=== PATIENT | male | born 1955 | race Caucasian/White ===

== ENCOUNTER 2021-05-07 10:54 | Day surgery (SDC) | payer BC, SELFPAY ==
[2021-05-07 11:21] VITALS: BP 146/100; PULSE 111; RESP 18; TEMP 36.1; O2SAT 95
--- NOTE | 2021-05-07 11:25 | ED.GENADULT ---
HPI - General Adult General Chief complaint: Unspecified Stated complaint: Swelling in throat Time Seen by Provider: 05/07/21 11:24 Source: patient Mode of arrival: ambulatory Limitations: no limitations History of Present Illness HPI narrative: Patient is a 66-year-old male with a history of hypertension, acid reflux, esophageal stricture, who presents for evaluation of inability to tolerate p.o. intake. Patient states that symptoms began yesterday, states that he did not take his antiacid, ate spicy food and then had an episode of burping/belching. Since that time, patient has tried to drink water and any liquids and has been unable to because he is unable to swallow. States that soon as he swallows any liquids or solids it comes back up. Patient denies any dysphagia. He denies any chest pain. No shortness of breath. No fever or chills. Patient states he has a history of this in the past. Initially states that he believes that he has seen Dr. Garcia, but then is unsure. States he has a history of esophagus dilator procedure many years ago. He denies foreign body sensation in his throat. No current abdominal pain. Related Data Home Medications Medication Instructions Recorded Confirmed naproxen sodium [Aleve] 220 mg PO DAILY 05/07/21 omeprazole 20 mg PO DAILY 05/07/21 Allergies Allergy/AdvReac Type Severity Reaction Status Date / Time No Known Allergies Allergy Mild Verified 05/07/21 11:31 Review of Systems Review of Systems: CONSTITUTIONAL: Denies fever, chills, or sweats. EYES: Denies visual changes, redness, or discharge. ENT: Denies rhinorrhea, congestion, sore throat, or otalgia. CARDIOVASCULAR: Denies chest pain, palpitations, or edema. RESPIRATORY: Denies cough or dyspnea. GASTROINTESTINAL: Denies abdominal pain, nausea, reports he is spitting up his food GENITOURINARY: Denies dysuria or hematuria. SKIN: Denies rash or itching. MUSCULOSKELETAL: Denies back pain, joint pain, or myalgia. NEUROLOGIC: Denies headache, numbness, or weakness. FORMERLY [facility], [facility] Past Medical History Medical History (Updated 05/07/21 @ 12:13 by Juliocesar Hernandez DO) Acid reflux Mitral valve prolapse Seizure Social History Social History (Updated 05/07/21 @ 12:12 by Juliocesar Hernandez DO) Smoking status: Former smoker Alcohol intake: current Alcohol use details: 6 beers/daily Substance use: never Gender identity (if verbalized by the patient): Male Exam Narrative: GENERAL: Awake, alert, conversant HEAD: Normocephalic, atraumatic. EYES: PERRLA and EOMI. ENT: Nares clear, no rhinorrhea or epistaxis. Mucous membranes moist. Uvula is midline. No trismus. NECK: Supple. No lymphadenopathy. No submandibular lymphadenopathy or cervical lymphadenopathy. No thyroid nodules. CHEST: No respiratory distress, breathing even and non labored HEART: Tachycardic rate, sinus rhythm ABDOMEN:Non distended, non tender, no guarding, non rigid EXTREMITIES: Normal range of motion. No edema. SKIN: Warm, dry, no rash. NEURO:No focal deficits. Alert and oriented x3 Course Vital Signs Vital signs: Vital Signs Temperature 36.1 C L 05/07/21 11:21 Pulse Rate 111 H 05/07/21 11:21 Respiratory Rate 18 05/07/21 11:21 Blood Pressure 146/100 H 05/07/21 11:21 Pulse Oximetry 95 05/07/21 11:21 Temperature 36.1 C L 05/07/21 11:21 Pulse Rate 111 H 05/07/21 11:21 Respiratory Rate 18 05/07/21 11:21 Blood Pressure 146/100 H 05/07/21 11:21 Pulse Oximetry 95 05/07/21 11:21 Medical Decision Making MDM Narrative Medical decision making narrative: Differential includes dysphagia, food bolus, esophageal stricture. Patient seems to be tolerating his secretions without difficulty, no acute distress. No airway compromise. No chest pain, abdominal pain. Patient does not have anginal type symptoms. Patient is mildly tachycardic and hypertensive at time of assessment, but was just roomed from triage and I met
--- NOTE | 2021-05-07 11:45 | PC.NURSE ---
ns held after speaking with avelino in gi lab.
--- NOTE | 2021-05-07 12:11 | WPDANESEPPF ---
Anes - Initial Pre Proc Eval Procedure: Operation Date: 05/07/21 12:00 Proposed Procedures p Esophagogastroduodenoscopy - Mark Garcia MD Date/Time: 05/07/21 12:11 Surgeon: Mark Garcia MD Pre Op Diagnosis: Swelling in throat, food impaction Patient Data Age: 66 Gender: M Height: 1.85 m Weight: 127 kg Last Vital Signs Temp 36.1 C L 05/07/21 11:21 Pulse 111 H 05/07/21 11:21 Resp 18 05/07/21 11:21 BP 146/100 H 05/07/21 11:21 Pulse Ox 95 05/07/21 11:21 Allergies Allergy/AdvReac Type Severity Reaction Status Date / Time No Known Allergies Allergy Mild Verified 05/07/21 11:31 Home Medications Medication Instructions Recorded Confirmed Type naproxen sodium [Aleve] 220 mg PO DAILY 05/07/21 History omeprazole 20 mg PO DAILY 05/07/21 History Patient hx anesthesia problems: none Family hx anesthesia problems: none FORMERLY [facility], [facility] Past Medical History Medical History (Updated 05/07/21 @ 12:13 by Juliocesar Hernandez DO) Acid reflux Mitral valve prolapse Seizure Social History Social History (Updated 05/07/21 @ 12:12 by Juliocesar Hernandez DO) Smoking status: Former smoker Alcohol intake: current Alcohol use details: 6 beers/daily Substance use: never Gender identity (if verbalized by the patient): Male Anes - Eval Final PreProcedure Day of Procedure 05/07/21 12:11 Patient weight: obese Heart: regular rate and rhythm Lungs: clear to auscultation and normal air movement Airway: Mallampati scale class II Neurological: alert and oriented Last oral intake: >/= 8 hours ASA classification: III Emergent: yes Anesthetic plan: proceed Anesthesia type and monitoring: general GIVS and standard monitoring Informed Consent: The patient's anesthetic plan and its attendant risks and benefits were discussed with the patient/family/POA. Questions were solicited and answers provided to the satisfaction of the patient/family/POA.
[2021-05-07] MEDS: LACTATED RINGERS 1,000 ML 150 ML IV CONT (12:20)
--- NOTE | 2021-05-07 13:07 | WPDGICN ---
Assessment and Plan Assessment and plan (1) Dysphagia: Code(s): R13.10 - Dysphagia, unspecified Status: Acute (2) Food impaction of esophagus: Code(s): T18.128A - Food in esophagus causing other injury, initial encounter Status: Acute Assessment and Plan: Patient has food impaction distal esophagus clinically. Plan is for urgent EGD today. Further recommendations will be given after endoscopy. GI Consult Note Consult date/time: 05/07/21 13:07 HPI: Andres Paula is a 66 year old male Presents to the ER complaining of difficulty swallowing. Patient reports he is eating solid food on Wednesday night 2 days ago. Subsequently has been unable to eat or swallow. He had significant emesis on Wednesday but has been unable to keep food or water down. It patient presented to the ER today. Was felt to have a food impaction. Patient does have a distant past history of esophageal stricture. He has been on no recent medication for this and. he may have taken omeprazole on occasion. Family history noncontributory patient denies any bleeding or weight loss. Review of Systems Review of Systems: All systems reviewed & are unremarkable except as noted in HPI and below PMFSH Past Medical History Medical History (Updated 05/07/21 @ 13:09 by Mark Garcia MD) Acid reflux Mitral valve prolapse Seizure Social History Social History (Updated 05/07/21 @ 12:12 by Juliocesar Hernandez DO) Smoking status: Former smoker Alcohol intake: current Alcohol use details: 6 beers/daily Substance use: never Gender identity (if verbalized by the patient): Male Meds Home Medications and Allergies Home Medications Medication Instructions Recorded Confirmed Type naproxen sodium [Aleve] 220 mg PO DAILY 05/07/21 History omeprazole 20 mg PO DAILY 05/07/21 History Allergies Allergy/AdvReac Type Severity Reaction Status Date / Time No Known Allergies Allergy Mild Verified 05/07/21 11:31 Vital Signs Vital Signs - 24 hr 05/07/21 11:21 Temperature 97 F L Pulse Rate 111 H Respiratory Rate 18 Blood Pressure 146/100 H Pulse Oximetry 95 Results Labs Labs: Physical exam reveals patient be alert. HEENT exam unremarkable. Lungs are clear. Heart without murmur. Abdomen bowel sounds present soft nontender with no hepatosplenomegaly. Digital rectal exam deferred.
[2021-05-07 13:10] VITALS: BP 109/73; PULSE 86; RESP 22; O2SAT 95
[2021-05-07 13:20] VITALS: BP 132/87; PULSE 86; RESP 20; O2SAT 96
[2021-05-07 13:30] VITALS: BP 121/82; PULSE 72; RESP 20; O2SAT 96
== END 2021-05-07 13:56 | disposition home or self-care (01) ==
LOC: ANHED 11:47 → ANHENDO 11:51
PROVIDERS: Emergency Provider Emergency Medicine; PCP Internal Medicine; Visit Provider Internal Medicine Gastroenterology
PROC: 0DJ08ZZ Inspection of Upper Intestinal Tract, Via Natural or Artificial Opening Endoscopic (ICD-10-PCS; CPT 43235; principal; 2021-05-07 12:00)
DX: R13.10 Dysphagia, unspecified (principal); T18.128A Food in esophagus causing other injury, initial encounter; K22.10 Ulcer of esophagus without bleeding; K22.2 Esophageal obstruction; K21.9 Gastro-esophageal reflux disease without esophagitis; I34.1 Nonrheumatic mitral (valve) prolapse; I10 Essential (primary) hypertension; Z87.891 Personal history of nicotine dependence
CPT/HCPCS: 43247; 99285; J2704; J7120

== ENCOUNTER 2022-08-05 11:50 | Outpatient (CLI) | payer MEDICARE, BC, SELFPAY ==
--- NOTE | 2022-08-05 12:26 | ECG_ITS ---
Measurements Intervals [place] Rate: 82 P: 29 AZ: 151 QRS: 52 QRSD: 90 T: 41 QT: 386 QTc: 453 Interpretive Statements SINUS RHYTHM BASELINE ARTIFACT PRESENT NO PREVIOUS ECG AVAILABLE FOR COMPARISON Electronically Signed On 08-05-2022 15:12:39 RECYCLING MANAGER by Liss Kaba M.D.
[2022-08-05 13:18] LABS: Basophils Absolute Auto 0.1 K/mm3 (0.0-0.1); Basophils Percent Auto 0.7 % (0.2-1.2); Eosinophils Absolute Auto 0.2 K/mm3 (0-0.3); Eosinophils Percent Auto 1.8 % (0-4.4); Hematocrit 42.3 % (42.0-52.0); Immature Granulocyte Absolute 0.03 K/mm3 (0.00-0.031); Immature Granulocyte Percent A 0.4 % (0-0.5); Lymphocytes Absolute Auto 1.65 K/mm3 (0.9-3.2); Lymphocytes Percent Auto 19.3 % (18.3-44.2); Mean Corpuscular HGB Conc 33.1 g/dl (32-36); Mean Corpuscular Hemoglobin 34.7 pg (26-34); Mean Corpuscular Volume 104.7 fl (80-100); Mean Platelet Volume 9.5 fl (7.4-10.4); Monocytes Absolute Auto 0.9 K/mm3 (0.1-0.6); Monocytes Percent Auto 10.2 % (2.6-8.5); Neutrophils Absolute Auto 5.8 K/mm3 (1.3-6.7); Neutrophils Percent Auto 67.6 % (45.5-73.1); Platelet Count Result 157 k/mm3 (150-375); Red Blood Count 4.04 M/mm3 (4.6-6.20); Red Cell Distribution Width 14.5 % (11.5-14.5); White Blood Count 8.6 K/mm3 (4.5-10.0)
[2022-08-05 13:22] LABS: Albumin Level 3.4 g/dL (3.5-5.1); Estimated Glomerular Filt Rate > 60; Glucose 112 mg/dL (65-110)
[2022-08-05 13:23] LABS: Hemoglobin A1C 5.5 % (<5.7); Urine Cotinine NEGATIVE
== END 2022-08-05 11:51 | disposition home or self-care (01) ==
PROVIDERS: PCP Physician Assistant; Visit Provider Orthopaedic Surgery
DX: Z01.818 Encounter for other preprocedural examination (principal); M17.11 Unilateral primary osteoarthritis, right knee
CPT/HCPCS: 80307; 82040; 82565; 82947; 83036; 85025; 87081; 93005

== ENCOUNTER 2022-08-17 07:43 | Outpatient (CLI) | payer MEDICARE, BC, SELFPAY ==
[2022-08-17 08:23] LABS: Albumin Level 3.4 g/dL (3.5-5.1)
== END 2022-08-17 07:44 | disposition home or self-care (01) ==
PROVIDERS: PCP Physician Assistant; Visit Provider Orthopaedic Surgery
DX: R77.0 Abnormality of albumin (principal)
CPT/HCPCS: 36415; 82040

== ENCOUNTER 2022-08-19 00:35 | Day surgery (SDC) | payer MEDICARE, BC, SELFPAY ==
--- NOTE | 2022-08-05 11:04 | PC.NURSE ---
PRE-OP INSTRUCTIONS, PLEASE READ CAREFULLY Report to the Outpatient Waiting Room, entrance under the green pavilion located off [facility], at time _0600_ on date _08/19/22_. Planned Procedure Time: _0730_. PACK A SMALL OVERNIGHT BAG AND LEAVE IN THE CAR ALONG WITH YOUR WALKER Time changes happen often and if your time is changed the preop area will call you the afternoon before. - You and your visitor will be asked to self-screen and do not enter if you have any COVID symptoms. - Only one visitor is requested with a max of two and NO children visitors are allowed at this time. - The patient visitor may be requested to leave or wait in car when not with patient due to distancing restrictions. - A mask is optional within the hospital. -VISITING HOURS 8AM-8PM Patients may have clear liquids (water, carbonated beverages, clear teas, apple juice) until 3 hours prior to surgery (0430 AM) with a maximum of 20 ounces. - No food from midnight until time of surgery Take the following medications with a SIP of water the morning of surgery: _NONE_ Medications to discontinue - _NAPROXEN PER DR. PATEL'S INSTRUCTIONS_ Date to take last dose Please no deodorant, or body powder the day of surgery. No jewelry (including any body piercings) or valuables the day of surgery, leave them at home. Please take a shower or bath the night before, or the morning of, surgery with an antibacterial soap. Wear comfortable, loose fitting clothing. - Jewelry must be removed prior to entering the operating room. Rings and piercings that are not removed may be cut off. - The hospital will not accept responsibility for valuables. - Please leave all valuables, including medications, at home the day of surgery. If you are going home after surgery, a licensed pile driver engineer must drive you home. - NO public transportation without another adult if you receive anesthesia. - We recommend that an adult stay with you for 24 hours following discharge. - We also recommend that you do not drive, make important decision, drink alcoholic beverages, or take any drugs that were not prescribed by your health care provider for at least 24 hours after your discharge time. Follow any additional instructions given to you from your surgeon. If you or anyone in your household have experienced Covid symptoms in the past week, please notify your surgeon or the nurse liaison at the phone number below for possible testing. Instructions given to _PATIENT_and asked if any additional questions and then verbalized understanding. Patient advised to call surgeon office or pre surgery nurse liaison [phone] if any additional questions.
[2022-08-05 12:09] VITALS: BP 154/80; PULSE 86; RESP 20; TEMP 37.1; O2SAT 97; BMI 37.4
--- NOTE | 2022-08-14 14:52 | PM.IMHP ---
H&P: HPI History of Present Illness Date/Time: 08/14/22 14:52 Chief Complaint: the patient is a 67-year-old male who sees Dr. Luna regarding his right knee. The patient has a chronic ongoing history of pain localized to the right knee this is due to primary osteoarthritis. The patient has aching pain worse with activity somewhat relieved by rest. He has startup pain rest pain and night pain cannot stand or walk for long periods. He notes mechanical symptoms grinding crepitation pain occasional swelling in the knee. This is despite a long course of conservative measures including cortisone therapy and anti-inflammatories. X-rays show advanced tricompartmental osteoarthritis. This has been ongoing for many years. At this point the patient has discussed further treatment options in detail with Dr. Luna he has failed conservative measures he would like to proceed with a total knee arthroplasty right knee. 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, CHEWING TOBACCO QUIT 2018 Alcohol intake: current Drinks per week: 42 Alcohol use details: 6PK/DAY Substance use: never Substance use type: does not use Gender identity (if verbalized by the patient): Male Spiritual care concerns: No Meds Home Medications and Allergies Home Medications Medication Instructions Recorded Confirmed Type naproxen sodium 220 mg tablet 220 mg PO DAILY 05/07/21 08/05/22 History (Aleve) omeprazole 40 mg capsule,delayed 40 mg QAM 08/05/22 08/05/22 History release Allergies Allergy/AdvReac Type Severity Reaction Status Date / Time No Known Allergies Allergy Mild Verified 08/05/22 12:07 Exam Narrative: on exam the patient is noted be a well-developed well-nourished male no acute distress alert oriented x3. Normal mood and affect. The patient is 6 ft 1 in tall 285 lb with a BMI 37.6. Hearing and vision are intact. Respiratory is good no distress. Pulse regular rate rhythm. Abdomen benign. Extremities showed the patient's right knee to be painful with manipulation and range of motion. He has tenderness on the joint lines grinding crepitation pain and pain with extremes of motion. Motion is 5-120 degrees. Knee joint is otherwise stable strength is 5 5 he has mild varus deformity x-rays show [id number] changes. Neurovascular is intact skin is intact. Central nervous system within normal limits. Assessment and Plan Assessment and plan (1) Primary osteoarthritis of right knee: Code(s): M17.11 - Unilateral primary osteoarthritis, right knee Status: Acute Plan by x-ray and exam the patient is noted to have advanced tricompartmental osteoarthritis of the right knee. The patient has discussed risks benefits limitations and alternatives to surgery in great detail Dr. Luna he is now ready to proceed with right total knee arthroplasty. The patient is scheduled to undergo surgery 08/19/2022 at [facility] with Dr. Luna. The patient voiced understanding and agrees with the above plan.
[2022-08-19] VITALS (24 sets, daily range): BP systolic 125–157; BP diastolic 67–112; PULSE 86–101; RESP 14–20; TEMP 36.8–37.6; O2SAT 94–100
--- NOTE | ~2022-08-19 | XR_ITS ---
Right Knee Technique: AP and lateral views Clinical History: Status post TKR Findings: Patient is status post total knee replacement. Orthopedic hardware alignment appears anatom ic. No hardware complication is evident. Subcutaneous emphysema and swelling is likely postoperative in nature. No acute osseous fracture is seen. Impression: Status post total knee replacement, without evidence of hardware complication. Reviewed, dictated and finalized at location . [facility] [employer] Impression: Status post total knee replacement, without evidence of hardware complication.
[2022-08-19] MEDS: LACTATED RINGERS 1,000 ML 30 ML IV CONT ×2 (06:45→10:25)
[2022-08-19] MEDS: TRANEXAMIC ACID 1,000MG/ISO100 1,000 MG/100 ML BAG 200 MG IVPB (06:45)
[2022-08-19 06:51] LABS: Albumin Level 3.4 g/dL (3.5-5.1)
--- NOTE | 2022-08-19 06:52 | WPDANESEPPF ---
Anes - Initial Pre Proc Eval Procedure: Operation Date: 08/19/22 07:30 Proposed Procedures p Right Total Knee Arthroplasty - Az Luna MD Date/Time: 08/19/22 06:52 Surgeon: Az Luna MD Pre Op Diagnosis: O A. Right Knee Patient Data Age: 67 Gender: M Height: 1.83 m Weight: 125.1 kg Last Vital Signs Temp 37.1 C 08/05/22 12:09 Pulse 86 08/05/22 12:09 Resp 20 08/05/22 12:09 BP 154/80 H 08/05/22 12:09 Pulse Ox 97 08/05/22 12:09 O2 Del Method Room Air 08/05/22 12:09 Allergies Allergy/AdvReac Type Severity Reaction Status Date / Time No Known Allergies Allergy Mild Verified 08/05/22 12:07 Home Medications Medication Instructions Recorded Confirmed Type naproxen sodium 220 mg tablet 220 mg PO DAILY 05/07/21 08/05/22 History (Aleve) omeprazole 40 mg capsule,delayed 40 mg QAM 08/05/22 08/05/22 History release Laboratory Tests 08/19/22 06:38 Albumin 3.4 g/dL L g/dL (3.5-5.1) Patient hx anesthesia problems: none Family hx anesthesia problems: none Results Review: All pre-operative results and documents have been reviewed as part of the pre-operative evaluation. 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, CHEWING TOBACCO QUIT 2019 Alcohol intake: current Drinks per week: 42 Alcohol use details: 6PK/DAY Substance use: never Substance use type: does not use Living arrangements: alone Gender identity (if verbalized by the patient): Male Spiritual care concerns: No Anes - Eval Final PreProcedure Day of Procedure 08/19/22 06:52 Patient weight: obese Heart: regular rate and rhythm Lungs: clear to auscultation Airway: Mallampati scale class II Neurological: alert and oriented Last oral intake: >/= 8 hours ASA classification: III Emergent: no Anesthetic plan: proceed Anesthesia type and monitoring: general ETT and standard monitoring Results Review: All pre-operative results and documents have been reviewed as part of the pre-operative evaluation. Informed Consent: The patient's anesthetic plan and its attendant risks and benefits were discussed with the patient/family/POA. Questions were solicited and answers provided to the satisfaction of the patient/family/POA.
--- NOTE | 2022-08-19 06:54 | WPDHPUPDATE1 ---
History and Physical Update Update Date/Time: 08/19/22 06:54 History and Physical has been reviewed, including an updated exam of the patient. There are NO changes in the patient's condition. Risks, benefits, and alternatives have been discussed and questions answered. Patient agrees to proceed with procedure.
[2022-08-19] MEDS: ACETAMINOPHEN 500 MG TABLET 1000 MG PO (07:00)
--- NOTE | 2022-08-19 07:09 | WPDANESPNB ---
Anes - Peripheral Nerve Block Date/Time: 08/19/22 07:09 I have discussed with the patient/family/POA the placement of a peripheral nerve block for post-operative pain management, including associated risks, benefits, complications, and side effects. Alternative methods of post-operative analgesia were detailed. Questions were solicited and answers provided to the satisfaction of the patient/family/POA. Time-Out: A pre-procedural Time-Out was completed immediately before starting the procedure and confirmed: Patient Identification, Site, Procedure, Patient Position and the Availability of Requisite Equipment. Clinical Indications: Acute post-operative pain management requested by the operative surgeon. Nerve Block Insertion Note Anes-nerve block: femoral right Patient position: supine Skin prep: chlorhexidine Needle: 22 gauge, stimulating, insulated echogenic needle. Needle length: 80 mm Technique: nerve stimulation lost at (mA) (0.5) Injectate: bupivacaine 0.5% with epi 5 mcg/ml (30 no epi) and dexamethasone (mg) (4) Observations: tolerated well Complications: none Procedure start time:: 709 Procedure end time:: 713
[2022-08-19] MEDS: ceFAZolin 3 GM/D5W 100 ML 100 ML IVPB (07:27)
[2022-08-19] MEDS: GENTAMICIN BONE CEMENT REFOBACIN 1 EACH TOPICAL (08:01)
--- NOTE | 2022-08-19 09:01 | W.PM.PROC2 ---
Procedure Note - Detailed Date of Procedure 08/19/22 Pre-op Diagnosis O A. Right Knee Post-op Diagnosis Same Procedure Performed [Right] total knee arthroplasty Surgeon Az Luna MD Casing Finisher And Stuffer Toni Turner Anesthesia General Description of Procedure The patient was brought to the operating room. General anesthetic was administered. Placed on the operating table and sterilely prepped and draped in usual manner. A longitudinal incision was made. Tourniquet inflated to 300 mmHg for a total of [time] minutes. Dissection carried down to the fascia. Medial parapatellar incision was made and the patella subluxated laterally. Patella cut from [25] to [16] mm and sized for a [37] mm button. The tibia cut perpendicular to the long axis and femur cut in 5 degrees of valgus, a [67.5] femur trialed. [75] tibia was felt to fit the best. The soft tissue balanced, hemostasis obtained. All [address], [75] tibia, [67.5] femur, [37] mm patella, and [] mm poly. Motion was 0-125 degrees with good stablility and flexion and extension. The wound was closed with #2 vicryl, 2-0 Vicryl and zenia. Estimated Blood Loss 200 Drains No Packing No Pathology None sent Complications No immediate complications Condition Stable Disposition PACU
[2022-08-19] MEDS: fentaNYL CITRATE INJ (*CRX) 100 MCG/2 ML VIAL 25 MCG IV PUSH ×8 (09:52→10:38)
[2022-08-19] MEDS: ONDANSETRON INJ 4 MG/2 ML VIAL IV PUSH (10:17)
--- NOTE | 2022-08-19 11:38 | PM.OP ---
Procedure Note - Brief Procedure Note - Brief Date of procedure: 08/19/22 Pre-op diagnosis: O A. Right Knee Preop diagnosis-severe primary osteoarthritis right knee postop diagnosis -same, status post right total knee arthroplasty. Procedure performed: Right total knee arthroplasty Description of procedure: patient was taken to the operating room on August 19, 2022 I entered the room at 7:40 a.m.. I proceeded to assist with positioning the patient on the operating table placement of the tourniquet and a sterile prep and drape. Dr. Luna then entered the room and commenced with the procedure, during and throughout the procedure I assisted with wound retraction hemostasis with cautery and suction positioning of the leg, and placement of the implants followed by excess cement removal. Once Dr. Luna completed his portion of the procedure I then irrigated the wound deep and superficial layers, I then closed the knee joint capsule with 2. Vicryl and 2. Quill type suture. This was immediately after I again checked for loose cement fragments, bleeding and irrigated 1 final time. Also I had placed Surgicel powder throughout the wound to help with hemostasis. Once the capsule was closed I then proceeded to close the superficial skin layer with 2-0 Vicryl 0 type Quill and skin zenia. I placed a sterile dressing and then assisted with transfer of the patient from the operating table to the stretcher to be transported to the recovery room. The patient was in good condition total blood loss was approximately 200 cc. Patient was expected to spend the night we discharged tomorrow if in stable condition. I exited the room at 9:45 a.m. Surgeon: surgeon -Az Luna MD engineer third assistant-Toni Turner PA-C
--- NOTE | 2022-08-19 12:35 | ADMGEN ---
This patient, Andres Paula, was admitted to [facility] Surgery-1. Patient/family oriented to hospital policies and general routines including ID bracelet, bed and alarms, visiting hours, pain management, procedures, bathroom and other care routines, personal items, smoking policy, room service/diet, and visiting hours. Information on how to activate the Rapid Response Team has been discussed. Patient/Family are encouraged to report perceived risks to care and to ask questions if they do not understand what they are told or what they should do. Admission done at bedside in PACU.
[2022-08-19] MEDS: HYDROcodone/acetaminophen (*CRX) 7.5-325 MG TABLET 1 TAB PO ×3 (14:22→20:51)
[2022-08-19] MEDS: ceFAZolin 2 GM/D5W 50 ML 2 GM/50 ML BAG IVPB (17:25)
[2022-08-19] MEDS: CELECOXIB 200 MG CAPSULE PO (17:42)
[2022-08-19] MEDS: RIVAROXABAN 10 MG TABLET PO (17:42)
[2022-08-19] MEDS: SENNA/DOCUSATE SODIUM TABLET 2 TAB PO (17:43)
--- NOTE | 2022-08-19 20:33 | ADMGEN ---
This patient, Andres Paula, was admitted to Virtual Bed Surgery- room 11. Patient/family oriented to hospital policies and general routines including ID bracelet, bed and alarms, visiting hours, pain management, procedures, bathroom and other care routines, personal items, smoking policy, room service/diet, and visiting hours. Information on how to activate the Rapid Response Team has been discussed. Patient/Family are encouraged to report perceived risks to care and to ask questions if they do not understand what they are told or what they should do.
--- NOTE | 2022-08-19 21:23 | PM.IMCN ---
Assessment and Plan Assessment and plan (1) Total knee replacement status: Code(s): Z96.659 - Presence of unspecified artificial knee joint Status: Acute Assessment and Plan: The patient is postop day 1 status post right total knee replacement. The procedure was uneventful. Estimated blood loss was not 200 cc. Continue pain management. Management per Orthopedic surgery. (2) Primary osteoarthritis of right knee: Code(s): M17.11 - Unilateral primary osteoarthritis, right knee Status: Acute Assessment and Plan: As above. (3) Hypertension: Code(s): I10 - Essential (primary) hypertension Status: Acute Assessment and Plan: Continue home medication. (4) Acid reflux: Code(s): K21.9 - Gastro-esophageal reflux disease without esophagitis Status: Acute Assessment and Plan: Currently asymptomatic. (5) Food impaction of esophagus: Code(s): T18.128A - Food in esophagus causing other injury, initial encounter Status: Acute Assessment and Plan: History of is a Patri suture. Currently asymptomatic. Plan GI prophylaxis with omeprazole. DVT prophylaxis with Xarelto. Patient is a full code. HPI Data of Consult Consult date: 08/20/22 Requesting Physician: Az Luna MD Primary Care Provider: Jaylan Gaitan PA-C Consult Narrative Reason for consult: Management of medical conditions. Narrative: Andres Paula is a 67 year old male with a past medical history including but not limited to history of hypertension, acid reflux, esophageal stricture was admitted for elective right total knee replacement. This surgical procedure was uneventful. Estimated blood loss was 200 cc. Hospitalist service is consulted for management of his medical conditions. His vital signs are temperature of 99.2? F, pulse rate 98, respirations 16, blood pressure 127/77, and a saturation of 94% on room air. 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 QUIT 2019 Alcohol intake: current Drinks per week: 42 Alcohol use details: 6PK/DAY Substance use: never Substance use type: does not use Lack of Transportation: No Lack of Food: Never True Current Housing: I Have Housing Concerned About Future Housing: No Difficulty Paying Gas/Electric Bills: No Difficulty Paying for Meds: No Currently Unemployed: No Education: Don't Know Difficulty w/ Childcare or Family Care: No Living arrangements: alone Gender identity (if verbalized by the patient): Male Spiritual care concerns: No Meds Home Medications and Allergies Home Medications Medication Instructions Recorded Confirmed Type naproxen sodium 220 mg tablet 220 mg PO DAILY 05/07/21 08/05/22 History (Aleve) omeprazole 40 mg capsule,delayed 40 mg QAM 08/05/22 08/05/22 History release hydrocodone 7.5 mg-acetaminophen 1 tablet PO Q4H PRN pain #40 tabs 08/19/22 Rx 325 mg tablet rivaroxaban 10 mg tablet (Xarelto) 10 mg PO DAILY #10 tabs 08/19/22 Rx Allergies Allergy/AdvReac Type Severity Reaction Status Date / Time No Known Allergies Allergy Mild Verified 08/19/22 07:12 Vital Signs Vital Signs - 24 hr 08/19/22 07:05 08/19/22 09:36 08/19/22 09:45 Temperature 99.6 F 98.2 F Pulse Rate 99 97 92 Respiratory Rate 16 20 19 Blood Pressure 140/77 157/85 H 129/86 Pulse Oximetry 94 98 98 Oxygen Delivery Room Air Simple Face Mask Simple Face Mask O
[2022-08-20] MEDS: ceFAZolin 2 GM/D5W 50 ML 2 GM/50 ML BAG IVPB ×2 (00:10→07:52)
[2022-08-20] MEDS: HYDROcodone/acetaminophen (*CRX) 7.5-325 MG TABLET 1 TAB PO ×3 (00:11→08:06)
[2022-08-20 06:00] VITALS: BP 124/82; PULSE 90; RESP 16; O2SAT 97
[2022-08-20 06:46] LABS: Basophils Percent Auto 0.1 % (0.2-1.2); Hematocrit 36.8 % (42.0-52.0); Hemoglobin 12.3 g/dL (14.0-18.0); Immature Granulocyte Absolute 0.05 K/mm3 (0.00-0.031); Immature Granulocyte Percent A 0.4 % (0-0.5); Lymphocytes Absolute Auto 0.98 K/mm3 (0.9-3.2); Mean Corpuscular HGB Conc 33.4 g/dl (32-36); Mean Corpuscular Hemoglobin 34.6 pg (26-34); Mean Corpuscular Volume 103.4 fl (80-100); Mean Platelet Volume 9.7 fl (7.4-10.4); Monocytes Absolute Auto 1.6 K/mm3 (0.1-0.6); Monocytes Percent Auto 11.7 % (2.6-8.5); Neutrophils Absolute Auto 11.3 K/mm3 (1.3-6.7); Neutrophils Percent Auto 80.8 % (45.5-73.1); Platelet Count Result 172 k/mm3 (150-375); Red Blood Count 3.56 M/mm3 (4.6-6.20); Red Cell Distribution Width 14.4 % (11.5-14.5)
[2022-08-20 07:02] LABS: Anion Gap 3 mmol/L (8-16); Blood Urea Nitrogen 10 mg/dL (9-20); Calcium 7.3 mg/dL (8.4-10.2); Carbon Dioxide 28 mmol/L (22-30); Chloride 99 mmol/L (98-107); Estimated CRCL calculation 170 ml/min; Estimated Glomerular Filt Rate > 60; Glucose 148 mg/dL (65-110); Potassium 4.2 mmol/L (3.4-5.0); Sodium 130 mmol/L (137-145)
[2022-08-20 07:28] VITALS: BP 140/86; PULSE 83; RESP 18; O2SAT 96
[2022-08-20] MEDS: CELECOXIB 200 MG CAPSULE PO (07:53)
[2022-08-20] MEDS: polyethylene glycoL 3350 17 GM POWD.PACK PO (08:05)
[2022-08-20] MEDS: SENNA/DOCUSATE SODIUM TABLET 2 TAB PO (08:06)
--- NOTE | 2022-08-20 09:56 | P.PNAN_ITS ---
Anes - Prog Note Post-Op Date/Time: 08/20/22 09:56 Vital Signs: Last Vital Signs Temp 37.0 C 08/19/22 22:00 Pulse 83 08/20/22 07:28 Resp 18 08/20/22 07:28 BP 140/86 08/20/22 07:28 Pulse Ox 96 08/20/22 07:28 O2 Del Method Room Air 08/20/22 07:59 O2 Flow Rate 2 08/19/22 11:30 Pain Score (VAS): 0 I/O: Intake & Output 08/19/22 08/20/22 08/20/22 23:59 07:59 15:59 Intake Total 1010 1150 360 Balance 1010 1150 360 Laboratory Tests 08/20/22 06:31 08/20/22 06:31 08/20/22 08/20/22 06:31 06:31 WBC 14.0 H RBC 3.56 L Hgb 12.3 L Hct 36.8 L MCV 103.4 H MCH 34.6 H MCHC 33.4 RDW 14.4 Plt Count 172 MPV 9.7 Immature Gran % (Auto) 0.4 Neut % (Auto) 80.8 H Lymph % (Auto) 7.0 L [place] % (Auto) 11.7 H Eos % (Auto) 0.0 Baso % (Auto) 0.1 L Lymph # (Auto) 0.98 [place] # (Auto) 1.6 H Eos # (Auto) 0.0 Baso # (Auto) 0.0 Abs Immat Gran (auto) 0.05 H Absolute Neuts (auto) 11.3 H Absolute Nucleated RBC 0.0 Nucleated RBC % 0.0 Sodium 130 L Potassium 4.2 Chloride 99 Carbon Dioxide 28 Anion Gap 3 L BUN 10 Creatinine 0.50 L Estim Creat Clear Calc 170 Estimated GFR > 60 Glucose 148 H Calcium 7.3 L Patient Feedback: Patient satisfied with anesthetic care.
--- NOTE | 2022-08-20 10:59 | PM.IMPN ---
Progress Note: A&P Assessment and Plan (1) Total knee replacement status: Code(s): Z96.659 - Presence of unspecified artificial knee joint Status: Acute Assessment and Plan: Underwent right total knee replacement on 08/19/2022. Tolerated procedure well. Manage per Orthopedic surgery. Started on Xarelto for DVT prophylaxis postoperatively. Discussed with the patient anticoagulation precautions. Recommend daily MiraLax postoperatively, especially if taking narcotic pain medication. (2) Primary osteoarthritis of right knee: Code(s): M17.11 - Unilateral primary osteoarthritis, right knee Status: Acute Assessment and Plan: S/p replacement (3) Leukocytosis: Code(s): D72.829 - Elevated white blood cell count, unspecified Status: Acute Assessment and Plan: WBC mildly elevated to 14.0. Suspect reactive secondary to surgery. No signs/symptoms to indicate infectious etiology. (4) Hypertension: Code(s): I10 - Essential (primary) hypertension Status: Acute Assessment and Plan: Blood pressure is well controlled. Patient is not on any oral antihypertensives. (5) Acid reflux: Code(s): K21.9 - Gastro-esophageal reflux disease without esophagitis Status: Acute Assessment and Plan: No acute issues. Continue omeprazole Subjective Date/time seen: 08/20/22 10:59 Interval history: Date of service: 08/20/2022 Andres Paula is a 67-year-old male with history of mitral valve prolapse, hypertension, GERD, esophageal stricture who is s/p right total knee arthroplasty who is being seen in follow up for medical management. He is doing well today. His pain is well controlled. Currently rates it 6/10 after working with physical therapy to practice climbing stairs. He plans to return home and his son will be able to provide assistance to him as needed. He has plans for outpatient physical therapy already scheduled for 08/26/2022. He denies any issues postoperatively. No shortness of breath. No nausea or vomiting. He is tolerating his diet. Reports last bowel movement was 2 days ago. Denies dysuria, hematuria, urgency, hesitancy. Voiding without difficulty postoperatively. Review of Systems Review of Systems: All systems reviewed & are unremarkable except as noted in HPI and below Exam Narrative: General: well-nourished, well-appearing 67-year-old male, sitting up in bed, comfortable, NARD Neuro: awake, alert and oriented x4, speech clear HEENMT: normocephalic, atraumatic, EOMI, sclerae anicteric Respiratory: clear to auscultation bilaterally, nonlabored breathing Cardio: regular rate, regular rhythm with S1-S2 Abdomen: nondistended, normoactive bowel sounds, soft, nontender to palpation Extremities: right knee incision intact with scant bloody drainage, BLE no edema, erythema, or tenderness to palpation, DP pulses 2+ bilaterally, able to wiggle toes bilaterally, sensation intact Skin: no rashes or lesions, warm and dry Psych: appropriate mood and affect, judgment and insight intact Objective Data Vital Signs Vital Signs: Vital Signs - 24 hr 08/19/22 11:00 08/19/22 11:10 08/19/22 11:20 Temperature 98.4 F Pulse Rate 86 89 92 Respiratory Rate 14 16 16 Blood Pressure 130/76 137/79 137/78 Pulse Oximetry 95 94 94 Oxygen Delivery Nasal Cannula Nasal Cannula Nasal Cannula Oxygen Flow Rate 2 2 2 08/19/22 11:30 08/19/22 13:27 08/19/22 11:45 Temperature 99.2 F Pulse Rate 91 95 Respiratory Rate 18 16 Blood Pressure 133/78 132/85 Pulse Oximetry 96 95 Oxygen Delivery Nasal Cannula Room Air Oxygen Flow Rate 2 08/19/22 12:15 08/19/22 13:00 08/19/22 13:00 Temperature Pulse Rate 92 91 93 Respiratory Rate 14 16 16 Blood Pressure 138/87 140/82 138/87 Pulse Oximetry 100 100 Oxygen Delivery Oxygen Flow Rate 08/19/22 12:00 08/19/22 12:30 08/19/22 12:45 Temperature Pulse Rate 9
[2022-08-20] MEDS: HYDROcodone/acetaminophen (*CRX) 5-325 MG TABLET 2 TAB PO (11:18)
--- NOTE | 2022-08-20 11:18 | PM.DS ---
DS: Admitting Diagnosis Discharge Date August 20, 2022 Admitting Diagnosis severe primary osteoarthritis right knee discharge diagnosis severe primary osteoarthritis right knee status post right total knee arthroplasty DS: Summary Hospital Course Hospital Course: patient was admitted overnight for postop pain control and observation status post right total knee arthroplasty. Postop day 1 patient was having some postop bloody drainage otherwise unremarkable knee otherwise looks good. Pain well controlled tolerated therapy well no postop complications or complaints are noted. Vital signs are stable afebrile neurovascular the patient is intact wound otherwise looks good. Calves are benign. Patient is alert oriented x3. Ready for discharge to home. Time Spent with Patient Time attestation: Total time spent providing and/or coordinating discharge services: Exam Narrative: Vital signs stable afebrile. Tolerating therapy well up ambulating independently with a walker. The patient is intact calves are benign alert oriented x3. Wound shows some mild bloody drainage otherwise unremarkable. DS: Data Data Completed and Pending Labs on day of discharge: Labs from last 24 hours 08/20/22 08/20/22 06:31 06:31 WBC 14.0 H RBC 3.56 L Hgb 12.3 L Hct 36.8 L MCV 103.4 H MCH 34.6 H MCHC 33.4 RDW 14.4 Plt Count 172 MPV 9.7 Immature Gran % (Auto) 0.4 Neut % (Auto) 80.8 H Lymph % (Auto) 7.0 L [place] % (Auto) 11.7 H Eos % (Auto) 0.0 Baso % (Auto) 0.1 L Lymph # (Auto) 0.98 [place] # (Auto) 1.6 H Eos # (Auto) 0.0 Baso # (Auto) 0.0 Abs Immat Gran (auto) 0.05 H Absolute Neuts (auto) 11.3 H Absolute Nucleated RBC 0.0 Nucleated RBC % 0.0 Sodium 130 L Potassium 4.2 Chloride 99 Carbon Dioxide 28 Anion Gap 3 L BUN 10 Creatinine 0.50 L Estim Creat Clear Calc 170 Estimated GFR > 60 Glucose 148 H Calcium 7.3 L Procedures/Treatments: Patient is status post right total knee arthroplasty. Discharged with [place] 7.5 mg 1 tablet every 6 hours p.r.n. pain and Xarelto 10 mg daily with this course is complete he will start aspirin 325 mg p.o. b.i.d. x1 month for DVT prophylaxis. Discharge Plan Discharge Patient Disposition: Home, Self-Care Discharge Instructions: BETHEL BARCLAY M.D [facility], [place] [id number] [place] [address] POST-OPERATIVE DISCHARGE INSTRUCTIONS TOTAL KNEE ARTHROPLASTY 1. When resting, lie on back with leg elevated above hear to minimize swelling. Significant swelling could indicate a blood clot and if this occurs call the office (or go to the ER) to have a venous ultrasound. 2. Do exercise 5 times a day. 3. Do not sit with leg down except for meals. 4. Wound Care: Nursing will give additional dressings at discharge. Patient to change dressing at home 1 week from surgery, then maintain until seen in office. 5. May shower with dressing in place. 6. Follow weight bearing status instructions. IMPORTANT: Remember not to sit in the chair for more than 30 minutes at a time. As a rule, during the first 14 days after surgery, only sit in the chair to work on the chair knee bending stretch exercise, for meals or for use of the restroom. Sitting in the chair promotes significant swelling in the knee and leg which will make the knee stiff and more painful and which simulates having a blood clot in the veins of the leg. If this type of significant diffuse swelling occurs, an ultrasound at the hospital will be necessary to rule out a blood clot. Be up walking around with the walker for a few minutes every hour while awake and then rest laying on your back on the couch or in bed with your leg elevated on cushions or pillows. Do not rest in the chair. Stand Alone Forms: General Discharge Instructions, Avoid NSAIDs Follow-up/Referrals: Az Luna MD [Physician] - D
== END 2022-08-20 11:30 | disposition home or self-care (01) ==
LOC: ANHSURGERY 09:18 → ANHSUROVER 11:43
PROVIDERS: PCP Physician Assistant; Visit Provider Orthopaedic Surgery
PROC: (CPT 27447; principal; 2022-08-19 07:30)
DX: M17.11 Unilateral primary osteoarthritis, right knee (principal); D72.829 Elevated white blood cell count, unspecified; G89.18 Other acute postprocedural pain; I10 Essential (primary) hypertension; K21.9 Gastro-esophageal reflux disease without esophagitis; Z87.891 Personal history of nicotine dependence; E66.9 Obesity, unspecified; Z68.38 Body mass index [BMI] 38.0-38.9, adult
CPT/HCPCS: 27447; 64447; 36415; 73560; 80048; 80307; 82040; 82565; 82947; 83036; 85025; 86850; 86900; 86901; 87081; 93005; 97110; 97116; 97161; 97165; 97530; 97535; A9270; C1713; C1776; J0171; J0330; J0690; J1100; J1170; J1885; J2250; J2270; J2405; J2704; J2710; J2795; J3010; J3370; J7120

== ENCOUNTER 2022-08-27 15:20 | Outpatient (CLI) | payer MEDICARE, BC, SELFPAY ==
--- NOTE | ~2022-08-27 | US_ITS ---
EXAMINATION: US knee asp inj w image RT DATE: 08/27/2022 16:57 INDICATION: Mechanical complication of implant with concern for infection. TECHNIQUE: The procedure including the risks and benefits was discussed with the patient. Risks discu ssed included bleeding and infection. The patient understood the risks and agreed to proceed. The sk in overlying the lateral side of the knee was prepped and draped in usual sterile fashion. Anestheti c was administered with 1% lidocaine subcutaneously. A 20-gauge spinal needle was advanced under cont inuous ultrasound observation to the hypoechoic region along side the lateral femoral condyle. The i nner stylette was removed and attempt was made to aspirate fluid. No fluid was able to be aspirated. The needle was removed and the entry site was cleaned and dressed. Post procedure ultrasound demons trated no hemorrhage. FINDINGS: Ultrasound images demonstrate scattered subcutaneous edema about the knee. On real-time wicho ging to the suprapatellar pouch. Mildly distended with thickened hypoechoic synovitis but with no elicia dent drainable fluid. The more hypoechoic region was identified at the lateral gutter along side the lateral femoral condyle. Attempted aspiration yielded no fluid. Some of the central echogenic foci in this region with continuous with the needle tip consistent with tissue most likely additional edemat ous synovitis. IMPRESSION: 1. Hypoechoic region at the suprapatellar pouch and lateral gutter of the right knee which yielded no fluid with attempted aspiration in this likely represents edematous reactive synovitis. No effusion identified. Reviewed, dictated and finalized at location [facility] [employer] IMPRESSION: 1. Hypoechoic region at the suprapatellar pouch and lateral gutter of the right knee which yielded no fluid with attempted aspiration in this likely represent s edematous reactive synovitis. No effusion identified.
== END 2022-08-27 15:21 | disposition home or self-care (01) ==
LOC: ANHIMG 15:30
PROVIDERS: PCP Physician Assistant; Visit Provider Orthopaedic Surgery
DX: T85.698A Other mechanical complication of other specified internal prosthetic devices, implants and grafts, initial encounter (principal); T84.039A Mechanical loosening of unspecified internal prosthetic joint, initial encounter
CPT/HCPCS: 20611; 87205

== ENCOUNTER 2022-08-29 09:54 | Inpatient (IN) | payer MEDICARE, BC, SELFPAY ==
--- NOTE | ~2022-08-29 | US_ITS ---
EXAMINATION: US knee asp inj w image RT DATE: 08/31/2022 09:36 INDICATION: Right knee joint effusion. TECHNIQUE: The procedure including the risks, benefits, and alternatives was discussed with the patie nt. Risks discussed included bleeding and infection. The patient understood the risks and agreed to p roceed. The skin overlying the right knee was prepped and draped in usual sterile fashion. Anestheti c was administered with 1% lidocaine subcutaneously. An 18-gauge spinal needle was inserted into the knee joint using ultrasound guidance. Fluid was aspirated. The entry site was cleaned and dressed. T here were no immediate complications. FINDINGS: Ultrasound images demonstrate edema around the knee and a joint effusion. IMPRESSION: 1. Ultrasound-guided needle aspiration of the right knee joint yielding 7 mL opaque dark red fluid. Reviewed, dictated and finalized at location A. FER IMPRESSION: 1. Ultrasound-guided needle aspiration of the right knee joint yielding 7 mL op aque dark red fluid.
--- NOTE | ~2022-08-29 | US_ITS ---
Duplex Sonography of the right extremity: Indication: Swelling Findings: Sagittal and transverse B-mode images as well as color-flow imaging were performed on the r ight femoral and popliteal veins. B-mode examination was done without and with compression in the tr ansverse plane. There is good visualization of the common femoral, proximal profunda femoral, superf icial femoral, greater saphenous, and popliteal veins. Normal flow was seen on color-flow imaging. N ormal compressibility was demonstrated. Visualized right calf veins are also patent. Impression: No evidence of deep vein thrombosis involving the right femoral, greater saphenous, superficial femor al, or popliteal veins. Reviewed, dictated and finalized at location M. F PHYSICAL THERAPIST Impression: No evidence of deep vein thrombosis involving the right femoral, greater saphen ous, superficial femoral, or popliteal veins.
--- NOTE | ~2022-08-29 | US_ITS ---
EXAMINATION: US abdomen limited DATE: 08/31/2022 09:37 INDICATION: Abnormal liver function tests. TECHNIQUE: Multiple grayscale and Doppler ultrasound images of the abdomen were obtained. COMPARISON: None FINDINGS: The pancreas is obscured by bowel gas. The liver is normal without focal lesion. No liver s urface nodularity. The gallbladder is normal in size. No gallstones. Gallbladder wall thickening is n oted. There was no sonographic Escobar sign. The common duct is normal and measures 5 mm. There is a s mall volume of perihepatic ascites. IMPRESSION: 1. Gallbladder wall thickening, which may be seen with interstitial edema or chronic liver disease. 2. Small volume of perihepatic ascites. Reviewed, dictated and finalized at location A. DING MACHINE OPERATOR IMPRESSION: 1. Gallbladder wall thickening, which may be seen with interstitial edema or ch ronic liver disease. 2. Small volume of perihepatic ascites.
--- NOTE | ~2022-08-29 | XR_ITS ---
EXAMINATION: XR knee RT 2V DATE: 08/29/2022 13:01 INDICATION: Right knee cellulitis. TECHNIQUE: 2 views of right knee were obtained. COMPARISON: Right knee radiographs 08/19/2022 FINDINGS: There is a total right knee arthroplasty with patellar resurfacing in near-anatomic alignme nt. No fracture. No periprosthetic lucency to suggest loosening or infection. There is a moderate-siz ed knee joint effusion. Anterior skin zenia are noted. IMPRESSION: 1. Total right knee arthroplasty in near-anatomic alignment. 2. Moderate-sized right knee joint effusion. Reviewed, dictated and finalized at location A. ER AND STOCK HANDLER HELPER
--- NOTE | ~2022-08-29 | US_ITS ---
EXAMINATION: US venous doppler LE RT DATE: 08/29/2022 11:43 INDICATION: Right lower limb erythema. TECHNIQUE: Grayscale ultrasound images without and with compression and Doppler ultrasound images of the right lower extremity veins were obtained. COMPARISON: None. FINDINGS: The visualized portions of right common femoral vein, profunda (deep) femoral vein, femoral vein, pop liteal vein, peroneal veins, posterior tibial veins, and greater saphenous vein outflow are patent. IMPRESSION: 1. No deep venous thrombosis. Reviewed, dictated and finalized at location A. STUDY STUDENT
--- NOTE | ~2022-08-29 | CT_ITS ---
EXAMINATION: CT LE RT w con DATE: 08/31/2022 13:33 INDICATION: Right lower limb cellulitis. TECHNIQUE: Computed tomography (CT) of the right lower limb was performed with 100 mL Omnipaque 350 i ntravenous contrast. Automated exposure control and iterative reconstruction technique were employed. The dose-length product was 2027.24 mGy-cm. COMPARISON: None FINDINGS: Bone alignment is normal. No fracture. There is mild right hip osteoarthritis. There is a t otal right knee arthroplasty with patellar resurfacing in near-anatomic alignment. There is a small r ight knee joint effusion with synovial thickening. Anterior skin zenia are noted. There is widespre ad subcutaneous fat stranding in the right lower limb. There is no significant arterial occlusive dis ease. No deep vein thrombosis. There is a moderate volume of ascites. IMPRESSION: 1. Widespread subcutaneous fat stranding in right lower limb, likely a combination of cellulitis and edema. No abscess. No soft tissue gas to suggest necrotizing fasciitis. 2. Small right knee joint effusion status post ultrasound-guided aspiration. 3. Moderate volume of ascites. Reviewed, dictated and finalized at location A. ERSHIP PROGRAM INTERNSHIP IMPRESSION: 1. Widespread subcutaneous fat stranding in right lower limb, likely a combinat ion of cellulitis and edema. No abscess. No soft tissue gas to suggest necrotiz ing fasciitis. 2. Small right knee joint effusion status post ultrasound-guided aspiration. 3. Moderate volume of ascites.
[2022-08-29 10:08] VITALS: BP 155/73; PULSE 90; RESP 18; TEMP 36.7; O2SAT 96
--- NOTE | 2022-08-29 12:02 | ED.GENADULT ---
HPI - General Adult General Chief complaint: Extremity Injury, Lower Stated complaint: right knee and leg swelling Time Seen by Provider: 08/29/22 11:23 History of Present Illness HPI narrative: This is a 67-year-old male presenting ED with chief complaint of right lower extremity pain and swelling. Patient had total knee replacement on August 19. He was doing well until August 26 when it became red and inflamed. At that time he was started on antibiotics by his orthopedic surgeon. However his condition has continued to get worse. He was sent to the hospital to be admitted for IV antibiotics. Head Related Data Home Medications Medication Instructions Recorded Confirmed naproxen sodium 220 mg tablet 220 mg PO DAILY 05/07/21 08/05/22 (Aleve) omeprazole 40 mg capsule,delayed 40 mg QAM 08/05/22 08/05/22 release Allergies Allergy/AdvReac Type Severity Reaction Status Date / Time No Known Allergies Allergy Mild Verified 08/29/22 10:11 Review of Systems Review of Systems: CONSTITUTIONAL: Denies night sweats. EYES: No eye pain ENT: Denies rhinorrhea CARDIOVASCULAR: Denies palpitations RESPIRATORY: Denies hemoptysis GASTROINTESTINAL: Denies hematemesis GENITOURINARY: Denies hematuria. SKIN: Denies rash MUSCULOSKELETAL: Denies myalgia. NEUROLOGIC: Denies weakness. 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 Head: atraumatic. EYES: EOMI, NOSE: Atraumatic NECK: Trachea midline RESPIRATORY: No increased rate of breathing CARDIOVASCULAR: RRR, ABDOMINAL: Non-distended MUSCULOSKELETAL: Focal exam of the RLE revealed diffuse Circumferentialerythema and edema of the lower extremity with a surgical scar over the anterior knee. Significant swelling of the foot. Cap refills less than 2 seconds, motor function intact. NEURO: Alert. Moving 4/4 extremities SKIN:: Warm, dry. Normal color PSYCHIATRIC: Normal affect Course Vital Signs Vital signs: Vital Signs Temperature 98.0 F 08/29/22 10:08 Pulse Rate 90 08/29/22 10:08 Respiratory Rate 18 08/29/22 10:08 Blood Pressure 155/73 H 08/29/22 10:08 Pulse Oximetry 96 08/29/22 10:08 Oxygen Delivery Room Air 08/29/22 10:08 Temperature 98.0 F 08/29/22 10:08 Pulse Rate 90 08/29/22 10:08 Respiratory Rate 18 08/29/22 10:08 Blood Pressure 155/73 H 08/29/22 10:08 Pulse Oximetry 96 08/29/22 10:08 Oxygen Delivery Room Air 08/29/22 10:08 Medical Decision Making MDM Narrative Medical decision making narrative: This is a 67-year-old male presenting ED with postop cellulitis. Venous ultrasound is negative. Lab work and cultures will be obtained. I discussed the case with the orthopedic surgeon Dr. Luna. He wants vancomycin and Ancef started. Patient will be admitted to hospitalist with
[2022-08-29 12:22] LABS: Basophils Absolute Auto 0.1 K/mm3 (0.0-0.1); Basophils Percent Auto 0.7 % (0.2-1.2); Eosinophils Absolute Auto 0.3 K/mm3 (0-0.3); Eosinophils Percent Auto 2.4 % (0-4.4); Hematocrit 39.1 % (42.0-52.0); Hemoglobin 12.8 g/dL (14.0-18.0); Immature Granulocyte Absolute 0.03 K/mm3 (0.00-0.031); Immature Granulocyte Percent A 0.3 % (0-0.5); Lymphocytes Absolute Auto 1.35 K/mm3 (0.9-3.2); Lymphocytes Percent Auto 12.5 % (18.3-44.2); Mean Corpuscular HGB Conc 32.7 g/dl (32-36); Mean Corpuscular Hemoglobin 34.3 pg (26-34); Mean Corpuscular Volume 104.8 fl (80-100); Mean Platelet Volume 9.1 fl (7.4-10.4); Monocytes Absolute Auto 0.8 K/mm3 (0.1-0.6); Monocytes Percent Auto 7.1 % (2.6-8.5); Neutrophils Absolute Auto 8.3 K/mm3 (1.3-6.7); Platelet Count Result 275 k/mm3 (150-375); Red Blood Count 3.73 M/mm3 (4.6-6.20); Red Cell Distribution Width 14.2 % (11.5-14.5); White Blood Count 10.8 K/mm3 (4.5-10.0)
--- NOTE | 2022-08-29 12:38 | PM.IMHP ---
H&P: HPI History of Present Illness Date/Time: 08/29/22 12:38 Chief Complaint: Lower extremity infection Narrative: This is a 67-year-old male patient who has a history severe primary osteoarthritis his right knee. The patient underwent a total right knee arthroplasty per Dr. Luna on 08/19/2022. Please see operative note. The patient stated that he noticed his right leg had been swollen postoperatively. The patient stated that his right knee began to get more red and continue to spread daily. The patient stated that he went to the orthopedic physician office and was prescribed medications. He stated he was taking doxycycline and some other type of antibiotics. Hit the redness continue to grow and has reached his right flank area a goes all the way down to the ankle area. The patient is complaining of right ankle pain he does have hydrocodone at home which is not taking way all the pain. The patient failed outpatient treatment. Orthopedic surgeon has been notified and recommended that the patient be admitted to the hospitalist group. His white count is 10.8 H&H is 12.8 and 39.1. Sodium was 129. He was negative for influenza A/B and COVID. The patient was given IV fluids, Ancef, vancomycin and Vicodin. The patient is being admitted to observation status. Review of Systems Review of Systems: See HPI All systems reviewed & are unremarkable except as noted in HPI and below Constitutional: Constitutional: Reports as per HPI and Reports no additional constitutional complaints Eyes: Eyes: Reports as per HPI and Reports no additional eye complaints ENT: Reports system reviewed and no additional complaints, except as documented and Reports Normal hearing present Cardiovascular: Cardiovascular: Reports no additional cardiovascular complaints Respiratory: Respiratory: Reports no additional respiratory complaints and Reports no additional respiratory complaints Gastrointestinal: Gastrointestinal: Reports as per HPI and Reports no additional gastrointestinal complaints Musculoskeletal: Musculoskeletal: Reports no additional musculoskeletal complaints Integumentary/Breasts: Skin/Breast: Reports system reviewed and no additional complaints, except as docu and Reports as per HPI Neurologic: Reports system reviewed and no additional complaints, except as documented, Reports as per HPI and Reports Normal hearing present Psychiatric: Psychiatric: Reports no additional psychiatric complaints and Reports as per HPI Endocrine: Endocrine: Reports no additional endocrine complaints Hematologic/Lymphatic: Hematologic/Lymphatic: Reports no additional hematologic/lymphatic complaints Allergic/Immunologic: Allergic/Immunologic: Reports no additional allergic/immunologic complaints [facility] Past Medical History Medical History (Updated 08/29/22 @ 15:28 by Lorin Kebede NP) Acid reflux Mitral valve prolapse Seizure He outgrew his seizures Surgical History Surgical History (Updated 08/29/22 @ 15:39 by Lorin Kebede NP) H/O esophagogastroduodenoscopy H/O total knee replacement H/O wisdom tooth extraction History of tonsillectomy Hx of colonoscopy Total knee replacement status Family History Family History Mother Diabetes mellitus Social History Social History (Updated 08/29/22 @ 15:29 by Lorin Kebede NP) Social History: The patient is x2. The patient is currently laid off. 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 He has 2 children. He occasionally drinks alcohol. He denies any marijuana or illicit drugs. 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
[2022-08-29 12:40] LABS: Anion Gap 4 mmol/L (8-16); Blood Urea Nitrogen 7 mg/dL (9-20); Carbon Dioxide 29 mmol/L (22-30); Chloride 96 mmol/L (98-107); Estimated CRCL calculation 145 ml/min; Estimated Glomerular Filt Rate > 60; Glucose 118 mg/dL (65-110); Potassium 3.6 mmol/L (3.4-5.0); Sodium 129 mmol/L (137-145)
[2022-08-29 12:41] LABS: Lactic Acid Reflex 1.7 mmol/L (0.7-2.0)
[2022-08-29] MEDS: ceFAZolin 2 GM/D5W 50 ML 2 GM/50 ML BAG IVPB (12:54)
[2022-08-29] MEDS: SODIUM CHLORIDE 0.9% IV 1,000 ML 999 ML IV CONT ×2 (12:54→17:02)
[2022-08-29] MEDS: HYDROcodone/acetaminophen (*CRX) 7.5-325 MG TABLET 1 TAB PO (12:57)
[2022-08-29 14:13] LABS: Influenza A QL RT-PCR Negative (Negative); Influenza B QL RT-PCR Negative (Negative); SARS-CoV-2 RNA PCR Negative
[2022-08-29 16:01] VITALS: BMI 37.5
--- NOTE | 2022-08-29 16:04 | ADMGEN ---
This patient, Andres Paula, was admitted to [facility] Room [facility]01. Patient/family oriented to hospital policies and general routines including ID bracelet, bed and alarms, visiting hours, pain management, procedures, bathroom and other care routines, personal items, smoking policy, room service/diet, and visiting hours. Information on how to activate the Rapid Response Team has been discussed. Patient/Family are encouraged to report perceived risks to care and to ask questions if they do not understand what they are told or what they should do.
[2022-08-29 16:10] VITALS: BP 124/65; PULSE 88; RESP 16; TEMP 36.4; O2SAT 97
[2022-08-29 16:15] VITALS: BP 142/86; PULSE 84; RESP 16; O2SAT 99
[2022-08-29 16:19] LABS: Glucose Point of Care 120 mg/dl (65-105)
[2022-08-29] MEDS: fentaNYL CITRATE INJ (*CRX) 100 MCG/2 ML VIAL 25 MCG IV PUSH (17:50)
[2022-08-29] MEDS: diphenhydrAMINE HCl CAP 25 MG CAPSULE PO (17:50)
[2022-08-29 19:09] VITALS: BP 134/76
[2022-08-29] MEDS: PANTOPRAZOLE SODIUM IV 40 MG VIAL IV PUSH (21:03)
[2022-08-29] MEDS: fentaNYL CITRATE INJ (*CRX) 100 MCG/2 ML VIAL 50 MCG IV PUSH (21:04)
[2022-08-29 22:00] VITALS: BP 135/72; PULSE 95; RESP 18; TEMP 36.3; O2SAT 96
[2022-08-30] MEDS: fentaNYL CITRATE INJ (*CRX) 100 MCG/2 ML VIAL 50 MCG IV PUSH ×5 (01:14→22:57)
[2022-08-30 06:00] VITALS: BP 131/68; PULSE 93; RESP 18; TEMP 36.6; O2SAT 96
[2022-08-30 06:46] LABS: Basophils Absolute Auto 0.1 K/mm3 (0.0-0.1); Basophils Percent Auto 0.7 % (0.2-1.2); Eosinophils Absolute Auto 0.5 K/mm3 (0-0.3); Eosinophils Percent Auto 4.8 % (0-4.4); Hematocrit 35.1 % (42.0-52.0); Hemoglobin 11.4 g/dL (14.0-18.0); Immature Granulocyte Absolute 0.05 K/mm3 (0.00-0.031); Immature Granulocyte Percent A 0.5 % (0-0.5); Lymphocytes Absolute Auto 1.41 K/mm3 (0.9-3.2); Lymphocytes Percent Auto 12.8 % (18.3-44.2); Mean Corpuscular HGB Conc 32.5 g/dl (32-36); Mean Corpuscular Volume 104.8 fl (80-100); Mean Platelet Volume 9.4 fl (7.4-10.4); Monocytes Absolute Auto 0.8 K/mm3 (0.1-0.6); Monocytes Percent Auto 7.2 % (2.6-8.5); Neutrophils Absolute Auto 8.2 K/mm3 (1.3-6.7); Platelet Count Result 265 k/mm3 (150-375); Red Blood Count 3.35 M/mm3 (4.6-6.20); Red Cell Distribution Width 14.3 % (11.5-14.5); White Blood Count 11.1 K/mm3 (4.5-10.0)
[2022-08-30 06:57] LABS: Lactic Acid Reflex 1.6 mmol/L (0.7-2.0)
[2022-08-30 07:25] LABS: Alanine Aminotransferase 45 U/L (6-50); Albumin Level 2.9 g/dL (3.5-5.1); Alkaline Phosphatase 152 U/L (38-126); Anion Gap 5 mmol/L (8-16); Aspartate Amino Transferase 109 U/L (17-59); Blood Urea Nitrogen 6 mg/dL (9-20); Calcium 7.5 mg/dL (8.4-10.2); Carbon Dioxide 24 mmol/L (22-30); Chloride 99 mmol/L (98-107); Estimated CRCL calculation 173 ml/min; Estimated Glomerular Filt Rate > 60; Glucose 133 mg/dL (65-110); Magnesium 1.9 mg/dL (1.6-2.3); Potassium 3.4 mmol/L (3.4-5.0); Sodium 128 mmol/L (137-145)
--- NOTE | 2022-08-30 07:47 | PM.IMPN ---
Progress Note: A&P Assessment and Plan (1) Cellulitis and abscess of right leg: Code(s): L03.115 - Cellulitis of right lower limb; L02.415 - Cutaneous abscess of right lower limb Status: Acute Assessment and Plan: Patient presented to the ED for evaluation of right knee and leg pain/swelling starting 08/26 and he was treated outpatient with oral doxycycline. He is s/o right TKA on 08/19/202208/29 x-ray of the right knee shows moderate pleural effusion. IR aspiration of fluid from the right knee pending. Patient appears to have had prior aspiration of right knee 08/27 by IR and in the Ortho office that did not yield any fluid and showed hypoechoic region at the suprapatellar pouch and lateral gutter attributed to edematous reactive synovitis. Orthopedic surgery Dr. Luna consulted and appreciate assistance with management. 08/29 started on Cefazolin 1 gram IV Q 8 hours and IV Vancomycin pharmacy to dose. 08/30/22 Discuss case with Infectious disease pharmacist. Will change antibiotics to Cefepime 2 grams IV Q8 for pseudomonas coverage and continue Vancomycin IV. De-escalate antibiotics per cultures. Venous doppler negative for DVT Blood cultures pending Continue with IV/PO analgesics Patient afebrile, vitals stable, WBC 11 - does not meet sepsis protocol. Trial hydrocortisone 1% cream to proximal thigh lesion (2) Transaminitis: Code(s): R74.01 - Elevation of levels of liver transaminase levels Status: Acute Assessment and Plan: Tbili 2.0, AST 109, ALT 45, Alk phos 152. Patient drinks a 6 pack of beer nightly and this may be related to underlying liver disease. No prior LFTs to compare. Check Liver US (3) Hyponatremia: Code(s): E87.1 - Hypo-osmolality and hyponatremia Status: Acute Assessment and Plan: Sodium 129 on admission. It was 130 on 08/20/22 without prior labs available. Likely secondary to heavy alcohol use. Check urine osmo and urine sodium Trend sodium. Monitor neuro status (4) Heavy alcohol use: Code(s): F10.90 - Alcohol use, unspecified, uncomplicated Status: Acute Assessment and Plan: As above. Monitor for withdrawal symptoms. He reports not drinking in the past month due to surgery. He typically drinks a 6 pack/night most nights of the week. consult neurocritical care physician for alcohol abstinence resources. (5) Mitral valve prolapse: Code(s): I34.1 - Nonrheumatic mitral (valve) prolapse Status: Chronic Assessment and Plan: Patient with h/o MVP. He denies known valve disease. +murmur at apex noted on physical exam. Echocardiogram ordered and pending. Monitor (6) Acid reflux: Qualifiers: Esophagitis presence: without esophagitis Qualified Code(s): K21.9 - Gastro-esophageal reflux disease without esophagitis Code(s): K21.9 - Gastro-esophageal reflux disease without esophagitis Status: Chronic Assessment and Plan: Chronic, continue PO protonix 40 mg daily formulary substitute for omeprazole. Plan CODE STATUS: FULL CODE Disposition: Observation Discharge destination: home when medically stable. Time Spent With Patient Time with patient: 25 - 35 minutes Subjective Date/time seen: 08/30/22 07:47 He reports his right leg is unchanged. It is throbbing and edema is unchanged. No fevers, chills, diaphoresis or paresthesia. He has some pruritus to his right leg. Review of Systems Review of Systems: All systems reviewed & are unremarkable except as noted in HPI and below Exam Narrative: General: No acute distress.? Well-developed adult male. Mental Status/Psych: Awake, alert and oriented x3 with clear and appropriate speech. Neutral mood and affect. Pleasant and cooperative. Skin: warm and dry. RLE with raised, erythematous, confluent patch upper, medial thigh without discharge; blanches. Proximal patella region to proximal lateral and medial malleolus region with
--- NOTE | 2022-08-30 07:52 | PM.CNOR ---
Assessment and Plan Assessment and plan (1) Cellulitis and abscess of right leg: Code(s): L03.115 - Cellulitis of right lower limb; L02.415 - Cutaneous abscess of right lower limb Status: Acute (2) Total knee replacement status: Code(s): Z96.659 - Presence of unspecified artificial knee joint Status: Acute Plan Cellulitis vs dermatologic reaction to prep/drape. 2 negative aspirations (NO FLUID) On IV antibiotics Resting leg ID consult 1) Infectious or dermatologic 2) Antibiotic therapy History of Present Illness HPI Consult date: 08/30/22 Chief complaint: Cellulitis Narrative: Patient underwent TKA 11 days ago. Has developed redness/cellulitis in his leg. Has 2 negative aspirations. One by me and one by radiology. NO fever, chills or night sweats. Review of Systems Musculoskeletal: Comments: NVI Moderate swelling Redness in the area that was prepped Incision not greatly red PMFSH Past Medical History Medical History (Updated 08/30/22 @ 07:57 by Maggie Sargent APRN) Acid reflux Mitral valve prolapse Seizure He outgrew his seizures Surgical History Surgical History (Updated 08/29/22 @ 15:39 by Lorin Kebede NP) H/O esophagogastroduodenoscopy H/O total knee replacement H/O wisdom tooth extraction History of tonsillectomy Hx of colonoscopy Total knee replacement status Family History Family History Mother Diabetes mellitus Social History Social History (Updated 08/29/22 @ 15:29 by Lorin Kebede NP) Social History: The patient is x2. The patient is currently laid off. 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 He has 2 children. He occasionally drinks alcohol. He denies any marijuana or illicit drugs. 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, CHEWING TOBACCO QUIT 2019 Alcohol intake: current Drinks per week: 42 Alcohol use details: 6PK/DAY Substance use: never Substance use type: does not use Lack of Transportation: No Lack of Food: Never True Current Housing: I Have Housing Concerned About Future Housing: No Difficulty Paying Gas/Electric Bills: No Difficulty Paying for Meds: No Currently Unemployed: No Education: Don't Know Difficulty w/ Childcare or Family Care: No Gender identity (if verbalized by the patient): Male Spiritual care concerns: No Meds Home Medications and Allergies Home Medications Medication Instructions Recorded Confirmed Type omeprazole 40 mg capsule,delayed 40 mg QAM 08/05/22 08/29/22 History release doxycycline hyclate 100 mg capsule 100 mg PO BID 08/29/22 08/29/22 History hydrocodone 5 mg-acetaminophen 325 1 tablet PO Q12H PRN Pain, Moderate 08/29/22 08/29/22 History mg tablet Allergies Allergy/AdvReac Type Severity Reaction Status Date / Time No Known Allergies Allergy Mild Verified 08/29/22 10:11 Vital Signs Vital Signs - 24 hr 08/29/22 10:08 08/29/22 16:10 08/29/22 16:15 Temperature 36.7 C 36.4 C Pulse Rate 90 88 84 Respiratory Rate 18 16 16 Blood Pressure 155/73 H 124/65 142/86 H Pulse Oximetry 96 97 99 Oxygen Delivery Room Air 08/29/22 19:09 08/29/22 20:00 08/29/22 22:00 Temperature 36.3 C L Pulse Rate 95 Respiratory Rate 18 Blood Pressure 134/76 135/72 Pulse Oximetry 96 Oxygen Delivery Room Air 08/30/22 06:00 Temperature 36.6 C Pulse Rate 93 Respiratory Rate 18 Blood Pressure 131/68 Pulse Oximetry 96 Oxygen Delivery Results Labs 08/30/22 05:58 08/30/22 05:58 Labs: Abnormal lab results 08/29/22 08/29/22 08/29/22 Range/Units 12:13 12:13 16:13 WBC 10.8 H (4.5-10.0) K/mm3 RBC 3.73 L (4.6
[2022-08-30] MEDS: ENOXAPARIN 40 MG/0.4 ML SYRINGE SUB-Q (08:22)
[2022-08-30] MEDS: PANTOPRAZOLE 40 MG TABLET PO (08:22)
[2022-08-30] MEDS: HYDROcodone/acetaminophen (*CRX) 7.5-325 MG TABLET 1 TAB PO (10:28)
[2022-08-30 10:32] LABS: Sodium Urine Random 8 meq/L
[2022-08-30 14:00] VITALS: BP 137/80; PULSE 90; RESP 18; TEMP 36.6; O2SAT 95
[2022-08-30 20:00] VITALS: PULSE 91; RESP 17; O2SAT 95
[2022-08-30] MEDS: SENNA/DOCUSATE SODIUM TABLET 1 TAB PO (20:51)
[2022-08-30] MEDS: HYDROCORTISONE 1% 30 GM OINTMENT 1 APPLIC TOPICAL (20:51)
[2022-08-30 22:00] VITALS: BP 125/65; PULSE 91; RESP 17; TEMP 36.8; O2SAT 95
--- NOTE | 2022-08-31 | ECHO_ITS ---
Patient Info Name: Andres Paula Age: 67 years : 1955 Gender: Male Ht: 73 in Wt: 276 lbs BSA: 2.58 m2 HR: 86 bpm BP: 125 / 65 mmHg Technical Quality: Fair Exam Date: 08/31/2022 9:43 AM Exam Location: [facility] Patient Status: Inpatient Admit Date: 08/29/2022 Staff Ordering Physician: Lorin Kebede NP Chain Testing Machine Operator: Lo Macedo RDCS Attending Provider: Klever Combs MD Referring Physician: Yandy MARR; Exam Type: CA echo dop color flow w con Study Info Indications I34.1 - Nonrheumatic mitral (valve) prolapse Complete two-dimensional, color flow and Doppler transthoracic echocardiogram is performed with contrast to opacify the left ventricle and to improve the deliniation of the left ventricle endocardial borders. Contrast/Agitated Saline Contrast/Ag. Saline: Definity Amount: 3.00 ml Administered By: Lo Macedo RDCS Existing IV Access: Yes IV Access Condition: patent with no signs of infiltration Summary 1. Left ventricular chamber dimension is normal. 2. Definity contrast administered improved wall motion interpretation. 3. Left ventricular systolic function is normal, estimated at 65-70%. 4. The left ventricular diastolic function is normal. 5. E/e' 8 is minimally elevated. 6. There is mild aortic valve sclerosis. 7. No pulmonary hypertension, estimated pulmonary arterial systolic pressure is 18 mmHg. Left Ventricle E/e' 8 is minimally elevated. Definity contrast administered improved wall motion interpretation. Left ventricular chamber dimension is normal. Left ventricular systolic function is normal, estimated at 65-70%. The left ventricular diastolic function is normal. Right Ventricle Right ventricular chamber dimension is normal. Right ventricular systolic function is normal. Left Atria Left atrial chamber dimension is normal. Right Atria Right atrial chamber dimension is normal. Aortic Valve The aortic valve is trileaflet. There is mild aortic valve sclerosis. There is no aortic valve stenosis. There is no aortic valve regurgitation. Pulmonic Valve There is no pulmonic regurgitation. Mitral Valve No evidence of mitral valve prolapse. There is no mitral valve stenosis. There is no mitral valve regurgitation. Tricuspid Valve There is no tricuspid valve regurgitation. No pulmonary hypertension, estimated pulmonary arterial systolic pressure is 18 mmHg. Pericardium/Pleural There is no pericardial effusion. Inferior Vena Cava Inferior vena cava is not well visualized. Aorta The aortic root size at the sinus of Valsalva is normal. Left Ventricular Outflow Tract Name Value Normal LVOT 2D LVOT Diameter 2.13 cm LVOT Doppler LVOT Peak Gradient 9 mmHg LVOT Mean Gradient 5 mmHg LVOT VTI 28.37 cm LVOT VTI/AV VTI Ratio 0.97 LVOT Stroke Volume 100.60 ml LVOT CO 9.48 l/min LVOT CI
[2022-08-31 01:37] LABS: Vancomycin Trough 9.9 ug/mL (10.0-20.0)
[2022-08-31] MEDS: fentaNYL CITRATE INJ (*CRX) 100 MCG/2 ML VIAL 50 MCG IV PUSH ×3 (02:57→21:18)
[2022-08-31 06:00] VITALS: BP 126/63; PULSE 90; RESP 18; TEMP 36.9; O2SAT 96
[2022-08-31 06:51] LABS: Basophils Absolute Auto 0.1 K/mm3 (0.0-0.1); Basophils Percent Auto 0.6 % (0.2-1.2); Eosinophils Absolute Auto 0.7 K/mm3 (0-0.3); Eosinophils Percent Auto 5.8 % (0-4.4); Hematocrit 34.5 % (42.0-52.0); Hemoglobin 11.4 g/dL (14.0-18.0); Immature Granulocyte Absolute 0.05 K/mm3 (0.00-0.031); Immature Granulocyte Percent A 0.4 % (0-0.5); Lymphocytes Absolute Auto 1.63 K/mm3 (0.9-3.2); Lymphocytes Percent Auto 13.8 % (18.3-44.2); Mean Platelet Volume 9.9 fl (7.4-10.4); Monocytes Absolute Auto 0.9 K/mm3 (0.1-0.6); Monocytes Percent Auto 7.2 % (2.6-8.5); Neutrophils Absolute Auto 8.5 K/mm3 (1.3-6.7); Neutrophils Percent Auto 72.2 % (45.5-73.1); Platelet Count Result 288 k/mm3 (150-375); Red Blood Count 3.35 M/mm3 (4.6-6.20); Red Cell Distribution Width 14.1 % (11.5-14.5); White Blood Count 11.8 K/mm3 (4.5-10.0)
[2022-08-31 07:07] LABS: INR 1.5; Prothrombin Time 17.2 Seconds (11.1-14.7)
[2022-08-31 07:08] LABS: Partial Thromboplastin Time 36.8 SECONDS (22.3-36.8)
[2022-08-31 07:16] LABS: Alanine Aminotransferase 46 U/L (6-50); Albumin Level 2.8 g/dL (3.5-5.1); Alkaline Phosphatase 144 U/L (38-126); Anion Gap 4 mmol/L (8-16); Aspartate Amino Transferase 108 U/L (17-59); Bilirubin,Total 2.2 mg/dL (0.2-1.3); Blood Urea Nitrogen 6 mg/dL (9-20); Calcium 7.6 mg/dL (8.4-10.2); Carbon Dioxide 27 mmol/L (22-30); Chloride 102 mmol/L (98-107); Estimated CRCL calculation 173 ml/min; Estimated Glomerular Filt Rate > 60; Glucose 104 mg/dL (65-110); Potassium 3.5 mmol/L (3.4-5.0); Sodium 133 mmol/L (137-145)
[2022-08-31] MEDS: HYDROcodone/acetaminophen (*CRX) 7.5-325 MG TABLET 1 TAB PO ×2 (07:40→11:47)
--- NOTE | 2022-08-31 08:54 | PC.NURSE ---
to ultrasound per stretcher
[2022-08-31] MEDS: HYDROCORTISONE 1% 30 GM OINTMENT 1 APPLIC TOPICAL ×2 (09:44→21:17)
[2022-08-31] MEDS: ENOXAPARIN 40 MG/0.4 ML SYRINGE SUB-Q (09:47)
[2022-08-31] MEDS: PERFLUTREN LIPID MICROSPHERES 1.5 ML VIAL DILUTED TO 10 ML TOTAL VOLUME IV PUSH (10:10)
--- NOTE | 2022-08-31 11:05 | PM.PNORT ---
Progress Note: A&P Assessment and Plan (1) Swelling of lower limb: Code(s): M79.89 - Other specified soft tissue disorders Status: Acute Assessment and Plan: patient is hospital day 2. After being admitted for severe swelling right lower extremity. He underwent right total knee replacement 08/19/2022 and starting 5 days ago he started noting prominent swelling the 1st started in the lower calf and has gradually worked up in associated with this swelling which has become pronounced, he has had diffuse dark red erythema. He is comfortable. he states the pain that he had when he came and 94 last is definitely much less now. His chief complaint is tightness Feeling in his thigh and calf.He has rather marked swelling from the level of the groin down to the foot including moderate pedal edema. There is diffuse dark erythema basically from the groin to the ankle with patch is of paler skin scattered. He has prominent soft pedal edema as well. He has 2+ dorsalis pedis pulse palpable. He has mild tenderness in the calf diffusely and in the thigh diffusely and the swelling in the thigh and calf is pronounced. He is able do straight leg raise he states he could do that 2 days ago and he does is easily now. He wiggles his toes and ankle up and down. His wound is completely dry. There is no drainage or dried blood on the Mepilex whatsoever. [place] are in place. Skin edges looked viable.. He had a venous duplex ultrasound done on 08/29/2022 and was negative for DVT. His hemoglobin this morning is 11.4. The morning after surgery was 12.3. White count minimally elevated at 11.8. I will order sed rate and CRP for the morning for baseline. A C-reactive protein of less than 10 times the normal limit argues against infection in the 1st 30 days after knee replacement. He had aspiration of 7 cc of dark blood by Radiology earlier this morning and cultures have been set up. His blood cultures that he had previously are no growth to date. His INR is 1.5 this morning. His last Xarelto According to the patient, was 5 days ago so he has had none in the last 4 days and therefore his increased INR suggests a liver problem. He had an abdominal ultrasound today which showed no surface nodularity of the liver but did show some perihepatic ascites. His bilirubin is elevated at 2.2 which is a little nonspecific if he is absorbing a large amount of hematoma which could cause some elevation. His AST is elevated at 108 alk-phos elevated at 144. ALT was normal at 46. Impression: I suspect this gentleman had a delayed hemorrhage inside the leg and that the severe swelling is a reaction to the blood that has permeated into the thigh and calf musculature. This is caused and inflammation and the observe skin changes due to the swelling that is diffuse. I do not see evidence clinically of a focal hematoma. He states most the pain is at the medial aspect of his knee and there is no focal swelling specifically at that location. Infection needs to be ruled out and the cultures are pending. The fluid from the knee joint was dark blood consistent hematoma fluid. His bleeding may be pathologic and he may have a bleeding diathesis, perhaps due to hepatic insufficiency, that predisposed him to have increased bleeding while on Xarelto which seems to have developed 7 days after his surgery and I would recommend obtaining another INR and APTT tomorrow and will consult GI for their recommendations on whether further evaluation of his hepatic function is indicated at this time. He is on low-dose Lovenox for DVT prophylaxis currently. He is at elevated risk for DVT still and I would recommend that until this risk is lower periodic venous duplex ultrasounds be checked and I will order 1 for tomorrow Subjective Subjective Date/Time Seen: 08/31/22 11:05 Objective Data Vital Signs Vital Signs: Vital Signs - 24 hr 08/30/22 14:00 08/30/22 20:00 08/30
--- NOTE | 2022-08-31 11:31 | PM.IMPN ---
Progress Note: A&P Assessment and Plan (1) Cellulitis and abscess of right leg: Code(s): L03.115 - Cellulitis of right lower limb; L02.415 - Cutaneous abscess of right lower limb Status: Acute Assessment and Plan: Patient presented to the ED for evaluation of right knee and leg pain/swelling starting 08/26 and he was treated outpatient with oral doxycycline. He is s/o right TKA on 08/19/202208/29 x-ray of the right knee shows moderate pleural effusion. IR aspiration of fluid from the right knee pending. Patient appears to have had prior aspiration of right knee 08/27 by IR and in the Ortho office that did not yield any fluid and showed hypoechoic region at the suprapatellar pouch and lateral gutter attributed to edematous reactive synovitis. Orthopedic surgery Dr. Luna consulted and appreciate assistance with management. 08/29 started on Cefazolin 1 gram IV Q 8 hours and IV Vancomycin pharmacy to dose. 08/30/22 Discuss case with Infectious disease pharmacist. changed antibiotics to Cefepime 2 grams IV Q8 for pseudomonas coverage and continue Vancomycin IV. De-escalate antibiotics per cultures if available. Venous doppler negative for DVT Blood cultures pending Continue with IV/PO analgesics Patient afebrile, vitals stable, WBC 11 - does not meet sepsis protocol. 08/31/22 CT LE negative for soft tissue gas. subcutaneous fat stranding suggestive of cellulitis and edema. (2) Transaminitis: Code(s): R74.01 - Elevation of levels of liver transaminase levels Status: Acute Assessment and Plan: Tbili 2.0, AST 109, ALT 45, Alk phos 152. Patient drinks a 6 pack of beer nightly and this may be related to underlying liver disease. No prior LFTs to compare. Liver US - Gallbladder wall thickening, which may be seen with interstitial edema or chronic liver disease and small volume of perihepatic ascites. Check hepatitis panel Consult GI (3) Hyponatremia: Code(s): E87.1 - Hypo-osmolality and hyponatremia Status: Acute Assessment and Plan: Sodium 129 on admission. It was 130 on 08/20/22 without prior labs available. Likely secondary to heavy alcohol use. urine osmo pending and urine sodium 8 Trend sodium improved. Monitor neuro status - stable (4) Heavy alcohol use: Code(s): F10.90 - Alcohol use, unspecified, uncomplicated Status: Chronic Assessment and Plan: As above. Monitor for withdrawal symptoms. He reports not drinking in the past month due to surgery. He typically drinks a 6 pack/night most nights of the week. consult child care for alcohol abstinence resources. (5) Mitral valve prolapse: Code(s): I34.1 - Nonrheumatic mitral (valve) prolapse Status: Chronic Assessment and Plan: Patient with h/o MVP. He denies known valve disease. +murmur at apex noted on physical exam. Echocardiogram pending. Monitor (6) Acid reflux: Qualifiers: Esophagitis presence: without esophagitis Qualified Code(s): K21.9 - Gastro-esophageal reflux disease without esophagitis Code(s): K21.9 - Gastro-esophageal reflux disease without esophagitis Status: Chronic Assessment and Plan: Chronic, continue PO protonix 40 mg daily formulary substitute for omeprazole. (7) Acute urticaria: Code(s): L50.8 - Other urticaria Status: Acute Assessment and Plan: Pruritic patchy, raised lesions distal right leg and right thigh radiating to right groin and right flank. Benadryl 50 mg IV x1 and solu-medrol 125 mg IV x1 (8) Ascites: Code(s): R18.8 - Other ascites Status: Acute Assessment and Plan: Small perihepatic ascites noted on abd US. GI consulted and appreciate recommendations. Counseled on alcohol use. Consider starting spironolactone if BP tolerates. Plan I discussed the patient's case and dermatologic findings with my collaborating physician, who is in agreement wit
[2022-08-31 12:34] LABS: Hepatitis B Surface Antigen Negative (Negative)
[2022-08-31 12:39] LABS: HAV RESULT Negative (Negative); Hepatitis B Core IgM Result Negative (Negative)
[2022-08-31 12:51] LABS: Hepatitis C Virus Antibody Negative (Negative)
--- NOTE | 2022-08-31 12:58 | PM.PNORT ---
Subjective Subjective Date/Time Seen: 08/31/22 12:58 Interval history: Discussed with Dr. Delgado and Hospitalist. Minimal pain, but rash and swelling not improved. Despite lack of other symptoms will check CT to R/O necrotizing fasciitis. Also consider transfer to tertiary facility with ID doctor to evaluate. Objective Data Vital Signs Vital Signs: Vital Signs - 24 hr 08/30/22 14:00 08/30/22 20:00 08/30/22 22:00 Temperature 36.6 C 36.8 C Pulse Rate 90 91 91 Respiratory Rate 18 17 17 Blood Pressure 137/80 125/65 Pulse Oximetry 95 95 95 Oxygen Delivery Room Air 08/31/22 06:00 Temperature 36.9 C Pulse Rate 90 Respiratory Rate 18 Blood Pressure 126/63 Pulse Oximetry 96 Oxygen Delivery Intake/Output Intake/Output: Intake & Output 08/28/22 08/29/22 08/30/22 08/31/22 23:59 23:59 23:59 23:59 Intake Total 1100 3330 550 Output Total 600 Balance 1100 2730 550 Meds/Results Medications: Active Medications Generic Name Dose Route Start Last Admin Trade Name Freq PRN Reason Stop Dose Admin Hydrocodone Bitart/Acetaminophen 1 tab 08/29/22 15:37 08/31/22 11:47 Hydrocodone/Acetaminophen (*Crx) 7.5-325 Mg Tablet PO 1 tab Q4H PRN Administration Pain Rated 4-6 Bisacodyl 10 mg 08/30/22 11:21 Bisacodyl 10 Mg Suppository RECTAL QAM PRN Constipation Diphenhydramine HCl 25 mg 08/29/22 17:21 08/29/22 17:50 Diphenhydramine Hcl Cap 25 Mg Capsule PO 25 mg Q6H PRN Administration Itching Enoxaparin Sodium 40 mg 08/30/22 09:00 08/31/22 09:47 Enoxaparin 40 Mg/0.4 Ml Syringe SUB-Q 40 mg DAILY QUE Administration Fentanyl Citrate 50 mcg 08/29/22 19:06 08/31/22 02:57 Fentanyl Citrate Inj (*Crx) 100 Mcg/2 Ml Vial IV PUSH 50 mcg Q4H PRN Administration Pain Rated 7-10 Hydrocortisone 1 applic 08/30/22 21:00 08/31/22 09:44 Hydrocortisone 1% 30 Gm Ointment TOPICAL 1 applic Q12HR QUE Administration Cefepime HCl 2 gm in 50 mls @ 100 mls/hr 08/30/22 14:00 08/31/22 06:25 Maxipime 2 Gm/D5w 50 Ml IVPB Infused Q8HR QUE Infusion Vancomycin HCl 1,500 mg in 500 mls @ 333.333 mls/hr 08/31/22 02:00 08/31/22 09:45 Vancomycin 1,500 Mg/D5w 500 Ml IVPB 333.33 mls/hr Q8H QUE Administration Pantoprazole Sodium 40 mg 08/30/22 09:00 08/31/22 07:54 Pantoprazole 40 Mg Tablet PO Not Given QAM QUE Polyethylene Glycol 17 gm 08/30/22 11:21 Polyethylene Glycol 3350 17 Gm Powd.Pack PO QAM PRN Constipation Senna/Docusate Sodium 1 tab 08/30/22 21:00 08/30/22 20:51 Senna/Docusate Sodium Tablet PO 1 tab HS QUE Administration Radiology Results: ITS Impressions Venous Doppler Study 08/29/22 11:47 IMPRESSION: 1. No deep venous thrombosis. Knee X-Ray 08/29/22 13:07 IMPRESSION: 1. Total right knee arthroplasty in near-anatomic alignment. 2. Moderate-sized right knee joint effusion. Joint Aspiration/Injection 08/31/22 09:44 IMPRESSION: 1. Ultrasound-guided needle aspiration of the right knee joint yielding 7 mL opaque dark red fluid. Abdomen Ultrasound 08/31/22 09:46 IMPRESSION: 1. Gallbladder wall thickening, which may be seen with interstitial edema or chronic liver disease. 2. Small volume of perihepatic ascites. Labs Labs: Laboratory Results - last 24 hr 08/31/22 08/31/22 08/31/22 00:47 00:47 06:04 WBC 11.8 H RBC 3.35 L Hgb 11.4 L Hct 34.5 L MCV 103.0 H MCH 34.0 MCHC 33.0 RDW 14.1 Plt Count 288 MPV 9.9 Immature Gran % (Auto) 0.4 Neut % (Auto) 72.2 Lymph % (Auto) 13.8 L [place] % (Auto) 7.2 Eos % (Auto) 5.8 H Baso % (Auto) 0.6 Lymph # (Auto) 1.63 [place] # (Auto) 0.9 H Eos # (Auto) 0.7 H Baso # (Auto) 0.1 Abs Immat Gran (auto) 0.05 H Absolute Neuts (auto) 8.5 H Absolute Nucleated RBC 0.0 Nucleated RBC % 0.0 PT INR APTT Sodium Potassium Chloride C
[2022-08-31 13:14] LABS: CRP 4.6 mg/dL (<1.0)
[2022-08-31 13:16] LABS: Erythrocyte Sedimentation Rate 59 mm/hr (0-20)
[2022-08-31 14:00] VITALS: BP 106/55; PULSE 92; RESP 20; TEMP 36.3; O2SAT 96
[2022-08-31] MEDS: methylPREDNISolone SOD SUCC 125 MG VIAL IV PUSH (14:34)
[2022-08-31] MEDS: diphenhydrAMINE HCl INJ 50 MG/ML VIAL IV PUSH (15:08)
--- NOTE | 2022-08-31 15:56 | WPDGICN ---
Assessment and Plan Assessment and plan (1) Transaminitis: Code(s): R74.01 - Elevation of levels of liver transaminase levels Status: Acute Assessment and Plan: We do not know if this is new. Some transaminitis could be due to bacteremia or infection. The fact that his albumin is low however suggest that he has some chronic liver disease. (2) Cellulitis and abscess of right leg: Code(s): L03.115 - Cellulitis of right lower limb; L02.415 - Cutaneous abscess of right lower limb Status: Acute Assessment and Plan: He has been started on antibiotics-- cefepime and vancomycin (3) Dysphagia: Code(s): R13.10 - Dysphagia, unspecified Status: Acute Assessment and Plan: he had this investigated in the past. He is not having a significant problem with that at the present time. I told that if he has issues with that he should contact us and we would perform a outpatient endoscopy or an esophageal dilatation (4) Heavy alcohol use: Code(s): F10.90 - Alcohol use, unspecified, uncomplicated Status: Acute Assessment and Plan: he states that he has already been told that he needs to stop his alcohol use. I told that alcohol may not be the sole cause for his abnormal liver function and we will investigate that. Hepatitis serology is already pending. (5) Ascites: Code(s): R18.8 - Other ascites Status: Acute Assessment and Plan: There is ascites near the liver but not a sufficient amount to warrant paracentesis. GI Consult Note Consult date/time: 08/31/22 15:56 HPI: Andres Paula is a 67 year old male who was admitted because of complications of recent right knee replacement. He had surgery, a right TKA on August 19. A few days later when his dressing was removed he noticed significant swelling. He had already begun physical therapy. An x-ray was done August 29 shows a moderate effusion. Attempted removal of fluid by IR and in the office was not successful. He has noticed significant swelling of his entire lower extremity with redness and discomfort as well. He has been started on antibiotics. I am asked to see him because of abnormal liver functions. He has been found to have a bilirubin of 2.2, albumin is 2.8. AST is 108 and alkaline phosphatase 144. We have no recent levels to compare these 2. He admitted that he has not seen his primary care provider in about 10 years. He has appointment to see a new primary care provider but had not yet been able to get in to see him. He denies any prior history of liver disease, or jaundice, or hepatitis. He is not aware of any family history of liver disease. He does drink a 6 pack of beer per day and has done this for long time. He has never had any hospitalizations related to alcohol. He denies other gastrointestinal complaints. He denies heartburn or dysphagia. He denies nausea vomiting or weight loss or change in appetite. He has had no recent change in bowel habits and does not see blood in his stools. His last colonoscopy was in 2006 reveal only internal hemorrhoids. I performed an EGD that revealed severe esophagitis and concentric rings. That was 13 years ago. Review of Systems Review of Systems: All systems reviewed & are unremarkable except as noted in HPI and below PMFSH Past Medical History Medical History Acid reflux Mitral valve prolapse Seizure He outgrew his seizures Surgical History Surgical History H/O esophagogastroduodenoscopy H/O total knee replacement H/O wisdom tooth extraction History of tonsillectomy Hx of colonoscopy Total knee replacement status Family History Family History Mother Diabetes mellitus Social History Social History (Reviewed 08/31/22 @ 16:02 by Mik Diane
[2022-08-31] MEDS: SENNA/DOCUSATE SODIUM TABLET 1 TAB PO (21:17)
[2022-08-31 21:51] VITALS: BP 124/71; PULSE 90; RESP 20; TEMP 36; O2SAT 94
[2022-09-01] MEDS: fentaNYL CITRATE INJ (*CRX) 100 MCG/2 ML VIAL 50 MCG IV PUSH ×3 (02:42→18:40)
[2022-09-01 06:00] VITALS: BP 116/61; PULSE 89; RESP 18; TEMP 36.5; O2SAT 94
[2022-09-01 06:45] LABS: Basophils Percent Auto 0.1 % (0.2-1.2); Hematocrit 34.3 % (42.0-52.0); Hemoglobin 11.3 g/dL (14.0-18.0); Immature Granulocyte Absolute 0.06 K/mm3 (0.00-0.031); Immature Granulocyte Percent A 0.5 % (0-0.5); Lymphocytes Absolute Auto 0.87 K/mm3 (0.9-3.2); Mean Corpuscular HGB Conc 32.9 g/dl (32-36); Mean Corpuscular Hemoglobin 33.8 pg (26-34); Mean Corpuscular Volume 102.7 fl (80-100); Mean Platelet Volume 9.4 fl (7.4-10.4); Monocytes Absolute Auto 0.4 K/mm3 (0.1-0.6); Monocytes Percent Auto 3.7 % (2.6-8.5); Neutrophils Absolute Auto 9.6 K/mm3 (1.3-6.7); Neutrophils Percent Auto 87.7 % (45.5-73.1); Platelet Count Result 278 k/mm3 (150-375); Red Blood Count 3.34 M/mm3 (4.6-6.20); Red Cell Distribution Width 13.6 % (11.5-14.5); White Blood Count 10.9 K/mm3 (4.5-10.0)
[2022-09-01 06:50] LABS: INR 1.6
[2022-09-01 06:52] LABS: Alanine Aminotransferase 44 U/L (6-50); Albumin Level 2.9 g/dL (3.5-5.1); Alkaline Phosphatase 135 U/L (38-126); Anion Gap 4 mmol/L (8-16); Aspartate Amino Transferase 84 U/L (17-59); Bilirubin,Total 1.6 mg/dL (0.2-1.3); Blood Urea Nitrogen 7 mg/dL (9-20); CRP 4.1 mg/dL (<1.0); Calcium 7.7 mg/dL (8.4-10.2); Carbon Dioxide 23 mmol/L (22-30); Chloride 101 mmol/L (98-107); Estimated CRCL calculation 210 ml/min; Estimated Glomerular Filt Rate > 60; Glucose 180 mg/dL (65-110); Partial Thromboplastin Time 39.5 SECONDS (22.3-36.8); Potassium 3.4 mmol/L (3.4-5.0); Sodium 128 mmol/L (137-145)
[2022-09-01 07:30] LABS: Erythrocyte Sedimentation Rate 57 mm/hr (0-20)
--- NOTE | 2022-09-01 08:59 | PM.IMPN ---
Progress Note: A&P Assessment and Plan (1) Cellulitis and abscess of right leg: Code(s): L03.115 - Cellulitis of right lower limb; L02.415 - Cutaneous abscess of right lower limb Status: Acute Assessment and Plan: Patient presented to the ED for evaluation of right knee and leg pain/swelling starting 08/26 and he was treated outpatient with oral doxycycline. He is s/o right TKA on 08/19/202208/29 x-ray of the right knee shows moderate pleural effusion. IR aspiration of fluid from the right knee pending. Patient appears to have had prior aspiration of right knee 08/27 by IR and in the Ortho office that did not yield any fluid and showed hypoechoic region at the suprapatellar pouch and lateral gutter attributed to edematous reactive synovitis. Orthopedic surgery Dr. Luna consulted and appreciate assistance with management. 08/29 started on Cefazolin 1 gram IV Q 8 hours and IV Vancomycin pharmacy to dose. 08/30/22 Discuss case with Infectious disease pharmacist. changed antibiotics to Cefepime 2 grams IV Q8 for pseudomonas coverage and continue Vancomycin IV. De-escalate antibiotics per cultures if available. Venous doppler negative for DVT Blood cultures negative to date. Continue with IV/PO analgesics Patient afebrile, vitals stable, WBC 11 - does not meet sepsis protocol. 08/31/22 CT LE negative for soft tissue gas. subcutaneous fat stranding suggestive of cellulitis and edema. 09/01/22 continue antibiotics unchanged. Vancomycin pharmacy to dose started 08/29/22 and Cefepime 2 grams started 08/30/22. (2) Transaminitis: Code(s): R74.01 - Elevation of levels of liver transaminase levels Status: Acute Assessment and Plan: Tbili 2.0, AST 109, ALT 45, Alk phos 152. Patient drinks a 6 pack of beer nightly and this may be related to underlying liver disease. No prior LFTs to compare. Liver US - Gallbladder wall thickening, which may be seen with interstitial edema or chronic liver disease and small volume of perihepatic ascites. hepatitis panel negative Liver fibrosis panel pending. Consult GI (3) Hyponatremia: Code(s): E87.1 - Hypo-osmolality and hyponatremia Status: Acute Assessment and Plan: Sodium 129 on admission. It was 130 on 08/20/22 without prior labs available. Likely secondary to heavy alcohol use. urine osmo pending and urine sodium 8 Trend sodium Monitor neuro status - stable (4) Heavy alcohol use: Code(s): F10.90 - Alcohol use, unspecified, uncomplicated Status: Chronic Assessment and Plan: As above. Monitor for withdrawal symptoms. He reports not drinking in the past month due to surgery. He typically drinks a 6 pack/night most nights of the week. consult overnight caregiver for alcohol abstinence resources. (5) Mitral valve prolapse: Code(s): I34.1 - Nonrheumatic mitral (valve) prolapse Status: Chronic Assessment and Plan: Patient with h/o MVP. He denies known valve disease. +murmur at apex noted on physical exam. Echocardiogram pending. Monitor (6) Acid reflux: Qualifiers: Esophagitis presence: without esophagitis Qualified Code(s): K21.9 - Gastro-esophageal reflux disease without esophagitis Code(s): K21.9 - Gastro-esophageal reflux disease without esophagitis Status: Chronic Assessment and Plan: Chronic, continue PO protonix 40 mg daily formulary substitute for omeprazole. (7) Acute urticaria: Code(s): L50.8 - Other urticaria Status: Acute Assessment and Plan: Pruritic patchy, raised lesions distal right leg and right thigh radiating to right groin and right flank. Benadryl 50 mg IV x1 and solu-medrol 125 mg IV x1 Pruritic patches to thigh, trunk and dorsal foot improving- continue IV solu-medrol 60 mg Q8 hours and benadryl 50 mg PO daily. (8) Ascites: Code(s): R18.8 - Other ascites Status: Acute Assessment and Plan: Small
[2022-09-01] MEDS: HYDROCORTISONE 1% 30 GM OINTMENT 1 APPLIC TOPICAL ×2 (09:08→21:35)
[2022-09-01] MEDS: PANTOPRAZOLE 40 MG TABLET PO (09:08)
[2022-09-01] MEDS: ENOXAPARIN 40 MG/0.4 ML SYRINGE SUB-Q (09:08)
[2022-09-01] MEDS: diphenhydrAMINE HCl CAP 25 MG CAPSULE PO (09:10)
--- NOTE | 2022-09-01 11:19 | PM.PNORT ---
Progress Note: A&P Assessment and Plan (1) Cellulitis and abscess of right leg: Code(s): L03.115 - Cellulitis of right lower limb; L02.415 - Cutaneous abscess of right lower limb Status: Acute (2) Total knee replacement status: Code(s): Z96.659 - Presence of unspecified artificial knee joint Status: Acute Plan Patient appears to have cellulitis right lower extremity per previous radiographic and lab studies. Right knee aspiration culture is pending, continue IV antibiotics and current care, patient is stable improving somewhat orthopedics will follow. Dr. Luna aware and will discuss the above with him. Subjective Subjective Date/Time Seen: 09/01/22 11:19 Patient admitted for cellulitis right lower extremity states this discomfort has subsided some feels better still tight and swollen with erythema but is afebrile able to get up and ambulate no drainage from wound is noted Review of Systems Review of Systems: negative Exam Narrative: Vital signs stable, afebrile, neurovascular is intact, calves are benign. Moderate swelling throughout the entire right lower extremity noted with erythema no significant heat. Wound is clean and dry status post right total knee arthroplasty Objective Data Vital Signs Vital Signs: Vital Signs - 24 hr 08/31/22 14:00 08/31/22 21:51 08/31/22 20:00 Temperature 36.3 C L 36.0 C L Pulse Rate 92 90 Respiratory Rate 20 20 Blood Pressure 106/55 L 124/71 Pulse Oximetry 96 94 Oxygen Delivery Room Air 09/01/22 06:00 Temperature 36.5 C Pulse Rate 89 Respiratory Rate 18 Blood Pressure 116/61 Pulse Oximetry 94 Oxygen Delivery Intake/Output Intake/Output: Intake & Output 08/29/22 08/30/22 08/31/22 09/01/22 23:59 23:59 23:59 23:59 Intake Total 1100 3330 2130 1030 Output Total 600 Balance 1100 2730 2130 1030 Meds/Results Medications: Active Medications Generic Name Dose Route Start Last Admin Trade Name Freq PRN Reason Stop Dose Admin Hydrocodone Bitart/Acetaminophen 1 tab 08/29/22 15:37 08/31/22 11:47 Hydrocodone/Acetaminophen (*Crx) 7.5-325 Mg Tablet PO 1 tab Q4H PRN Administration Pain Rated 4-6 Bisacodyl 10 mg 08/30/22 11:21 Bisacodyl 10 Mg Suppository RECTAL QAM PRN Constipation Diphenhydramine HCl 25 mg 08/29/22 17:21 09/01/22 09:10 Diphenhydramine Hcl Cap 25 Mg Capsule PO 25 mg Q6H PRN Administration Itching Enoxaparin Sodium 40 mg 08/30/22 09:00 09/01/22 09:08 Enoxaparin 40 Mg/0.4 Ml Syringe SUB-Q 40 mg DAILY QUE Administration Fentanyl Citrate 50 mcg 08/29/22 19:06 09/01/22 10:54 Fentanyl Citrate Inj (*Crx) 100 Mcg/2 Ml Vial IV PUSH 50 mcg Q4H PRN Administration Pain Rated 7-10 Hydrocortisone 1 applic 08/30/22 21:00 09/01/22 09:08 Hydrocortisone 1% 30 Gm Ointment TOPICAL 1 applic Q12HR QUE Administration Cefepime HCl 2 gm in 50 mls @ 100 mls/hr 08/30/22 14:00 09/01/22 06:00 Maxipime 2 Gm/D5w 50 Ml IVPB 100 mls/hr Q8HR QUE Administration Vancomycin HCl 1,500 mg in 500 mls @ 333.333 mls/hr 08/31/22 02:00 09/01/22 03:12 Vancomycin 1,500 Mg/D5w 500 Ml IVPB 333 mls/hr Q8H QUE Administration Methylprednisolone Sodium Succinate 60 mg 09/01/22 14:00 Methylprednisolone Sod Succ 125 Mg Vial IV PUSH Q8HR QUE Pantoprazole Sodium 40 mg 08/30/22 09:00 09/01/22 09:08 Pantoprazole 40 Mg Tablet PO 40 mg QAM QUE Administration Polyethylene Glycol 17 gm 08/30/22 11:21 Polyethylene Glycol 3350 17 Gm Powd.Pack PO QAM PRN Constipation Senna/Docusate Sodium 1 tab 08/30/22 21:00 08/31/22 21:17 Senna/Docusate Sodium Tablet PO 1 tab HS QUE Administration Radiology Results: ITS Impressions Venous Doppler Study 08/29/22 11:47 IMPRESSION: 1. No deep venous thrombosis. Knee X-Ray 08/29/22 13:07 IMPRESSION: 1. Total right knee arthroplasty in near-anatomic alignment.
[2022-09-01] MEDS: diphenhydrAMINE HCl CAP 25 MG CAPSULE 50 MG PO (13:38)
[2022-09-01] MEDS: HYDROcodone/acetaminophen (*CRX) 7.5-325 MG TABLET 1 TAB PO ×2 (13:38→21:38)
[2022-09-01 14:10] VITALS: BP 120/62; PULSE 94; RESP 16; TEMP 36.4; O2SAT 95
[2022-09-01] MEDS: FUROSEMIDE INJ 40 MG/4 ML VIAL IV PUSH (14:36)
[2022-09-01] MEDS: methylPREDNISolone SOD SUCC 125 MG VIAL 60 MG IV PUSH ×2 (14:36→21:38)
[2022-09-01] MEDS: SENNA/DOCUSATE SODIUM TABLET 1 TAB PO (21:37)
[2022-09-01 23:14] VITALS: O2SAT 94
[2022-09-02] MEDS: HYDROcodone/acetaminophen (*CRX) 7.5-325 MG TABLET 1 TAB PO ×4 (01:23→20:32)
[2022-09-02] MEDS: methylPREDNISolone SOD SUCC 125 MG VIAL 60 MG IV PUSH ×3 (05:11→20:31)
[2022-09-02 05:31] VITALS: BP 106/61; PULSE 73; RESP 16; TEMP 36.1; O2SAT 96
[2022-09-02 06:34] LABS: Basophils Percent Auto 0.2 % (0.2-1.2); Hematocrit 33.5 % (42.0-52.0); Hemoglobin 11.1 g/dL (14.0-18.0); Immature Granulocyte Absolute 0.08 K/mm3 (0.00-0.031); Immature Granulocyte Percent A 0.6 % (0-0.5); Lymphocytes Absolute Auto 0.93 K/mm3 (0.9-3.2); Mean Corpuscular HGB Conc 33.1 g/dl (32-36); Mean Corpuscular Hemoglobin 33.9 pg (26-34); Mean Corpuscular Volume 102.4 fl (80-100); Mean Platelet Volume 9.4 fl (7.4-10.4); Monocytes Absolute Auto 0.4 K/mm3 (0.1-0.6); Monocytes Percent Auto 3.3 % (2.6-8.5); Neutrophils Absolute Auto 11.8 K/mm3 (1.3-6.7); Neutrophils Percent Auto 88.9 % (45.5-73.1); Platelet Count Result 290 k/mm3 (150-375); Red Blood Count 3.27 M/mm3 (4.6-6.20); Red Cell Distribution Width 13.8 % (11.5-14.5); White Blood Count 13.2 K/mm3 (4.5-10.0)
[2022-09-02 06:53] LABS: Alanine Aminotransferase 53 U/L (6-50); Albumin Level 3.1 g/dL (3.5-5.1); Alkaline Phosphatase 130 U/L (38-126); Anion Gap 6 mmol/L (8-16); Aspartate Amino Transferase 96 U/L (17-59); Bilirubin,Total 1.5 mg/dL (0.2-1.3); Blood Urea Nitrogen 11 mg/dL (9-20); Calcium 7.9 mg/dL (8.4-10.2); Carbon Dioxide 25 mmol/L (22-30); Chloride 103 mmol/L (98-107); Estimated CRCL calculation 210 ml/min; Estimated Glomerular Filt Rate > 60; Glucose 164 mg/dL (65-110); Potassium 3.8 mmol/L (3.4-5.0); Sodium 134 mmol/L (137-145)
--- NOTE | 2022-09-02 07:15 | WPDGIPROGNO ---
Progress Note: A&P Assessment and Plan (1) Transaminitis: Code(s): R74.01 - Elevation of levels of liver transaminase levels Status: Acute Assessment and Plan: We do not know if this is new. Some transaminitis could be due to bacteremia or infection. The fact that his albumin is low however suggest that he has some chronic liver disease. 09/02/2022 transaminases remain in his same range , suggesting that this is a chronic elevation. (2) Cellulitis and abscess of right leg: Code(s): L03.115 - Cellulitis of right lower limb; L02.415 - Cutaneous abscess of right lower limb Status: Acute Assessment and Plan: He has been started on antibiotics-- cefepime and vancomycin 09/02/2022. He states that his leg is getting better and is not as tender or tight. (3) Dysphagia: Code(s): R13.10 - Dysphagia, unspecified Status: Resolved Assessment and Plan: he had this investigated in the past. He is not having a significant problem with that at the present time. I told that if he has issues with that he should contact us and we would perform a outpatient endoscopy or an esophageal dilatation (4) Heavy alcohol use: Code(s): F10.90 - Alcohol use, unspecified, uncomplicated Status: Chronic Assessment and Plan: he states that he has already been told that he needs to stop his alcohol use. I told that alcohol may not be the sole cause for his abnormal liver function and we will investigate that. Hepatitis serology is already pending. 09/02/2022 hepatitis serologies negative. Fibrosis panel pending (5) Ascites: Code(s): R18.8 - Other ascites Status: Acute Assessment and Plan: There is ascites near the liver but not a sufficient amount to warrant paracentesis. Subjective Date/time seen: 09/02/22 07:15 he has no complaints today. He feels that his leg is improving. We can discuss his liver issue. Today's labs are pending as are the fibrotic panel results. He knows that alcohol is probably a big part of the problem. 08/31/22 Andres Paula is a 67 year old male? who was admitted because of complications of recent right knee replacement.? He had surgery, a right TKA on August 19.? A few days later when his dressing was removed he noticed significant swelling.? He had already begun physical therapy.? An x-ray was done August 29 shows a moderate effusion.? Attempted removal of fluid by IR and in the office was not successful.? He has noticed significant swelling of his entire lower extremity with redness and discomfort as well.? He has been started on antibiotics. ? I am asked to see him because of abnormal liver functions.? He has been found to have a bilirubin of 2.2, albumin is 2.8.? AST is 108 and alkaline phosphatase 144.? We have no recent levels to compare these 2.? He admitted that he has not seen his primary care provider in about 10 years.? He has appointment to see a new primary care provider but had not yet been able to get in to see him. ? He denies any prior history of liver disease, or jaundice, or hepatitis.? He is not aware of any family history of liver disease.? He does drink a 6 pack of beer per day and has done this for long time.? He has never had any hospitalizations related to alcohol. Exam Const: General: alert Orientation/consciousness: patient oriented x3 Resp: Auscultation: clear to auscultation bilaterally Cardio: Rhythm: regular rhythm GI: Inspection: other ( protuberant) GI Palp: Yes Soft to palpation, No Tenderness to palpation present (GI), Yes Hepatomegaly present ( liver edge just below right costal margin) and Yes Ascites present Auscultation: normal bowel sounds Neuro: General: patient oriented x3 Extrem: Right lower extremity: edema ( significant edema compared to the left) Other: cellulitis of the right lower extremity from just above the knee to the ankle, moderately tender on palpation. Object
--- NOTE | 2022-09-02 07:35 | PM.IMPN ---
Progress Note: A&P Assessment and Plan (1) Cellulitis and abscess of right leg: Code(s): L03.115 - Cellulitis of right lower limb; L02.415 - Cutaneous abscess of right lower limb Status: Acute Assessment and Plan: Patient presented to the ED for evaluation of right knee and leg pain/swelling starting 08/26 and he was treated outpatient with oral doxycycline. He is s/o right TKA on 08/19/202208/29 x-ray of the right knee shows moderate pleural effusion. IR aspiration of fluid from the right knee pending. Patient appears to have had prior aspiration of right knee 08/27 by IR and in the Ortho office that did not yield any fluid and showed hypoechoic region at the suprapatellar pouch and lateral gutter attributed to edematous reactive synovitis. Orthopedic surgery Dr. Luna consulted and appreciate assistance with management. 08/29 started on Cefazolin 1 gram IV Q 8 hours and IV Vancomycin pharmacy to dose. 08/30/22 Discuss case with Infectious disease pharmacist. changed antibiotics to Cefepime 2 grams IV Q8 for pseudomonas coverage and continue Vancomycin IV. De-escalate antibiotics per cultures if available. Venous doppler negative for DVT Blood cultures negative to date. Continue with IV/PO analgesics Patient afebrile, vitals stable, WBC 11 - does not meet sepsis protocol. 08/31/22 CT LE negative for soft tissue gas. subcutaneous fat stranding suggestive of cellulitis and edema. 09/01/22 continue antibiotics unchanged. Vancomycin pharmacy to dose started 08/29/22 and Cefepime 2 grams started 08/30/22. 09/02/22 Continue current antibiotic regimen. Per patient there is slight improvement. I have seen pictures off of his phone and there does seem to be improvement from admission in both the color and swelling. Will reevaluate tomorrow. Discussed case with Marichuy today and if patient does not continue to improve he may need transfer to higher facility. (2) Transaminitis: Code(s): R74.01 - Elevation of levels of liver transaminase levels Status: Acute Assessment and Plan: Tbili 2.0, AST 109, ALT 45, Alk phos 152. Patient drinks a 6 pack of beer nightly and this may be related to underlying liver disease. No prior LFTs to compare. Liver US - Gallbladder wall thickening, which may be seen with interstitial edema or chronic liver disease and small volume of perihepatic ascites. hepatitis panel negative Liver fibrosis panel pending. Consult GI (3) Hyponatremia: Code(s): E87.1 - Hypo-osmolality and hyponatremia Status: Acute Assessment and Plan: Sodium 129 on admission. It was 130 on 08/20/22 without prior labs available. Likely secondary to heavy alcohol use. urine osmo pending and urine sodium 8 Trend sodium Sodium on 09/02/2022 stable Monitor neuro status - stable (4) Heavy alcohol use: Code(s): F10.90 - Alcohol use, unspecified, uncomplicated Status: Chronic Assessment and Plan: As above. Monitor for withdrawal symptoms. He reports not drinking in the past month due to surgery. He typically drinks a 6 pack/night most nights of the week. consult resident care aide for alcohol abstinence resources. (5) Mitral valve prolapse: Code(s): I34.1 - Nonrheumatic mitral (valve) prolapse Status: Chronic Assessment and Plan: Patient with h/o MVP. He denies known valve disease. Echocardiogram pending. Monitor (6) Acid reflux: Qualifiers: Esophagitis presence: without esophagitis Qualified Code(s): K21.9 - Gastro-esophageal reflux disease without esophagitis Code(s): K21.9 - Gastro-esophageal reflux disease without esophagitis Status: Chronic Assessment and Plan: Chronic, continue PO protonix 40 mg daily formulary substitute for omeprazole. (7) Acute urticaria: Code(s): L50.8 - Other urticaria Status: Acute Assessment and Plan: Pruritic patchy, raised lesions distal righ
[2022-09-02] MEDS: PANTOPRAZOLE 40 MG TABLET PO (09:14)
[2022-09-02] MEDS: HYDROCORTISONE 1% 30 GM OINTMENT 1 APPLIC TOPICAL ×2 (09:15→20:31)
[2022-09-02] MEDS: ENOXAPARIN 40 MG/0.4 ML SYRINGE SUB-Q (09:15)
[2022-09-02 14:00] VITALS: BP 126/65; PULSE 91; RESP 18; TEMP 36.2; O2SAT 92
[2022-09-02 15:03] LABS: Osmolality, Urine 196 mOsm/kg (50-1200)
--- NOTE | 2022-09-02 16:08 | PM.PNORT ---
Progress Note: A&P Assessment and Plan (1) Swelling of lower limb: Code(s): M79.89 - Other specified soft tissue disorders Status: Acute (2) Cellulitis and abscess of right leg: Code(s): L03.115 - Cellulitis of right lower limb; L02.415 - Cutaneous abscess of right lower limb Status: Acute (3) Total knee replacement status: Code(s): Z96.659 - Presence of unspecified artificial knee joint Status: Acute Plan We will start doing some formal physical therapy with the patient status post right total knee arthroplasty. I have advised patient not to sit with his knee flexed in bed with a pillow behind his knee all day he is going to get stiff if he does this. Talked about proper positioning of the lower extremity with the patient and with his nurse today. He will try to elevate his leg as much as possible continue with swelling control, IV antibiotics and physical therapy. Orthopedics will monitor. He voiced understanding and agrees with above plan. So far culture results from the aspiration look negative. Subjective Subjective Date/Time Seen: 09/02/22 16:08 Patient with less pain today swelling mildly decreased he was able to get up and ambulate to the bathroom independently. He has been sitting in bed with his knee flexed with a pillow behind his knee have advised that we need to get this straight we will work on some range of motion exercises and therapy total knee protocol. Overall feeling better continue with IV antibiotics. Denies any other constitutional symptoms otherwise feels well. Today preliminary culture results negative gram stain negative, No organisms seen. Exam Narrative: vital signs stable afebrile neurovascular the patient has intact wound dressing is clean and dry no drainage. Extensive erythema noted right lower extremity swelling is mildly decreased compared to yesterday. Much less pain. Range of motion today is 5 to about 80? right knee. No heat or tenderness is noted throughout the knee or right lower extremity except postop type pain. Status post right total knee arthroplasty. Objective Data Vital Signs Vital Signs: Vital Signs - 24 hr 09/01/22 20:00 09/01/22 23:14 09/02/22 05:31 Temperature 36.1 C L Pulse Rate 73 Respiratory Rate 16 Blood Pressure 106/61 Pulse Oximetry 94 96 Oxygen Delivery Room Air Room Air 09/02/22 14:00 Temperature 36.2 C L Pulse Rate 91 Respiratory Rate 18 Blood Pressure 126/65 Pulse Oximetry 92 Oxygen Delivery Intake/Output Intake/Output: Intake & Output 08/30/22 08/31/22 09/01/22 09/02/22 23:59 23:59 23:59 23:59 Intake Total 3330 2130 4270 2850 Output Total 600 Balance 2730 2130 4270 2850 Meds/Results Medications: Active Medications Generic Name Dose Route Start Last Admin Trade Name Freq PRN Reason Stop Dose Admin Hydrocodone Bitart/Acetaminophen 1 tab 08/29/22 15:37 09/02/22 14:20 Hydrocodone/Acetaminophen (*Crx) 7.5-325 Mg Tablet PO 1 tab Q4H PRN Administration Pain Rated 4-6 Bisacodyl 10 mg 08/30/22 11:21 Bisacodyl 10 Mg Suppository RECTAL QAM PRN Constipation Diphenhydramine HCl 25 mg 08/29/22 17:21 09/01/22 09:10 Diphenhydramine Hcl Cap 25 Mg Capsule PO 25 mg Q6H PRN Administration Itching Enoxaparin Sodium 40 mg 08/30/22 09:00 09/02/22 09:15 Enoxaparin 40 Mg/0.4 Ml Syringe SUB-Q 40 mg DAILY QUE Administration Fentanyl Citrate 50 mcg 08/29/22 19:06 09/01/22 18:40 Fentanyl Citrate Inj (*Crx) 100 Mcg/2 Ml Vial IV PUSH 50 mcg Q4H PRN Administration Pain Rated 7-10 Hydrocortisone 1 applic 08/30/22 21:00 09/02/22 09:15 Hydrocortisone 1% 30 Gm Ointment TOPICAL 1 applic Q12HR QUE Administration Cefepime HCl 2 gm in 50 mls @ 100 mls/hr 08/30/22 14:00 09/02/22 15:30 Maxipime 2 Gm/D5w 50 Ml IVPB Infused Q8HR QUE Infusion Vancomycin HCl 1,500 mg in 500 mls @ 333.333 mls/hr 08/31/22 02:00
[2022-09-02] MEDS: SENNA/DOCUSATE SODIUM TABLET 1 TAB PO (20:31)
[2022-09-02 22:30] VITALS: BP 137/72; PULSE 58; RESP 16; TEMP 36.2; O2SAT 97
[2022-09-03] MEDS: HYDROcodone/acetaminophen (*CRX) 7.5-325 MG TABLET 1 TAB PO ×4 (02:30→22:09)
[2022-09-03] MEDS: methylPREDNISolone SOD SUCC 125 MG VIAL 60 MG IV PUSH ×2 (06:04→15:35)
[2022-09-03 06:40] VITALS: BP 117/57; PULSE 88; RESP 16; TEMP 36.2; O2SAT 95
[2022-09-03 07:41] LABS: Basophils Percent Auto 0.1 % (0.2-1.2); Hematocrit 34.2 % (42.0-52.0); Hemoglobin 11.3 g/dL (14.0-18.0); Immature Granulocyte Absolute 0.13 K/mm3 (0.00-0.031); Lymphocytes Absolute Auto 0.79 K/mm3 (0.9-3.2); Mean Corpuscular Hemoglobin 33.8 pg (26-34); Mean Corpuscular Volume 102.4 fl (80-100); Mean Platelet Volume 9.2 fl (7.4-10.4); Monocytes Absolute Auto 0.9 K/mm3 (0.1-0.6); Monocytes Percent Auto 6.6 % (2.6-8.5); Neutrophils Absolute Auto 11.3 K/mm3 (1.3-6.7); Neutrophils Percent Auto 86.3 % (45.5-73.1); Platelet Count Result 289 k/mm3 (150-375); Red Blood Count 3.34 M/mm3 (4.6-6.20); White Blood Count 13.1 K/mm3 (4.5-10.0)
[2022-09-03 07:51] LABS: Alanine Aminotransferase 66 U/L (6-50); Albumin Level 3.1 g/dL (3.5-5.1); Alkaline Phosphatase 131 U/L (38-126); Anion Gap 4 mmol/L (8-16); Aspartate Amino Transferase 89 U/L (17-59); Bilirubin,Total 1.2 mg/dL (0.2-1.3); Blood Urea Nitrogen 12 mg/dL (9-20); Carbon Dioxide 26 mmol/L (22-30); Chloride 101 mmol/L (98-107); Estimated CRCL calculation 210 ml/min; Estimated Glomerular Filt Rate > 60; Glucose 181 mg/dL (65-110); Potassium 3.7 mmol/L (3.4-5.0); Sodium 131 mmol/L (137-145)
[2022-09-03] MEDS: PANTOPRAZOLE 40 MG TABLET PO (09:31)
[2022-09-03] MEDS: HYDROCORTISONE 1% 30 GM OINTMENT 1 APPLIC TOPICAL ×2 (09:31→20:15)
[2022-09-03] MEDS: ENOXAPARIN 40 MG/0.4 ML SYRINGE SUB-Q (09:31)
[2022-09-03 14:00] VITALS: BP 134/63; PULSE 92; RESP 22; TEMP 36.4; O2SAT 95
--- NOTE | 2022-09-03 14:52 | PM.PNORT ---
Progress Note: A&P Assessment and Plan (1) Cellulitis and abscess of right leg: Code(s): L03.115 - Cellulitis of right lower limb; L02.415 - Cutaneous abscess of right lower limb Status: Acute (2) Total knee replacement status: Code(s): Z96.659 - Presence of unspecified artificial knee joint Status: Acute (3) Swelling of lower limb: Code(s): M79.89 - Other specified soft tissue disorders Status: Acute Plan continued cellulitis, stable, right lower extremity. Continue IV antibiotics. Further treatment plan and discharge for medical service. The patient should continue antibiotics as an outpatient, per Dr. Luna. I spoke with the patient today he agrees with above plan continue physical therapy as tolerated for range of motion, elevation for swelling control. Orthopedics will monitor. Subjective Subjective Date/Time Seen: 09/03/22 14:52 Patient moving around a little better was up in therapy today ambulating and working on range of motion right knee. Swelling unchanged and stable compared to yesterday. Pain has been improving with antibiotics. Cellulitis right lower extremity continues. Review of Systems Review of Systems: Ten point review of systems otherwise negative Exam Narrative: patient is in no acute distress alert oriented x3. Normal mood and affect. Right lower extremity shows continued moderate swelling extensive erythema wound otherwise clean and dry motion is 5-7 degrees short of full extension flexing to about 85?. Neurovascular otherwise intact. Was able to ambulate in therapy today and work on range of motion and PT. Objective Data Vital Signs Vital Signs: Vital Signs - 24 hr 09/02/22 22:30 09/02/22 20:00 09/03/22 06:40 Temperature 36.2 C L 36.2 C L Pulse Rate 58 L 88 Respiratory Rate 16 16 Blood Pressure 137/72 117/57 L Pulse Oximetry 97 95 Oxygen Delivery Room Air Intake/Output Intake/Output: Intake & Output 08/31/22 09/01/22 09/02/22 09/03/22 23:59 23:59 23:59 23:59 Intake Total 2130 4270 4140 1530 Balance 2130 4270 4140 1530 Meds/Results Medications: Active Medications Generic Name Dose Route Start Last Admin Trade Name Freq PRN Reason Stop Dose Admin Hydrocodone Bitart/Acetaminophen 1 tab 08/29/22 15:37 09/03/22 09:37 Hydrocodone/Acetaminophen (*Crx) 7.5-325 Mg Tablet PO 1 tab Q4H PRN Administration Pain Rated 4-6 Bisacodyl 10 mg 08/30/22 11:21 Bisacodyl 10 Mg Suppository RECTAL QAM PRN Constipation Diphenhydramine HCl 25 mg 08/29/22 17:21 09/01/22 09:10 Diphenhydramine Hcl Cap 25 Mg Capsule PO 25 mg Q6H PRN Administration Itching Enoxaparin Sodium 40 mg 08/30/22 09:00 09/03/22 09:31 Enoxaparin 40 Mg/0.4 Ml Syringe SUB-Q 40 mg DAILY QUE Administration Fentanyl Citrate 50 mcg 08/29/22 19:06 09/01/22 18:40 Fentanyl Citrate Inj (*Crx) 100 Mcg/2 Ml Vial IV PUSH 50 mcg Q4H PRN Administration Pain Rated 7-10 Hydrocortisone 1 applic 08/30/22 21:00 09/03/22 09:31 Hydrocortisone 1% 30 Gm Ointment TOPICAL 1 applic Q12HR QUE Administration Cefepime HCl 2 gm in 50 mls @ 100 mls/hr 08/30/22 14:00 09/03/22 06:04 Maxipime 2 Gm/D5w 50 Ml IVPB 100 mls/hr Q8HR QUE Administration Vancomycin HCl 1,500 mg in 500 mls @ 333.333 mls/hr 08/31/22 02:00 09/03/22 09:31 Vancomycin 1,500 Mg/D5w 500 Ml IVPB 250 mls/hr Q8H QUE Administration Methylprednisolone Sodium Succinate 60 mg 09/01/22 14:00 09/03/22 06:04 Methylprednisolone Sod Succ 125 Mg Vial IV PUSH 60 mg Q8HR QUE Administration Pantoprazole Sodium 40 mg 08/30/22 09:00 09/03/22 09:31 Pantoprazole 40 Mg Tablet PO 40 mg QAM QUE Administration Polyethylene Glycol 17 gm 08/30/22 11:21 Polyethylene Glycol 3350 17 Gm Powd.Pack PO QAM PRN Constipation Senna/Docusate Sodium 1 tab 08/30/22 21:00 09/02/22 20:31 Senna/Docusate Sodium Tabl
--- NOTE | 2022-09-03 15:45 | PM.IMPN ---
Progress Note: A&P Assessment and Plan (1) Cellulitis and abscess of right leg: Code(s): L03.115 - Cellulitis of right lower limb; L02.415 - Cutaneous abscess of right lower limb Status: Acute Assessment and Plan: Patient presented to the ED for evaluation of right knee and leg pain/swelling starting 08/26 and he was treated outpatient with oral doxycycline. He is s/o right TKA on 08/19/202208/29 x-ray of the right knee shows moderate pleural effusion. IR aspiration of fluid from the right knee pending. Patient appears to have had prior aspiration of right knee 08/27 by IR and in the Ortho office that did not yield any fluid and showed hypoechoic region at the suprapatellar pouch and lateral gutter attributed to edematous reactive synovitis. Orthopedic surgery Dr. Luna consulted and appreciate assistance with management. 08/29 started on Cefazolin 1 gram IV Q 8 hours and IV Vancomycin pharmacy to dose. 08/30/22 Discuss case with Infectious disease pharmacist. changed antibiotics to Cefepime 2 grams IV Q8 for pseudomonas coverage and continue Vancomycin IV. De-escalate antibiotics per cultures if available. Venous doppler negative for DVT Blood cultures negative to date. Continue with IV/PO analgesics Patient afebrile, vitals stable, WBC 11 - does not meet sepsis protocol. 08/31/22 CT LE negative for soft tissue gas. subcutaneous fat stranding suggestive of cellulitis and edema. 09/01/22 continue antibiotics unchanged. Vancomycin pharmacy to dose started 08/29/22 and Cefepime 2 grams started 08/30/22. 09/02/22 Continue current antibiotic regimen. Per patient there is slight improvement. I have seen pictures off of his phone and there does seem to be improvement from admission in both the color and swelling. Will reevaluate tomorrow. Discussed case with Mar[facility] today and if patient does not continue to improve he may need transfer to higher facility. 09/03/2022 continue current antibiotic regimen. Patient is on day 6 of antibiotic treatment. Patient has had slight improvement during his course of antibiotics although there is still some improvement. No growth to date on blood cultures and right knee wound specimen. Attempt diuresis to help with right leg edema. Will order Lasix 40 mg b.i.d. (2) Transaminitis: Code(s): R74.01 - Elevation of levels of liver transaminase levels Status: Acute Assessment and Plan: Tbili 2.0, AST 109, ALT 45, Alk phos 152. Patient drinks a 6 pack of beer nightly and this may be related to underlying liver disease. No prior LFTs to compare. Liver US - Gallbladder wall thickening, which may be seen with interstitial edema or chronic liver disease and small volume of perihepatic ascites. hepatitis panel negative Liver fibrosis panel pending. Consult GI GI following (3) Hyponatremia: Code(s): E87.1 - Hypo-osmolality and hyponatremia Status: Acute Assessment and Plan: Sodium 129 on admission. It was 130 on 08/20/22 without prior labs available. Likely secondary to heavy alcohol use. urine osmo pending and urine sodium 8 Trend sodium Sodium on 09/02/2022 stable Monitor neuro status - stable (4) Heavy alcohol use: Code(s): F10.90 - Alcohol use, unspecified, uncomplicated Status: Chronic Assessment and Plan: As above. Monitor for withdrawal symptoms. He reports not drinking in the past month due to surgery. He typically drinks a 6 pack/night most nights of the week. consult college and career counselor for alcohol abstinence resources. (5) Mitral valve prolapse: Code(s): I34.1 - Nonrheumatic mitral (valve) prolapse Status: Chronic Assessment and Plan: Patient with h/o MVP. He denies known valve disease. Echocardiogram pending. Monitor (6) Acid reflux: Qualifiers: Esophagitis presence: without esophagitis Qualified Code(s): K21.9 - Gastro-esophageal reflux disease without esophagitis
[2022-09-03] MEDS: FUROSEMIDE INJ 40 MG/4 ML VIAL IV PUSH (18:00)
[2022-09-03] MEDS: SENNA/DOCUSATE SODIUM TABLET 1 TAB PO (20:15)
[2022-09-03 21:39] VITALS: BP 136/70; PULSE 80; RESP 14; TEMP 36.6; O2SAT 95
[2022-09-04] MEDS: HYDROcodone/acetaminophen (*CRX) 7.5-325 MG TABLET 1 TAB PO ×4 (02:22→20:27)
[2022-09-04 03:21] VITALS: BP 146/69; PULSE 85; RESP 20; TEMP 36.2; O2SAT 96
--- NOTE | 2022-09-04 08:42 | PM.IMPN ---
Progress Note: A&P Assessment and Plan (1) Cellulitis and abscess of right leg: Code(s): L03.115 - Cellulitis of right lower limb; L02.415 - Cutaneous abscess of right lower limb Status: Acute Assessment and Plan: Patient presented to the ED for evaluation of right knee and leg pain/swelling starting 08/26 and he was treated outpatient with oral doxycycline. He is s/o right TKA on 08/19/202208/29 x-ray of the right knee shows moderate pleural effusion. IR aspiration of fluid from the right knee pending. Patient appears to have had prior aspiration of right knee 08/27 by IR and in the Ortho office that did not yield any fluid and showed hypoechoic region at the suprapatellar pouch and lateral gutter attributed to edematous reactive synovitis. Orthopedic surgery Dr. Luna consulted and appreciate assistance with management. 08/29 started on Cefazolin 1 gram IV Q 8 hours and IV Vancomycin pharmacy to dose. 08/30/22 Discuss case with Infectious disease pharmacist. changed antibiotics to Cefepime 2 grams IV Q8 for pseudomonas coverage and continue Vancomycin IV. De-escalate antibiotics per cultures if available. Venous doppler negative for DVT Blood cultures negative to date. Continue with IV/PO analgesics Patient afebrile, vitals stable, WBC 11 - does not meet sepsis protocol. 08/31/22 CT LE negative for soft tissue gas. subcutaneous fat stranding suggestive of cellulitis and edema. 09/01/22 continue antibiotics unchanged. Vancomycin pharmacy to dose started 08/29/22 and Cefepime 2 grams started 08/30/22. 09/02/22 Continue current antibiotic regimen. Per patient there is slight improvement. I have seen pictures off of his phone and there does seem to be improvement from admission in both the color and swelling. Will reevaluate tomorrow. Discussed case with Mar[facility] today and if patient does not continue to improve he may need transfer to higher facility. 09/03/2022 continue current antibiotic regimen. Patient is on day 6 of antibiotic treatment. Patient has had slight improvement during his course of antibiotics although there is still some improvement. No growth to date on blood cultures and right knee wound specimen. Attempt diuresis to help with right leg edema. Will order Lasix 40 mg b.i.d. 09/04/22 day 7 of antibiotic treatment. Discussed with ortho today and they were wanting to see patient as an outpatient for staple removal in the right knee. Patient improving slowly. Plan on 1 more day of Lasix therapy to see if this helps patient's edema decreased. Possible discharge tomorrow. Plan on discussing patient's treatment with both Ortho and [facility]. (2) Transaminitis: Code(s): R74.01 - Elevation of levels of liver transaminase levels Status: Acute Assessment and Plan: Tbili 2.0, AST 109, ALT 45, Alk phos 152. Patient drinks a 6 pack of beer nightly and this may be related to underlying liver disease. No prior LFTs to compare. Liver US - Gallbladder wall thickening, which may be seen with interstitial edema or chronic liver disease and small volume of perihepatic ascites. hepatitis panel negative Liver fibrosis panel pending. Consult GI GI following (3) Hyponatremia: Code(s): E87.1 - Hypo-osmolality and hyponatremia Status: Acute Assessment and Plan: Sodium 129 on admission. It was 130 on 08/20/22 without prior labs available. Likely secondary to heavy alcohol use. urine osmo pending and urine sodium 8 Trend sodium Sodium on 09/02/2022 stable Monitor neuro status - stable (4) Heavy alcohol use: Code(s): F10.90 - Alcohol use, unspecified, uncomplicated Status: Chronic Assessment and Plan: As above. Monitor for withdrawal symptoms. He reports not drinking in the past month due to surgery. He typically drinks a 6 pack/night most nights of the week. consult child care coordinator for alcohol abstinence resources. (5) Mitral valve prolapse:
[2022-09-04] MEDS: FUROSEMIDE INJ 40 MG/4 ML VIAL IV PUSH ×2 (09:29→16:40)
[2022-09-04] MEDS: ENOXAPARIN 40 MG/0.4 ML SYRINGE SUB-Q (09:29)
[2022-09-04] MEDS: PANTOPRAZOLE 40 MG TABLET PO (09:29)
[2022-09-04] MEDS: HYDROCORTISONE 1% 30 GM OINTMENT 1 APPLIC TOPICAL ×2 (09:30→19:55)
[2022-09-04 09:33] LABS: Basophils Percent Auto 0.1 % (0.2-1.2); Eosinophils Percent Auto 0.1 % (0-4.4); Hematocrit 36.1 % (42.0-52.0); Hemoglobin 11.8 g/dL (14.0-18.0); Immature Granulocyte Absolute 0.05 K/mm3 (0.00-0.031); Immature Granulocyte Percent A 0.4 % (0-0.5); Lymphocytes Absolute Auto 1.07 K/mm3 (0.9-3.2); Lymphocytes Percent Auto 8.5 % (18.3-44.2); Mean Corpuscular HGB Conc 32.7 g/dl (32-36); Mean Corpuscular Hemoglobin 33.4 pg (26-34); Mean Corpuscular Volume 102.3 fl (80-100); Mean Platelet Volume 9.1 fl (7.4-10.4); Monocytes Absolute Auto 1.1 K/mm3 (0.1-0.6); Monocytes Percent Auto 8.9 % (2.6-8.5); Neutrophils Absolute Auto 10.3 K/mm3 (1.3-6.7); Platelet Count Result 298 k/mm3 (150-375); Red Blood Count 3.53 M/mm3 (4.6-6.20); Red Cell Distribution Width 13.9 % (11.5-14.5); White Blood Count 12.5 K/mm3 (4.5-10.0)
[2022-09-04 09:53] LABS: Alanine Aminotransferase 90 U/L (6-50); Albumin Level 3.1 g/dL (3.5-5.1); Alkaline Phosphatase 151 U/L (38-126); Anion Gap 5 mmol/L (8-16); Aspartate Amino Transferase 113 U/L (17-59); Bilirubin,Total 1.3 mg/dL (0.2-1.3); Blood Urea Nitrogen 12 mg/dL (9-20); CRP 0.8 mg/dL (<1.0); Calcium 7.8 mg/dL (8.4-10.2); Carbon Dioxide 26 mmol/L (22-30); Chloride 104 mmol/L (98-107); Estimated CRCL calculation 173 ml/min; Estimated Glomerular Filt Rate > 60; Glucose 195 mg/dL (65-110); Potassium 3.5 mmol/L (3.4-5.0); Sodium 135 mmol/L (137-145)
--- NOTE | 2022-09-04 12:41 | PM.PNORT ---
Progress Note: A&P Assessment and Plan (1) Cellulitis and abscess of right leg: Code(s): L03.115 - Cellulitis of right lower limb; L02.415 - Cutaneous abscess of right lower limb Status: Acute (2) Total knee replacement status: Code(s): Z96.659 - Presence of unspecified artificial knee joint Status: Acute (3) Swelling of lower limb: Code(s): M79.89 - Other specified soft tissue disorders Status: Acute Plan Patient is slowly improving with IV antibiotics therapy and elevation of the lower extremity. Continue treatment for now patient may be discharged home at any time from an orthopedic standpoint. The patient will continue oral antibiotics at home we will see him back next week early for recheck at Dr. Luna's office. I discussed this today with the patient he voiced understanding and agrees with the above plan. He will call our office immediately for any problems difficulties or questions after discharge to home. Subjective Subjective Date/Time Seen: 09/04/22 12:41 Patient up in the chair today states he is feeling quite a bit better the swelling has decreased significantly erythema is resolving as well. He is having less pain was able to tolerate therapy well today. No other complaints awaiting discharge to home. Medical service tentative plan is for discharge to home tomorrow with oral antibiotics. This is per the patient's report. Exam Narrative: On exam the patient's right lower extremity is noted to have [id number] swelling down from much more advanced. Erythema is resolving patient's motion today is 5 to about 85?. He is working on this in therapy. Much more comfortable through the arc of motion than previously. No he does noted throughout the lower extremity. Neurovascular is intact. No drainage is noted from the right knee wound zenia are intact healing well. Objective Data Vital Signs Vital Signs: Vital Signs - 24 hr 09/03/22 14:00 09/03/22 21:39 09/03/22 20:00 Temperature 36.4 C L 36.6 C Pulse Rate 92 80 Respiratory Rate 22 H 14 Blood Pressure 134/63 136/70 Pulse Oximetry 95 95 Oxygen Delivery Room Air 09/04/22 03:21 09/04/22 08:00 Temperature 36.2 C L Pulse Rate 85 Respiratory Rate 20 Blood Pressure 146/69 H Pulse Oximetry 96 Oxygen Delivery Room Air Intake/Output Intake/Output: Intake & Output 09/01/22 09/02/22 09/03/22 09/04/22 23:59 23:59 23:59 23:59 Intake Total 4270 4140 4660 1330 Balance 4270 4140 4660 1330 Meds/Results Medications: Active Medications Generic Name Dose Route Start Last Admin Trade Name Freq PRN Reason Stop Dose Admin Hydrocodone Bitart/Acetaminophen 1 tab 08/29/22 15:37 09/04/22 11:32 Hydrocodone/Acetaminophen (*Crx) 7.5-325 Mg Tablet PO 1 tab Q4H PRN Administration Pain Rated 4-6 Bisacodyl 10 mg 08/30/22 11:21 Bisacodyl 10 Mg Suppository RECTAL QAM PRN Constipation Diphenhydramine HCl 25 mg 08/29/22 17:21 09/01/22 09:10 Diphenhydramine Hcl Cap 25 Mg Capsule PO 25 mg Q6H PRN Administration Itching Enoxaparin Sodium 40 mg 08/30/22 09:00 09/04/22 09:29 Enoxaparin 40 Mg/0.4 Ml Syringe SUB-Q 40 mg DAILY QUE Administration Fentanyl Citrate 50 mcg 08/29/22 19:06 09/01/22 18:40 Fentanyl Citrate Inj (*Crx) 100 Mcg/2 Ml Vial IV PUSH 50 mcg Q4H PRN Administration Pain Rated 7-10 Furosemide 40 mg 09/03/22 17:00 09/04/22 09:29 Furosemide Inj 40 Mg/4 Ml Vial IV PUSH 40 mg BID QUE Administration Hydrocortisone 1 applic 08/30/22 21:00 09/04/22 09:30 Hydrocortisone 1% 30 Gm Ointment TOPICAL 1 applic Q12HR QUE Administration Cefepime HCl 2 gm in 50 mls @ 100 mls/hr 08/30/22 14:00 09/04/22 12:23 Maxipime 2 Gm/D5w 50 Ml IVPB Infused Q8HR QUE Infusion Vancomycin HCl 1,500 mg in 500 mls @ 333.333 mls/hr 08/31/22 02:00 09/04/22 11:29 Vancomycin 1,500 Mg/D5w 500 Ml IVPB 333 mls/hr Q8
[2022-09-04 14:00] VITALS: BP 120/67; PULSE 90; RESP 18; TEMP 36.9; O2SAT 96
[2022-09-04 20:00] VITALS: O2SAT 98
[2022-09-04 21:28] VITALS: BP 129/65; PULSE 88; RESP 20; TEMP 36.2; O2SAT 98
[2022-09-05 05:16] VITALS: BP 111/56; PULSE 84; RESP 20; TEMP 36.3; O2SAT 95
[2022-09-05] MEDS: HYDROcodone/acetaminophen (*CRX) 7.5-325 MG TABLET 1 TAB PO (06:14)
[2022-09-05 07:30] LABS: Basophils Percent Auto 0.2 % (0.2-1.2); Eosinophils Absolute Auto 0.3 K/mm3 (0-0.3); Eosinophils Percent Auto 3.1 % (0-4.4); Hematocrit 37.8 % (42.0-52.0); Immature Granulocyte Absolute 0.07 K/mm3 (0.00-0.031); Immature Granulocyte Percent A 0.7 % (0-0.5); Lymphocytes Absolute Auto 1.99 K/mm3 (0.9-3.2); Mean Corpuscular HGB Conc 31.7 g/dl (32-36); Mean Corpuscular Hemoglobin 33.4 pg (26-34); Mean Corpuscular Volume 105.3 fl (80-100); Mean Platelet Volume 9.3 fl (7.4-10.4); Monocytes Absolute Auto 1.1 K/mm3 (0.1-0.6); Monocytes Percent Auto 10.2 % (2.6-8.5); Neutrophils Percent Auto 66.8 % (45.5-73.1); Platelet Count Result 284 k/mm3 (150-375); Red Blood Count 3.59 M/mm3 (4.6-6.20); Red Cell Distribution Width 13.7 % (11.5-14.5); White Blood Count 10.5 K/mm3 (4.5-10.0)
[2022-09-05 07:48] LABS: Alanine Aminotransferase 122 U/L (6-50); Albumin Level 2.9 g/dL (3.5-5.1); Alkaline Phosphatase 120 U/L (38-126); Anion Gap 5 mmol/L (8-16); Aspartate Amino Transferase 152 U/L (17-59); Bilirubin,Total 1.8 mg/dL (0.2-1.3); Blood Urea Nitrogen 12 mg/dL (9-20); Calcium 7.5 mg/dL (8.4-10.2); Carbon Dioxide 30 mmol/L (22-30); Chloride 99 mmol/L (98-107); Estimated CRCL calculation 173 ml/min; Estimated Glomerular Filt Rate > 60; Glucose 159 mg/dL (65-110); Potassium 3.1 mmol/L (3.4-5.0); Sodium 134 mmol/L (137-145)
[2022-09-05] MEDS: PANTOPRAZOLE 40 MG TABLET PO (08:00)
[2022-09-05] MEDS: ENOXAPARIN 40 MG/0.4 ML SYRINGE SUB-Q (08:00)
[2022-09-05] MEDS: HYDROCORTISONE 1% 30 GM OINTMENT 1 APPLIC TOPICAL (08:01)
[2022-09-05] MEDS: FUROSEMIDE INJ 40 MG/4 ML VIAL IV PUSH (08:01)
[2022-09-05] MEDS: POTASSIUM CHLORIDE 20 MEQ PACKET (FOR LIQUID) 40 MEQ PO (09:17)
--- NOTE | 2022-09-05 12:15 | PM.DS ---
DS: Admitting Diagnosis Discharge Date 09/05/22 Admitting Diagnosis Right leg cellulitis DS: Discharge Diagnosis Discharge Diagnosis (1) Cellulitis and abscess of right leg: Code(s): L03.115 - Cellulitis of right lower limb; L02.415 - Cutaneous abscess of right lower limb Status: Acute Assessment and Plan: Patient presented to the ED for evaluation of right knee and leg pain/swelling starting 08/26 and he was treated outpatient with oral doxycycline. He is s/o right TKA on 08/19/202208/29 x-ray of the right knee shows moderate pleural effusion. IR aspiration of fluid from the right knee pending. Patient appears to have had prior aspiration of right knee 08/27 by IR and in the Ortho office that did not yield any fluid and showed hypoechoic region at the suprapatellar pouch and lateral gutter attributed to edematous reactive synovitis. Orthopedic surgery Dr. Luna consulted and appreciate assistance with management. 08/29 started on Cefazolin 1 gram IV Q 8 hours and IV Vancomycin pharmacy to dose. 08/30/22 Discuss case with Infectious disease pharmacist. changed antibiotics to Cefepime 2 grams IV Q8 for pseudomonas coverage and continue Vancomycin IV. De-escalate antibiotics per cultures if available. Venous doppler negative for DVT Blood cultures negative to date. Continue with IV/PO analgesics Patient afebrile, vitals stable, WBC 11 - does not meet sepsis protocol. 08/31/22 CT LE negative for soft tissue gas. subcutaneous fat stranding suggestive of cellulitis and edema. 09/01/22 continue antibiotics unchanged. Vancomycin pharmacy to dose started 08/29/22 and Cefepime 2 grams started 08/30/22. 09/02/22 Continue current antibiotic regimen. Per patient there is slight improvement. I have seen pictures off of his phone and there does seem to be improvement from admission in both the color and swelling. Will reevaluate tomorrow. Discussed case with Marichuy today and if patient does not continue to improve he may need transfer to higher facility. 09/03/2022 continue current antibiotic regimen. Patient is on day 6 of antibiotic treatment. Patient has had slight improvement during his course of antibiotics although there is still some improvement. No growth to date on blood cultures and right knee wound specimen. Attempt diuresis to help with right leg edema. Will order Lasix 40 mg b.i.d. 09/04/22 day 7 of antibiotic treatment. Discussed with ortho today and they were wanting to see patient as an outpatient for staple removal in the right knee. Patient improving slowly. Plan on 1 more day of Lasix therapy to see if this helps patient's edema decreased. Possible discharge tomorrow. Plan on discussing patient's treatment with both Ortho and [facility]. 09/05/2022 day 8 of antibiotic treatment. Patient feeling much better today and eager to go home. Per Ortho patient is being discharged from their services. Patient is stable ready for discharge. (2) Transaminitis: Code(s): R74.01 - Elevation of levels of liver transaminase levels Status: Acute Assessment and Plan: Tbili 2.0, AST 109, ALT 45, Alk phos 152. Patient drinks a 6 pack of beer nightly and this may be related to underlying liver disease. No prior LFTs to compare. Liver US - Gallbladder wall thickening, which may be seen with interstitial edema or chronic liver disease and small volume of perihepatic ascites. hepatitis panel negative Liver fibrosis panel pending. Consult GI GI following (3) Hyponatremia: Code(s): E87.1 - Hypo-osmolality and hyponatremia Status: Acute Assessment and Plan: Sodium 129 on admission. It was 130 on 08/20/22 without prior labs available. Likely secondary to heavy alcohol use. urine osmo pending and urine sodium 8 Trend sodium Sodium on 09/02/2022 stable Monitor neuro status - stable (4) Heavy alcohol use: Code(s): F10.90 - Alcohol use, unspecified, uncomplicated Status
[2022-09-10 18:11] LABS: ALT 74 U/L (9-46); Alpha-2-Macroglobulin 249 mg/dL (106-279); Apolipoprotein A1 79 mg/dL (94-176); Fibrosis Score 0.88; Fibrosis Stage F4; GGT 258 U/L (3-70); Haptoglobin 110 mg/dL (43-212); Necroinflammat Act Grade A3
== END 2022-09-05 13:47 | disposition home or self-care (01) | DRG 920 ==
LOC: ANHED 12:29 → ANH3MEDSUR 15:06
PROVIDERS: Internal Medicine Gastroenterology; Nurse Practitioner; Nurse Practitioner Family; Orthopaedic Surgery; Admitting Provider Internal Medicine; Emergency Provider Emergency Medicine; PCP Physician Assistant; Visit Provider Internal Medicine Critical Care Medicine
DX: L76.82 Other postprocedural complications of skin and subcutaneous tissue (principal); E87.1 Hypo-osmolality and hyponatremia; L03.115 Cellulitis of right lower limb; R18.8 Other ascites; M25.461 Effusion, right knee; F10.90 Alcohol use, unspecified, uncomplicated; I34.1 Nonrheumatic mitral (valve) prolapse; K21.9 Gastro-esophageal reflux disease without esophagitis; L50.8 Other urticaria; R13.10 Dysphagia, unspecified; K76.9 Liver disease, unspecified; Z96.651 Presence of right artificial knee joint; Z20.822 Contact with and (suspected) exposure to COVID-19; Z87.891 Personal history of nicotine dependence
CPT/HCPCS: 20611; 36415; 73560; 73701; 76705; 80048; 80053; 80074; 80202; 81596; 82728; 82948; 83605; 83735; 83935; 84300; 85025; 85610; 85652; 85730; 86140; 87040; 87070; 87075; 87205; 87636; 93971; 96365; 96366; 96367; 96372; 96375; 96376; 97110; 97116; 97161; 99285; A9270; C8929; C9113; G0378; J0690; J0692; J1200; J1650; J1940; J2930; J3010; J3370; J7030; Q9957; Q9967

== ENCOUNTER 2022-09-22 09:11 | Outpatient (CLI) | payer MEDICARE, BC, SELFPAY ==
[2022-09-22 10:49] LABS: Hematocrit 38.9 % (42.0-52.0); Hemoglobin 12.5 g/dL (14.0-18.0); Mean Corpuscular HGB Conc 32.1 g/dl (32-36); Mean Corpuscular Volume 102.6 fl (80-100); Mean Platelet Volume 9.2 fl (7.4-10.4); Platelet Count Result 175 k/mm3 (150-375); Red Blood Count 3.79 M/mm3 (4.6-6.20); Red Cell Distribution Width 13.3 % (11.5-14.5); White Blood Count 6.5 K/mm3 (4.5-10.0)
[2022-09-22 10:57] LABS: Anion Gap 5 mmol/L (8-16); Blood Urea Nitrogen 7 mg/dL (9-20); Calcium 8.2 mg/dL (8.4-10.2); Carbon Dioxide 27 mmol/L (22-30); Chloride 104 mmol/L (98-107); Estimated Glomerular Filt Rate > 60; Glucose 188 mg/dL (65-110); Sodium 136 mmol/L (137-145)
== END 2022-09-22 09:12 | disposition home or self-care (01) ==
PROVIDERS: PCP Physician Assistant; Visit Provider Internal Medicine Critical Care Medicine
DX: E87.1 Hypo-osmolality and hyponatremia (principal); L03.115 Cellulitis of right lower limb; L02.415 Cutaneous abscess of right lower limb
CPT/HCPCS: 36415; 80048; 85027

== ENCOUNTER 2022-11-12 13:24 | Outpatient (CLI) | payer MEDICARE, BC, SELFPAY ==
--- NOTE | ~2022-11-12 | US_ITS ---
EXAMINATION: US venous doppler [facility] DATE: 11/12/2022 13:48 INDICATION: Localized swelling of the left lower limb TECHNIQUE: Grayscale ultrasound images without and with compression and Doppler ultrasound images of the left lower extremity veins were obtained. COMPARISON: None. FINDINGS: The visualized portions of left common femoral vein, profunda (deep) femoral vein, femoral vein, popl iteal vein, peroneal veins, posterior tibial veins, gastrocnemius vein and greater saphenous vein out flow are patent. 4.1 x 1.1 x 1.9 cm anechoic Garcia's cyst at the left popliteal fossa. IMPRESSION: 1. No deep venous thrombosis in the left lower limb. 2. Moderate-sized left Garcia's cyst. Reviewed, dictated and finalized at location L.
== END 2022-11-12 13:25 ==
LOC: GOSHIMG 13:25
PROVIDERS: PCP Physician Assistant; Visit Provider Orthopaedic Surgery
DX: R22.42 Localized swelling, mass and lump, left lower limb (principal); M71.22 Synovial cyst of popliteal space [Baker], left knee
CPT/HCPCS: 93971

== ENCOUNTER 2022-12-04 08:28 | Outpatient (RCR) | payer MEDICARE, BC, SELFPAY ==
[2022-12-04 09:48] VITALS: BMI 36.0
== END 2023-02-22 14:03 | disposition home or self-care (01) ==
LOC: ANHWOC 08:28
PROVIDERS: PCP Physician Assistant; Visit Provider Orthopaedic Surgery
DX: R22.43 Localized swelling, mass and lump, lower limb, bilateral (principal)
CPT/HCPCS: 99212; G0463

== ENCOUNTER 2023-03-30 09:25 | Outpatient (CLI) | payer BC, MEDICARE, SELFPAY ==
[2023-03-30 10:06] LABS: Ammonia 26 umol/L (9-30)
[2023-03-30 10:07] LABS: Alanine Aminotransferase 27 U/L (6-50); Alkaline Phosphatase 143 U/L (38-126); Anion Gap 2 mmol/L (8-16); Aspartate Amino Transferase 54 U/L (17-59); Blood Urea Nitrogen 14 mg/dL (9-20); Calcium 8.2 mg/dL (8.4-10.2); Carbon Dioxide 28 mmol/L (22-30); Chloride 105 mmol/L (98-107); Estimated Glomerular Filt Rate > 60; Glucose 152 mg/dL (65-110); Potassium 3.4 mmol/L (3.4-5.0); Sodium 135 mmol/L (137-145)
== END 2023-03-30 09:26 | disposition home or self-care (01) ==
PROVIDERS: PCP Physician Assistant; Visit Provider Physician Assistant
DX: K72.90 Hepatic failure, unspecified without coma (principal); I10 Essential (primary) hypertension
CPT/HCPCS: 36415; 80048; 80076; 82140

== ENCOUNTER 2023-08-10 10:15 | Outpatient (CLI) | payer MEDICARE, SELFPAY ==
[2023-08-10 10:44] LABS: Basophils Absolute Auto 0.1 K/mm3 (0.0-0.1); Basophils Percent Auto 0.7 % (0.2-1.2); Eosinophils Absolute Auto 0.1 K/mm3 (0-0.3); Eosinophils Percent Auto 0.7 % (0-4.4); Hematocrit 27.4 % (42.0-52.0); Hemoglobin 8.2 g/dL (14.0-18.0); Immature Granulocyte Absolute 0.04 K/mm3 (0.00-0.031); Immature Granulocyte Percent A 0.4 % (0-0.5); Lymphocytes Absolute Auto 1.38 K/mm3 (0.9-3.2); Lymphocytes Percent Auto 15.4 % (18.3-44.2); Mean Corpuscular HGB Conc 29.9 g/dl (32-36); Mean Corpuscular Hemoglobin 24.8 pg (26-34); Mean Platelet Volume 9.5 fl (7.4-10.4); Monocytes Absolute Auto 0.6 K/mm3 (0.1-0.6); Monocytes Percent Auto 6.9 % (2.6-8.5); Neutrophils Absolute Auto 6.8 K/mm3 (1.3-6.7); Neutrophils Percent Auto 75.9 % (45.5-73.1); Platelet Count Result 173 k/mm3 (150-375); Red Cell Distribution Width 16.1 % (11.5-14.5)
[2023-08-10 10:59] LABS: Alanine Aminotransferase 33 U/L (6-50); Albumin Level 3.2 g/dL (3.5-5.1); Alkaline Phosphatase 138 U/L (38-126); Anion Gap 6 mmol/L (8-16); Aspartate Amino Transferase 28 U/L (17-59); Bilirubin,Total 1.4 mg/dL (0.2-1.3); Blood Urea Nitrogen 13 mg/dL (9-20); Calcium 8.8 mg/dL (8.4-10.2); Carbon Dioxide 25 mmol/L (22-30); Chloride 101 mmol/L (98-107); Cholesterol 145 mg/dL (0-200); Estimated Glomerular Filt Rate > 60; Glucose 526 mg/dL (65-110); HDL Direct 65 mg/dL; Potassium 4.3 mmol/L (3.4-5.0); Sodium 132 mmol/L (137-145); Triglycerides 83 mg/dL (<150)
[2023-08-10 11:00] LABS: Iron 26 ug/dL (49-181)
[2023-08-10 11:06] LABS: LDL Cholesterol Direct 55 mg/dL
[2023-08-10 11:09] LABS: Percent Iron Saturation 7 % (20-50)
[2023-08-10 11:26] LABS: Prostate Specific Antigen 0.2 ng/mL (< OR = 4.0); Thyroid Stimulating Hormone 0.552 uIU/mL (0.465-4.680)
[2023-08-10 11:52] LABS: Hemoglobin A1C 10.2 % (<5.7)
[2023-08-10 12:09] LABS: Folic Acid 19.5 ng/mL (2.76->20); Vitamin B12 > 1000.0 pg/mL (239-931)
== END 2023-08-10 10:16 | disposition home or self-care (01) ==
PROVIDERS: PCP Physician Assistant; Visit Provider Physician Assistant
DX: D64.9 Anemia, unspecified (principal); R73.9 Hyperglycemia, unspecified; D53.1 Other megaloblastic anemias, not elsewhere classified; R53.83 Other fatigue; E66.9 Obesity, unspecified; Z12.5 Encounter for screening for malignant neoplasm of prostate
CPT/HCPCS: 36415; 80053; 80061; 82607; 82728; 82746; 83036; 83540; 83550; 84153; 84443; 85025; G0103

== ENCOUNTER 2023-10-14 00:14 | Day surgery (SDC) | payer MEDICARE, SELFPAY ==
[2023-09-22 08:50] VITALS: BMI 34.3
--- NOTE | 2023-10-13 16:39 | PM.HPGS ---
History of Present Illness History of Present Illness Consent: Risks, benefits, and alternatives have been discussed and questions answered. Patient agrees to proceed with procedure. Chief complaint: Acute post Hemorrhagic anemia Narrative: Andres Paula is a 68 year old male Referred for investigation of a sudden drop in his hemoglobin from 12-8. He is known to have cirrhosis which was diagnosed just over a year ago. He has been found to have esophageal varices. About 3 years ago he had presented with a foreign body obstruction of the esophagus due to food impaction. he did subsequently have a dilatation. He had been seen at [facility] in the liver clinic. He recalls having had an attempted paracentesis. He thinks they got a little fluid out. He had been on Aldactone which was just recently discontinued when he was hospitalized at [facility]. He went in there with hepatic encephalopathy. He now takes lactulose for that. He has stopped drinking alcohol altogether. Review of Systems Review of Systems: All systems reviewed & are unremarkable except as noted in HPI and below PMFSH Past Medical History Medical History Acid reflux Cirrhosis Food impaction of esophagus Heavy alcohol use Hypertension Mitral valve prolapse Primary osteoarthritis of right knee Seizure He outgrew his seizures Surgical History Surgical History H/O esophagogastroduodenoscopy H/O total knee replacement H/O wisdom tooth extraction History of right knee joint replacement 08/19/22- Dr Luna History of tonsillectomy Hx of colonoscopy Total knee replacement status Family History Family History Mother Diabetes mellitus Social History Social History Social History: The patient is x2. The patient is currently laid off. 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 He has 2 children. He occasionally drinks alcohol. He denies any marijuana or illicit drugs. 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, CHEWING TOBACCO QUIT 2018 Alcohol intake: former Alcohol use details: 6PK/DAY Substance use: current Substance use type: marijuana Last use: daily @ [facility] Do You Feel Safe in your Home?: Yes Lack of Transportation: No Lack of Food: Never True Current Housing: Decline to Answer Concerned About Future Housing: No Difficulty Paying Gas/Electric Bills: Decline to Answer Difficulty Paying for Meds: No Currently Unemployed: Decline to Answer Education: High School Diploma/GED Difficulty w/ Childcare or Family Care: Decline to Answer Living arrangements: alone Occupation/Education: retired Gender identity (if verbalized by the patient): Male Spiritual care concerns: No Meds Home Medications and Allergies Home Medications Medication Instructions Recorded Confirmed Type folic acid 1 mg tablet 1 mg PO DAILY 01/04/23 10/14/23 History gabapentin 300 mg capsule 300 mg PO TID #90 caps 06/09/23 10/14/23 Rx blood-glucose meter (OneTouch #1 ea 08/11/23 08/12/23 Rx Verio Reflect Meter) lancets 30 gauge (OneTouch #100 ea 08/11/23 08/12/23 Rx UltraSoft 2 Lancet) glipizide 5 mg tablet, extended 5 mg PO BID #180 tabs 08/12/23 10/14/23 Rx release 24 hr lisinopril 5 mg tablet 5 mg PO DAILY #90 tabs 08/12/23 10/14/23 Rx furosemide 40 mg tablet 40 mg PO QAM 08/16/23 10/14/23 History prednisone 10 mg tablet 10 mg PO DAILY 08/16/23 10/14/23 History cyclobenzaprine 10 mg tablet 10 mg PO QHS PRN muscle spasm #90 08/24/23 10/14/23 Rx tabs omeprazole 40 mg capsule,delayed 40 mg PO DAILY 08/31
[2023-10-14 08:22] VITALS: BP 125/56; PULSE 92; RESP 20; TEMP 36.4; O2SAT 98
[2023-10-14] MEDS: LACTATED RINGERS 1,000 ML 150 ML IV CONT (08:26)
[2023-10-14] MEDS: DEXTROSE 50% 25 GM/50 ML SYRINGE IV PUSH ×2 (08:29→10:10)
[2023-10-14 08:46] LABS: Glucose Point of Care 47 mg/dl (65-105)
[2023-10-14 08:46] LABS: Glucose Point of Care 93 mg/dl (65-105)
--- NOTE | 2023-10-14 09:28 | WPDANESEPPF ---
Anes - Initial Pre Proc Eval Procedure: Operation Date: 10/14/23 09:30 Proposed Procedures p Esophagogastroduodenoscopy & Colonoscopy - Mik Diane MD Date/Time: 10/14/23 09:28 Surgeon: Mik Diane MD Pre Op Diagnosis: Acute post Hemorrhagic anemia Patient Data Age: 68 Gender: M Height: 1.85 m Weight: 120 kg Last Vital Signs Temp 97.6 F 10/14/23 08:22 Pulse 92 10/14/23 08:22 Resp 20 10/14/23 08:22 BP 125/56 L 10/14/23 08:22 Pulse Ox 98 10/14/23 08:22 Allergies Allergy/AdvReac Type Severity Reaction Status Date / Time No Known Allergies Allergy Mild Verified 10/14/23 08:21 Home Medications Medication Instructions Recorded Confirmed Type folic acid 1 mg tablet 1 mg PO DAILY 01/04/23 10/14/23 History gabapentin 300 mg capsule 300 mg PO TID #90 caps 06/09/23 10/14/23 Rx blood-glucose meter (OneTouch #1 ea 08/11/23 08/12/23 Rx Verio Reflect Meter) lancets 30 gauge (OneTouch #100 ea 08/11/23 08/12/23 Rx UltraSoft 2 Lancet) glipizide 5 mg tablet, extended 5 mg PO BID #180 tabs 08/12/23 10/14/23 Rx release 24 hr lisinopril 5 mg tablet 5 mg PO DAILY #90 tabs 08/12/23 10/14/23 Rx furosemide 40 mg tablet 40 mg PO QAM 08/16/23 10/14/23 History prednisone 10 mg tablet 10 mg PO DAILY 08/16/23 10/14/23 History cyclobenzaprine 10 mg tablet 10 mg PO QHS PRN muscle spasm #90 08/24/23 10/14/23 Rx tabs omeprazole 40 mg capsule,delayed 40 mg PO DAILY 09/22/23 10/14/23 History release blood sugar diagnostic (OneTouch #100 ea 09/27/23 Rx Verio test strips) ondansetron 4 mg disintegrating 4 mg PO BID PRN nausea and 09/27/23 10/14/23 Rx tablet vomiting #30 tabs Laboratory Tests 10/14/23 10/14/23 08:19 08:43 POC Capillary Glucose 47 L* mg/dl 93 mg/dl (65-105) (65-105) Patient hx anesthesia problems: none Family hx anesthesia problems: none Results Review: All pre-operative results and documents have been reviewed as part of the pre-operative evaluation. [facility] Past Medical History Medical History Acid reflux Cirrhosis Food impaction of esophagus Heavy alcohol use Hypertension Mitral valve prolapse Primary osteoarthritis of right knee Seizure He outgrew his seizures Surgical History Surgical History H/O esophagogastroduodenoscopy H/O total knee replacement H/O wisdom tooth extraction History of right knee joint replacement 08/19/22- Dr Luna History of tonsillectomy Hx of colonoscopy Total knee replacement status Family History Family History Mother Diabetes mellitus Social History Social History Social History: The patient is x2. The patient is currently laid off. 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 He has 2 children. He occasionally drinks alcohol. He denies any marijuana or illicit drugs. 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, CHEWING TOBACCO QUIT 2018 Alcohol intake: former Alcohol use details: 6PK/DAY Substance use: current Substance use type: marijuana Last use: daily @ Do You Feel Safe in your Home?: Yes Lack of Transportation: No Lack of Food: Never True Current Housing: Decline to Answer Concerned About Future Housing: No Difficulty Paying Gas/Electric Bills: Decline to Answer Difficulty Paying for Meds: No Currently Unemployed: Decline to Answer Education: High School Diploma/GED Difficulty w/ Childcare or Family Care: Decline to Answer Living arrangements: alone Occupation/Education: retired Gender identity (if verbalized by the patient): Male Chas[place]
--- NOTE | 2023-10-14 09:43 | SUR.OPER ---
EGD ended at 933, colon began at 941
[2023-10-14 09:55] VITALS: BP 107/67; PULSE 87; RESP 20; O2SAT 99
[2023-10-14 10:05] VITALS: BP 117/69; PULSE 85; RESP 22; O2SAT 100
--- NOTE | 2023-10-14 10:11 | SUR.PHASEII ---
pt medicated per MAR for low glucose. pt given crackers and juice upon awakening.
[2023-10-14 10:15] VITALS: BP 117/69; PULSE 81; RESP 19; O2SAT 100
[2023-10-14 10:34] LABS: Glucose Point of Care 58 mg/dl (65-105)
[2023-10-14 10:34] LABS: Glucose Point of Care 79 mg/dl (65-105)
== END 2023-10-14 10:36 | disposition home or self-care (01) ==
PROVIDERS: PCP Physician Assistant; Visit Provider Internal Medicine Gastroenterology
PROC: 0DJ08ZZ Inspection of Upper Intestinal Tract, Via Natural or Artificial Opening Endoscopic (ICD-10-PCS; CPT 43235; principal; 2023-10-14 09:30)
DX: D64.9 Anemia, unspecified (principal); K21.9 Gastro-esophageal reflux disease without esophagitis; I10 Essential (primary) hypertension; K74.60 Unspecified cirrhosis of liver; F12.90 Cannabis use, unspecified, uncomplicated; E66.9 Obesity, unspecified; Z68.34 Body mass index [BMI] 34.0-34.9, adult; Z79.84 Long term (current) use of oral hypoglycemic drugs; Z79.52 Long term (current) use of systemic steroids; Z98.890 Other specified postprocedural states; Z87.891 Personal history of nicotine dependence; Z86.79 Personal history of other diseases of the circulatory system
CPT/HCPCS: 43239; 45378; 82948; 87081; 88305; J2704; J7120

== ENCOUNTER 2024-04-13 11:50 | Outpatient (CLI) | payer MEDICARE, SELFPAY ==
[2024-04-13 12:26] LABS: Basophils Absolute Auto 0.1 K/mm3 (0.0-0.1); Basophils Percent Auto 0.8 % (0.2-1.2); Eosinophils Absolute Auto 0.3 K/mm3 (0-0.3); Eosinophils Percent Auto 4.3 % (0-4.4); Hematocrit 33.7 % (42.0-52.0); Hemoglobin 11.1 g/dL (14.0-18.0); Immature Granulocyte Absolute 0.01 K/mm3 (0.00-0.031); Immature Granulocyte Percent A 0.1 % (0-0.5); Lymphocytes Absolute Auto 2.35 K/mm3 (0.9-3.2); Lymphocytes Percent Auto 31.9 % (18.3-44.2); Mean Corpuscular HGB Conc 32.9 g/dl (32-36); Mean Corpuscular Hemoglobin 31.3 pg (26-34); Mean Corpuscular Volume 94.9 fl (80-100); Monocytes Absolute Auto 0.8 K/mm3 (0.1-0.6); Monocytes Percent Auto 11.4 % (2.6-8.5); Neutrophils Absolute Auto 3.8 K/mm3 (1.3-6.7); Neutrophils Percent Auto 51.5 % (45.5-73.1); Platelet Count Result 154 k/mm3 (150-375); Red Blood Count 3.55 M/mm3 (4.6-6.20); Red Cell Distribution Width 14.6 % (11.5-14.5); White Blood Count 7.4 K/mm3 (4.5-10.0)
[2024-04-13 12:36] LABS: Ammonia 30 umol/L (9-30)
[2024-04-13 12:38] LABS: Alanine Aminotransferase 25 U/L (6-50); Alkaline Phosphatase 124 U/L (38-126); Anion Gap 7 mmol/L (4-12); Aspartate Amino Transferase 49 U/L (17-59); Bilirubin,Total 1.7 mg/dL (0.2-1.3); Blood Urea Nitrogen 8 mg/dL (9-20); Calcium 8.6 mg/dL (8.4-10.2); Carbon Dioxide 25 mmol/L (22-30); Chloride 105 mmol/L (98-107); Estimated Glomerular Filt Rate > 60; Glucose 84 mg/dL (65-110); Potassium 3.8 mmol/L (3.4-5.0); Sodium 137 mmol/L (137-145)
[2024-04-13 12:46] LABS: Creatinine Urine 74.5 mg/dL
[2024-04-13 12:51] LABS: MALB Creatinine Ratio < 8.1 mg/g (0-30); Microalbumin Urine Random < 6.0 mg/L (0-16.7)
== END 2024-04-13 11:51 | disposition home or self-care (01) ==
LOC: ANHLAB 11:56
PROVIDERS: PCP Physician Assistant; Visit Provider Internal Medicine
DX: K76.82 Hepatic encephalopathy (principal); E87.6 Hypokalemia; D53.1 Other megaloblastic anemias, not elsewhere classified; R53.83 Other fatigue; E11.9 Type 2 diabetes mellitus without complications
CPT/HCPCS: 36415; 80053; 82043; 82140; 84443; 85025

== ENCOUNTER 2024-06-07 08:30 | Day surgery (SDC) | payer MEDICARE, SELFPAY ==
[2024-06-07 08:34] VITALS: BP 141/73; PULSE 93; RESP 16; TEMP 36.7; O2SAT 100
--- NOTE | 2024-06-07 09:03 | ED.SKABFB ---
HPI - Skin/Abscess/Foreign Bdy General Chief complaint: Skin/Abscess/Foreign Body Stated complaint: FBGI Time Seen by Provider: 06/07/24 08:40 History of Present Illness HPI narrative: Patient is a 69-year-old male who presents ER with concern for esophageal food impaction. He was eating ribs last night when he felt some meat get stuck. Since then he has not been able to eat or drink without it coming back up immediately. No fevers or chills. Has had similar issues in the past. Has had an EGD by Dr. Gann. He is not taking acid reflux medicine. Related Data Home Medications Medication Instructions Recorded Confirmed folic acid 1 mg tablet 1 mg PO DAILY 01/04/23 04/25/24 mecobalamin (vitamin B12) 1,000 1,000 mcg PO DAILY 10/18/23 04/25/24 mcg chewable tablet naproxen sodium 220 mg tablet 220 mg PO Q8H 10/18/23 04/25/24 (Aleve) potassium chloride 20 mEq 20 meq PO DAILY 10/18/23 04/25/24 tablet,extended release thiamine HCl (vitamin B1) 100 mg 100 mg PO DAILY 10/18/23 04/25/24 tablet Allergies Allergy/AdvReac Type Severity Reaction Status Date / Time No Known Allergies Allergy Mild Verified 06/07/24 08:30 Review of Systems Review of Systems: All systems reviewed & are unremarkable except as noted in HPI and below Constitutional: Constitutional: Reports no additional constitutional complaints Cardiovascular: Cardiovascular: Reports no additional cardiovascular complaints Respiratory: Respiratory: Reports no additional respiratory complaints Gastrointestinal: Gastrointestinal: Denies abdominal pain, Denies nausea and Reports vomiting [facility] Past Medical History Medical History Acid reflux Cirrhosis Food impaction of esophagus Heavy alcohol use Hypertension Mitral valve prolapse Primary osteoarthritis of right knee Seizure He outgrew his seizures Surgical History Surgical History H/O esophagogastroduodenoscopy H/O total knee replacement H/O wisdom tooth extraction History of right knee joint replacement 08/19/22- Dr Luna History of tonsillectomy Hx of colonoscopy Total knee replacement status Family History Family History Mother Diabetes mellitus Social History Social History (Updated 04/25/24 @ 11:23 by MARLEY Bishop) Social History: The patient is x2. The patient is currently laid off. 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 He has 2 children. He occasionally drinks alcohol. He denies any marijuana or illicit drugs. 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, CHEWING TOBACCO QUIT 2018 Alcohol intake: former Alcohol use details: 6PK/DAY Substance use: current Substance use type: marijuana Last use: daily @ [facility] Do You Feel Safe in your Home?: Yes Lack of Transportation: No Lack of Food: Never True Current Housing: I Have Housing Concerned About Future Housing: No Difficulty Paying Gas/Electric Bills: No Difficulty Paying for Meds: No Education: High School Diploma/GED Difficulty w/ Childcare or Family Care: No Living arrangements: alone Occupation/Education: retired Additional occupation/education comments: [employer] Gender identity (if verbalized by the patient): Male Spiritual care concerns: No Exam Narrative: GENERAL: Well-appearing, well-nourished, and in no acute distress. HEAD: Normocephalic, atraumatic. ENT: Mucous membranes moist. CHEST: Clear to auscultation. No respiratory distress. HEART: Regular rate and rhythm. Normal peripheral pulses. ABDOMEN: Soft, nontender, nondistended. EXTREMITIES: Normal range of motion. No edema. SKIN: Warm, dry, no r
[2024-06-07 09:29] VITALS: BP 132/76; PULSE 76; RESP 18; TEMP 36.6; O2SAT 98
[2024-06-07 10:07] LABS: Glucose Point of Care 87 mg/dl (65-105)
[2024-06-07 10:16] VITALS: BP 128/65; PULSE 83; RESP 18; TEMP 36.6; O2SAT 100
[2024-06-07] MEDS: LACTATED RINGERS 1,000 ML 150 ML IV CONT ×2 (10:19→11:32)
[2024-06-07 10:28] VITALS: BMI 32.9
--- NOTE | 2024-06-07 10:55 | WPDANESEPPF ---
Anes - Initial Pre Proc Eval Procedure: Operation Date: 06/07/24 11:00 Proposed Procedures p Esophagogastroduodenoscopy - Ori Castle MD Date/Time: 06/07/24 10:55 Surgeon: Ori Castle MD Pre Op Diagnosis: FBGI Patient Data Age: 69 Gender: M Height: 1.85 m Weight: 113.3 kg Last Vital Signs Temp 97.8 F 06/07/24 10:16 Pulse 83 06/07/24 10:16 Resp 18 06/07/24 10:16 BP 128/65 06/07/24 10:16 Pulse Ox 100 06/07/24 10:16 O2 Del Method Room Air 06/07/24 10:16 Allergies Allergy/AdvReac Type Severity Reaction Status Date / Time No Known Allergies Allergy Mild Verified 06/07/24 10:11 Home Medications Medication Instructions Recorded Confirmed Type folic acid 1 mg tablet 1 mg PO DAILY 01/04/23 06/07/24 History blood-glucose meter (OneTouch #1 ea 08/11/23 04/25/24 Rx Verio Reflect Meter) lancets 30 gauge (OneTouch #100 ea 08/11/23 04/25/24 Rx UltraSoft 2 Lancet) mecobalamin (vitamin B12) 1,000 1,000 mcg PO DAILY 10/18/23 06/07/24 History mcg chewable tablet naproxen sodium 220 mg tablet 220 mg PO Q8H 10/18/23 06/07/24 History (Aleve) potassium chloride 20 mEq 20 meq PO DAILY 10/18/23 06/07/24 History tablet,extended release blood sugar diagnostic (OneTouch #100 ea 01/04/24 04/25/24 Rx Verio test strips) ferrous sulfate 325 mg (65 mg 325 mg PO DAILY #90 tabs 02/08/24 06/07/24 Rx iron) tablet cyclobenzaprine 10 mg tablet 10 mg PO QHS PRN muscle spasm #90 03/15/24 06/07/24 Rx tabs lactulose 10 gram/15 mL oral 30 g (45 mL) PO BID #3,785 mL 04/07/24 06/07/24 Rx solution glipizide 5 mg tablet, extended 5 mg PO BID #180 tabs 04/28/24 06/07/24 Rx release 24 hr lisinopril 5 mg tablet 5 mg PO DAILY #90 tabs 04/28/24 06/07/24 Rx cholestyramine (with sugar) 4 gram 4 g PO BID #1,134 grams 05/29/24 06/07/24 Rx oral powder diclofenac sodium 75 mg 75 mg PO DAILY 06/07/24 06/07/24 History tablet,delayed release furosemide 40 mg tablet 40 mg PO DAILY 06/07/24 06/07/24 History omeprazole 40 mg capsule,delayed 40 mg PO DAILY 06/07/24 06/07/24 History release prednisone 10 mg tablet 10 mg PO DAILY 06/07/24 06/07/24 History Laboratory Tests 06/07/24 10:03 POC Capillary Glucose 87 mg/dl (65-105) Patient hx anesthesia problems: none Family hx anesthesia problems: none Results Review: All pre-operative results and documents have been reviewed as part of the pre-operative evaluation. [facility] Past Medical History Medical History Acid reflux Cirrhosis Food impaction of esophagus Heavy alcohol use Hypertension Mitral valve prolapse Primary osteoarthritis of right knee Seizure He outgrew his seizures Surgical History Surgical History H/O esophagogastroduodenoscopy H/O total knee replacement H/O wisdom tooth extraction History of right knee joint replacement 08/19/22- Dr Luna History of tonsillectomy Hx of colonoscopy Total knee replacement status Family History Family History Mother Diabetes mellitus Social History Social History (Updated 04/25/24 @ 11:23 by MARLEY Bishop) Social History: The patient is x2. The patient is currently laid off. 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 He has 2 children. He occasionally drinks alcohol. He denies any marijuana or illicit drugs. 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, CHEWING TOBACCO QUIT 2019 Alcohol intake: former Alcohol use details: 6PK/DAY Substance use: current Substance use type: marijuana Last use: daily @ [facility] Do You Feel Safe in your Home?: Yes Lack of Transportation
--- NOTE | 2024-06-07 11:02 | PM.IMHP ---
H&P: [facility] History of Present Illness Date/Time: 06/07/24 11:02 Chief Complaint: food stuck in the esophagus Narrative: this patient has been experiencing frequent dysphagia to solid food, and had food impaction requiring EGD 3 years ago. Last night, after eating meat, he felt he could not swallow normally, even saliva or liquids. He is here for EGD and attempted food disimpaction. Review of Systems Review of Systems: All systems reviewed & are unremarkable except as noted in HPI and below PMFSH Past Medical History Medical History Acid reflux Cirrhosis Food impaction of esophagus Heavy alcohol use Hypertension Mitral valve prolapse Primary osteoarthritis of right knee Seizure He outgrew his seizures Surgical History Surgical History H/O esophagogastroduodenoscopy H/O total knee replacement H/O wisdom tooth extraction History of right knee joint replacement 08/19/22- Dr Luna History of tonsillectomy Hx of colonoscopy Total knee replacement status Family History Family History Mother Diabetes mellitus Social History Social History (Updated 04/25/24 @ 11:23 by MARLEY Bishop) Social History: The patient is x2. The patient is currently laid off. 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 He has 2 children. He occasionally drinks alcohol. He denies any marijuana or illicit drugs. 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, CHEWING TOBACCO QUIT 2019 Alcohol intake: former Alcohol use details: 6PK/DAY Substance use: current Substance use type: marijuana Last use: daily @ [facility] Do You Feel Safe in your Home?: Yes Lack of Transportation: No Lack of Food: Never True Current Housing: I Have Housing Concerned About Future Housing: No Difficulty Paying Gas/Electric Bills: No Difficulty Paying for Meds: No Education: High School Diploma/GED Difficulty w/ Childcare or Family Care: No Living arrangements: alone Occupation/Education: retired 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 Gender identity (if verbalized by the patient): Male Spiritual care concerns: No Meds Home Medications and Allergies Home Medications Medication Instructions Recorded Confirmed Type folic acid 1 mg tablet 1 mg PO DAILY 01/04/23 06/07/24 History blood-glucose meter (OneTouch #1 ea 08/11/23 04/25/24 Rx Verio Reflect Meter) lancets 30 gauge (OneTouch #100 ea 08/11/23 04/25/24 Rx UltraSoft 2 Lancet) mecobalamin (vitamin B12) 1,000 1,000 mcg PO DAILY 10/18/23 06/07/24 History mcg chewable tablet naproxen sodium 220 mg tablet 220 mg PO Q8H 10/18/23 06/07/24 History (Aleve) potassium chloride 20 mEq 20 meq PO DAILY 10/18/23 06/07/24 History tablet,extended release blood sugar diagnostic (OneTouch #100 ea 01/04/24 04/25/24 Rx Verio test strips) ferrous sulfate 325 mg (65 mg 325 mg PO DAILY #90 tabs 02/08/24 06/07/24 Rx iron) tablet cyclobenzaprine 10 mg tablet 10 mg PO QHS PRN muscle spasm #90 03/15/24 06/07/24 Rx tabs lactulose 10 gram/15 mL oral 30 g (45 mL) PO BID #3,785 mL 04/07/24 06/07/24 Rx solution glipizide 5 mg tablet, extended 5 mg PO BID #180 tabs 04/28/24 06/07/24 Rx release 24 hr lisinopril 5 mg tablet 5 mg PO DAILY #90 tabs 04/28/24 06/07/24 Rx cholestyramine (with sugar) 4 gram 4 g PO BID #1,134 grams 05/29/24 06/07/24 Rx oral powder diclofenac sodium 75 mg 75 mg PO DAILY 06/07/24 06/07/24 History tablet,delayed release furosemide 40 mg tablet 40 mg PO DAILY 06/07/24 06/07/24 History omeprazole 40 mg capsule,delayed 40 mg PO DAILY 06/07/24 06/07/24 History rele
[2024-06-07 12:12] VITALS: BP 117/74; PULSE 79; RESP 20; O2SAT 100
[2024-06-07 12:22] VITALS: BP 118/63; PULSE 70; RESP 18; O2SAT 95
[2024-06-07 12:32] VITALS: BP 122/68; PULSE 78; O2SAT 97
== END 2024-06-07 13:05 | disposition home or self-care (01) ==
LOC: ANHED 09:05 → ANHSURGERY 09:11
PROVIDERS: Internal Medicine Gastroenterology; Emergency Provider Emergency Medicine; PCP Internal Medicine; Visit Provider Internal Medicine Gastroenterology
PROC: 0DJ08ZZ Inspection of Upper Intestinal Tract, Via Natural or Artificial Opening Endoscopic (ICD-10-PCS; CPT 43235; principal; 2024-06-07 11:00)
DX: T18.128A Food in esophagus causing other injury, initial encounter (principal); W44.F3XA Food entering into or through a natural orifice, initial encounter; K21.00 Gastro-esophageal reflux disease with esophagitis, without bleeding; K74.60 Unspecified cirrhosis of liver; I10 Essential (primary) hypertension; M17.11 Unilateral primary osteoarthritis, right knee; F12.90 Cannabis use, unspecified, uncomplicated; Z79.1 Long term (current) use of non-steroidal anti-inflammatories (NSAID); Z79.84 Long term (current) use of oral hypoglycemic drugs; Z79.52 Long term (current) use of systemic steroids; Z98.890 Other specified postprocedural states; Z87.891 Personal history of nicotine dependence; Z86.79 Personal history of other diseases of the circulatory system
CPT/HCPCS: 43247; 43239; 82948; 88305; 99285; J2003; J2704; J7120

== ENCOUNTER 2024-06-28 09:11 | Outpatient (CLI) | payer MEDICARE, SELFPAY ==
[2024-06-28 09:39] LABS: Basophils Absolute Auto 0.1 K/mm3 (0.0-0.1); Basophils Percent Auto 0.9 % (0.2-1.2); Eosinophils Absolute Auto 0.4 K/mm3 (0-0.3); Eosinophils Percent Auto 5.8 % (0-4.4); Hematocrit 32.6 % (42.0-52.0); Hemoglobin 10.7 g/dL (14.0-18.0); Immature Granulocyte Absolute 0.02 K/mm3 (0.00-0.031); Immature Granulocyte Percent A 0.3 % (0-0.5); Lymphocytes Absolute Auto 1.88 K/mm3 (0.9-3.2); Lymphocytes Percent Auto 29.5 % (18.3-44.2); Mean Corpuscular HGB Conc 32.8 g/dl (32-36); Mean Corpuscular Hemoglobin 32.2 pg (26-34); Mean Corpuscular Volume 98.2 fl (80-100); Monocytes Absolute Auto 0.6 K/mm3 (0.1-0.6); Monocytes Percent Auto 9.4 % (2.6-8.5); Neutrophils Absolute Auto 3.4 K/mm3 (1.3-6.7); Neutrophils Percent Auto 54.1 % (45.5-73.1); Platelet Count Result 164 k/mm3 (150-375); Red Blood Count 3.32 M/mm3 (4.6-6.20); Red Cell Distribution Width 15.1 % (11.5-14.5); White Blood Count 6.4 K/mm3 (4.5-10.0)
[2024-06-28 09:52] LABS: Alanine Aminotransferase 28 U/L (6-50); Albumin Level 3.1 g/dL (3.5-5.1); Alkaline Phosphatase 135 U/L (38-126); Anion Gap 5 mmol/L (4-12); Aspartate Amino Transferase 47 U/L (17-59); Blood Urea Nitrogen 9 mg/dL (9-20); Calcium 8.4 mg/dL (8.4-10.2); Carbon Dioxide 26 mmol/L (22-30); Chloride 110 mmol/L (98-107); Estimated Glomerular Filt Rate > 60; Glucose 75 mg/dL (65-110); Potassium 3.9 mmol/L (3.4-5.0); Sodium 141 mmol/L (137-145)
== END 2024-06-28 09:12 | disposition home or self-care (01) ==
LOC: ANHLAB 09:13
PROVIDERS: PCP Internal Medicine; Visit Provider Internal Medicine Gastroenterology
DX: D72.829 Elevated white blood cell count, unspecified (principal); T18.128A Food in esophagus causing other injury, initial encounter; W44.F3XA Food entering into or through a natural orifice, initial encounter
CPT/HCPCS: 36415; 80053; 85025

== ENCOUNTER 2024-06-29 12:36 | Day surgery (SDC) | payer MEDICARE, SELFPAY ==
--- NOTE | ~2024-06-29 | XR_ITS ---
XR chest 2V Ordering provider: Hattie Alexander PA-C History: 69 years Male with . esophgeal FB . Comparison: None. FINDINGS: MEDIASTINUM: The cardiac silhouette is not enlarged. LUNGS: No infiltrates, effusions or pneumothorax. OTHER: No definite radiopaque foreign bodies seen. No free air under the diaphragm. Degenerative kahn ges of the spine. IMPRESSION: No acute cardiopulmonary pathology. No No radiopaque foreign bodies seen. Reviewed, dictated and finalized at location A.
[2024-06-29 12:57] VITALS: BP 130/77; PULSE 85; RESP 16; TEMP 36.6; O2SAT 100
--- NOTE | 2024-06-29 14:51 | ED.SKABFB ---
HPI - Skin/Abscess/Foreign Bdy General Chief complaint: Skin/Abscess/Foreign Body <Marine Cuevas PA-C - Last Filed: 06/30/24 11:46> Stated complaint: hot dog stuck in throat <Marine Cuevas PA-C - Last Filed: 06/30/24 11:46> Time Seen by Provider: 06/29/24 14:51 <Marine Cuevas PA-C - Last Filed: 06/30/24 11:46> Focused HPI: This is a 69 year old male that presents to the ER for dysphagia. Reports he has not been able to keep anything down since Wednesday. Reports he ate a hot dog that day and has felt like it is stuck since. Reports anytime he eats or drinks he vomits. Reports similar occurrence recently which required endoscopy. GENERAL: Well-appearing, well-nourished, and in no acute distress. HEAD: Normocephalic, atraumatic. CHEST: Clear to auscultation. ?No respiratory distress. HEART: Regular rate and rhythm.? NEURO: ?Alert and oriented x3. Patient screened in triage and initial orders placed.? ?Additional care and disposition to be based upon?diagnostic testing and treatment. <Marine Cuevas PA-C - Last Filed: 06/30/24 11:46> Focused HPI: This is a 69 year old male that presents to the ER for dysphagia. Reports he has not been able to keep anything down since Wednesday. Reports he ate a hot dog that day and has felt like it is stuck since. Reports anytime he eats or drinks he vomits. Reports similar occurrence recently which required endoscopy. GENERAL: Well-appearing, well-nourished, and in no acute distress. HEAD: Normocephalic, atraumatic. CHEST: Clear to auscultation. ?No respiratory distress. HEART: Regular rate and rhythm.? NEURO: ?Alert and oriented x3. Patient screened in triage and initial orders placed.? ?Additional care and disposition to be based upon?diagnostic testing and treatment. <Hattie Alexander PA-C - Last Filed: 06/29/24 21:34> Source: patient <GIOVANI Amezquita Last Filed: 06/29/24 21:34> Mode of arrival: ambulatory <Hattie Alexander PA-C - Last Filed: 06/29/24 21:34> Limitations: no limitations <GIOVANI Amezquita Last Filed: 06/29/24 21:34> History of Present Illness HPI narrative: Agree with above HPI. Had EGD performed by Dr. Castle 06/07. Does also report history of esophageal dilation in the past. Denies shortness of breath. <Hattie Alexander PA-C - Last Filed: 06/29/24 21:34> Related Data Home medications: Home Medications Medication Instructions Recorded Confirmed folic acid 1 mg tablet 1 mg PO DAILY 01/04/23 06/07/24 mecobalamin (vitamin B12) 1,000 1,000 mcg PO DAILY 10/18/23 06/07/24 mcg chewable tablet naproxen sodium 220 mg tablet 220 mg PO Q8H 10/18/23 06/07/24 (Aleve) potassium chloride 20 mEq 20 meq PO DAILY 10/18/23 06/07/24 tablet,extended release diclofenac sodium 75 mg 75 mg PO DAILY 06/07/24 06/07/24 tablet,delayed release furosemide 40 mg tablet 40 mg PO DAILY 06/07/24 06/07/24 omeprazole 40 mg capsule,delayed 40 mg PO DAILY 06/07/24 06/07/24 release prednisone 10 mg tablet 10 mg PO DAILY 06/07/24 06/07/24 <Marine Cuevas PA-C - Last Filed: 06/30/24 11:46> Allergies/Adverse reactions: Allergies Allergy/AdvReac Type Severity Reaction Status Date / Time No Known Allergies Allergy Mild Verified 06/29/24 18:49 <GIOVANI aClvert Last Filed: 06/30/24 11:46> Review of Systems Review of Systems: All systems reviewed & are unremarkable except as noted in HPI. <GIOVANI Amezquita Last Filed: 06/29/24 21:34> All systems reviewed & are unremarkable except as noted in HPI and below <GIOVANI Amezquita Last Filed: 06/29/24 21:34> PMFSH Past Medical History Medical History: Medical History Acid reflux Cirrhosis Food impaction of esophagus Heavy alcohol use Hypertension Mitral valve prolapse Primary osteoarthritis of right knee Seizure He outgrew his seizures <Marine Cuevas PA-C - Last Filed: 06/30/24 11:46> Surgical History Surgical History: Surgical History H/O esophagogastroduodenoscopy H/O total knee replacement H/O wisdom tooth extraction History of right knee joint replacement 08/19/22- Dr Luna History of tonsillectomy Hx of colonoscopy Total knee replacement status <Marine Cuevas PA-C - Last Filed: 06/30/24 11:46> Family History Family History: Family History Mother Diabetes mellitus <Marine Cuevas PA-C - Last Filed: 06/30/24 11:46> Social History Social History: Social History Social History: The patient is x2. The patient is currently laid off. 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 He has 2 children. He occasionally drinks alcohol. He denies any marijuana or illicit drugs. 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, CHEWING TOBACCO QUIT 2019 Alcohol intake: former Alcohol use details: 6PK/DAY Substance use: current Substance use type: marijuana Last use: daily @ [facility] Do You Feel Safe in your Home?: Yes Lack of Transportation: No Lack of Food: Never True Current Housing: I Have Housing Concerned About Future Housing: No Difficulty Paying Gas/Electric Bills: No Difficulty Paying for Meds: No Education: High School Diploma/GED Difficulty w/ Childcare or Family Care: No Living arrangements: alone Occupation/Education: retired 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 HEAD: Normocephalic, atraumatic. RESPIRATORY: Airway patent, respirations nonlabored. Clear to auscultation bilaterally, no rales, rhonchi, wheezing. CARDIOVASCULAR: Regular rate and rhythm MUSCULOSKELETAL: Moves all extremities. No gross deformities. SKIN: Warm, dry, normal color. NEURO: A&O X3. Speech clear. PSYCHIATRIC: Appropriate mood and affect. Normal interaction. <Hattie Alexander PA-C - Last Filed: 06/29/24 21:34> Course WINDER TENDER/PA Physician Supervision I agree with midlevel documentation; I performed the medical decision making component of this evaluation. <Gaby Ruiz MD - Last Filed: 06/30/24 00:06> Vital Signs Vital signs: Vital Signs Temperature 97.8 F 06/29/24 12:57 Pulse Rate 85 06/29/24 12:57 Respiratory Rate 16 06/29/24 12:57 Blood Pressure 130/77 06/29/24 12:57 Pulse Oximetry 100 06/29/24 12:57 Temperature 96.9 F L 06/29/24 22:03 Pulse Rate 71 06/29/24 22:23 Respiratory Rate 18 06/29/24 22:23 Blood Pressure 114/59 L 06/29/24 22:23 Pulse Oximetry 96 06/29/24 22:23 Oxygen Delivery Room Air 06/29/24 22:23 Oxygen Flow Rate 8 06/29/24 22:03 <Marine Cuevas PA-C - Last Filed: 06/30/24 11:46> Vital Signs Temperature 97.8 F 06/29/24 12:57 Pulse Rate 85 06/29/24 12:57 Respiratory Rate 16 06/29/24 12:57 Blood Pressure 130/77 06/29/24 12:57 Pulse Oximetry 100 06/29/24 12:57 Temperature 96.9 F L 06/29/24 22:03 Pulse Rate 71 06/29/24 22:23 Respiratory Rate 18 06/29/24 22:23 Blood Pressure 114/59 L 06/29/24 22:23 Pulse Oximetry 96 06/29/24 22:23 Oxygen Delivery Room Air 06/29/24 22:23 Oxygen Flow Rate 8 06/29/24 22:03 <Hattie Alexander PA-C - Last Filed: 06/29/24 21:34> Vital Signs Temperature 97.8 F 06/29/24 12:57 Pulse Rate 85 06/29/24 12:57 Respiratory Rate 16 06/29/24 12:57 Blood Pressure 130/77 06/29/24 12:57 Pulse Oximetry 100 06/29/24 12:57 Temperature 96.9 F L 06/29/24 22:03 Pulse Rate 71 06/29/24 22:23 Respiratory Rate 18 06/29/24 22:23 Blood Pressure 114/59 L 06/29/24 22:23 Pulse Oximetry 96 06/29/24 22:23 Oxygen Delivery Room Air 06/29/24 22:23 Oxygen Flow Rate 8 06/29/24 22:03 <Gaby Ruiz MD - Last Filed: 06/30/24 00:06> MDM - Skin/Abscess/Foreign Bdy MDM Narrative Medical decision making narrative: Patient presented to ED with dysphasia, unable to keep down food or drink since Wednesday after eating a hot dog. Recent EGD for similar food impaction. History of stricture with dilation in the past. Attempted to watch patient swallow orange juice in the ER, however he immediately began vomiting this back up within the next 1 minute. Unable to keep down any liquids. Attempted glucagon with no change. CXR is clear. Labs are unremarkable aside from hypoglycemia which was addressed. Will discuss with GI. Discussed case with Dr. Castle, GI, will take patient to the ED for endoscopy. Patient is in agreement this plan. From ED to OR. <Hattie Alexander PA-C - Last Filed: 06/29/24 21:34> Medical Records Attestation: I reviewed the patient's medical records. <Hattie Alexander PA-C - Last Filed: 06/29/24 21:34> Lab Data Attestation: I reviewed the patient's lab results. <GIOVANI Amezquita Last Filed: 06/29/24 21:34> Result diagrams: 06/29/24 17:47 06/29/24 17:47 <Marine Cuevas PA-C - Last Filed: 06/30/24 11:46> Labs: Lab Results 06/29/24 06/29/24 06/29/24 Range/Units 17:47 19:39 21:03 WBC 7.5 (4.5-10.0) K/mm3 RBC 3.49 L (4.6-6.20) M/mm3 Hgb 11.2 L (14.0-18.0) g/dL Hct 33.7 L (42.0-52.0) % MCV 96.6 (80-100) fl MCH 32.1 (26-34) pg MCHC 33.2 (32-36) g/dl RDW 15.0 H (11.5-14.5) % Plt Count 176 (150-375) k/mm3 MPV 8.8 (7.4-10.4) fl Immature Gran % (Auto) 0.1 (0-0.5) % Neut % (Auto) 53.2 (45.5-73.1) % Lymph % (Auto) 29.9 (18.3-44.2) % [place] % (Auto) 10.1 H (2.6-8.5) % Eos % (Auto) 5.9 H (0-4.4) % Baso % (Auto) 0.8 (0.2-1.2) % Lymph # (Auto) 2.24 (0.9-3.2) K/mm3 [place] # (Auto) 0.8 H (0.1-0.6) K/mm3 Eos # (Auto) 0.4 H (0-0.3) K/mm3 Baso # (Auto) 0.1 (0.0-0.1) K/mm3 Abs Immat Gran (auto) 0.01 (0.00-0.031) K/mm3 Absolute Neuts (auto) 4.0 (1.3-6.7) K/mm3 Absolute Nucleated RBC 0.000 (0.0-0.012) K/mm3 Nucleated RBC % 0.0 (0.0-0.2) % Sodium 141 (137-145) mmol/L Potassium 3.5 (3.4-5.0) mmol/L Chloride 107 (98-107) mmol/L Carbon Dioxide 26 (22-30) mmol/L Anion Gap 8 (4-12) mmol/L BUN 11 (9-20) mg/dL Creatinine 0.70 (0.7-1.3) mg/dL Estim Creat Clear Calc Not Reportable Estimated GFR > 60 (59 - ) Glucose 53 L* (65-110) mg/dL POC Capillary Glucose 89 94 (65-105) mg/dl Calcium 8.5 (8.4-10.2) mg/dL Total Bilirubin 1.6 H (0.2-1.3) mg/dL AST 52 (17-59) U/L ALT 28 (6-50) U/L Alkaline Phosphatase 134 H (38-126) U/L Total Protein 7.0 (6.3-8.2) g/dL Albumin 3.4 L (3.5-5.1) g/dL <Marine Cuevas PA-C - Last Filed: 06/30/24 11:46> Lab Results 06/29/24 06/29/24 06/29/24 Range/Units 17:47 19:39 21:03 WBC 7.5 (4.5-10.0) K/mm3 RBC 3.49 L (4.6-6.20) M/mm3 Hgb 11.2 L (14.0-18.0) g/dL Hct 33.7 L (42.0-52.0) % MCV 96.6 (80-100) fl MCH 32.1 (26-34) pg MCHC 33.2 (32-36) g/dl RDW 15.0 H (11.5-14.5) % Plt Count 176 (150-375) k/mm3 MPV 8.8 (7.4-10.4) fl Immature Gran % (Auto) 0.1 (0-0.5) % Neut % (Auto) 53.2 (45.5-73.1) % Lymph % (Auto) 29.9 (18.3-44.2) % [place] % (Auto) 10.1 H (2.6-8.5) % Eos % (Auto) 5.9 H (0-4.4) % Baso % (Auto) 0.8 (0.2-1.2) % Lymph # (Auto) 2.24 (0.9-3.2) K/mm3 [place] # (Auto) 0.8 H (0.1-0.6) K/mm3 Eos # (Auto) 0.4 H (0-0.3) K/mm3 Baso # (Auto) 0.1 (0.0-0.1) K/mm3 Abs Immat Gran (auto) 0.01 (0.00-0.031) K/mm3 Absolute Neuts (auto) 4.0 (1.3-6.7) K/mm3 Absolute Nucleated RBC 0.000 (0.0-0.012) K/mm3 Nucleated RBC % 0.0 (0.0-0.2) % Sodium 141 (137-145) mmol/L Potassium 3.5 (3.4-5.0) mmol/L Chloride 107 (98-107) mmol/L Carbon Dioxide 26 (22-30) mmol/L Anion Gap 8 (4-12) mmol/L BUN 11 (9-20) mg/dL Creatinine 0.70 (0.7-1.3) mg/dL Estim Creat Clear Calc Not Reportable Estimated GFR > 60 (59 - ) Glucose 53 L* (65-110) mg/dL POC Capillary Glucose 89 94 (65-105) mg/dl Calcium 8.5 (8.4-10.2) mg/dL Total Bilirubin 1.6 H (0.2-1.3) mg/dL AST 52 (17-59) U/L ALT 28 (6-50) U/L Alkaline Phosphatase 134 H (38-126) U/L Total Protein 7.0 (6.3-8.2) g/dL Albumin 3.4 L (3.5-5.1) g/dL <Hattie Alexander PA-C - Last Filed: 06/29/24 21:34> Lab Results 06/29/24 06/29/24 06/29/24 Range/Units 17:47 19:39 21:03 WBC 7.5 (4.5-10.0) K/mm3 RBC 3.49 L (4.6-6.20) M/mm3 Hgb 11.2 L (14.0-18.0) g/dL Hct 33.7 L (42.0-52.0) % MCV 96.6 (80-100) fl MCH 32.1 (26-34) pg MCHC 33.2 (32-36) g/dl RDW 15.0 H (11.5-14.5) % Plt Count 176 (150-375) k/mm3 MPV 8.8 (7.4-10.4) fl Immature Gran % (Auto) 0.1 (0-0.5) % Neut % (Auto) 53.2 (45.5-73.1) % Lymph % (Auto) 29.9 (18.3-44.2) % [place] % (Auto) 10.1 H (2.6-8.5) % Eos % (Auto) 5.9 H (0-4.4) % Baso % (Auto) 0.8 (0.2-1.2) % Lymph # (Auto) 2.24 (0.9-3.2) K/mm3 [place] # (Auto) 0.8 H (0.1-0.6) K/mm3 Eos # (Auto) 0.4 H (0-0.3) K/mm3 Baso # (Auto) 0.1 (0.0-0.1) K/mm3 Abs Immat Gran (auto) 0.01 (0.00-0.031) K/mm3 Absolute Neuts (auto) 4.0 (1.3-6.7) K/mm3 Absolute Nucleated RBC 0.000 (0.0-0.012) K/mm3 Nucleated RBC % 0.0 (0.0-0.2) % Sodium 141 (137-145) mmol/L Potassium 3.5 (3.4-5.0) mmol/L Chloride 107 (98-107) mmol/L Carbon Dioxide 26 (22-30) mmol/L Anion Gap 8 (4-12) mmol/L BUN 11 (9-20) mg/dL Creatinine 0.70 (0.7-1.3) mg/dL Estim Creat Clear Calc Not Reportable Estimated GFR > 60 (59 - ) Glucose 53 L* (65-110) mg/dL POC Capillary Glucose 89 94 (65-105) mg/dl Calcium 8.5 (8.4-10.2) mg/dL Total Bilirubin 1.6 H (0.2-1.3) mg/dL AST 52 (17-59) U/L ALT 28 (6-50) U/L Alkaline Phosphatase 134 H (38-126) U/L Total Protein 7.0 (6.3-8.2) g/dL Albumin 3.4 L (3.5-5.1) g/dL <Gaby Ruiz MD - Last Filed: 06/30/24 00:06> Imaging Data Attestation: I personally reviewed and interpreted this imaging study as follows: <Hattie Alexander PA-C - Last Filed: 06/29/24 21:34> Radiologist's impression: ITS Impressions Chest X-Ray 06/29/24 19:21 IMPRESSION: No acute cardiopulmonary pathology. No No radiopaque foreign bodies seen. <Hattie Alexander PA-C - Last Filed: 06/29/24 21:34> Critical Care Time Critical Care Time Critical Care Time: No <Marine Cuevas PA-C - Last Filed: 06/30/24 11:46> Discharge Plan Discharge Clinical Impression: Food impaction of esophagus Qualifiers: Encounter type: initial encounter Qualified Code(s): T18.128A - Food in esophagus causing other injury, initial encounter <Marine Cuevas PA-C - Last Filed: 06/30/24 11:46> Patient Disposition: Other <Marine Cuevas PA-C - Last Filed: 06/30/24 11:46> Condition: Stable <GIOVANI Calvert Last Filed: 06/30/24 11:46>
[2024-06-29 17:57] LABS: Basophils Absolute Auto 0.1 K/mm3 (0.0-0.1); Basophils Percent Auto 0.8 % (0.2-1.2); Eosinophils Absolute Auto 0.4 K/mm3 (0-0.3); Eosinophils Percent Auto 5.9 % (0-4.4); Hematocrit 33.7 % (42.0-52.0); Hemoglobin 11.2 g/dL (14.0-18.0); Immature Granulocyte Absolute 0.01 K/mm3 (0.00-0.031); Immature Granulocyte Percent A 0.1 % (0-0.5); Lymphocytes Absolute Auto 2.24 K/mm3 (0.9-3.2); Lymphocytes Percent Auto 29.9 % (18.3-44.2); Mean Corpuscular HGB Conc 33.2 g/dl (32-36); Mean Corpuscular Hemoglobin 32.1 pg (26-34); Mean Corpuscular Volume 96.6 fl (80-100); Mean Platelet Volume 8.8 fl (7.4-10.4); Monocytes Absolute Auto 0.8 K/mm3 (0.1-0.6); Monocytes Percent Auto 10.1 % (2.6-8.5); Neutrophils Percent Auto 53.2 % (45.5-73.1); Platelet Count Result 176 k/mm3 (150-375); Red Blood Count 3.49 M/mm3 (4.6-6.20); White Blood Count 7.5 K/mm3 (4.5-10.0)
[2024-06-29 18:12] LABS: Alanine Aminotransferase 28 U/L (6-50); Albumin Level 3.4 g/dL (3.5-5.1); Alkaline Phosphatase 134 U/L (38-126); Anion Gap 8 mmol/L (4-12); Aspartate Amino Transferase 52 U/L (17-59); Bilirubin,Total 1.6 mg/dL (0.2-1.3); Blood Urea Nitrogen 11 mg/dL (9-20); Calcium 8.5 mg/dL (8.4-10.2); Carbon Dioxide 26 mmol/L (22-30); Chloride 107 mmol/L (98-107); Estimated Glomerular Filt Rate > 60; Glucose 53 mg/dL (65-110); Potassium 3.5 mmol/L (3.4-5.0); Sodium 141 mmol/L (137-145)
[2024-06-29] MEDS: GLUCAGON FOR INJ 1 MG VIAL IM (18:51)
--- NOTE | 2024-06-29 19:22 | PC.NURSE ---
pt was given a soda to try and the food bolus. pt said he took a few sips and then threw the soda back up
--- NOTE | 2024-06-29 19:40 | PC.NURSE ---
blood sugar is 89 at this time
[2024-06-29 19:42] LABS: Glucose Point of Care 89 mg/dl (65-105)
[2024-06-29] MEDS: DEXTROSE 50% 25 GM/50 ML SYRINGE IV PUSH (20:34)
--- NOTE | 2024-06-29 21:04 | PC.NURSE ---
pt blood sugar is 94 at this time
[2024-06-29 21:05] LABS: Glucose Point of Care 94 mg/dl (65-105)
[2024-06-29 21:13] VITALS: BP 150/65; PULSE 74; RESP 18; TEMP 36.6; O2SAT 100
[2024-06-29] MEDS: LACTATED RINGERS 1,000 ML 150 ML IV CONT (21:15)
--- NOTE | 2024-06-29 21:21 | SUR.OPER ---
Patient pre oped and will be recovered in procedure room 3.
--- NOTE | 2024-06-29 21:28 | P.PNAN_ITS ---
Anes - Initial Pre Proc Eval Procedure: Operation Date: 06/29/24 21:00 Proposed Procedures p Esophagogastroduodenoscopy - Ori Castle MD Date/Time: 06/29/24 21:28 Surgeon: Ori Castle MD Pre Op Diagnosis: hot dog stuck in throat Patient Data Age: 69 Gender: M Height: Weight: Last Vital Signs Temp 97.8 F 06/29/24 21:13 Pulse 74 06/29/24 21:13 Resp 18 06/29/24 21:13 BP 150/65 H 06/29/24 21:13 Pulse Ox 100 06/29/24 21:13 O2 Del Method Room Air 06/29/24 21:13 Allergies Allergy/AdvReac Type Severity Reaction Status Date / Time No Known Allergies Allergy Mild Verified 06/29/24 18:49 Home Medications Medication Instructions Recorded Confirmed Type folic acid 1 mg tablet 1 mg PO DAILY 01/04/23 06/07/24 History blood-glucose meter (OneTouch #1 ea 08/11/23 04/25/24 Rx Verio Reflect Meter) lancets 30 gauge (OneTouch #100 ea 08/11/23 04/25/24 Rx UltraSoft 2 Lancet) mecobalamin (vitamin B12) 1,000 1,000 mcg PO DAILY 10/18/23 06/07/24 History mcg chewable tablet naproxen sodium 220 mg tablet 220 mg PO Q8H 10/18/23 06/07/24 History (Aleve) potassium chloride 20 mEq 20 meq PO DAILY 10/18/23 06/07/24 History tablet,extended release blood sugar diagnostic (OneTouch #100 ea 01/04/24 04/25/24 Rx Verio test strips) ferrous sulfate 325 mg (65 mg 325 mg PO DAILY #90 tabs 02/08/24 06/07/24 Rx iron) tablet lactulose 10 gram/15 mL oral 30 g (45 mL) PO BID #3,785 mL 04/07/24 06/07/24 Rx solution glipizide 5 mg tablet, extended 5 mg PO BID #180 tabs 04/28/24 06/07/24 Rx release 24 hr lisinopril 5 mg tablet 5 mg PO DAILY #90 tabs 04/28/24 06/07/24 Rx cholestyramine (with sugar) 4 gram 4 g PO BID #1,134 grams 05/29/24 06/07/24 Rx oral powder diclofenac sodium 75 mg 75 mg PO DAILY 06/07/24 06/07/24 History tablet,delayed release furosemide 40 mg tablet 40 mg PO DAILY 06/07/24 06/07/24 History omeprazole 40 mg capsule,delayed 40 mg PO DAILY 06/07/24 06/07/24 History release prednisone 10 mg tablet 10 mg PO DAILY 06/07/24 06/07/24 History cyclobenzaprine 10 mg tablet 10 mg PO QHS PRN muscle spasm #90 06/22/24 Rx tabs gabapentin 300 mg capsule 300 mg PO TID #270 caps 06/27/24 Rx Laboratory Tests 06/29/24 06/29/24 06/29/24 17:47 19:39 21:03 WBC 7.5 K/mm3 (4.5-10.0) RBC 3.49 L M/mm3 (4.6-6.20) Hgb 11.2 L g/dL (14.0-18.0) Hct 33.7 L % (42.0-52.0) MCV 96.6 fl (80-100) MCH 32.1 pg (26-34) MCHC 33.2 g/dl (32-36) RDW 15.0 H % (11.5-14.5) Plt Count 176 k/mm3 (150-375) MPV 8.8 fl (7.4-10.4) Immature Gran % (Auto) 0.1 % (0-0.5) Neut % (Auto) 53.2 % (45.5-73.1) Lymph % (Auto) 29.9 % (18.3-44.2) [place] % (Auto) 10.1 H % (2.6-8.5) Eos % (Auto) 5.9 H % (0-4.4) Baso % (Auto) 0.8 % (0.2-1.2) Lymph # (Auto) 2.24 K/mm3 (0.9-3.2) [place] # (Auto) 0.8 H K/mm3 (0.1-0.6) Eos # (Auto) 0.4 H K/mm3 (0-0.3) Baso # (Auto) 0.1 K/mm3 (0.0-0.1) Abs Immat Gran (auto) 0.01 K/mm3 (0.00-0.031) Absolute Neuts (auto) 4.0 K/mm3 (1.3-6.7) Absolute Nucleated RBC 0.000 K/mm3 (0.0-0.012) Nucleated RBC % 0.0 % (0.0-0.2) Sodium 141 mmol/L (137-145) Potassium 3.5 mmol/L (3.4-5.0) Chloride 107 mmol/L (98-107) Carbon Dioxide 26 mmol/L (22-30) Anion Gap 8 mmol/L (4-12) BUN 11 mg/dL (9-20) Creatinine 0.70 mg/dL (0.7-1.3) Estim Creat Clear Calc Not Reportable Estimated GFR > 60 (59 - ) Glucose 53 L* mg/dL (65-110) POC Capillary Glucose 89 mg/dl 94 mg/dl (65-105) (65-105) Calcium 8.5 mg/dL (8.4-10.2) Total Bilirubin 1.6 H mg/dL (0.2-1.3) AST 52 U/L (17-59) ALT 28 U/L (6-50) Alkaline Phosphatase 134 H U/L (38-126) Total Protein 7.0 g/dL (6.3-8.2) Albumin 3.4 L g/dL (3.5-5.1) Patient hx anesthesia problems: none Family hx anesthesia problems: none Results Review: All pre-operative results and documents have been reviewed as part of the pre- operative evaluation. [facility] Past Medical History Medical History Acid reflux Cirrhosis Food impaction of esophagus Heavy alcohol use Hypertension Mitral valve prolapse Primary osteoarthritis of right knee Seizure He outgrew his seizures Surgical History Surgical History H/O esophagogastroduodenoscopy H/O total knee replacement H/O wisdom tooth extraction History of right knee joint replacement 08/19/22- Dr Luna History of tonsillectomy Hx of colonoscopy Total knee replacement status Family History Family History Mother Diabetes mellitus Social History Social History Social History: The patient is x2. The patient is currently laid off. 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 He has 2 children. He occasionally drinks alcohol. He denies any marijuana or illicit drugs. 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 [employer], CHEWING TOBACCO QUIT 2018 Alcohol intake: former Alcohol use details: 6PK/DAY Substance use: current Substance use type: marijuana Last use: daily @ [facility] Do You Feel Safe in your Home?: Yes Lack of Transportation: No Lack of Food: Never True Current Housing: I Have Housing Concerned About Future Housing: No Difficulty Paying Gas/Electric Bills: No Difficulty Paying for Meds: No Education: High School Diploma/GED Difficulty w/ Childcare or Family Care: No Living arrangements: alone Occupation/Education: retired 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 None loose. ) Neurological: alert and oriented Last oral intake: >/= 8 hours ASA classification: III Emergent: yes Anesthetic plan: delay Anesthesia type and monitoring: general ETT and standard monitoring Results Review: All pre-operative results and documents have been reviewed as part of the pre- operative evaluation. DM, HTN, hx of excessive ETOH use, pt states none in 8 months. Informed Consent: The patient's anesthetic plan and its attendant risks and benefits were discussed with the patient/family/POA. Questions were solicited and answers provided to the satisfaction of the patient/family/POA.
[2024-06-29 22:03] VITALS: BP 99/52; PULSE 85; RESP 20; TEMP 36.1; O2SAT 99
--- NOTE | 2024-06-29 22:03 | PM.IMHP ---
H&P: HPI History of Present Illness Date/Time: 06/29/24 22:03 Chief Complaint: Food bolus impaction Narrative: the patient had an episode of food bolus impaction on 06/07/24. It was resolved endoscopically. I saw him for follow-up 48 hours ago and he was still having difficulty swallowing. During endoscopy, biopsies were taken and ruled out eosinophilic esophagitis. He states that after eating hot 2 d ago, he felt a sensation of obstruction in the esophagus which persisted, motivating him to come to the ER. [facility] Past Medical History Medical History Acid reflux Cirrhosis Food impaction of esophagus Heavy alcohol use Hypertension Mitral valve prolapse Primary osteoarthritis of right knee Seizure He outgrew his seizures Surgical History Surgical History H/O esophagogastroduodenoscopy H/O total knee replacement H/O wisdom tooth extraction History of right knee joint replacement 08/19/22- Dr Luna History of tonsillectomy Hx of colonoscopy Total knee replacement status Family History Family History Mother Diabetes mellitus Social History Social History Social History: The patient is x2. The patient is currently laid off. 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 He has 2 children. He occasionally drinks alcohol. He denies any marijuana or illicit drugs. 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, CHEWING TOBACCO QUIT 2019 Alcohol intake: former Alcohol use details: 6PK/DAY Substance use: current Substance use type: marijuana Last use: daily @ [facility] Do You Feel Safe in your Home?: Yes Lack of Transportation: No Lack of Food: Never True Current Housing: I Have Housing Concerned About Future Housing: No Difficulty Paying Gas/Electric Bills: No Difficulty Paying for Meds: No Education: High School Diploma/GED Difficulty w/ Childcare or Family Care: No Living arrangements: alone Occupation/Education: retired Additional occupation/education comments: [employer] Gender identity (if verbalized by the patient): Male Spiritual care concerns: No Meds Home Medications and Allergies Home Medications Medication Instructions Recorded Confirmed Type folic acid 1 mg tablet 1 mg PO DAILY 01/04/23 06/07/24 History blood-glucose meter (OneTouch #1 ea 08/11/23 04/25/24 Rx Verio Reflect Meter) lancets 30 gauge (OneTouch #100 ea 08/11/23 04/25/24 Rx UltraSoft 2 Lancet) mecobalamin (vitamin B12) 1,000 1,000 mcg PO DAILY 10/18/23 06/07/24 History mcg chewable tablet naproxen sodium 220 mg tablet 220 mg PO Q8H 10/18/23 06/07/24 History (Aleve) potassium chloride 20 mEq 20 meq PO DAILY 10/18/23 06/07/24 History tablet,extended release blood sugar diagnostic (OneTouch #100 ea 01/04/24 04/25/24 Rx Verio test strips) ferrous sulfate 325 mg (65 mg 325 mg PO DAILY #90 tabs 02/08/24 06/07/24 Rx iron) tablet lactulose 10 gram/15 mL oral 30 g (45 mL) PO BID #3,785 mL 04/07/24 06/07/24 Rx solution glipizide 5 mg tablet, extended 5 mg PO BID #180 tabs 04/28/24 06/07/24 Rx release 24 hr lisinopril 5 mg tablet 5 mg PO DAILY #90 tabs 04/28/24 06/07/24 Rx cholestyramine (with sugar) 4 gram 4 g PO BID #1,134 grams 05/29/24 06/07/24 Rx oral powder diclofenac sodium 75 mg 75 mg PO DAILY 06/07/24 06/07/24 History tablet,delayed release furosemide 40 mg tablet 40 mg PO DAILY 06/07/24 06/07/24 History omeprazole 40 mg capsule,delayed 40 mg PO DAILY 06/07/24 06/07/24 History release prednisone 10 mg tablet 10 mg PO DAILY 06/07/24 06/07/24 History cyclobenzaprine 10 mg tablet 10 mg PO QHS PRN muscle spasm #90 06/22/24 Rx tabs gabapentin 300 mg capsule 300 mg PO TID #270 caps 06/27/24 Rx Allergies Allergy/AdvReac Type Severity Reaction Status Date / Time No Known Allergies Allergy Mild Verified 06/29/24 18:49 Vital Signs Vital Signs - 24 hr 06/29/24 12:57 06/29/24 21:13 Temperature 97.8 F 97.8 F Pulse Rate 85 74 Respiratory Rate 16 18 Blood Pressure 130/77 150/65 H Pulse Oximetry 100 100 Oxygen Delivery Room Air H&P: Results Labs Labs: Short CBC 06/29/24 Range/Units 17:47 WBC 7.5 (4.5-10.0) K/mm3 Hgb 11.2 L (14.0-18.0) g/dL Hct 33.7 L (42.0-52.0) % Plt Count 176 (150-375) k/mm3 BMP 06/29/24 17:47 Sodium 141 Potassium 3.5 Chloride 107 Carbon Dioxide 26 BUN 11 Creatinine 0.70 Glucose 53 L* Calcium 8.5 Liver Function 06/29/24 Range/Units 17:47 Total Bilirubin 1.6 H (0.2-1.3) mg/dL AST 52 (17-59) U/L ALT 28 (6-50) U/L Alkaline Phosphatase 134 H (38-126) U/L Albumin 3.4 L (3.5-5.1) g/dL Assessment and Plan Assessment and plan (1) Food impaction of esophagus: Qualifiers: Encounter type: initial encounter Qualified Code(s): T18.128A - Food in esophagus causing other injury, initial encounter; W44.F3XA - Food entering into or through a natural orifice, initial encounter Code(s): T18.128A - Food in esophagus causing other injury, initial encounter; W44.F3XA - Food entering into or through a natural orifice, initial encounter Status: Acute Assessment and Plan: Will perform EGD and food bolus extraction. Anesthesia will intubate the patient prior to the procedure.
--- NOTE | 2024-06-29 22:07 | WPDHPUPDATE1 ---
History and Physical Update Update Date/Time: 06/29/24 22:07 See endoscopy report. The patient has severe esophagitis which could be secondary to food retention for several days, however there are no mechanical explanations for this phenomenon, and eosinophilic esophagitis has been ruled out. I will prescribe pantoprazole 40 mg q.d., and will arrange for esophageal manometry to rule out Esophagealdysmotility disorders, namely achalasia.
[2024-06-29 22:13] VITALS: BP 116/56; PULSE 71; RESP 18; O2SAT 96
[2024-06-29 22:23] VITALS: BP 114/59; PULSE 71; RESP 18; O2SAT 96
== END 2024-06-29 22:46 | disposition home or self-care (01) ==
LOC: ANHED 21:06 → ANHENDO 21:08
PROVIDERS: Physician Assistant; Emergency Provider Physician Assistant; PCP Internal Medicine; Visit Provider Internal Medicine Gastroenterology
PROC: 0DJ08ZZ Inspection of Upper Intestinal Tract, Via Natural or Artificial Opening Endoscopic (ICD-10-PCS; CPT 43235; principal; 2024-06-29 21:00)
DX: T18.128A Food in esophagus causing other injury, initial encounter (principal); W44.F3XA Food entering into or through a natural orifice, initial encounter; K25.7 Chronic gastric ulcer without hemorrhage or perforation; K20.90 Esophagitis, unspecified without bleeding; K21.9 Gastro-esophageal reflux disease without esophagitis; K74.60 Unspecified cirrhosis of liver; I10 Essential (primary) hypertension; M17.11 Unilateral primary osteoarthritis, right knee; F12.90 Cannabis use, unspecified, uncomplicated; Z79.1 Long term (current) use of non-steroidal anti-inflammatories (NSAID); Z79.84 Long term (current) use of oral hypoglycemic drugs; Z79.52 Long term (current) use of systemic steroids; Z98.890 Other specified postprocedural states; Z87.891 Personal history of nicotine dependence; Z86.79 Personal history of other diseases of the circulatory system
CPT/HCPCS: 43247; 36415; 71046; 80053; 82948; 85025; 96372; 96374; 99285; J1610; J2003; J2704; J7120

== ENCOUNTER 2024-07-22 09:13 | Outpatient (CLI) | payer MEDICARE, SELFPAY ==
--- NOTE | ~2024-07-22 | US_ITS ---
US retroperitoneal duplex ltd DATE: 07/22/2024 10:02 INDICATION: Rule out portal hypertension TECHNIQUE: Real-time imaging, color flow imaging, Doppler analysis COMPARISON: None FINDINGS: There is surface nodularity of the liver suggesting cirrhosis. There is hepatopedal portal venous flow. There is hyperechoic coarsened echotexture of the liver. There are multiple stones in the gallbladder. The gallbladder wall is thickened, measuring up to 4.7 mm which may be due to acute or chronic cholecystitis. Negative sonographic Escobar sign. IMPRESSION: Hepatic surface nodularity and coarsened hepatic echotexture, consistent with cirrhosis. Cholelithiasis, thickened gallbladder wall; gallbladder wall thickening may be due to acute or chroni c cholecystitis Reviewed, dictated and finalized at Location [facility]. Reviewed, dictated and finalized at location A. ITECTURAL SALES CONSULTANT IMPRESSION: Hepatic surface nodularity and coarsened hepatic echotexture, consi stent with cirrhosis. Cholelithiasis, thickened gallbladder wall; gallbladder wall thickening may be due to acute or chronic cholecystitis
== END 2024-07-22 09:14 | disposition home or self-care (01) ==
PROVIDERS: PCP Internal Medicine; Visit Provider Internal Medicine Gastroenterology
DX: K76.89 Other specified diseases of liver (principal); K80.20 Calculus of gallbladder without cholecystitis without obstruction; K82.8 Other specified diseases of gallbladder; I10 Essential (primary) hypertension
CPT/HCPCS: 93976

== ENCOUNTER 2024-08-02 08:46 | Outpatient (CLI) | payer MEDICARE, SELFPAY ==
[2024-08-02 10:04] LABS: INR 1.4; Prothrombin Time 17.3 Seconds (11.1-14.7)
[2024-08-02 10:05] LABS: Partial Thromboplastin Time 40.7 Seconds (22.3-36.8)
== END 2024-08-02 08:47 | disposition home or self-care (01) ==
PROVIDERS: PCP Internal Medicine; Visit Provider Internal Medicine Gastroenterology
DX: R18.8 Other ascites (principal)
CPT/HCPCS: 36415; 85610; 85730

== ENCOUNTER 2024-09-24 04:00 | Emergency (ER) | payer MEDICARE, SELFPAY ==
--- OUTSIDE RECORDS SUMMARY | 2024-09-24 04:02 | XMS_ITS | Patient Health Summary ---
Author Organization [facility] Address [address] [place] [address] Care Team Providers Care Coal Mine Inspector Name Role Phone Julio C Rider MD Primary Care Provider [phone] Note from [facility],non-owned Affiliates and Associated Physician Practices is amultiple site organization consisting of ambulatory clinics and hospital sitesin [place], [place], [place] and [place]. This disclosure is being madepursuant to the Care Everywhere program and may not contain all information available regarding this patient. Last updated 18.[facility] Active Problems Problem Noted Date Diagnosed Date Hepatic encephalopathy 08/31/2024 Alcohol use, unspecified, uncomplicated 08/31/19 25 Social History Tobacco Use Types Packs/Day Years Used Date Smoking Tobacco: Never Assessed Sex and Gender Information Value Date Recorded Sex Assigned at Not on file Gender Identity Not on file Sexual Orientation Not on file Procedures * CA LIVER ELASTOGRAPHY(Performed 08/31/2024) Performed for Hepatic encephalopathy (HCC), Alcohol use, unspecified, uncomplicated Results * CA LIVER ELASTOGRAPHY (08/31/2024 11:21 AM NUISANCE ANIMAL DAMAGE CONTROL AGENT) Narrative Silvestre Cunha MD - 08/31/2024 11:21 AM NUISANCE ANIMAL DAMAGE CONTROL AGENT Silvestre Cunha MD ? 08/31/2024 ??4:19 PM Diagnosis: Hepatic Encephalopathy, Alcohol Use RN verified patient is NPO for prior 3 hours. Procedure explained. Date of Exam: 08/31/2024 Liver Stiffness: (LSM, kPa) median: ??26.8 IQR/Median% (ideally < 30%): ??14% CAP (controlled attenuation parameter): ??285 Technical Difficulty: None Ordering Provider: Arthur Doran MD Phone ?[phone] Fax ? [phone] Fibroscan interpretation: I have personally reviewed the Fibroscan report and associated tracings. The calculated Liver Stiffness Measurement (LSM, kPa) indicates that: The probability of advanced liver fibrosis is: very high and the probability of complications of portal hypertension is also high (especially if the platelet count is below 150k per Baveno criteria). The loss of ultrasound signal, (controlled attenuation parameter, CAP [dB/m]), indicates that the probability of hepatic steatosis is: high. Silvestre Meza MD The following criteria are used to indicate the probability of advanced (stage 3-4) fibrosis: < 7.0 kPa: low 7.0-8.9 kPa: low to moderate 9.0-14.9 kPa: moderate 15-20 kPa: high > 20 kPa: very high Liver stiffness > 20 kPa is also associated with a high probability of complications of portal hypertension including varices and ascites. Liver stiffness > 50 kPa is associated with a high risk of variceal bleeding. These interpretations are based on the following published data: Deb HARPER, Subha M, Aretha M, et al. Accuracy of FibroScan controlled attenuation parameter and liver stiffness measurement in assessing steatosis and fibrosis in patients with nonalcoholic fatty liver disease. Gastroenterology 2019;156:5962-4965. Ernestina LEWIS, Vanessa R, Alvin LAIRD, et al. Vibration-controlled transient elastography to assess fibrosis and steatosis in patients with nonalcoholic fatty liver disease. Clin Gastroenterol Hepatol 2019;17:156-163. Note that scores have been developed that incorporate the Fibroscan liver stiffness measurement from large cohorts of patients with liver biopsies to further refine the ability of Fibroscan to identify patients ??with MASH and advanced fibrosis. These include the FAST (Fibroscan-AST) score (Cristian, 2022) and the Agile3+ and Agile4 scores (Jaciel, 202). Cristian GARLAND, Alvin LAIRD, Kalyn Cisneros, Phi Mccarty, et al. Validation of the accuracy of the FAST score for detecting patients with at-risk nonalcoholic steatohepatitis (ARAIZA) in a [place] cohort and comparison to other non-invasive algorithms. PLoS ONE (2022) 17: [id number]. Jaciel AJ, Damian J, Celeste ZM, et al. Enhanced diagnosis of advanced fibrosis and cirrhosis in individuals with NAFLD using FibroScan-based Agile scores. J Hepatol (2022) 78: 247-259. Fibroscan LSM can also be used with laboratory parameters without formulas to assess prognosis. According to the Baveno-VII criteria (Rojas, 2021), Fibroscan LSM <=15 kPa plus a platelet count of >=[id number]/L rules out clinically significant portal hypertension (sensitivity and negative predictive value >90%) in patients with compensated advanced chronic liver disease. Rojas R, Janki J, Akira-Owen G, Tata T, Ne C on behalf of the Baveno VII Faculty. Baveno VII--Renewing consensus in portal hypertension. J Hepatol (2021) 76: 959-974 Assessing the likelihood of advanced fibrosis in patients with intermediate liver stiffness measurement (LSM) by Fibroscan (e.g., 8-15 kPa) can be improved by also calculating the FIB-4 score (Amose et al. Hepatology Communications 2019;3:0234-5446) or NAFLD Fibrosis score (Arnett et al. Clinical Gastroenterology and Hepatology 2019;17:1208-1891 using ??routine clinical data. Note: 1. Fibroscan cannot reliably identify earlier stages of fibrosis (ie distinguish F0 from F1 and F2) and thus a histologic stage cannot be predicted from the Fibroscan reading. 2. Liver stiffness can be increased by factors other than fibrosis including passive congestion, infiltrative processes, active alcoholism, recent moderate alcohol consumption in the 2 weeks before the exam, ??biliary obstruction and marked inflammation. The interpretation of the Fibroscan result provided above may not have taken such clinical factors into account. Disease etiology also influences Fibroscan cutoff values for fibrosis stages and the following cutoffs have been proposed (Gregorio et al, Clin Gastro Hepatol 2015; 13:27-36): Cutoffs for Stage 3 and Stage 4 fibrosis respectively: Hepatitis B: >9 and >11.7 kPa Hepatitis C: >9.5 and >12.5 kPa HCV-HIV: >11 and >14 kPa Cholestatic liver diseases: >10 and >17.9 kPa MASLD/MASH: >10 and >14 kPa CAP estimates of steatosis: normal <200 dB/m mild 200 to 250 dB/m moderate 250-290 dB/m substantial > 290 dB/m (Note that Fibroscan is not a quantitative measure of liver fat.) These criteria are estimates and may change as additional supporting data becomes available. (This additional interpretive data was last updated 01/02/23.) [email or web address] Silvestre Cunha MD PROCEDURE/ MINOR SURGICAL ORDERABLES Care Teams Coal Mine Inspector Relationship Specialty Start Date End Date Julio C Rider MD [address] [facility] [address] [place] [id number] PCP - General Internal Medicine 01/25/14
--- OUTSIDE RECORDS SUMMARY | 2024-09-24 04:02 | XMS_ITS | Clinical Summary ---
Author Organization [facility] Address [address] [place] [address]. [place] [address] [place] [address] Care Team Providers Care Field Representatives Director Name Role Phone Jaylan Gaitan PA-C Primary Care Provider [phone] Allergies No known active allergies Medications omeprazole (PRILOSEC) 40 MG capsule Take 1 capsule (40 mg total) by mouth daily. Active folic acid (FOLVITE) 1 MG tablet Take 1 tablet (1 mg total) by mouth daily. Active polyethylene glycol (GLYCOLAX) packet Take 240 mLs (17 g total) by mouth as needed. Dissolve powder in 240 mL water Active thiamine 100 MG Tab Take 1 tablet (100 mg total) by mouth daily. Active furosemide (LASIX) 40 MG tablet Take 2 tablets (80 mg total) by mouth 2 (two) times daily. 60 tablet 3 Active Blood Glucose Monitoring Suppl (D-CARE GLUCOMETER) w/Device KitIndications:Hype rglycemia,Type 2 diabetes mellitus with other specified complication, without long-term current use of insulin ([facility]) Use this to check your blood sugar daily. 1 kit 3 Active ondansetron (ZOFRAN-ODT) 4 MG disintegrating tablet Take 1 tablet (4 mg total) by mouth 2 (two) times daily as needed for Nausea or Vomiting. 4 Active cholestyramine (QUESTRAN) 4 GM/DOSE powder Take 1 packet (4 g total) by mouth 2 (two) times a day. 4 Active lisinopril (PRINIVIL) 5 MG tablet Take 1 tablet (5 mg total) by mouth daily. 3 Active glipiZIDE XL (GLUCOTROL XL) 5 MG 24 hr tablet Take 1 tablet (5 mg total) by mouth 2 (two) times daily. 3 Active ferrous sulfate, 65 mg elemental, 325 (65 FE) MG tablet Take 1 tablet (325 mg total) by mouth daily. 3 Active cyclobenzaprine (FLEXERIL) 10 MG tablet Take 1 tablet (10 mg total) by mouth nightly as needed for Muscle Spasms. 4 Active Active Problems Problem Noted Date Diagnosed Date Encephalopathy 10/04/2023 Decompensated hepatic cirrhosis (CMS/HCC HHS/HCC ) 01/28/2023 Leg edema 12/18/2022 Social History Tobacco Use Types Packs/Day Years Used Date Smoking Tobacco: Never Smokeless Tobacco: Former Chew Quit: 03/10/2021 Tobacco Cessation:Counseling Given: Not Answered Alcohol Use Standard Drinks/Week Comments Not Currently 0 (1 standard drink = 0.6 oz pure alcohol) 3 glasses of whiskey mixed per day [facility] [employer] [facility] Answer Date Recorded In the past 12 months has CEINT, oil, or water [employer] threatened to shut off services in your home? No 10/08/2023 Humiliation, Afraid, Rape, and Kick questionnair e Answer Date Recorded Within the last year, have y ou been afraid of your partner or ex-partner? No 10/08/2023 Within the last year, have y ou been humiliated or emotionally abused in other ways by your partner or ex-partner? No Within the last year, have y ou been kicked, hit, slapped, or otherwise physically hurt by your partner or ex-partner? No 10/08/2023 Within the last year, have y ou been raped or forced to have any kind of sexual activity by your partner or ex-partner? No 10/08/2023 Overall Financial Resource Strain (CARDIA) Answe r Date Recorded How hard is it for you to pa y for the very basics like food, housing, medical care, and heating? Not hard at all 10/08/2023 Hunger Vital Sign Answer Date Recorded Within the past 12 months, y ou worried that your food would run out before you got the money to buy more. Never true 10/08/19 24 Within the past 12 months, t he food you bought just didn't last and you didn't have money to get more. Never true 10/08/2023 PRAPARE - Transportation Answer Date Re corded In the past 12 months, has l ack of transportation kept you from medical appointments or from getting medications? No 04/2024 In the past 12 months, has l ack of transportation kept you from meetings, work, or from getting things needed for daily living? No 10/08/2023 Housing Stability Vital Sign Answer Sandip e Recorded In the last 12 months, was t here a time when you were not able to pay the mortgage or rent on time? No 10/08/2023 In the last 12 months, how many places have you lived? 1 10/08/2023 In the last 12 months, was t here a time when you did not have a steady place to sleep or slept in a assisted (including now)? No 10/08/2023 Sex and Gender Information Value Date Recorded Sex Assigned at Not on file Legal Sex Male 5:27 PM CDT Gender Identity Not on file Sexual Orientation Not on file Last Filed Vital Signs Vital Sign Reading Time Taken Comments Blood Pressure 117/66 10/10/2023 10:29 AM SENIOR C DEVELOPER Pulse 95 10/10/2023 10:29 AM SENIOR C DEVELOPER Temperature 36.6 ??C (97.9 ??F) 10/10/2023 10:[address] Respiratory Rate 18 10/10/2023 10:29 AM SENIOR C DEVELOPER Oxygen Saturation 98% 10/10/2023 10:29 AM SENIOR C DEVELOPER Inhaled Oxygen Concentration - - Weight 118 kg (260 lb 2.3 oz) 10/10/2023 5:03 AM SENIOR C DEVELOPER Height 185.4 cm (6' 1 ) 10/04/2023 3:15 PM SENIOR C DEVELOPER Body Mass Index 34.32 10/04/2023 3:15 PM SENIOR C DEVELOPER Plan of Treatment Health Maintenance Due Date Last Done Comments Colorectal Cancer Screening Colonoscopy (10 Years) 1957 Pneumococcal Vaccine: 65+ Years (1 of 2 - PCV) 1963 DTaP, Tdap and Td Vaccines ( 1 - Tdap) 1976 Zoster Vaccines (1 of 2) 2007 RSV Immunization or 60+ Years (1 - Risk 60-74 years 1-dose series) 2017 Annual Medicare Wellness Visit 2022 COVID-19 Vaccine (3 - 2023-2 5 season) 2024 05/12/2021, 04/21/2021 Influenza Adult (#1) 2024 Hepatitis C Completed 12/22/2022 Meningococcal B Vaccine Aged Out No l onger eligible based on patient's age to complete this topic Meningococcal Vaccine Aged Out No christopher jaz eligible based on patient's age to complete this topic RSV Immunizations Under 20 Months Aged Out No longer eligible b ased on patient's age to complete this topic Goals Goal Patient Goal Type Associated Problems Recent Progress Patient-Stated? Author Patient will return to prior living situation and remain independent in ADLs upon discharge from hospital Lifestyle Cathy Sweet, RN Health - patient able to perform ADLs independently Lifestyle No Kanu Bhatt engine head repairer Procedure Name Priority Date/Time Associated Diagnosis Comments HC EIA QL HEPATITIS ABC B AG Routine 12/22/2022 5:46 AM CDT from Last 3 Months or Most Recently Relevant to Health Maintenance Results * HEPATITIS A,B,& C (12/22/2022 5:46 AM CDT) HEPATITIS B SURFACE AG NON-REACTI VE NON-REACTI VE 12/22/2022 8:44 AM CDT [facility] HEP B CORE TOTAL AB NON-REACTI VE NON-REACTI VE 12/22/2022 8:44 AM CDT [facility] HEP B SURFACE AB NON-REACTI VE 12/22/2022 8:44 AM CDT [facility] HAV IGM NON-REACTI VE NON-REACTI VE 12/22/2022 8:44 AM CDT [facility] HEPATITIS C AB NON-REACTI VE NON-REACTI VE 12/22/2022 8:44 AM CDT [facility] 12/22/2022 5:46 AM CDT Shondajoseph Arreola ANP- LABORATORY Final Result [facility] [address] [place] [address], [place] [phone] from Last 3 Months or Most Recently Relevant to Health Maintenance Insurance [employer] Advance Directives * Full Code (Latest Code Status on File) Date Activated Date Inactivated Comments 10/04/2023 6:05 PM 10/10/2023 12:55 PM * Full Code Date Activated Date Inactivated Comments 01/28/2023 2:03 AM 02/07/2023 1:52 PM * Full Code Date Activated Date Inactivated Comments 12/24/2022 6:54 PM 12/26/2022 10:01 PM Care Teams Field Representatives Director Relationship Specialty Start Date End Date Jaylan Gaitan PA-C [address] [place] [address] PCP - General PHYSICIAN PAYROLL BENEFITS ADMINISTRATOR 12/18/22
--- OUTSIDE RECORDS SUMMARY | 2024-09-24 04:02 | XMS_ITS | Referral Summary ---
Author Organization [facility] Address [address] [place] [address] Care Team Providers Care Stereo Plotter Operator Name Role Phone Julio C Rider MD Primary Care Provider [phone] Source Comments [facility],non-owned Affiliates and Associated Physician Practices is amultiple site organization consisting of ambulatory clinics and hospital sitesin [place], [place], [place] and [place]. This disclosure is being madepursuant to the Care Everywhere program and may not contain all information available regarding this patient. Last updated 18.[facility] Encounters Date Type Department Care Team Description 08/31/2024 Travel 08/31/2024 Orders Only [facility] - GI [address] [place] [address] Silvestre Ortiz MD Alcohol use, unspecified, uncomplicated ; Hepatic encephalopathy (HCC) 08/31/2024 11:30 AM CATEGORY MANAGER Procedure visit [facility] - [address] [place] [address] Unknown, Provider NAFLD (nonalcoholic fatty liver disease) 08/25/2024 Travel from Last 3 Months Active Problems Problem Noted Date Diagnosed Date Hepatic encephalopathy 08/31/2024 Alcohol use, unspecified, uncomplicated 08/31/19 25 Social History Tobacco Use Types Packs/Day Years Used Date Smoking Tobacco: Never Assessed Sex and Gender Information Value Date Recorded Sex Assigned at Not on file Gender Identity Not on file Sexual Orientation Not on file Plan of Treatment Not on file Procedures Procedure Name Priority Date/Time Associated Diagnosis Comments [place] LIVER ELASTOGRAPHY Routine 08/31/2024 11:21 AM CATEGORY MANAGER Hepatic encephalopathy (HCC) Alcohol use, unspecified, uncomplicated from Last 3 Months Results * [place] LIVER ELASTOGRAPHY (08/31/2024 11:21 AM CATEGORY MANAGER) Narrative Silvestre Cunha MD - 08/31/2024 11:21 AM CATEGORY MANAGER Silvestre Cunha MD ? 08/31/2024 ??4:19 PM Diagnosis: Hepatic Encephalopathy, Alcohol Use RN verified patient is NPO for prior 3 hours. Procedure explained. Date of Exam: 08/31/2024 Liver Stiffness: (LSM, kPa) median: ??26.8 IQR/Median% (ideally < 30%): ??14% CAP (controlled attenuation parameter): ??285 Technical Difficulty: None Ordering Provider: Arthur Doran MD Phone ?[phone] Fax ? [phone] Fibroscan interpretation: I have personally reviewed the [...] patients with nonalcoholic fatty liver disease. Gastroenterology 2019;156:7444-9147. Ernestina MS, Vanessa R, Van Kathleen ML, et al. Vibration-controlled transient elastography to assess [...] These include the FAST (Fibroscan-AST) score (Cristian, 202) and the Agile3+ and Agile4 scores (Jaciel, 202). Cristian TA, Van Natkavitha ML, Kalyn M, Phi A, et al. Validation of the accuracy of the FAST score for detecting patients with at-risk nonalcoholic steatohepatitis (ARAIZA) in a [place] cohort and comparison to other non-invasive algorithms. PLoS ONE (2021) 17: [id number]. Jaciel AJ, aDmian J, Celeste ZM, et al. Enhanced diagnosis of advanced fibrosis and cirrhosis in individuals with NAFLD using FibroScan-based Agile scores. J Hepatol (2022) 78: 247-259. Fibroscan LSM can also be used with laboratory parameters without formulas to assess prognosis. According to the Baveno-VII criteria (Rojas, 202), Fibroscan LSM <=15 kPa plus a platelet count of >=426g392/L rules out clinically significant portal hypertension (sensitivity and negative predictive value >90%) in patients with compensated advanced chronic liver disease. Rojas R, Janki J, Danyelle G, Tata T, Ne C on behalf of the Baveno VII Faculty. Baveno VII--Renewing consensus in portal hypertension. J Hepatol (2021) 76: 959-974 Assessing the likelihood of advanced fibrosis in patients with intermediate liver stiffness measurement (LSM) by Fibroscan (e.g., 8-15 kPa) can be improved by also calculating the FIB-4 score (Nithya et al. Hepatology Communications 2019;3:8476-0867) or NAFLD Fibrosis score (Arnett et al. Clinical Gastroenterology and Hepatology 2019;17:6899-8067 using ??routine clinical data. Note: 1. Fibroscan [...] additional interpretive data was last updated 01/02/23.) [email or web address] Silvestre Cunha MD PROCEDURE/ MINOR SURGICAL ORDERABLES from Last 3 Months Care Teams Stereo Plotter Operator Relationship Specialty Start Date End Date Julio C Rider MD [address] [facility] [address] [place] [address] PCP - General Internal Medicine 01/25/14
--- OUTSIDE RECORDS SUMMARY | 2024-09-24 04:02 | XMS_ITS | Data Portability ---
Author Organization [place] [facility], Main Office Address [address] [place] [address] Care Team Providers Care Warehouse Receiver Name Role Phone GOGO MARTINEZ Primary Care Provider [phone] GOGO MARTINEZ Referring Provider [phone] Assessment Encounter Date Assessment Date Assessment LastModified by Organization Details LastModified Time 11/12/2022 11/12/2022 On exam he has full motion of his right knee from 0-125 degrees with about pain his redness is mostly gone from the knee itself he has been in his diet his abdomen gone mostly the left side now he has got moderate swelling and redness in the left knee. He is thinks the Bactrim works better than the doxycycline on and keep him on that. Had discussion infectious disease doctors at [address] He is going to see him in a week or 2 and re-evaluate at that time. In the meantime will send him for a duplex scan. mic Not available 11/12/2022 14:05:49 Plan of Treatment Reminders Order Date Submit Date Provider Last Modified By Organization Details Last Modified Time Details Appointments None recorded. Lab None recorded. Referral None recorded. Procedures None recorded. Surgeries None recorded. Imaging US, duplex, venous, lower extremity - Please call Dr. Luna [email or web address] [facility], [address], [place], [address], 3 15:14:50 Medication Orders Bactrim DS 800 mg-160 mg tablet [address] [id number], [address] [place], [address], 14:05:57 Patient TargetsNo targets recorded. Patient InstructionsNo instructions recorded. Reason for Referral None Reported. Results Created Date Observation Date Name Description Value Unit Range Abnormal Flag Note LastModifiedBy Organization Detail LastModifiedTime 08/19/20 22 08/19/2022 XR, knee No observ ation record ed. [id number] [place] [address] [address], [place], [address], 10/28/2022 19:46:15 08/27/20 22 08/27/2022 arthr ocent esis, aspir ation and/o r injec tion, major joint or bursa (PROC ) No observ ation record ed. MIGRATION.[id number] [place] [address] [place] [address] [address] [facility], [place], [address], 10/28/2022 19:46:15 08/31/19 23 08/31/2022 imagi ng/di agnos tic resul t No observ ation record ed. MIGRATION.[id number] [place] [address] [address], [place], [address], 10/28/2022 19:46:15 09/02/19 23 09/01/2022 US, duple x, lower extre mity No observ ation record ed. MIGRATION.[id number] [place] [address] [address], [place], [address], 10/28/2022 19:46:15 09/29/19 23 XR, knee, 3 view No observ ation record ed. MIGRATION.[address] [place] [address] [facility] [place] [address] [facility] [address], [place], [address], 10/28/2022 19:46:15 11/13/19 23 11/12/2022 US, tanale x, venou s, lower extre mity No observ ation record ed. [email or web address] [address], [place], [address], 11/12/2022 16:48:06 Result Notes None recorded. Problems Name Problem SNOMED Code Status Onset Date Resolution Date Notes Provider Name and Address Organization Details Recorded Time Osteoarthr itis of left knee joint 6782437858092 09 Active 2021 Not Available [facility] 3 19:45:23 Osteoarthr itis of right knee joint 5021060883657 00 Active 2021 Not Available [facility] 3 19:45:23 Osteoarthr itis 747938640 Active Not Available [facility] 3 19:45:23 Pain of bilateral knee joints 3618469990698 04 Active 2021 Not Available [facility] 3 19:45:23 Mechanical complicati on of implant 555419659 Active 2021 Not Available [facility] 3 19:45:23 Localized swelling of left lower leg 1828430217895 9102 Active 2022 Ledakamilah willett, [facility] 3 14:01:34 Swelling of lower leg 554993953 Active 2022 Leda Harjinder Xpreso, [facility] 3 13:39:19 Problem Notes None recorded. Procedures Surgical History None recorded. Imaging Results Imaging Date Name Status LastModified by Organiz ation Details LastModified Time 08/27/2022 arthrocentesis, aspiration and/or injection, major joint or bursa (PROC) completed [id number] 1119 [facility] [address] [facility], [place], [address], 10/28/2022 19:46:15 09/01/2022 US, duplex, lower extremity completed [id number] [address] [place] [address], [address], 10/28/2022 19:46:15 08/19/2022 XR, knee completed [email or web address].[id number], [place], [address], 10/28/2022 19:46:15 08/31/2022 imaging/diagnos tic result completed MIGRATION.[id number] 9214 [facility] [address], [place], [address], 10/28/2022 19:46:15 09/29/2022 XR, knee, 3 view completed MIGRATION.[id number] 6893 [facility] [place] [address], [place], [address], 10/28/2022 19:46:15 11/12/2022 US, duplex, venous, lower extremity completed [email or web address] [facility] [address], [place], [address], 11/12/2022 16:48:06 Procedure Notes None recorded. Medical Equipment None Reported. Medications Name Sig Start Date Stop Date Status Note LastModified by Organization Details LastModified Time prednison e 10 mg tablet 10 MG ORALLY DAILY PATIENT NEED TO WEAN OFF active Not Available Not Available No t Available doxycycli ne hyclate 100 mg capsule Take 1 capsule twice a day by oral route. active Patients original pharmacy was out of this drug. Had to resubmit to this pharmacy 10/02/22 patient called in to make us aware. kdt Not Available Not Available Not Available hydrocodo ne 5 mg-acetam inophen 325 mg tablet active Not Available Not Available Not Available hydrocort isone 1 % topical ointment APPLY TO AFFECTED AREA EVERY 12 HOURS active Not Available Not Available No t Available omeprazol e 40 mg capsule,d elayed release TAKE 1 CAPSULE BY MOUTH EVERY DAY active Not Available Not Available No t Available prednison e 10 mg tablets in a dose pack Take 1 tab by mouth, 3 times a day for 3 daysTake 1 tab by mouth 2 times a day for 2 daysTake 1 tab by mouth once a day for 1 day active Not Available Not Available No t Available amoxicill in 875 mg tablet active Not Available Not Available Not Available Kenalog 10 mg/mL suspensio n for injection In office injectio n administ ered by the provider active [facility]: [phone] Not Available Not Available Not Available hydrocodo ne 7.5 mg-acetam inophen 325 mg tablet TAKE 1 TABLET BY MOUTH EVERY 6 HOURS active Not Available Not Available No t Available furosemid e 20 mg tablet TAKE 1 TABLET BY MOUTH EVERY DAY 2022 active Not Available Not Available Not Avai lable naproxen 500 mg tablet TK 1 T PO BID WITH FOOD 12/06 completed Not Available Not Available Not Available Bactrim DS 800 mg-160 mg tablet Take 1 tablet twice a day by oral route. 2022 active Not Available Not Available Not Avai lable omeprazol e 2021 active Not Available Not Available Not Avai lable Xarelto 10 mg tablet TAKE 1 TABLET BY MOUTH EVERY DAY active Not Available Not Available No t Available ropivacai ne (PF) 5 mg/mL (0.5 %) injection solution Take 14 mg by injectio n route. active Not Available Not Available No t Available Supartz FX 10 mg/mL intra-art icular syringe USE DIRECTED 12/06 completed Not Available Not Available Not Available Vitals Date Recorded Body mass index (BMI) Body height Body weight Provider Name and Address Organization Details Last Updated DateTime 08/27/2022 37.9 kg/m2 185.42 cm 313754.01 g Not Available [facility] 10/28/2022 19:45:01 Date Recorded Body mass index (BMI) Body height Body weight Provider Name and Address Organization Details Last Updated DateTime 09/08/2022 36.4 kg/m2 185.42 cm 952981.49 g Not Available [facility] 10/28/2022 19:45:01 Date Recorded Body mass index (BMI) Body height Body weight Provider Name and Address Organization Details Last Updated DateTime 09/15/2022 36.4 kg/m2 185.42 cm 772651.49 g Not Available [facility] 10/28/2022 19:45:01 Date Recorded Body mass index (BMI) Body height Body weight Provider Name and Address Organization Details Last Updated DateTime 09/29/2022 36.4 kg/m2 185.42 cm 414578.49 g Not Available [facility] 10/28/2022 19:45:01 Date Recorded Body height Body mass index (BMI) Body weight Provider Name and Address Organization Details Last Updated DateTime 11/12/2022 185.42 cm 36.9 kg/m2 610068.86 g MARLEY Curry [place] - [facility] 11/12/2022 13:45:13 Social History None recorded. Functional Status None recorded. Mental Status None recorded. Family History Nothing Reported. Medical History No medical history recorded. Past Encounters Encounter ID Performer Location Encounter Start Date Encounter Closed Date Diagnosis/Indication Diagnosis SNOMED-CT Code Diagnosis ICD10 Code Diagnosis Note [id number] [facility] [place] [address] [place] [address] 04/23/2022 00:00:00 04/23/2022 14:27:35 [id number] [facility] [place] [address] [place] [address] 05/21/2022 00:00:00 05/21/2022 11:43:10 [id number] [facility] [place] [address] [place] [address] 08/27/2022 00:00:00 08/27/2022 11:19:45 [id number] [facility] [place] [address] [place] [address] 09/08/2022 00:00:00 09/08/2022 14:04:49 [id number] [facility] [place] [address] [place] [address] 09/15/2022 00:00:00 09/15/2022 16:08:27 [id number] [facility] [place] [address] [place] [address] 09/29/2022 00:00:00 09/29/2022 15:49:46 [id number] [facility] [place] [address] [place] [address] 11/12/2022 13:42:52 11/12/2022 15:14:50 Pain of bilateral knee joints 5642497711 55838 M25.561 M25.562 Mechanical complication of implant 627245641 T85.698A T84.039A Localized swelling of left lower leg 4706792010 1108815 R22.42 Health Concerns Section Related Observation LastModified by Organization Detai ls LastModified Time None Recorded Concern Status LastModified by Organization Details LastModified Time None Recorded Advance Directives Directive None Recorded Payers Encounter Date Sequence Insurance Name Policy Number Policy Rubin Covered Member ID Rubin Member ID Guarantor Name 11/12/2022 1 [employer] (MEDICARE REPLACEMENT PPO) [id number] Andres Paula [id number] Andres Paula 11/12/2022 2 [place] [id number] Andres Paula [id number] Andres Paula Notes Date Note Type Note Provider Name and Address Organization Details Recorded Time 11/12/2022 text/html Patient returns cellulitis right and left leg. The cellulitis on the right is clear to a large degree although it is in his thigh and abdomen. Now it has gone on the left leg and his left leg is swollen and moderately red. Az Luna MD [address] [place] [address], [place], [address], [place] - [facility] 11/12/2022 14:05:52
--- OUTSIDE RECORDS SUMMARY | 2024-09-24 04:02 | XMS_ITS | Clinical Summary ---
Author Organization [facility] Address [address] [place] [address] Care Team Providers Care Licsw Name Role Phone Julio C Rider MD Primary Care Provider [phone] Source Comments [facility],non-owned Affiliates and Associated Physician Practices is amultiple site organization consisting of ambulatory clinics and hospital sitesin [place], [place], [place] and [place]. This disclosure is being madepursuant to the Care Everywhere program and may not contain all information available regarding this patient. Last updated 18.[facility] Active Problems Problem Noted Date Diagnosed Date Hepatic encephalopathy 08/31/2024 Alcohol use, unspecified, uncomplicated 08/31/19 25 Encounters Date Type Department Care Team Description 08/31/2024 11:30 AM ADMISSIONS ADVISOR Procedure visit [facility] - GI [address] [place] [address] Unknown, Provider NAFLD (nonalcoholic fatty liver disease) 08/31/2024 Travel 08/31/2024 Orders Only [facility] - [facility] [address] [place] [address] Silvestre Ortiz MD Alcohol use, unspecified, uncomplicated ; Hepatic encephalopathy (HCC) 08/25/2024 Travel from Last 3 Months Social History Tobacco Use Types Packs/Day Years Used Date Smoking Tobacco: Never Assessed Sex and Gender Information Value Date Recorded Sex Assigned at Not on file Gender Identity Not on file Sexual Orientation Not on file Plan of Treatment Health Maintenance Due Date Last Done Comments COLOGUARD (AGES 45-75) - COL ON CA SCREENING 1957 COLON MONITORING 1957 COLONOSCOPY - COLON CA SCREENING 1957 CT COLONOGRAPHY - COLON CA SCREENING 1957 Colorectal Cancer Screening 1957 FIT - COLON CA SCREENING 1957 FLEX SIG - COLON CA SCREENING 1957 LIPID TESTING 1957 HEPATITIS C SCREENING 03/23/1975 DTAP/TDAP/TD VACCINES (1 - Tdap) 1976 PNEUMOCOCCAL VACCINE 50+ (1 of 1 - PCV) 2007 ZOSTER VACCINE (1 of 2) 2007 COVID-19 VACCINE (1 - 2023-2 5 season) 2024 INFLUENZA VACCINE (#1) 2024 DEPRESSION SCREENING 08/30/2024 MEDICARE AWV ? CALENDAR YEAR 2024 Respiratory Syncytial Virus (RSV) Vaccine Pt: or over 60 yrs (1 - 1-dose 75+ series) 2032 HEPATITIS B VACCINE Aged Out No longe r eligible based on patient's age to complete this topic HIB VACCINE Aged Out No longer eligi ble based on patient's age to complete this topic HPV VACCINE Aged Out No longer eligi ble based on patient's age to complete this topic MENINGOCOCCAL (Group B) VACCINE Aged Out No longer eligible based on patient's age to complete this topic MENINGOCOCCAL VACCINE Aged Out No christopher jaz eligible based on patient's age to complete this topic Procedures Procedure Name Priority Date/Time Associated Diagnosis Comments [place] LIVER ELASTOGRAPHY Routine 08/31/2024 11:21 AM ADMISSIONS ADVISOR Hepatic encephalopathy (HCC) Alcohol use, unspecified, uncomplicated from Last 3 Months Results * [place] LIVER ELASTOGRAPHY (08/31/2024 11:21 AM ADMISSIONS ADVISOR) Narrative Silvestre Cunha MD - 08/31/2024 11:21 AM ADMISSIONS ADVISOR Silvestre Cunha MD ? 08/31/2024 ??4:19 PM Diagnosis: Hepatic Encephalopathy, Alcohol Use RN verified patient is NPO for prior 3 hours. Procedure explained. Date of Exam: 08/31/2024 Liver Stiffness: (LSM, kPa) median: ??26.8 IQR/Median% (ideally < 30%): ??14% CAP (controlled attenuation parameter): ??285 Technical Difficulty: None Ordering Provider: Arthur Doran MD Phone ?[phone] Fax ? [phone] Fibroscan interpretation: I have personally reviewed the [...] patients with nonalcoholic fatty liver disease. Gastroenterology 2019;156:5766-4850. Ernestina LEWIS, Vanessa R, Alvin LAIRD, et [...] at-risk nonalcoholic steatohepatitis (ARAIZA) in a [place] cohort and comparison to other non-invasive algorithms. PLoS ONE (2021) 17: [id number]. Jaciel AJ, Damian J, Celeste ZM, et al. Enhanced diagnosis of advanced fibrosis and cirrhosis in individuals with NAFLD using FibroScan-based Agile scores. J Hepatol (2022) 78: 247-259. Fibroscan LSM can also be used with laboratory parameters without formulas to assess prognosis. According to the Baveno-VII criteria (Rojas, 202), Fibroscan LSM <=15 kPa plus a platelet count of >=425p430/L rules out clinically significant portal hypertension (sensitivity [...] improved by also calculating the FIB-4 score (Opaluke et al. Hepatology Communications 2019;3:6874-6578) or NAFLD Fibrosis score (Arnett et al. Clinical Gastroenterology and Hepatology 2019;17:0560-8016 using ??routine clinical data. Note: 1. Fibroscan [...] additional interpretive data was last updated 01/02/23.) [email or web address] Silvestre Cunha MD PROCEDURE/ MINOR SURGICAL ORDERABLES from Last 3 Months Care Teams Licsw Relationship Specialty Start Date End Date Julio C Rider MD [address] [place] [address] PCP - General Internal Medicine 01/25/14
[2024-09-24 04:14] VITALS: BP 126/51; PULSE 87; RESP 16; TEMP 36.5; O2SAT 100
[2024-09-24 06:34] VITALS: BP 128/52; PULSE 83; RESP 18; O2SAT 99
--- OUTSIDE RECORDS SUMMARY | 2024-09-24 07:23 | XMS_ITS | Clinical Summary ---
Author Organization [facility] Address [address] [place] [address] Care Team Providers Care Sugar Presser Name Role Phone Jaylan Gaitan Primary Care Provider zA Luna MD Unavailable [phone] Allergies No known active allergies Medications furosemide (LASIX) 40 mg tablet Take 1 tablet (40 mg total) by mouth daily 30 tablet 12/30/2022 Active folic acid (FOLVITE) 1 mg tablet Take 1 tablet (1 mg total) by mouth daily 30 tablet 12/31/2022 Active cyanocobalamin/ folic acid (vitamin G13-glsbe acid) 500-400 mcg tablet Take by mouth Active gabapentin (NEURONTIN) 100 mg capsule Take 1 capsule (100 mg total) by mouth 3 (three) times a day Active naproxen sodium 220 mg capsule Take by mouth daily Active ondansetron (ZOFRAN) 4 mg tablet TAKE 1 TABLET BY MOUTH 2 TIMES A DAY NEEDED FOR NAUSEA. 60 tablet 1 07/13/2023 Active Active Problems Problem Noted Date Diagnosed Date Screening for colorectal cancer 03/18/2023 Colorectal cancer 03/17/2023 Moderate malnutrition 12/29/2022 Cirrhosis 12/26/2022 Other mechanical complicatio n of other specified internal prosthetic devices, implants and grafts, initial encounter 10/27/2022 Assessment & Plan (10/27/2022 9:59 AM ENVIRONMENTAL COMPLIANCE OFFICER): - No signs/symptoms of acute infection noted on today's exam, though notably pt on doxycycline since 09/29/20, on antibiotics for several months (Bactrim/Amox). - Records of patients hospitalization at [facility] not currently available. Will request those records. Uncertain if there was concern for deeper infection or if presentation was more consistent with superficial infection/cellulitis. - Labs today for baseline: CBC, CMP, ESR, CRP - Advised pt to discuss his ongoing back/abdominal/leg pain with PCP. Pt may need further workup for this, potentially imaging of spine given pain radiating down both legs. Unlikely to be infectious in nature. - Discussed with patient the rational for treatment, culture results, risk of recurrent infection, signs/symptoms of recurrent infection, and to contact ID clinic with any questions or concerns. History of knee joint replacement 10/27/2022 Assessment & Plan (12/01/2022 11:09 AM CDT): - No evidence of infection at this time on exam. - Given significant ongoing fluid retention in his legs, it is likely this is contributing to his skin changes and discomfort. Pt will speak to PT about lymphedema treatment. - Stop doxycyline, if pt notices any changes he will notify ID. - All questions answered, pt in agreement with plan of care. - Discussed with patient the rational for treatment, culture results, risk of recurrent infection, signs/symptoms of recurrent infection, and to contact ID clinic with any questions or concerns. Surgical History Surgery Date Site/Laterality Comments REPLACEMENT TOTAL KNEE 08/29/2022 Right Medical History Medical History Date Comments Osteoarthritis Family History Medical History Relation Name Comments Diabetes Brother Relation Name Status Comments Brother Social History Tobacco Use Types Packs/Day Years Used Date Smoking Tobacco: Never Smokeless Tobacco: Never Tobacco Cessation:Counseling Given: Not Answered AUDIT-C Answer Date Recorded Q1: How often do you have a drink containing alc ohol? Patient declined 10/27/2022 Q2: How many drinks containi ng alcohol do you have on a typical day when you are drinking? Patient declined 10/27/2022 Q3: How often do you have si x or more drinks on one occasion? Patient declined 10/27/2022 Personal Safety Answer Date Recorded Getting School Help Needed Not on file 01/20 Sex and Gender Information Value Date Recorded Sex Assigned at Not on file Legal Sex Male 3:11 AM ENVIRONMENTAL COMPLIANCE OFFICER Gender Identity Not on file Sexual Orientation Not on file Obstetrics History Last Filed Vital Signs Vital Sign Reading Time Taken Comments Blood Pressure 110/66 03/16/2023 9:45 AM CDT Pulse 101 03/16/2023 9:45 AM CDT Temperature 37.1 ??C (98.7 ??F) 03/16/2023 9:45 AM CD T Respiratory Rate 18 12/30/2022 3:35 PM CDT Oxygen Saturation 97% 12/30/2022 3:35 PM CDT Inhaled Oxygen Concentration - - Weight 117.2 kg (258 lb 6 oz) 03/16/2023 9:45 AM CDT Height 185 cm (6' 0.84 ) 02/12/2023 9:45 AM CDT Body Mass Index 34.24 02/12/2023 9:45 AM CDT Plan of Treatment Health Maintenance Due Date Last Done Comments Colon Cancer Screening-Colonoscopy 1955 Depression Screening 1957 Hepatitis C Screening 1957 Prostate Cancer Screening-PSA 1957 Pneumococcal vaccine 65+ (1 of 2 - PCV) 1963 DTaP/Tdap/Td Vaccine (1 - Tdap) 1968 Hepatitis B Screening 1975 Zoster Vaccine (1 of 2) 2007 Abdominal Aortic Aneurysm (AAA) Screen 2022 Well Visit 65+ 2022 Fall Risk Assessment 12/31/2023 12/30/2022 Covid-19 Vaccine ( season) 2024, 04/21/2021 Influenza Vaccine (#1) 2024 Insurance [facility] Advance Directives For more information, please contact: [phone] * Full Code (Latest Code Status on File) Date Activated Date Inactivated Comments 12/26/2022 8:50 PM 12/30/2022 9:47 PM Care Teams Sugar Presser Relationship Specialty Start Date End Date Jaylan Gaitan PA [address] [facility] [address] [place] [address] PCP - General Physician Tax Credit Leasing Consultant 10/05/22 Az Luna MD [address] [place] [address] Referring Physician Orthopedic Surgery 10/05/22
--- OUTSIDE RECORDS SUMMARY | 2024-09-24 07:23 | XMS_ITS | Clinical Summary ---
Author Organization [facility] Address [address] [place] [address]. [place] [address] [place] [address] Care Team Providers Care Power Generation Equipment Repairer Name Role Phone Jaylan Gaitan PA-C Primary Care Provider [phone] Allergies No known active allergies Medications omeprazole [...] complication, without long-term current use of insulin ([facility]) Use this to check your blood sugar [...] 3 glasses of whiskey mixed per day [facility] [employer] Answer Date Recorded In the past 12 months has Parrable, oil, or water Mohound threatened to shut off services in your [...] place to sleep or slept in a [place] health care facility (including now)? No 10/08/2023 Sex and Gender Information Value Date Recorded Sex Assigned at Not on file Legal Sex Male 5:27 PM CDT Gender Identity Not on file Sexual Orientation Not on file Last Filed Vital Signs Vital Sign Reading Time Taken Comments Blood Pressure 117/66 10/10/2023 10:29 AM BUILDING SERVICES COORDINATOR Pulse 95 10/10/2023 10:29 AM BUILDING SERVICES COORDINATOR Temperature 36.6 ??C (97.9 ??F) 10/10/2023 10:[address] Respiratory Rate 18 10/10/2023 10:29 AM BUILDING SERVICES COORDINATOR Oxygen Saturation 98% 10/10/2023 10:29 AM BUILDING SERVICES COORDINATOR Inhaled Oxygen Concentration - - Weight 118 kg (260 lb 2.3 oz) 10/10/2023 5:03 AM BUILDING SERVICES COORDINATOR Height 185.4 cm (6' 1 ) 10/04/2023 3:15 PM BUILDING SERVICES COORDINATOR Body Mass Index 34.32 10/04/2023 3:15 PM BUILDING SERVICES COORDINATOR Plan of Treatment Health Maintenance Due Date [...] perform ADLs independently Lifestyle No Kanu Bhatt cabana attendant Procedure Name Priority Date/Time Associated Diagnosis Comments HC EIA QL HEPATITIS ABC B AG Routine 12/22/2022 5:46 AM CDT from Last 3 Months or Most Recently Relevant to Health Maintenance Results * HEPATITIS A,B,& C (12/22/2022 5:46 AM CDT) HEPATITIS B SURFACE AG NON-REACTI VE NON-REACTI VE 12/22/2022 8:44 AM CDT [facility] HEP B CORE TOTAL AB NON-REACTI VE NON-REACTI VE 12/22/2022 8:44 AM CDT [facility] HEP B SURFACE AB NON-REACTI VE 12/22/2022 8:44 AM CDT [facility] HAV IGM NON-REACTI VE NON-REACTI VE 12/22/2022 8:44 AM CDT [facility] HEPATITIS C AB NON-REACTI VE NON-REACTI VE 12/22/2022 8:44 AM CDT [facility] 12/22/2022 5:46 AM CDT Shondajoseph Arreola ANP- LABORATORY Final Result [facility] [address] [place] [address], [place] [phone] from Last 3 Months or Most Recently [...] 6:54 PM 12/26/2022 10:01 PM Care Teams Power Generation Equipment Repairer Relationship Specialty Start Date End Date Jaylan Gaitan PA-C [address] [facility] [address] [place] [address] PCP - General PHYSICIAN PIE BAKERY LABORER 12/18/22
--- OUTSIDE RECORDS SUMMARY | 2024-09-24 07:23 | XMS_ITS | Clinical Summary ---
Author Organization [facility] Address [address] [place] [address] Care Team Providers Care Easement Man Name Role Phone Julio C Rider MD Primary Care Provider [phone] Source Comments [facility],non-owned Affiliates and Associated Physician Practices is amultiple site organization consisting of ambulatory clinics and hospital sitesin [place], [place], [place] and [place]. This disclosure is being madepursuant to the Care Everywhere program and may not contain all information available regarding this patient. Last updated 18.[facility] Active Problems Problem Noted Date Diagnosed Date Hepatic encephalopathy 08/31/2024 Alcohol use, unspecified, uncomplicated 08/31/19 25 Encounters Date Type Department Care Team Description 08/31/2024 11:30 AM ELECTRICAL ACCESSORIES ASSEMBLER Procedure visit [facility] [address] [place] [address] Unknown, Provider NAFLD (nonalcoholic fatty liver disease) 08/31/2024 Travel 08/31/2024 Orders Only [facility] [address] [place] [address] Silvestre Ortiz MD Alcohol use, unspecified, uncomplicated [...] Procedure Name Priority Date/Time Associated Diagnosis Comments ND LIVER ELASTOGRAPHY Routine 08/31/2024 11:21 AM ELECTRICAL ACCESSORIES ASSEMBLER Hepatic encephalopathy (HCC) Alcohol use, unspecified, uncomplicated from Last 3 Months Results * ND LIVER ELASTOGRAPHY (08/31/2024 11:21 AM ELECTRICAL ACCESSORIES ASSEMBLER) Narrative Silvestre Cunha MD - 08/31/2024 11:21 AM ELECTRICAL ACCESSORIES ASSEMBLER Silvestre Cunha MD ? 08/31/2024 ??4:19 PM Diagnosis: Hepatic Encephalopathy, Alcohol Use RN verified patient is NPO for prior 3 hours. Procedure explained. Date of Exam: 08/31/2024 Liver Stiffness: (LSM, kPa) median: ??26.8 IQR/Median% (ideally < 30%): ??14% CAP (controlled attenuation parameter): ??285 Technical Difficulty: None Ordering Provider: Arthur Doran MD Phone ?[phone] Fax ? [phone] Fibroscan interpretation: I have personally reviewed the [...] patients with nonalcoholic fatty liver disease. Gastroenterology 2019;156:6905-6261. Ernestina LEWIS, Vanessa R, Alvin LAIRD, et [...] at-risk nonalcoholic steatohepatitis (ARAIZA) in a [place] cohort and comparison to other non-invasive algorithms. PLoS ONE (2021) 17: [id number]. Jaciel AJ, Damian J, Celeste ZM, et al. Enhanced diagnosis of advanced fibrosis and cirrhosis in individuals with NAFLD using FibroScan-based Agile scores. J Hepatol (2022) 78: 247-259. Fibroscan LSM can also be used with laboratory parameters without formulas to assess prognosis. According to the Baveno-VII criteria (Rojas, 202), Fibroscan LSM <=15 kPa plus a platelet count of >=878u061/L rules out clinically significant portal hypertension (sensitivity [...] FIB-4 score (Opaluke et al. Hepatology Communications 2019;3:8254-7581) or NAFLD Fibrosis score (Arnett et al. Clinical Gastroenterology and Hepatology 2019;17:1331-0338 using ??routine clinical data. Note: 1. Fibroscan [...] additional interpretive data was last updated 01/02/23.) [email or web address] Silvestre Cunha MD PROCEDURE/ MINOR SURGICAL ORDERABLES from Last 3 Months Care Teams Easement Man Relationship Specialty Start Date End Date Julio C Rider MD [address] [place] [address] PCP - General Internal Medicine 01/25/14
--- OUTSIDE RECORDS SUMMARY | 2024-09-24 07:23 | XMS_ITS | Patient Health Summary ---
Author Organization [facility] Address [address] [facility] [place] [address] Care Team Providers Care Nephrology Nurse Name Role Phone Julio C Rider MD Primary Care Provider [phone] Note from [facility],non-owned Affiliates and Associated Physician Practices is amultiple site organization consisting of ambulatory clinics and hospital sitesin [place], [place], [place] and [place]. This disclosure is being madepursuant to the Care Everywhere program and may not contain all information available regarding this patient. Last updated 18.[facility] Active Problems Problem Noted Date Diagnosed Date Hepatic encephalopathy 08/31/2024 Alcohol use, unspecified, uncomplicated 08/31/19 25 Social History Tobacco Use Types Packs/Day Years Used Date Smoking Tobacco: Never Assessed Sex and Gender Information Value Date Recorded Sex Assigned at Not on file Gender Identity Not on file Sexual Orientation Not on file Procedures * [place] LIVER ELASTOGRAPHY(Performed 08/31/2024) Performed for Hepatic encephalopathy (HCC), Alcohol use, unspecified, uncomplicated Results * [place] LIVER ELASTOGRAPHY (08/31/2024 11:21 AM PINSETTER MECHANIC AUTOMATIC) Narrative Silvestre Cunha MD - 08/31/2024 11:21 AM PINSETTER MECHANIC AUTOMATIC Silvestre Cunha MD ? 08/31/2024 ??4:19 PM Diagnosis: Hepatic Encephalopathy, Alcohol Use RN verified patient is NPO for prior 3 hours. Procedure explained. Date of Exam: 08/31/2024 Liver Stiffness: (LSM, kPa) median: ??26.8 IQR/Median% (ideally < 30%): ??14% CAP (controlled attenuation parameter): ??285 Technical Difficulty: None Ordering Provider: Arthur Doran MD Phone ?[phone] Fax ? [phone] Fibroscan interpretation: I have personally reviewed the [...] patients with nonalcoholic fatty liver disease. Gastroenterology 2019;156:9658-8639. Ernestina LEWIS, Vanessa R, Alvin LAIRD, et [...] at-risk nonalcoholic steatohepatitis (ARAIZA) in a [place] cohort and comparison to other non-invasive algorithms. PLoS ONE (2022) 17: [id number]. Jaciel AJ, Damian J, Celeste ZM, et al. Enhanced diagnosis of advanced fibrosis and cirrhosis in individuals with NAFLD using FibroScan-based Agile scores. J Hepatol (2022) 78: 247-259. Fibroscan LSM can also be used with laboratory parameters without formulas to assess prognosis. According to the Baveno-VII criteria (Rojas, 2021), Fibroscan LSM <=15 kPa plus a platelet count of >=221k676/L rules out clinically significant portal hypertension (sensitivity [...] FIB-4 score (Amose et al. Hepatology Communications 2019;3:0325-1250) or NAFLD Fibrosis score (Arnett et al. Clinical Gastroenterology and Hepatology 2019;17:4809-5943 using ??routine clinical data. Note: 1. Fibroscan [...] additional interpretive data was last updated 01/02/23.) [email or web address] Silvestre Cunha MD PROCEDURE/ MINOR SURGICAL ORDERABLES Care Teams Nephrology Nurse Relationship Specialty Start Date End Date Julio C Rider MD [address] [facility] [address] [place] [id number] PCP - General Internal Medicine 01/25/14
--- OUTSIDE RECORDS SUMMARY | 2024-09-24 07:23 | XMS_ITS | Referral Summary ---
Author Organization [facility] Address [address] [place] [address] Care Team Providers Care Boot And Shoe Laborer Name Role Phone Julio C Rider MD Primary Care Provider [phone] Source Comments [facility],non-owned Affiliates and Associated Physician Practices is amultiple site organization consisting of ambulatory clinics and hospital sitesin [place], [place], [place] and [place]. This disclosure is being madepursuant to the Care Everywhere program and may not contain all information available regarding this patient. Last updated 18.[facility] Encounters Date Type Department Care Team Description 08/31/2024 Travel 08/31/2024 Orders Only [facility] [address] [place] [address] Silvestre Ortiz MD Alcohol use, unspecified, uncomplicated ; Hepatic encephalopathy (HCC) 08/31/2024 11:30 AM STEEL ROLLER Procedure visit [facility] - [address] [place] [address] Unknown, Provider NAFLD (nonalcoholic fatty liver disease) [...] Procedure Name Priority Date/Time Associated Diagnosis Comments [place] LIVER ELASTOGRAPHY Routine 08/31/2024 11:21 AM STEEL ROLLER Hepatic encephalopathy (HCC) Alcohol use, unspecified, uncomplicated from Last 3 Months Results * [place] LIVER ELASTOGRAPHY (08/31/2024 11:21 AM STEEL ROLLER) Narrative Silvestre Cunha MD - 08/31/2024 11:21 AM STEEL ROLLER Silvestre Cunha MD ? 08/31/2024 ??4:19 PM Diagnosis: Hepatic Encephalopathy, Alcohol Use RN verified patient is NPO for prior 3 hours. Procedure explained. Date of Exam: 08/31/2024 Liver Stiffness: (LSM, kPa) median: ??26.8 IQR/Median% (ideally < 30%): ??14% CAP (controlled attenuation parameter): ??285 Technical Difficulty: None Ordering Provider: Arthur Doran MD Phone ?[phone] Fax ? [phone] Fibroscan interpretation: I have personally reviewed the [...] patients with nonalcoholic fatty liver disease. Gastroenterology 2019;156:0392-3565. Ernestina MS, Vanessa R, Van Kathleen ML, [...] at-risk nonalcoholic steatohepatitis (ARAIZA) in a [place] cohort and comparison to other non-invasive algorithms. PLoS ONE (2021) 17: a3093390. Jaciel AJ, Damian J, Celeste ZM, et al. Enhanced diagnosis of advanced fibrosis and cirrhosis in individuals with NAFLD using FibroScan-based Agile scores. J Hepatol (2022) 78: 247-259. Fibroscan LSM can also be used with laboratory parameters without formulas to assess prognosis. According to the Baveno-VII criteria (Rojas, 202), Fibroscan LSM <=15 kPa plus a platelet count of >=692l540/L rules out clinically significant portal hypertension (sensitivity [...] FIB-4 score (Nithya et al. Hepatology Communications 2019;3:8135-9545) or NAFLD Fibrosis score (Arnett et al. Clinical Gastroenterology and Hepatology 2019;17:3336-8093 using ??routine clinical data. Note: 1. Fibroscan [...] additional interpretive data was last updated 01/02/23.) [email or web address] Silvestre Cunha MD PROCEDURE/ MINOR SURGICAL ORDERABLES from Last 3 Months Care Teams Boot And Shoe Laborer Relationship Specialty Start Date End Date Julio C Rider MD [address] [place] [id number] PCP - General Internal Medicine 01/25/14
--- OUTSIDE RECORDS SUMMARY | 2024-09-24 07:23 | XMS_ITS ---
Author Organization [facility] Address [address] [place] [address] Care Team Providers Care Installer Soft Top Name Role Phone Jaylan Gaitan Primary Care Provider Az Luna MD Unavailable [phone] Active Problems Problem Noted Date Diagnosed Date Screening for colorectal cancer 03/18/2023 Colorectal cancer 03/17/2023 Moderate malnutrition 12/29/2022 Cirrhosis 12/26/2022 Other mechanical complicatio n of other specified internal prosthetic devices, implants and grafts, initial encounter 10/27/2022 Assessment & Plan (10/27/2022 9:59 AM DIRECTOR POST): - No signs/symptoms of acute infection noted on today's exam, though notably pt on doxycycline since 09/29/20, on antibiotics for several months (Bactrim/Amox). - Records of patients hospitalization at [facility] in [place] not currently available. Will request those records. [...] ID clinic with any questions or concerns. Current Oncology Plans No current plan information found. Past Plans No past plan information found. Radiation Treatments * No radiation treatments are documented for this patient in [facility]. Treatments may have been administered in another system. Lifetime Dose Tracking * Chemical Lifetime Dose Automatic Entry Manual Entr y DLP 158 mGycm 158 mGycm 0 mGycm
--- OUTSIDE RECORDS SUMMARY | 2024-09-24 07:23 | XMS_ITS | Referral Summary ---
Author Organization [facility] Address [address] [place] [address] Care Team Providers Care Medical Corps Officer Name Role Phone Jaylan Gaitan Primary Care Provider Az Luna MD Unavailable [phone] Allergies No known active allergies Medications furosemide (LASIX) 40 mg tablet Take 1 tablet (40 mg total) by mouth daily 30 tablet 12/30/2022 Active folic acid (FOLVITE) 1 mg tablet Take 1 tablet (1 mg total) by mouth daily 30 tablet 12/31/2022 Active cyanocobalamin/ folic acid (vitamin W22-kesta acid) 500-400 mcg tablet Take by mouth [...] 10/27/2022 Assessment & Plan (10/27/2022 9:59 AM GLASS EDGER): - No signs/symptoms of acute infection noted on today's exam, though notably pt on doxycycline since 09/29/20, on antibiotics for several months (Bactrim/Amox). - Records of patients hospitalization at [facility] not currently available. Will request those records. [...] ID clinic with any questions or concerns. Social History Tobacco Use Types Packs/Day Years [...] on file Legal Sex Male 3:11 AM GLASS EDGER Gender Identity Not on file Sexual Orientation [...] 02/12/2023 9:45 AM CDT Plan of Treatment Not on file [place] [address] [place] [address] [employer] [facility] [employer] [facility] Advance Directives For more information, please contact: [phone] * Full Code (Latest Code Status on File) Date Activated Date Inactivated Comments 12/26/2022 8:50 PM 12/30/2022 9:47 PM Care Teams Medical Corps Officer Relationship Specialty Start Date End Date Jaylan Gaitan PA [address] [place] [address] PCP - General Physician Finish Remover 10/05/22 Az Luna MD [address] [place] [address] Referring Physician Orthopedic Surgery 10/05/22
--- NOTE | 2024-09-24 07:31 | ED.GENADULT ---
HPI - General Adult General Chief complaint: Back Pain/Injury Stated complaint: back pain Time Seen by Provider: 09/24/24 06:58 History of Present Illness HPI narrative: 69-year-old male presenting with right-sided back. Patient developed pain that starts in his right lower back and sheets on the inside of his leg wrapping his knee. He states this is sciatica pain. Is not associated with any neurologic deficits or weakness to his legs. Noted urinary incontinence or saddle anesthesia. No high risk factors like abuse fevers trauma or known cancer. He is not taking anything for pain control Related Data Home Medications ?Medication ?Instructions ?Recorded ?Confirmed ?Last Taken ?Type folic acid 1 mg tablet 1 mg PO DAILY 01/04/23 09/19/24 1 Day Ago History ~06/06/24 mecobalamin (vitamin B12) 1,000 1,000 mcg PO DAILY 10/18/23 09/19/24 1 Day Ago History mcg chewable tablet ~06/06/24 naproxen sodium 220 mg tablet 220 mg PO Q8H 10/18/23 09/19/24 1 Day Ago History (Aleve) ~06/06/24 potassium chloride 20 mEq 20 meq PO DAILY 10/18/23 09/19/24 1 Day Ago History tablet,extended release ~06/06/24 furosemide 40 mg tablet 40 mg PO DAILY 06/07/24 09/19/24 1 Day Ago History ~06/06/24 omeprazole 40 mg capsule,delayed 40 mg PO DAILY 06/07/24 09/19/24 1 Day Ago History release ~06/06/24 prednisone 10 mg tablet 10 mg PO DAILY 06/07/24 09/19/24 1 Day Ago History ~06/06/24 Allergies Allergy/AdvReac Type Severity Reaction Status Date / Time No Known Allergies Allergy Mild Verified 09/19/24 09:05 [facility] Past Medical History Medical History Cirrhosis Heavy alcohol use Hypertension Primary osteoarthritis of right knee Food impaction of esophagus Mitral valve prolapse Acid reflux Seizure He outgrew his seizures Surgical History Surgical History History of right knee joint replacement 08/19/22- Dr Luna History of tonsillectomy H/O wisdom tooth extraction Hx of colonoscopy H/O esophagogastroduodenoscopy H/O total knee replacement Total knee replacement status Family History Family History Mother Diabetes mellitus Social History Social History Social History: The patient is x2. The patient is currently laid off. 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 He has 2 children. He occasionally drinks alcohol. He denies any marijuana or illicit drugs. 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 [employer], CHEWING TOBACCO QUIT 2018 Alcohol intake: former Alcohol use details: 6PK/DAY Substance use: current Substance use type: marijuana Last use: daily @ [facility] Do You Feel Safe in your Home?: Yes Lack of Transportation: No Lack of Food: Never True Current Housing: I Have Housing Concerned About Future Housing: No Difficulty Paying Gas/Electric Bills: No Difficulty Paying for Meds: No Education: High School Diploma/GED Difficulty w/ Childcare or Family Care: No Living arrangements: alone Occupation/Education: retired Additional occupation/education comments: [employer] Gender identity (if verbalized by the patient): Male Spiritual care concerns: No Exam Narrative: APPEARANCE: No apparent distress. Head: atraumatic. EYES: EOMI, NOSE: Atraumatic NECK/BACK: Trachea midline no midline spinal tenderness RESPIRATORY: No increased rate of breathing CARDIOVASCULAR: RRR, feet warm to touch strong pulses ABDOMINAL: Non-distended MUSCULOSKELETAl: Straight leg positive on the right, negative on the left. All compartments are soft, no overlying skin changes NEURO: Focal exam of lower extremities revealed normal motor/sensory function bilaterally. SKIN:: Warm, dry. Normal color PSYCHIATRIC: Normal affect Course Vital Signs Vital signs: Vital Signs Temperature 97.7 F 09/24/24 04:14 Pulse Rate 87 09/24/24 04:14 Respiratory Rate 16 09/24/24 04:14 Blood Pressure 126/51 L 09/24/24 04:14 Pulse Oximetry 100 09/24/24 04:14 Temperature 97.7 F 09/24/24 04:14 Pulse Rate 83 09/24/24 06:34 Respiratory Rate 18 09/24/24 06:34 Blood Pressure 128/52 L 09/24/24 06:34 Pulse Oximetry 99 09/24/24 06:34 Medical Decision Making [facility] Narrative Medical decision making narrative: -Course: 69-year-old male presenting with sciatic pain. No red flags/concerning findins on history or physical. Patient treated with muscle relaxers and pain medication. Be discharged follow-up with primary care physician for further management. -DDX includes but is not limited to: cauda Equina, spinal muscle strain -Co-morbidities complicating care: Liver cirrhosis -Interventions: Oneida 5 mg x 2, Robaxin -Shared decision making / Disposition: Discharge -RX Tylenol, Robaxin Vital Signs Vital Signs: Vital Signs Temperature 97.7 F 09/24/24 04:14 Pulse Rate 87 09/24/24 04:14 Respiratory Rate 16 09/24/24 04:14 Blood Pressure 126/51 L 09/24/24 04:14 Pulse Oximetry 100 09/24/24 04:14 Temperature 97.7 F 09/24/24 04:14 Pulse Rate 83 09/24/24 06:34 Respiratory Rate 18 09/24/24 06:34 Blood Pressure 128/52 L 09/24/24 06:34 Pulse Oximetry 99 09/24/24 06:34 Discharge Plan Discharge Clinical Impression: Sciatica Patient Disposition: Home, Self-Care Condition: Stable Instructions: Antibiotic Form, Lumbar Radiculopathy (ED) Additional Instructions: Please follow-up with your primary care physician for further management. Please use Tylenol Robaxin for pain control. If you develop weakness to her legs, inability to urinate, bowel incontinence any new or worsening symptoms please return to the ED immediately. Patient Language: Spanish Prescriptions: New acetaminophen 325 mg capsule 650 mg PO Q8H PRN (Reason: pain) Qty: 60 0RF methocarbamol 750 mg tablet 1,500 mg PO TID Qty: 60 0RF No Action folic acid 1 mg tablet 1 mg PO DAILY naproxen sodium [Aleve] 220 mg tablet 220 mg PO Q8H mecobalamin (vitamin B12) 1,000 mcg tablet,chewable 1,000 mcg PO DAILY potassium chloride 20 mEq tablet extended release 20 meq PO DAILY benzonatate 200 mg capsule 200 mg PO TID PRN (Reason: cough) Qty: 30 0RF cefdinir 300 mg capsule 300 mg PO Q12H Qty: 20 0RF mometasone 0.1 % cream 1 applic topical DAILY Qty: 45 1RF furosemide 40 mg tablet 40 mg PO DAILY Rx Instructions: TAKE 1 TABLET BY MOUTH EVERY DAY IN THE MORNING prednisone 10 mg tablet 10 mg PO DAILY Rx Instructions: 10 MG ORALLY DAILY PATIENT NEED TO WEAN OFF omeprazole 40 mg capsule,delayed release(DR/EC) 40 mg PO DAILY Rx Instructions: TAKE 1 CAPSULE BY MOUTH EVERY DAY (DME) blood-glucose meter [OneTouch Verio Reflect Meter] Misc See Rx Instructions .Route Qty: 1 0RF Rx Instructions: check blood sugar once daily (DME) lancets [PloredTouch UltraSoft 2 Lancet] 30 gauge misc See Rx Instructions .Route Qty: 100 3RF Rx Instructions: check blood sugar once daily (DME) OneTouch Verio test strips Strip See Rx Instructions .Route Qty: 100 3RF Rx Instructions: check blood sugar once daily lactulose 10 gram/15 mL solution 30 g PO BID Qty: 3785 3RF glipizide 5 mg tablet extended release 24hr 5 mg PO BID Qty: 180 2RF lisinopril 5 mg tablet 5 mg PO DAILY Qty: 90 2RF gabapentin 300 mg capsule 300 mg PO TID Qty: 270 1RF cholestyramine (with sugar) 4 gram powder 4 g PO BID Qty: 1134 3RF Rx Instructions: Administer with meal avoid other meds within 1 hr before or 4-6 hr after dose ferrous sulfate 325 mg (65 mg iron) tablet 325 mg PO DAILY Qty: 90 3RF cyclobenzaprine 10 mg tablet 10 mg PO QHS PRN (Reason: muscle spasm) Qty: 90 0RF Rx Instructions: Must last 90 days diclofenac sodium 75 mg tablet,delayed release (DR/EC) See Rx Instructions .ROUTE .COMPLEX Qty: 60 1RF Dose Instruction: TAKE 1 TABLET BY MOUTH TWICE A DAY Rx Instructions: TAKE 1 TABLET BY MOUTH TWICE A DAY Follow-up/Referrals: Kerwin Chavez DO [Primary Care Provider] - 1 Week (sciatica )
[2024-09-24] MEDS: HYDROcodone/acetaminophen (*CRX) 5-325 MG TABLET 2 TAB PO (07:36)
[2024-09-24] MEDS: methocarbamoL 750 MG TABLET 1500 MG PO (07:36)
[2024-09-24 08:42] VITALS: BP 129/67; PULSE 81; RESP 16; TEMP 37.1; O2SAT 100
== END 2024-09-24 08:44 | disposition home or self-care (01) ==
PROVIDERS: Emergency Provider Emergency Medicine; PCP Internal Medicine
DX: M54.41 Lumbago with sciatica, right side (principal); I10 Essential (primary) hypertension; I34.1 Nonrheumatic mitral (valve) prolapse; K74.60 Unspecified cirrhosis of liver; M17.11 Unilateral primary osteoarthritis, right knee; Z96.651 Presence of right artificial knee joint; Z87.891 Personal history of nicotine dependence
CPT/HCPCS: 99283; A9270

== ENCOUNTER 2024-10-11 10:30 | Outpatient (CLI) | payer MEDICARE, SELFPAY ==
--- NOTE | ~2024-10-11 | XR_ITS ---
Left Knee Technique: AP, lateral, and sunrise views were obtained. Clinical History: Osteoarthritis Findings: No fracture or dislocation is seen. Osseous alignment is anatomic. There is moderate tricom partmental degenerative change, worst in the patellofemoral compartment. Soft tissues are unremarkabl e. No joint effusion is seen. Impression: Degenerative change, as above. Reviewed, dictated and finalized at location . PACKER Impression: Degenerative change, as above.
--- NOTE | ~2024-10-11 | XR_ITS ---
Right Knee Technique: AP, lateral, and sunrise views were obtained. Clinical History: Arthroplasty COMPARISON: 08/16/2023 Findings: No fracture or dislocation is seen. Right knee arthroplasty in place. No hardware complicat ion seen. Soft tissues are unremarkable. No joint effusion is seen. Impression: No acute abnormality. Stable right knee arthroplasty. Reviewed, dictated and finalized at location . AL PSYCHOLOGIST Impression: No acute abnormality. Stable right knee arthroplasty.
--- OUTSIDE RECORDS SUMMARY | 2024-10-11 11:25 | XMS_ITS | Patient Health Summary ---
Author Organization [facility] Address [address] [facility] [address] [facility] [facility] [place] [address] Care Team Providers Care Superintendent Landfill Operations Name Role Phone Julio C Rider MD Primary Care Provider [phone] [facility],non-owned Affiliates and Associated Physician Practices is amultiple site organization consisting of ambulatory clinics and hospital sitesin [place], [place], [place] and [place]. This disclosure is being madepursuant to the Care Everywhere program and may not contain all information available regarding this patient. Last updated 18.[facility] Active Problems Problem Noted Date Diagnosed Date Hepatic encephalopathy 08/31/2024 Alcohol use, unspecified, uncomplicated 08/31/19 25 Social History Tobacco Use Types Packs/Day Years Used Date Smoking Tobacco: Never Assessed Sex and Gender Information Value Date Recorded Sex Assigned at Not on file Gender Identity Not on file Sexual Orientation Not on file Procedures * MO LIVER ELASTOGRAPHY(Performed 08/31/2024) Performed for Hepatic encephalopathy (HCC), Alcohol use, unspecified, uncomplicated Results * MO LIVER ELASTOGRAPHY (08/31/2024 11:21 AM SOFT WORK CIGAR MACHINE OPERATOR) Narrative Silvestre Cunha MD - 08/31/2024 11:21 AM SOFT WORK CIGAR MACHINE OPERATOR Silvestre Cunha MD 08/31/2024 4:19 PM Diagnosis: Hepatic Encephalopathy, Alcohol Use RN verified patient is NPO for prior 3 hours. Procedure explained. Date of Exam: 08/31/2024 Liver Stiffness: (LSM, kPa) median: 26.8 IQR/Median% (ideally < 30%): 14% CAP (controlled attenuation parameter): 285 Technical Difficulty: None Ordering Provider: Arthur Doran MD Fibroscan interpretation: I have personally reviewed the [...] patients with nonalcoholic fatty liver disease. Gastroenterology 2019;156:2515-4625. Ernestina LEWIS, Vanessa R, Van Natkavitha LAIRD, et al. Vibration-controlled transient elastography to assess fibrosis and steatosis in patients with nonalcoholic fatty liver disease. Clin Gastroenterol Hepatol 2019;17:156-163. Note that scores have been developed that incorporate the Fibroscan liver stiffness measurement from large cohorts of patients with liver biopsies to further refine the ability of Fibroscan to identify patients with MASH and advanced fibrosis. These include the FAST (Fibroscan-AST) score (Cristian, 202) and the Agile3+ and Agile4 scores (Jaciel, 202). Cristian TA, Van Natta ML, Kalyn M, Phi A, et al. Validation of the accuracy of the FAST score for detecting patients with at-risk nonalcoholic steatohepatitis (ARAIZA) in a [place] cohort and comparison to other non-invasive algorithms. PLoS ONE (2021) 17: [id number]. Jaciel TOMLIN, Damian J, Celeste LI, et al. Enhanced diagnosis of advanced fibrosis and cirrhosis in individuals with NAFLD using FibroScan-based Agile scores. J Hepatol (2022) 78: 247-259. Fibroscan LSM can also be used with laboratory parameters without formulas to assess prognosis. According to the Baveno-VII criteria (Rojas, 202), Fibroscan LSM <=15 kPa plus a platelet count of >=089w944/L rules out clinically significant portal hypertension (sensitivity and negative predictive value >90%) in patients with compensated advanced chronic liver disease. Rojas R, Janki J, Danyelle G, Tata T, Ne Alberto on behalf of the Baveno VII Faculty. Baveno VII--Renewing consensus in portal hypertension. J Hepatol (2021) 76: 959-974 Assessing the likelihood of advanced fibrosis in patients with intermediate liver stiffness measurement (LSM) by Fibroscan (e.g., 8-15 kPa) can be improved by also calculating the FIB-4 score (Nithya et al. Hepatology Communications 2019;3:0623-0937) or NAFLD Fibrosis score (Arnett et al. Clinical Gastroenterology and Hepatology 2019;17:5513-7239 using routine clinical data. Note: 1. Fibroscan cannot reliably identify earlier stages of fibrosis (ie distinguish F0 from F1 and F2) and thus a histologic stage cannot be predicted from the Fibroscan reading. 2. Liver stiffness can be increased by factors other than fibrosis including passive congestion, infiltrative processes, active alcoholism, recent moderate alcohol consumption in the 2 weeks before the exam, biliary obstruction and marked inflammation. The interpretation of [...] additional interpretive data was last updated 01/02/23.) [email or web address] Silvestre Cunha MD PROCEDURE/ MINOR SURGICAL ORDERABLES Care Teams Superintendent Landfill Operations Relationship Specialty Start Date End Date Julio C Rider MD [address] [facility] [address] [place] [id number] PCP - General Internal Medicine 01/25/14
--- OUTSIDE RECORDS SUMMARY | 2024-10-11 11:25 | XMS_ITS ---
Author Organization [facility] Address [address] [place] [id number] Care Team Providers Care Media Services Specialist Name Role Phone Jaylan Gaitan Primary Care Provider Az Luna MD Unavailable [phone] Active Problems Problem Noted Date Diagnosed Date Screening for colorectal cancer 03/18/2023 Colorectal cancer 03/17/2023 Moderate malnutrition 12/29/2022 Cirrhosis 12/26/2022 Other mechanical complicatio n of other specified internal prosthetic devices, implants and grafts, initial encounter 10/27/2022 Assessment & Plan (10/27/2022 9:59 AM PAYROLL MANAGER): - No signs/symptoms of acute infection noted on today's exam, though notably pt on doxycycline since 09/29/20, on antibiotics for several months (Bactrim/Amox). - Records of patients hospitalization at [facility] in [place] not currently available. Will request those records. [...] treatments are documented for this patient in [facility]. Treatments may have been administered in another system. Lifetime Dose Tracking * Chemical Lifetime Dose Automatic Entry Manual Entr y DLP 158 mGycm 158 mGycm 0 mGycm
--- OUTSIDE RECORDS SUMMARY | 2024-10-11 11:25 | XMS_ITS | Clinical Summary ---
Author Organization [facility] Address [address] [place] [id number] Care Team Providers Care Video Production Intern Name Role Phone Jaylan Gaitan Primary Care Provider Az Luna MD Unavailable [phone] Allergies No known active allergies Medications furosemide (LASIX) 40 mg tablet Take 1 tablet (40 mg total) by mouth daily 30 tablet 12/30/2022 Active folic acid (FOLVITE) 1 mg tablet Take 1 tablet (1 mg total) by mouth daily 30 tablet 12/31/2022 Active cyanocobalamin/ folic acid (vitamin I20-xydkd acid) 500-400 mcg tablet Take by mouth [...] Assessment & Plan (10/27/2022 9:59 AM DIRECTOR DAY CARE CENTER): - No signs/symptoms of acute infection noted on today's exam, though notably pt on doxycycline since 09/29/20, on antibiotics for several months (Bactrim/Amox). - Records of patients hospitalization at [facility] not currently available. Will request those records. [...] on file Legal Sex Male 3:11 AM DIRECTOR DAY CARE CENTER Gender Identity Not on file Sexual Orientation Not on file Obstetrics History Last Filed Vital Signs Vital Sign Reading Time Taken Comments Blood Pressure 110/66 03/16/2023 9:45 AM CDT Pulse 101 03/16/2023 9:45 AM CDT Temperature 37.1 C (98.7 F) 03/16/2023 9:45 AM CDT Respiratory Rate 18 12/30/2022 3:35 PM CDT [...] 2024, 04/21/2021 Influenza Vaccine (#1) 2024 Insurance [facility] [employer] [facility] [employer] Advance Directives For more information, please contact: [phone] * Full Code (Latest Code Status on File) Date Activated Date Inactivated Comments 12/26/2022 8:50 PM 12/30/2022 9:47 PM Care Teams Video Production Intern Relationship Specialty Start Date End Date Jaylan Gaitan PA [address] [facility] [address] [place], [place] [id number] PCP - General Physician Shared Services Representative 10/05/22 Az Luna MD [address] [place] [address] Referring Physician Orthopedic Surgery 10/05/22
--- OUTSIDE RECORDS SUMMARY | 2024-10-11 11:25 | XMS_ITS | Referral Summary ---
Author Organization [facility] Address [address] [place] [id number] Care Team Providers Care Regional Economist Name Role Phone Jaylan Gaitan Primary Care Provider Az Luna MD Unavailable [phone] Allergies No known active allergies Medications furosemide (LASIX) 40 mg tablet Take 1 tablet (40 mg total) by mouth daily 30 tablet 12/30/2022 Active folic acid (FOLVITE) 1 mg tablet Take 1 tablet (1 mg total) by mouth daily 30 tablet 12/31/2022 Active cyanocobalamin/ folic acid (vitamin J14-catkk acid) 500-400 mcg tablet Take by mouth [...] 10/27/2022 Assessment & Plan (10/27/2022 9:59 AM LIQUOR RUNNER): - No signs/symptoms of acute infection noted on today's exam, though notably pt on doxycycline since 09/29/20, on antibiotics for several months (Bactrim/Amox). - Records of patients hospitalization at [facility] not currently available. Will request those records. [...] on file Legal Sex Male 3:11 AM LIQUOR RUNNER Gender Identity Not on file Sexual Orientation [...] Plan of Treatment Not on file Insurance [place] [address] [employer] [facility] [employer] [facility] [employer] Advance Directives For more information, please contact: [phone] * Full Code (Latest Code Status on File) Date Activated Date Inactivated Comments 12/26/2022 8:50 PM 12/30/2022 9:47 PM Care Teams Regional Economist Relationship Specialty Start Date End Date Jaylan Gaitan PA [address] [place] [address] [place] [address] PCP - General Physician Studio Engineer 10/05/22 Az Luna MD [address] [place] [address] Referring Physician Orthopedic Surgery 10/05/22
--- OUTSIDE RECORDS SUMMARY | 2024-10-11 11:25 | XMS_ITS | Clinical Summary ---
Author Organization [facility] Address [address] [place] [address] Care Team Providers Care Barrel Assembler Helper Name Role Phone Jaylan Gaitan PA-C Primary Care Provider [phone] Allergies No known active allergies Medications omeprazole [...] complication, without long-term current use of insulin ([facility]) Use this to check your blood sugar [...] 3 glasses of whiskey mixed per day [facility] Utilities Answer Date Recorded In the past 12 months has [facility] [employer], oil, or water [employer] threatened to shut off services in your [...] place to sleep or slept in a skilled nursing (including now)? No 10/08/2023 Sex and Gender Information Value Date Recorded Sex Assigned at Not on file Legal Sex Male 5:27 PM CDT Gender Identity Not on file Sexual Orientation Not on file Last Filed Vital Signs Vital Sign Reading Time Taken Comments Blood Pressure 117/66 10/10/2023 10:29 AM MACHINIST BENCH Pulse 95 10/10/2023 10:29 AM MACHINIST BENCH Temperature 36.6 C (97.9 F) 10/10/2023 10:29 AM MACHINIST BENCH Respiratory Rate 18 10/10/2023 10:29 AM MACHINIST BENCH Oxygen Saturation 98% 10/10/2023 10:29 AM MACHINIST BENCH Inhaled Oxygen Concentration - - Weight 118 kg (260 lb 2.3 oz) 10/10/2023 5:03 AM MACHINIST BENCH Height 185.4 cm (6' 1 ) 10/04/2023 3:15 PM MACHINIST BENCH Body Mass Index 34.32 10/04/2023 3:15 PM MACHINIST BENCH Plan of Treatment Health Maintenance Due Date [...] ADLs upon discharge from hospital Lifestyle Cathy Sweet RN Health - patient able to perform ADLs independently Lifestyle Kanu Huerta RN Procedures Procedure Name Priority Date/Time Associated Diagnosis Comments HC EIA QL HEPATITIS ABC B AG Routine 12/22/2022 5:46 AM CDT from Last 3 Months or Most Recently Relevant to Health Maintenance Results * HEPATITIS A,B,& C (12/22/2022 5:46 AM CDT) HEPATITIS B SURFACE AG NON-REACTI VE NON-REACTI VE 12/22/2022 8:[address] [facility] HEP B CORE TOTAL AB NON-REACTI VE NON-REACTI VE 12/22/2022 8:[address] [facility] HEP B SURFACE AB NON-REACTI VE 12/22/2022 8:[address] [facility] HAV IGM NON-REACTI VE NON-REACTI VE 12/22/2022 8:[address] [facility] HEPATITIS C AB NON-REACTI VE NON-REACTI VE 12/22/2022 8:[address] [facility] 12/22/2022 5:46 AM CDT us Shonda Contrerasenter ANP- LABORATORY Final Result [facility] [address] [place] [address], [place] [phone] from Last 3 Months or Most Recently [...] 6:54 PM 12/26/2022 10:01 PM Care Teams Barrel Assembler Helper Relationship Specialty Start Date End Date Jaylan Gaitan PA-C [address] [facility] [place] [address] PCP - General PHYSICIAN CAFETERIA FOOD SERVER 12/18/22
--- OUTSIDE RECORDS SUMMARY | 2024-10-11 11:25 | XMS_ITS | Clinical Summary ---
Author Organization [facility] Address [address] [place] [address] Care Team Providers Care Water Treatment Technician Name Role Phone Julio C Rider MD Primary Care Provider [phone] Source Comments [facility],non-owned Affiliates and Associated Physician Practices is amultiple site organization consisting of ambulatory clinics and hospital sitesin [place], [place], [place] and [place]. This disclosure is being madepursuant to the Care Everywhere program and may not contain all information available regarding this patient. Last updated 18.[facility] Active Problems Problem Noted Date Diagnosed Date Hepatic encephalopathy 08/31/2024 Alcohol use, unspecified, uncomplicated 08/31/19 25 Encounters Date Type Department Care Team Description 08/31/2024 11:30 AM COYOTE HUNTER Procedure visit [facility] [address] [place] [address] Unknown, Provider NAFLD (nonalcoholic fatty liver disease) 08/31/2024 Travel 08/31/2024 Orders Only [facility] [address] [place] [address] Silvestre Ortiz MD Alcohol use, unspecified, uncomplicated [...] (#1) 2024 DEPRESSION SCREENING 08/30/2024 MEDICARE AWV CALENDAR YEAR 2024 Respiratory Syncytial Virus (RSV) [...] Procedure Name Priority Date/Time Associated Diagnosis Comments CO LIVER ELASTOGRAPHY Routine 08/31/2024 11:21 AM COYOTE HUNTER Hepatic encephalopathy (HCC) Alcohol use, unspecified, uncomplicated from Last 3 Months Results * CO LIVER ELASTOGRAPHY (08/31/2024 11:21 AM COYOTE HUNTER) Narrative Silvestre Cuhna MD - 08/31/2024 11:21 AM COYOTE HUNTER Silvestre Cunha MD 08/31/2024 4:19 PM Diagnosis: [...] based on the following published data: Deb PJ, Subha M, Aretha M, et al. Accuracy of FibroScan controlled attenuation parameter and liver stiffness measurement in assessing steatosis and fibrosis in patients with nonalcoholic fatty liver disease. Gastroenterology 2019;156:5780-5882. Ernestina LEWIS, Vanessa R, Van Kathleen LAIRD, et al. Vibration-controlled transient elastography to [...] and the Agile3+ and Agile4 scores (Jaciel, 2022). Cristian TA, Van Natta ML, Kalyn M, Phi A, et al. Validation of the accuracy of the FAST score for detecting patients with at-risk nonalcoholic steatohepatitis (ARAIZA) in a [place] Citizen cohort and comparison to other non-invasive algorithms. PLoS ONE (2021) 17: [id number]. Jaciel TOMLIN, Damian J, Celeste LI, et al. Enhanced diagnosis of advanced fibrosis and cirrhosis in individuals with NAFLD using FibroScan-based Agile scores. J Hepatol (2022) 78: 247-259. Fibroscan LSM can also be used with laboratory parameters without formulas to assess prognosis. According to the Baveno-VII criteria (Rojas, 202), Fibroscan LSM <=15 kPa plus a platelet count of >=236f815/L rules out clinically significant portal hypertension (sensitivity [...] FIB-4 score (Nithya et al. Hepatology Communications 2019;3:9364-6533) or NAFLD Fibrosis score (Arnett et al. Clinical Gastroenterology and Hepatology 2019;17:7015-8620 using routine clinical data. Note: 1. Fibroscan [...] additional interpretive data was last updated 01/02/23.) [email or web address] Silvestre Cunha MD PROCEDURE/ MINOR SURGICAL ORDERABLES from Last 3 Months Care Teams Water Treatment Technician Relationship Specialty Start Date End Date Julio C Rider MD [address] [place] [id number] PCP - General Internal Medicine 01/25/14
--- OUTSIDE RECORDS SUMMARY | 2024-10-11 11:25 | XMS_ITS | Referral Summary ---
Author Organization [facility] Address [address] [place] [address] Care Team Providers Care Agile Tester Name Role Phone Julio C Rider MD Primary Care Provider [phone] Source Comments [facility],non-owned Affiliates and Associated Physician Practices is amultiple site organization consisting of ambulatory clinics and hospital sitesin [place], [place] and [place]. This disclosure is being madepursuant to the Care Everywhere program and may not contain all information available regarding this patient. Last updated 18.[facility] Encounters Date Type Department Care Team Description 08/31/2024 Travel 08/31/2024 Orders Only [facility] [address] [place] [address] Silvestre Ortiz MD Alcohol use, unspecified, uncomplicated ; Hepatic encephalopathy (HCC) 08/31/2024 11:[address] MAGISTRATE Procedure visit [facility] - [address] [place] [address] Unknown, Provider NAFLD (nonalcoholic fatty liver disease) [...] Procedure Name Priority Date/Time Associated Diagnosis Comments MT LIVER ELASTOGRAPHY Routine 08/31/2024 11:[address] MAGISTRATE Hepatic encephalopathy (HCC) Alcohol use, unspecified, uncomplicated from Last 3 Months Results * MT LIVER ELASTOGRAPHY (08/31/2024 11:[address] MAGISTRATE) Narrative Silvestre Cunha MD - 08/31/2024 11:[address] MAGISTRATE Silvestre Cunha MD 08/31/2024 4:19 PM Diagnosis: [...] patients with nonalcoholic fatty liver disease. Gastroenterology 2019;156:3845-9969. Ernestina MS, Vanessa R, Van Kathleen ML, [...] with at-risk nonalcoholic steatohepatitis (ARAIZA) in a [place] cohort and comparison to other non-invasive algorithms. PLoS ONE (2021) 17: [id number]. Jaciel AJ, Damian J, Celeste ZM, et al. Enhanced diagnosis of advanced fibrosis and cirrhosis in individuals with NAFLD using FibroScan-based Agile scores. J Hepatol (2022) 78: 247-259. Fibroscan LSM can also be used with laboratory parameters without formulas to assess prognosis. According to the Baveno-VII criteria (de Leydi, 202), Fibroscan LSM <=15 kPa plus a platelet count of >=312a009/L rules out clinically significant portal hypertension (sensitivity [...] FIB-4 score (Nithya et al. Hepatology Communications 2019;3:0705-3414) or NAFLD Fibrosis score (Arnett et al. Clinical Gastroenterology and Hepatology 2019;17:3601-8818 using routine clinical data. Note: 1. Fibroscan [...] additional interpretive data was last updated 01/02/23.) [email or web address] Silvestre Cunha MD PROCEDURE/ MINOR SURGICAL ORDERABLES from Last 3 Months Care Teams Agile Tester Relationship Specialty Start Date End Date Julio C Rider MD [address] [place] [address] PCP - General Internal Medicine 01/25/14
== END 2024-10-11 10:31 | disposition home or self-care (01) ==
PROVIDERS: PCP Internal Medicine; Visit Provider Orthopaedic Surgery
DX: M17.0 Bilateral primary osteoarthritis of knee (principal); Z96.651 Presence of right artificial knee joint
CPT/HCPCS: 73562

== ENCOUNTER 2024-11-29 11:19 | Outpatient (CLI) | payer MEDICARE, SELFPAY ==
[2024-11-29 12:11] LABS: Alanine Aminotransferase 28 U/L (6-50); Albumin Level 2.9 g/dL (3.5-5.1); Alkaline Phosphatase 123 U/L (38-126); Anion Gap 4 mmol/L (4-12); Aspartate Amino Transferase 46 U/L (17-59); Bilirubin,Total 1.2 mg/dL (0.2-1.3); Blood Urea Nitrogen 10 mg/dL (9-20); Calcium 8.4 mg/dL (8.4-10.2); Carbon Dioxide 27 mmol/L (22-30); Chloride 107 mmol/L (98-107); Estimated Glomerular Filt Rate > 60; Glucose 106 mg/dL (65-110); Lipase 184 U/L (23-300); Potassium 4.2 mmol/L (3.4-5.0); Sodium 138 mmol/L (137-145)
[2024-11-29 12:35] LABS: Iron 142 ug/dL (49-181)
[2024-11-29 12:44] LABS: Percent Iron Saturation 47 % (20-50)
[2024-11-29 12:45] LABS: INR 1.5; Prothrombin Time 18.2 Seconds (11.1-14.7)
--- OUTSIDE RECORDS SUMMARY | 2024-11-29 12:59 | XMS_ITS | Clinical Summary ---
Author Organization [facility] Address [address] [place] [address] Care Team Providers Care Knifer Up Name Role Phone Julio C Rider MD Primary Care Provider [phone] Source Comments [facility],non-owned Affiliates and Associated Physician Practices is amultiple site organization consisting of ambulatory clinics and hospital sitesin [place], [place], [place] and [place]. This disclosure is being madepursuant to the Care Everywhere program and may not contain all information available regarding this patient. Last updated 18.[facility] Active Problems Problem Noted Date Diagnosed Date Hepatic encephalopathy 08/31/2024 Alcohol use, unspecified, uncomplicated 08/31/19 25 Encounters Date Type Department Care Team Description 08/31/2024 11:30 AM PROCESS LINE OPERATOR Procedure visit [facility] [address] [place] [address] Unknown, Provider NAFLD (nonalcoholic fatty liver disease) 08/31/2024 Travel 08/31/2024 Orders Only [facility] [address] [place] [address] Silvestre Ortiz MD Alcohol use, unspecified, uncomplicated ; Hepatic encephalopathy from Last 3 Months Social History Tobacco [...] COLON CA SCREENING 1957 LIPID TESTING 1957 DTAP/TDAP/TD VACCINES (1 - Tdap) 1976 PNEUMOCOCCAL VACCINE 50+ (1 of 1 - PCV) 2007 ZOSTER VACCINE (1 of 2) 2007 COVID-19 VACCINE (1 - 2023-2 5 season) 2024 INFLUENZA VACCINE (#1) 2024 DEPRESSION SCREENING 08/30/2024 MEDICARE AWV CALENDAR YEAR 2024 Respiratory Syncytial Virus (RSV) Vaccine Pt: or over 60 yrs (1 - 1-dose 75+ series) 2032 HEPATITIS C SCREENING Completed 12/22/2022 HEPATITIS B VACCINE Aged Out No longe r eligible based on patient's age to complete this topic HIB VACCINE Aged Out No longer eligi ble based on patient's age to complete this topic HPV VACCINE Aged Out No longer eligi ble based on patient's age to complete this topic MENINGOCOCCAL (Group B) VACC INE SHARED DECISION-MAKING Aged Out No longer eligibl e based on patient's age to complete this topic MENINGOCOCCAL GROUPS A/C/Y/W VACCINE Aged Out No longer eligible b ased on patient's age to complete this topic Procedures Procedure Name Priority Date/Time Associated Diagnosis Comments MA LIVER ELASTOGRAPHY Routine 08/31/2024 11:21 AM PROCESS LINE OPERATOR Hepatic encephalopathy Alcohol use, unspecified, uncomplicated from Last 3 Months Results * MA LIVER ELASTOGRAPHY (08/31/2024 11:21 AM PROCESS LINE OPERATOR) Narrative Silvestre Cunha MD - 08/31/2024 11:21 AM PROCESS LINE OPERATOR Silvestre Cunha MD 08/31/2024 4:19 PM [...] patients with nonalcoholic fatty liver disease. Gastroenterology 2019;156:4821-1365. Ernestina LEWIS, Vanessa R, Van Kathleen LAIRD, [...] other non-invasive algorithms. PLoS ONE (2021) 17: [id number]. Jaciel TOMLIN, Damian J, Younossi ZM, et al. Enhanced diagnosis of advanced fibrosis and cirrhosis in individuals with NAFLD using FibroScan-based Agile scores. J Hepatol (2022) 78: 247-259. Fibroscan LSM can also be used with laboratory parameters without formulas to assess prognosis. According to the Baveno-VII criteria (Rojas, 2022), Fibroscan LSM <=15 kPa plus a platelet count of >=332j332/L rules out clinically significant portal hypertension (sensitivity [...] FIB-4 score (Amose et al. Hepatology Communications 2019;3:0794-3184) or NAFLD Fibrosis score (Arnett et al. Clinical Gastroenterology and Hepatology 2019;17:0536-9252 using routine clinical data. Note: 1. Fibroscan [...] additional interpretive data was last updated 01/02/23.) [email or web address] Silvestre Cunha MD PROCEDURE/ MINOR SURGICAL ORDERABLES from Last 3 Months Care Teams Knifer Up Relationship Specialty Start Date End Date Julio C Rider MD [address] [facility] [address] [place] [address] PCP - General Internal Medicine 01/25/14
--- OUTSIDE RECORDS SUMMARY | 2024-11-29 12:59 | XMS_ITS | Clinical Summary ---
Author Organization [facility] Address [address] [place] [address] Care Team Providers Care Dye Penetrant Testing Technician Name Role Phone Jaylan Gaitan PA-C Primary Care Provider [phone] Allergies No known active allergies Medications omeprazole [...] complication, without long-term current use of insulin ([facility]) Use this to check your blood sugar [...] 3 glasses of whiskey mixed per day [facility] Utilities Answer Date Recorded In the past 12 months has [facility] [email or web address], oil, or water [employer] threatened to shut off services in your [...] place to sleep or slept in a mcc (including now)? No 10/08/2023 Sex and Gender Information Value Date Recorded Sex Assigned at Not on file Legal Sex Male 5:27 PM CDT Gender Identity Not on file Sexual Orientation Not on file Last Filed Vital Signs Vital Sign Reading Time Taken Comments Blood Pressure 117/66 10/10/2023 10:29 AM BLEACH MIXER Pulse 95 10/10/2023 10:29 AM BLEACH MIXER Temperature 36.6 C (97.9 F) 10/10/2023 10:29 AM BLEACH MIXER Respiratory Rate 18 10/10/2023 10:29 AM BLEACH MIXER Oxygen Saturation 98% 10/10/2023 10:29 AM BLEACH MIXER Inhaled Oxygen Concentration - - Weight 118 kg (260 lb 2.3 oz) 10/10/2023 5:03 AM BLEACH MIXER Height 185.4 cm (6' 1 ) 10/04/2023 3:15 PM BLEACH MIXER Body Mass Index 34.32 10/04/2023 3:15 PM BLEACH MIXER Plan of Treatment Health Maintenance Due Date [...] VE NON-REACTI VE 12/22/2022 8:44 AM CDT [facility] HEP B CORE TOTAL AB NON-REACTI VE NON-REACTI VE 12/22/2022 8:44 AM CDT [facility] HEP B SURFACE AB NON-REACTI VE 12/22/2022 8:44 AM CDT [facility] HAV IGM NON-REACTI VE NON-REACTI VE 12/22/2022 8:44 AM CDT [facility] HEPATITIS C AB NON-REACTI VE NON-REACTI VE 12/22/2022 8:44 AM CDT [facility] 12/22/2022 5:46 AM CDT us Shonda Contrerasenter ANP- LABORATORY Final Result [facility] [address] [place] [address], [place] [phone] from Last 3 Months or Most Recently [...] 6:54 PM 12/26/2022 10:01 PM Care Teams Dye Penetrant Testing Technician Relationship Specialty Start Date End Date Jaylan Gaitan PA-C [address] [facility] [place] [address] PCP - General PHYSICIAN SKIP MINER BLASTING 12/18/22
--- OUTSIDE RECORDS SUMMARY | 2024-11-29 12:59 | XMS_ITS ---
Author Organization [facility] Address [address] [place] [address] Care Team Providers Care Farm Planner Name Role Phone Jaylan Gaitan Primary Care Provider Az Luna MD Unavailable [phone] Active Problems Problem Noted Date Diagnosed Date Screening for colorectal cancer 03/18/2023 Colorectal cancer 03/17/2023 Moderate malnutrition 12/29/2022 Cirrhosis 12/26/2022 Other mechanical complicatio n of other specified internal prosthetic devices, implants and grafts, initial encounter 10/27/2022 Assessment & Plan (10/27/2022 9:59 AM HUMAN RESOURCES COMMUNICATIONS MANAGER): - No signs/symptoms of acute infection noted on today's exam, though notably pt on doxycycline since 09/29/20, on antibiotics for several months (Bactrim/Amox). - Records of patients hospitalization at [facility] in [place] not currently available. Will request those records. [...] clinic with any questions or concerns. Current Treatment and Therapy Plans No current plan information found. Past Treatment and Therapy Plans No past plan information found. Lifetime Dose Tracking * Chemical Lifetime Dose Automatic Entry Manual Entr y DLP 158 mGycm 158 mGycm 0 mGycm
--- OUTSIDE RECORDS SUMMARY | 2024-11-29 12:59 | XMS_ITS | Referral Summary ---
Author Organization [facility] Address [address] [place] [id number] Care Team Providers Care Entry Level Software Developer Name Role Phone Jaylan Gaitan Primary Care Provider Az Luna MD Unavailable [phone] Allergies No known active allergies Medications furosemide (LASIX) 40 mg tablet Take 1 tablet (40 mg total) by mouth daily 30 tablet 12/30/2022 Active folic acid (FOLVITE) 1 mg tablet Take 1 tablet (1 mg total) by mouth daily 30 tablet 12/31/2022 Active cyanocobalamin/ folic acid (vitamin D93-wuypj acid) 500-400 mcg tablet Take by mouth [...] 10/27/2022 Assessment & Plan (10/27/2022 9:59 AM ASSISTANT FOREMAN): - No signs/symptoms of acute infection noted on today's exam, though notably pt on doxycycline since 09/29/20, on antibiotics for several months (Bactrim/Amox). - Records of patients hospitalization at [facility] not currently available. Will request those records. [...] on file Legal Sex Male 3:11 AM ASSISTANT FOREMAN Gender Identity Not on file Sexual Orientation [...] Plan of Treatment Not on file [place] [address] [place] [address] [employer] [facility] [employer] [facility] [employer] Advance Directives For more information, please contact: [phone] * Full Code (Latest Code Status on File) Date Activated Date Inactivated Comments 12/26/2022 8:50 PM 12/30/2022 9:47 PM Care Teams Entry Level Software Developer Relationship Specialty Start Date End Date Jaylan Gaitan PA [address] [place] [address] PCP - General Physician Model Maker Firearms 10/05/22 Az Luna MD [address] [place] [address] Referring Physician Orthopedic Surgery 10/05/22
--- OUTSIDE RECORDS SUMMARY | 2024-11-29 12:59 | XMS_ITS | Clinical Summary ---
Author Organization [facility] Address [address] [place] [address] Care Team Providers Care Recruitment Consultant Name Role Phone Jaylan Gaitan Primary Care Provider Az Luna MD Unavailable [phone] Allergies No known active allergies Medications furosemide (LASIX) 40 mg tablet Take 1 tablet (40 mg total) by mouth daily 30 tablet 12/30/2022 Active folic acid (FOLVITE) 1 mg tablet Take 1 tablet (1 mg total) by mouth daily 30 tablet 12/31/2022 Active cyanocobalamin/ folic acid (vitamin X52-raldx acid) 500-400 mcg tablet Take by mouth [...] 10/27/2022 Assessment & Plan (10/27/2022 9:59 AM TEMPLATE STORAGE CLERK): - No signs/symptoms of acute infection noted on today's exam, though notably pt on doxycycline since 09/29/20, on antibiotics for several months (Bactrim/Amox). - Records of patients hospitalization at [facility] not currently available. Will request those [...] on file Legal Sex Male 3:11 AM TEMPLATE STORAGE CLERK Gender Identity Not on file Sexual Orientation [...] C Screening 1957 Prostate Cancer Screening-PSA 1957 DTaP/Tdap/Td Vaccine (1 - Tdap) 1968 Hepatitis B Screening 1975 Pneumococcal vaccine 65+ (1 of 2 - PCV) 1976 Zoster Vaccine (1 of 2) 2007 Abdominal Aortic Aneurysm (AAA) Screen 2022 Well Visit 65+ 2022 Fall Risk Assessment 12/31/2023 12/30/2022 Covid-19 Vaccine ( season) 2024, 04/21/2021 Influenza Vaccine (#1) 2024 Insurance [facility] ADVANTRA [facility] [employer] Advance Directives For more information, please contact: [phone] * Full Code (Latest Code Status on File) Date Activated Date Inactivated Comments 12/26/2022 8:50 PM 12/30/2022 9:47 PM Care Teams Recruitment Consultant Relationship Specialty Start Date End Date Jaylan Gaitan PA [address] [facility] [address] [place], [place] [id number] PCP - General Physician Compression Molding Machine Setter 10/05/22 Az Luna MD [address] [place] [address] Referring Physician Orthopedic Surgery 10/05/22
[2024-11-29 13:10] LABS: Hepatitis B Surface Antigen Negative (Negative)
[2024-11-29 13:28] LABS: Hepatitis B Surface Anti Res Negative; Hepatitis C Virus Antibody Negative (Negative)
[2024-12-04 13:13] LABS: ALT 25 U/L (9-46); Alpha-2-Macroglobulin 223 mg/dL (106-279); Apolipoprotein A1 144 mg/dL (94-176); Fibrosis Stage F4; GGT 41 U/L (3-70); Haptoglobin 15 mg/dL (43-212); Necroinflammat Act Grade A0-A1; Reference ID 5421553
== END 2024-11-29 11:20 | disposition home or self-care (01) ==
LOC: ANHLAB 11:20
PROVIDERS: PCP Internal Medicine; Visit Provider Internal Medicine Gastroenterology
DX: R18.8 Other ascites (principal); K74.60 Unspecified cirrhosis of liver
CPT/HCPCS: 36415; 80053; 81596; 82248; 83540; 83550; 83690; 85610; 85730; 86706; 86803; 87340

== ENCOUNTER 2024-12-23 07:45 | Outpatient (CLI) | payer MEDICARE, SELFPAY ==
--- NOTE | ~2024-12-23 | US_ITS ---
RIGHT UPPER QUADRANT ABDOMINAL ULTRASOUND (Doppler ultrasound interrogation techniques used as needed for this exam.) Ordering provider: Ori Castle MD History: . R18.8 - Other ascites . Comparison: None. FINDINGS: PANCREAS: Visualized portion is of normal echotexture and size. PORTAL VEIN: Hepatopedal flow demonstrated. LIVER: Normal size and slightly coarse echotexture. No focal hepatic lesions or perihepatic fluid col lections are identified. BILIARY DUCTS: No intra or extrahepatic biliary dilation. Common bile duct measures 3 mm in diameter which is normal for patient's age. GALLBLADDER: Cholelithiasis with sludge. No gallbladder wall thickening or pericholecystic fluid. Wal l thickness is 2.1 mm. Negative sonographic Escobar's sign. IVC: Patent FREE FLUID: None visualized within the upper abdomen. IMPRESSION: Cholelithiasis with sludge in the gallbladder. Slightly coarse echogenicity of the liver. Otherwise, normal right upper quadrant ultrasound. Reviewed, dictated and finalized at location A.
--- OUTSIDE RECORDS SUMMARY | 2024-12-23 07:48 | XMS_ITS ---
Author Organization [facility] Address [address] [place] [address] Care Team Providers Care Acquisition Associate Name Role Phone Jaylan Gaitan Primary Care Provider Az Luna MD Unavailable [phone] Active Problems Problem Noted Date Diagnosed Date Screening for colorectal cancer 03/18/2023 Colorectal cancer 03/17/2023 Moderate malnutrition 12/29/2022 Cirrhosis 12/26/2022 Other mechanical complicatio n of other specified internal prosthetic devices, implants and grafts, initial encounter 10/27/2022 Assessment & Plan (10/27/2022 9:59 AM POWDER COATER): - No signs/symptoms of acute infection noted on today's exam, though notably pt on doxycycline since 09/29/20, on antibiotics for several months (Bactrim/Amox). - Records of patients hospitalization at [facility] in [place] not currently available. Will request those records. [...]
--- OUTSIDE RECORDS SUMMARY | 2024-12-23 07:48 | XMS_ITS | Data Portability ---
Author Organization [place] - [facility] [employer], Main Office Address [address] [place] [address] Care Team Providers Care Utility Service Worker Name Role Phone GOGO MARTINEZ Primary Care Provider [phone] GOGO MARTINEZ Referring Provider [phone] Assessment Encounter Date Assessment Date Assessment LastModified [...] that. Had discussion infectious disease doctors at [facility] He is going to see him [...] - Please call Dr. Luna [email or web address] [facility], [address], [place], [address], 3 15:14:50 Medication Orders Bactrim DS 800 mg-160 mg tablet 2022 023 tom De [id number], [address] [place], [address], 14:05:57 Patient TargetsNo targets recorded. Patient InstructionsNo instructions recorded. Reason for Referral None Reported. Results Created Date Observation Date Name Description Value Unit Range Abnormal Flag Note LastModifiedBy Organization Detail LastModifiedTime 08/19/20 22 08/19/2022 XR, knee No observ ation record ed. [id number] [place] [address] [address], [place], [address], 10/28/2022 19:46:15 08/27/20 22 08/27/2022 arthr ocent esis, aspir ation and/o r injec tion, major joint or bursa (PROC ) No observ ation record ed. MIGRATION.[id number] [place] [address] [place] [address] Route [facility], [place], [address], 10/28/2022 19:46:15 08/31/19 23 08/31/2022 imagi ng/di agnos tic resul t No observ ation record ed. MIGRATION.[id number] [place] [address] [address], [place], [address], 10/28/2022 19:46:15 09/02/19 23 09/01/2022 US, duple x, lower extre mity No observ ation record ed. [id number] [place] [address] [address], [place], [address], 10/28/2022 19:46:15 09/29/19 23 XR, knee, 3 view No observ ation record ed. MIGRATION.[address] [place] [address] [facility] [place] [address] [facility] [address], [place], [address], 10/28/2022 19:46:15 11/13/19 23 11/12/2022 US, tanale x, venou s, lower extre mity No observ ation record ed. [email or web address] [address], [place], [address], 11/12/2022 16:48:06 Result Notes None recorded. Problems Name Problem SNOMED Code Status Onset Date Resolution Date Notes Provider Name and Address Organization Details Recorded Time Osteoarthr itis of left knee joint 8104611729815 09 Active 2021 Not Available [facility] 3 19:45:23 Osteoarthr itis of right knee joint 8954123252192 00 Active 2021 Not Available [facility] 3 19:45:23 Osteoarthr itis 788448643 Active Not Available [facility] 3 19:45:23 Pain of bilateral knee joints 5906317389131 04 Active 2021 Not Available [facility] 3 19:45:23 Mechanical complicati on of implant 956221736 Active 2021 Not Available [facility] 3 19:45:23 Localized swelling of left lower leg 3926936615900 9102 Active 2022 Ledakamilah willett, N(i)² 3 14:01:34 Swelling of lower leg 970544583 Active 2022 Leda Harjinder Satin [employer] N(i)² 3 13:39:19 Problem Notes None recorded. Procedures Surgical History None recorded. Imaging Results Imaging Date Name Status LastModified by Organiz ation Details LastModified Time 08/27/2022 arthrocentesis, aspiration and/or injection, major joint or bursa (PROC) completed [id number] 26[address] [facility] [address] [facility], [place], [address], 10/28/2022 19:46:15 09/01/2022 US, duplex, lower extremity completed [id number] [address] [place] [address], [address], 10/28/2022 19:46:15 08/19/2022 XR, knee completed [email or web address].[id number], [place], [address], 10/28/2022 19:46:15 08/31/2022 imaging/diagnos tic result completed [id number] 38[address] [facility] [address], [place], [address], 10/28/2022 19:46:15 09/29/2022 XR, knee, 3 view completed [id number] 9739 [facility] [address], [place], [address], 10/28/2022 19:46:15 11/12/2022 US, duplex, venous, lower extremity completed [email or web address] [facility] [address], [place], [address], 11/12/2022 16:48:06 Procedure Notes None recorded. Medical [...] n administ ered by the provider active [facility]: [phone] Not Available Not Available Not [...] Updated DateTime 08/27/2022 37.9 kg/m2 185.42 cm 789742.01 g Not Available [facility] 10/28/2022 19:45:01 Date Recorded Body mass index (BMI) Body height Body weight Provider Name and Address Organization Details Last Updated DateTime 09/08/2022 36.4 kg/m2 185.42 cm 165174.49 g Not Available [facility] 10/28/2022 19:45:01 Date Recorded Body mass index (BMI) Body height Body weight Provider Name and Address Organization Details Last Updated DateTime 09/15/2022 36.4 kg/m2 185.42 cm 633254.49 g Not Available [facility] 10/28/2022 19:45:01 Date Recorded Body mass index (BMI) Body height Body weight Provider Name and Address Organization Details Last Updated DateTime 09/29/2022 36.4 kg/m2 185.42 cm 640678.49 g Not Available [facility] 10/28/2022 19:45:01 Date Recorded Body height Body mass index (BMI) Body weight Provider Name and Address Organization Details Last Updated DateTime 11/12/2022 185.42 cm 36.9 kg/m2 523933.86 g MARLEY Curry [place] [facility] 11/12/2022 13:45:13 Social History None recorded. Functional Status None recorded. Mental Status None recorded. Family History Nothing Reported. Medical History No medical history recorded. Past Encounters Encounter ID Performer Location Encounter Start Date Encounter Closed Date Diagnosis/Indication Diagnosis SNOMED-CT Code Diagnosis ICD10 Code Diagnosis Note [id number] [facility] [place] [address] [place] [address] 04/23/2022 00:00:00 04/23/2022 14:27:35 [id number] [facility] [place] [address] [place] [address] 05/21/2022 00:00:00 05/21/2022 11:43:10 [id number] [facility] [place] [address] [place] [address] 08/27/2022 00:00:00 08/27/2022 11:19:45 [id number] [facility] [place] [address] [place] [address] 09/08/2022 00:00:00 09/08/2022 14:04:49 [id number] [facility] [place] [address] [place] [address] 09/15/2022 00:00:00 09/15/2022 16:08:27 [id number] [facility] [place] [address] [place] [address] 09/29/2022 00:00:00 09/29/2022 15:49:46 [id number] [facility] [place] [address] [place] [address] 11/12/2022 13:42:52 11/12/2022 15:14:50 Pain of bilateral knee joints 3911682034 66683 M25.561 M25.562 Mechanical complication of implant 433120474 T85.698A T84.039A Localized swelling of left lower leg 5759799377 7411596 R22.42 Health Concerns Section Related Observation LastModified by Organization Detai ls LastModified Time None Recorded Concern Status LastModified by Organization Details LastModified Time None Recorded Advance Directives Directive None Recorded Payers Encounter Date Sequence Insurance Name Policy Number Policy Rubin Covered Member ID Rubin Member ID Guarantor Name 11/12/2022 1 [employer] (MEDICARE REPLACEMENT PPO) [id number] Andres Paula [id number] Andres Paula 11/12/2022 2 [place] [id number] Andres Paula [id number] Andres Paula Notes Date Note Type Note Provider Name and Address Organization Details Recorded Time 11/12/2022 text/html Patient returns cellulitis right and left leg. The cellulitis on the right is clear to a large degree although it is in his thigh and abdomen. Now it has gone on the left leg and his left leg is swollen and moderately red. Az Luna MD [address] [place] [address], [place], [address], [place] [facility] 11/12/2022 14:05:52
--- OUTSIDE RECORDS SUMMARY | 2024-12-23 07:48 | XMS_ITS | Referral Summary ---
Author Organization [facility] Address [address] [place] [address] Care Team Providers Care Validation Consultant Name Role Phone Jaylan Gaitan Primary Care Provider Az Luna MD Unavailable [phone] Allergies No known active allergies Medications furosemide (LASIX) 40 mg tablet Take 1 tablet (40 mg total) by mouth daily 30 tablet 12/30/2022 Active folic acid (FOLVITE) 1 mg tablet Take 1 tablet (1 mg total) by mouth daily 30 tablet 12/31/2022 Active cyanocobalamin/ folic acid (vitamin V38-gytrg acid) 500-400 mcg tablet Take by mouth [...] 10/27/2022 Assessment & Plan (10/27/2022 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 - Records of patients hospitalization at [facility] not currently available. Will request those [...] on file Legal Sex Male 3:11 AM HANDLE TURNER Gender Identity Not on file Sexual Orientation [...] Plan of Treatment Not on file [place] [address] [address] [employer] [facility] [employer] [facility] [employer]TRA Advance Directives For more information, please contact: [phone] * Full Code (Latest Code Status on File) Date Activated Date Inactivated Comments 12/26/2022 8:50 PM 12/30/2022 9:47 PM Care Teams Validation Consultant Relationship Specialty Start Date End Date Jaylan Gaitan PA [address] [place] [address] PCP - General Physician Drugless Physician 10/05/22 Az Luna MD [address] [place] [address] Referring Physician Orthopedic Surgery 10/05/22
--- OUTSIDE RECORDS SUMMARY | 2024-12-23 07:49 | XMS_ITS | Clinical Summary ---
Author Organization [facility] Address [address] [place] [address] Care Team Providers Care Tortilla Maker Name Role Phone Jaylan Gaitan PA-C Primary Care Provider [phone] Allergies No known active allergies Medications omeprazole [...] complication, without long-term current use of insulin ([facility]) Use this to check your blood sugar [...] 3 glasses of whiskey mixed per day [facility] Utilities Answer Date Recorded In the past [address] [facility] [employer], oil, or water Engage threatened to shut off services in your [...] place to sleep or slept in a fdc (including now)? No 10/08/2023 Sex and Gender Information Value Date Recorded Sex Assigned at Not on file Legal Sex Male 5:27 PM CDT Gender Identity Not on file Sexual Orientation Not on file Last Filed Vital Signs Vital Sign Reading Time Taken Comments Blood Pressure 117/66 10/10/2023 10:29 AM STUDENT ADMISSIONS CLERK Pulse 95 10/10/2023 10:29 AM STUDENT ADMISSIONS CLERK Temperature 36.6 C (97.9 F) 10/10/2023 10:29 AM STUDENT ADMISSIONS CLERK Respiratory Rate 18 10/10/2023 10:29 AM STUDENT ADMISSIONS CLERK Oxygen Saturation 98% 10/10/2023 10:29 AM STUDENT ADMISSIONS CLERK Inhaled Oxygen Concentration - - Weight 118 kg (260 lb 2.3 oz) 10/10/2023 5:03 AM STUDENT ADMISSIONS CLERK Height 185.4 cm (6' 1 ) 10/04/2023 3:15 PM STUDENT ADMISSIONS CLERK Body Mass Index 34.32 10/04/2023 3:15 PM STUDENT ADMISSIONS CLERK Plan of Treatment Health Maintenance Due Date Last Done Comments Colorectal Cancer Screening Colonoscopy (10 Years) 1957 DTaP, Tdap and Td Vaccines ( 1 - Tdap) 1976 Pneumococcal Vaccine: 50+ Years (1 of 2 - PCV) 1976 Zoster Vaccines (1 of 2) 2007 RSV Immunization or 60+ Years (1 - Risk 60-74 years 1-dose series) 2017 Annual Medicare Wellness Visit 2022 COVID-19 Vaccine (3 - 2023-2 5 season) 2024 05/12/2021, 04/21/2021 Hepatitis C Completed 12/22/2022 Meningococcal B Vaccine [...] in ADLs upon discharge from hospital Lifestyle No Cathy Cote, [facility] - patient able to perform ADLs independently Lifestyle No Kanu Bhatt RN Procedures Procedure Name Priority Date/Time Associated Diagnosis Comments HC EIA QL HEPATITIS ABC B AG Routine 12/22/2022 5:46 AM CDT from Last 3 Months or Most Recently Relevant to Health Maintenance Results * HEPATITIS A,B,& C (12/22/2022 5:46 AM CDT) HEPATITIS B SURFACE AG NON-REACTI VE NON-REACTI VE 12/22/2022 8:44 AM CDT [facility] HEP B CORE TOTAL AB NON-REACTI VE NON-REACTI VE 12/22/2022 8:44 AM CDT [facility] HEP B SURFACE AB NON-REACTI VE 12/22/2022 8:44 AM CDT [facility] HAV IGM NON-REACTI VE NON-REACTI VE 12/22/2022 8:44 AM CDT [facility] HEPATITIS C AB NON-REACTI VE NON-REACTI VE 12/22/2022 8:44 AM CDT [facility] 12/22/2022 5:46 AM CDT Shonda Arreola [facility] Final Result [facility] [address] [place] [address], from Last 3 Months or Most Recently [...] 6:54 PM 12/26/2022 10:01 PM Care Teams Tortilla Maker Relationship Specialty Start Date End Date Jaylan Gaitan PA-C [address] [facility] [address] [place] [address] PCP - General PHYSICIAN SCIENTIST ENGINEER 12/18/22
--- OUTSIDE RECORDS SUMMARY | 2024-12-23 07:49 | XMS_ITS | Clinical Summary ---
Author Organization [facility] Address [address] [place] [address] Care Team Providers Care Bait Packer Name Role Phone Julio C Rider MD Primary Care Provider [phone] Source Comments [facility],non-owned Affiliates and Associated Physician Practices is amultiple site organization consisting of ambulatory clinics and hospital sitesin [place], [place], [place] and [place]. This disclosure is being madepursuant to the Care Everywhere program and may not contain all information available regarding this patient. 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
--- OUTSIDE RECORDS SUMMARY | 2024-12-23 07:49 | XMS_ITS | Clinical Summary ---
Author Organization [facility] Address [address] [place] [address] Care Team Providers Care Bird Tender Name Role Phone Jaylan Gaitan Primary Care Provider Az Luna MD Unavailable [phone] Allergies No known active allergies Medications furosemide (LASIX) 40 mg tablet Take 1 tablet (40 mg total) by mouth daily 30 tablet 12/30/2022 Active folic acid (FOLVITE) 1 mg tablet Take 1 tablet (1 mg total) by mouth daily 30 tablet 12/31/2022 Active cyanocobalamin/ folic acid (vitamin L69-xdtou acid) 500-400 mcg tablet Take by mouth [...] 10/27/2022 Assessment & Plan (10/27/2022 9:59 AM TRAVELING 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 - Records of patients hospitalization at [facility] not currently available. Will request those records. 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 Gender Identity Not on file Sexual Orientation [...] Influenza Vaccine (#1) 2024 Insurance [facility] [employer] [facility] [employer] Advance Directives For more information, please contact: [phone] * Full Code (Latest Code Status on File) Date Activated Date Inactivated Comments 12/26/2022 8:50 PM 12/30/2022 9:47 PM Care Teams Bird Tender Relationship Specialty Start Date End Date Jaylan Gaitan PA [address] [facility] [address] [place], [place] [id number] PCP - General Physician Mystery Shopper 10/05/22 Az Luna MD [address] [place] [address] Referring Physician Orthopedic Surgery 10/05/22
== END 2024-12-23 07:46 | disposition home or self-care (01) ==
PROVIDERS: PCP Internal Medicine; Visit Provider Internal Medicine Gastroenterology
DX: R18.8 Other ascites (principal); K74.60 Unspecified cirrhosis of liver; K80.20 Calculus of gallbladder without cholecystitis without obstruction
CPT/HCPCS: 76705

== ENCOUNTER 2025-01-25 02:10 | Day surgery (SDC) | payer MEDICARE, SELFPAY ==
[2025-01-19 10:32] VITALS: BMI 37.5
--- OUTSIDE RECORDS SUMMARY | 2025-01-25 02:13 | XMS_ITS | Data Portability ---
Author Organization [place] [facility], Main Office Address [address] [place] [address] Care Team Providers Care Senior Construction Project Manager Name Role Phone GOGO MARTINEZ Primary Care Provider [phone] GOGO MARTINEZ Referring Provider [phone] Assessment Encounter Date Assessment Date Assessment LastModified [...] that. Had discussion infectious disease doctors [facility] He is going to see him [...] - Please call Dr. Luna [email or web address] [facility], [address], [place], [address], 3 15:14:50 Medication Orders Bactrim DS 800 mg-160 mg tablet 2022 023 tom De [id number], [address] [place], [address], 14:05:57 Patient TargetsNo targets recorded. Patient InstructionsNo instructions recorded. Reason for Referral None Reported. Results Created Date Observation Date Name Description Value Unit Range Abnormal Flag Note LastModifiedBy Organization Detail LastModifiedTime 08/19/20 22 08/19/2022 XR, knee No observ ation record ed. [id number] [place] [address] [address], [place], [address], 10/28/2022 19:46:15 08/27/20 22 08/27/2022 arthr ocent esis, aspir ation and/o r injec tion, major joint or bursa (PROC ) No observ ation record ed. [id number] [place] [address] [place] [address] [address] [facility], [place], [address], 10/28/2022 19:46:15 08/31/19 23 08/31/2022 imagi ng/di agnos tic resul t No observ ation record ed. [id number] [place] [address] [address], [place], [address], 10/28/2022 19:46:15 09/02/19 23 09/01/2022 US, duple x, lower extre mity No observ ation record ed. [id number] [place] [address] [address], [place], [address], 10/28/2022 19:46:15 09/29/19 23 XR, knee, 3 view No observ ation record ed. MIGRATION.[address] [place] [address] [facility] [place] [address] [facility] [address], [place], [address], 10/28/2022 19:46:15 11/13/19 23 11/12/2022 US, tanale x, venou s, lower extre mity No observ ation record ed. [email or web address] [address], [place], [address], 11/12/2022 16:48:06 Result Notes None recorded. Problems Name Problem SNOMED Code Status Onset Date Resolution Date Notes Provider Name and Address Organization Details Recorded Time Osteoarthr itis of left knee joint 9412118499070 09 Active [address] Not [address] [facility] 3 19:45:23 Osteoarthr itis of right knee joint 2560935788928 00 Active 2021 Not [address] [facility] 3 19:45:23 Osteoarthr itis 166889305 Active Not Available [facility] 3 19:45:23 Pain of bilateral knee joints 4060995348314 04 Active 2021 Not Available 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 3 19:45:23 Localized swelling of left lower leg 1895422884500 9102 Active 2022 Leda willett [place] 3 14:01:34 Swelling of lower leg 349537474 Active 2022 [place] [employer], [email or web address] 3 13:39:19 Problem Notes None recorded. Medical Equipment None Reported. [...] n administ ered by the provider active [facility][NOTE 3]: [id number] 12-17 Not Available Not Available Not Available hydrocodo [...] Updated DateTime 09/08/2022 36.4 kg/m2 185.42 cm 681714.49 g Not Available [facility] 10/28/2022 19:45:01 Date Recorded Body mass index (BMI) Body height Body weight Provider Name and Address Organization Details Last Updated DateTime 09/15/2022 36.4 kg/m2 185.42 cm 621558.49 g Not Available [facility] 10/28/2022 19:45:01 Date Recorded Body mass index (BMI) Body height Body weight Provider Name and Address Organization Details Last Updated DateTime 09/29/2022 36.4 kg/m2 185.42 cm 865412.49 g Not Available Critical access hospital 10/28/2022 19:45:01 Date Recorded Body height Body mass index (BMI) Body weight Provider Name and Address Organization Details Last Updated DateTime 11/12/2022 185.42 cm 36.9 kg/m2 803346.86 g MARLEY Curry [place] [facility] [place] [employer] [facility] 11/12/2022 13:45:13 Date Recorded Body mass index (BMI) Body height Body weight Provider Name and Address Organization Details Last Updated DateTime 08/27/2022 37.9 kg/m2 185.42 cm 007857.01 g Not Available Critical access hospital 10/28/2022 19:45:01 Social History None recorded. Functional Status None recorded. Mental Status None recorded. Family History Nothing Reported. Medical History No medical history recorded. Past Encounters Encounter ID Performer Location Encounter Start Date Encounter Closed Date Diagnosis/Indication Diagnosis SNOMED-CT Code Diagnosis ICD10 Code Diagnosis Note [id number] Az Luna MD [facility] [place] [address] [facility] [address] [place] [address] 04/23/2022 00:00:00 04/23/2022 14:27:35 [id number] Az Luna MD [facility] [place] [address] [facility] [address] [place] [address] 05/21/2022 00:00:00 05/21/2022 11:43:10 [id number] Az Luna MD [facility] [place] [address] [facility] [address] [place] [address] 08/27/2022 00:00:00 08/27/2022 11:19:45 [id number] Az Luna MD [facility] [place] [address] [facility] [address] [place] [address] 09/08/2022 00:00:00 09/08/2022 14:04:49 [id number] Az Luna MD [facility] [place] [address] [place] [address] 09/15/2022 00:00:00 09/15/2022 16:08:27 [id number] Az Luna MD [facility] [place] [address] [facility] [address] [place] [address] 09/29/2022 00:00:00 09/29/2022 15:49:46 [id number] Az Luna MD [facility] [place] [address] [facility] [facility] [address] [place] [address] 11/12/2022 13:42:52 11/12/2022 15:14:50 Pain of bilateral knee joints 4789550072 32845 M25.561 M25.562 Mechanical complication of implant 666716601 T85.698A T84.039A Localized swelling of left lower leg 5146085233 4069049 R22.42 Health Concerns Section Related Observation LastModified by Organization Detai ls LastModified Time None Recorded Concern Status LastModified by Organization Details LastModified Time None Recorded Advance Directives Directive None Recorded Payers Encounter Date Sequence Insurance Name Policy Number Policy Rubin Covered Member ID Rubin Member ID Guarantor Name 11/12/2022 1 [employer] (MEDICARE REPLACEMENT /ADVANTAGE - PPO) [id number] Andres Paula [id number] Andres Paula 11/12/2022 2 [place] [id number] Andres Paula [id number] Andres Paula Notes Date Note Type Note Provider Name and Address Organization Details Recorded Time 11/12/2022 text/html Patient returns cellulitis right and left leg. The cellulitis on the right is clear to a large degree although it is in his thigh and abdomen. Now it has gone on the left leg and his left leg is swollen and moderately red. Az Luna MD [address] [place] [address], [phone], [facility] 11/12/2022 14:05:52
--- OUTSIDE RECORDS SUMMARY | 2025-01-25 02:13 | XMS_ITS ---
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 - Records of patients hospitalization at [facility] in [place] not currently available. Will request those records. [...]
--- OUTSIDE RECORDS SUMMARY | 2025-01-25 02:13 | XMS_ITS | Clinical Summary ---
Author Organization [facility] Address [address] [place] [address] Care Team Providers Care Firer Locomotive Name Role Phone Julio C Rider MD Primary Care Provider [phone] Source Comments [facility],non-owned Affiliates and Associated Physician Practices is amultiple site organization consisting of ambulatory clinics and hospital sitesin [place], [place], [place] and [place]. This disclosure is being madepursuant to the Care Everywhere program and may not contain all information available regarding this patient. 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
--- OUTSIDE RECORDS SUMMARY | 2025-01-25 02:13 | XMS_ITS | Clinical Summary ---
Author Organization [facility] Address [address] [place] [address] Care Team Providers Care Esl Instructional Assistant Name Role Phone Jaylan Gaitan Primary Care Provider Az Luna MD Unavailable [phone] Allergies No known active allergies Medications furosemide (LASIX) 40 mg tablet Take 1 tablet (40 mg total) by mouth daily 30 tablet 12/30/2022 Active folic acid (FOLVITE) 1 mg tablet Take 1 tablet (1 mg total) by mouth daily 30 tablet 12/31/2022 Active cyanocobalamin/ folic acid (vitamin E94-njran acid) 500-400 mcg tablet Take by mouth [...] 10/27/2022 Assessment & Plan (10/27/2022 9:59 AM HAND EDGER): - No signs/symptoms of acute infection noted on today's exam, though notably pt on doxycycline since 09/29/20, on antibiotics for several months (Bactrim/Amox). - Records of patients hospitalization at [facility] not currently available. Will request [...] on file Legal Sex Male 3:11 AM HAND EDGER Gender Identity Not on file Sexual [...] 9:45 AM CDT Height 185 cm (6' 0.84) 02/12/2023 9:45 AM CDT Body Mass Index [...] Vaccine ( season) 2024, 04/21/2021 Influenza Vaccine (Season Ended) 2025 Insurance [facility] Advance Directives For more information, please contact: [phone] * Full Code (Latest Code Status on File) Date Activated Date Inactivated Comments 12/26/2022 8:50 PM 12/30/2022 9:47 PM Care Teams Esl Instructional Assistant Relationship Specialty Start Date End Date Jaylan Gaitan PA [address] [facility] [address] [place], [place] [id number] PCP - General Physician Doffer 10/05/22 Az Luna MD [address] [place] [address] Referring Physician Orthopedic Surgery 10/05/22
--- OUTSIDE RECORDS SUMMARY | 2025-01-25 02:13 | XMS_ITS | Referral Summary ---
Author Organization [facility] Address [address] [place] [address] Care Team Providers Care Director Title Name Role Phone Jaylan Gaitan Primary Care Provider Az Luna MD Unavailable [phone] Allergies No known active allergies Medications furosemide (LASIX) 40 mg tablet Take 1 tablet (40 mg total) by mouth daily 30 tablet 12/30/2022 Active folic acid (FOLVITE) 1 mg tablet Take 1 tablet (1 mg total) by mouth daily 30 tablet 12/31/2022 Active cyanocobalamin/ folic acid (vitamin K23-wyhey acid) 500-400 mcg tablet Take by mouth [...] 10/27/2022 Assessment & Plan (10/27/2022 9:59 AM LAST DIPPER): - No signs/symptoms of acute infection noted on today's exam, though notably pt on doxycycline since 09/29/20, on antibiotics for several months (Bactrim/Amox). - Records of patients hospitalization at [facility] not currently available. Will request those [...] on file Legal Sex Male 3:11 AM LAST DIPPER Gender Identity Not on file Sexual Orientation [...] Plan of Treatment Not on file [place] [place] [address] [facility] [employer] [facility] Advance Directives For more information, please contact: [phone] * Full Code (Latest Code Status on File) Date Activated Date Inactivated Comments 12/26/2022 8:50 PM 12/30/2022 9:47 PM Care Teams Director Title Relationship Specialty Start Date End Date Jaylan Gaitan PA [address] [place] [address] [place] [address] PCP - General Physician Seat Joiner 10/05/22 Az Luna MD [address] [place] [address] Referring Physician Orthopedic Surgery 10/05/22
[2025-01-25 12:51] VITALS: BP 135/63; PULSE 98; RESP 19; TEMP 36.3; O2SAT 98
--- NOTE | 2025-01-25 12:54 | SUR.PREOP ---
Per patient, stopped drinking his prep at 1030 this AM. Drank 90% of solution. States BM is liquid brown. Per tana Yeboah to proceed with procedure.
--- NOTE | 2025-01-25 13:12 | WPDANESEPPF ---
Anes - Initial Pre Proc Eval Procedure: Operation Date: 01/25/25 14:30 Proposed Procedures p Colonoscopy - Arthur Doran MD Date/Time: 01/25/25 13:12 Surgeon: Arthur Doran MD Pre Op Diagnosis: Anemia, unspecified Patient Data Age: 69 Gender: M Height: 1.85 m Weight: 126.4 kg Last Vital Signs Temp 97.4 F L 01/25/25 12:51 Pulse 98 01/25/25 12:51 Resp 19 01/25/25 12:51 BP 135/63 01/25/25 12:51 Pulse Ox 98 01/25/25 12:51 O2 Del Method Room Air 01/25/25 12:51 Allergies Allergy/AdvReac Type Severity Reaction Status Date / Time No Known Allergies Allergy Mild Verified 01/25/25 12:49 Home Medications ?Medication ?Instructions ?Recorded ?Confirmed ?Type folic acid 1 mg tablet 1 mg PO DAILY 01/04/23 01/25/25 History blood-glucose meter (OneTouch #1 ea 08/11/23 10/12/24 Rx Verio Reflect Meter) lancets 30 gauge (OneTouch #100 ea 08/11/23 10/12/24 Rx UltraSoft 2 Lancet) mecobalamin (vitamin B12) 1,000 1,000 mcg PO DAILY 10/18/23 01/25/25 History mcg chewable tablet blood sugar diagnostic (OneTouch #100 ea 01/04/24 10/12/24 Rx Verio test strips) glipizide 5 mg tablet, extended 5 mg PO BID #180 tabs 04/28/24 01/25/25 Rx release 24 hr lisinopril 5 mg tablet 5 mg PO DAILY #90 tabs 04/28/24 01/25/25 Rx furosemide 40 mg tablet 40 mg PO DAILY 06/07/24 01/25/25 History gabapentin 300 mg capsule 300 mg PO TID #270 caps 06/27/24 01/25/25 Rx cholestyramine (with sugar) 4 gram 4 g PO BID #1,134 grams 07/03/24 01/19/25 Rx oral powder ferrous sulfate 325 mg (65 mg 325 mg PO DAILY #90 tabs 08/05/24 01/25/25 Rx iron) tablet mometasone 0.1 % topical cream 1 applic topical DAILY #45 grams 09/19/24 01/19/25 Rx diclofenac sodium 75 mg See Rx Instructions .Route 09/21/24 01/25/25 Rx tablet,delayed release .COMPLEX #60 tabs acetaminophen 325 mg capsule 650 mg (2 x 325 mg) PO Q8H PRN 09/24/24 01/19/25 Rx pain #60 caps methocarbamol 750 mg tablet 1,500 mg (2 x 750 mg) PO TID #60 09/24/24 01/25/25 Rx tabs prednisone 10 mg tablet 10 mg PO .COMPLEX #19 tabs 10/02/24 01/19/25 Rx lactulose 10 gram/15 mL oral 30 g (45 mL) PO BID #3,785 mL 11/09/24 01/19/25 Rx solution cyclobenzaprine 10 mg tablet 10 mg PO QHS PRN muscle spasm #90 11/10/24 01/25/25 Rx tabs diclofenac sodium 75 mg See Rx Instructions .Route 12/14/24 Rx tablet,delayed release .COMPLEX #60 tabs omeprazole 40 mg capsule,delayed 40 mg PO DAILY #90 caps 01/15/25 01/25/25 Rx release Patient hx anesthesia problems: none Family hx anesthesia problems: none Results Review: All pre-operative results and documents have been reviewed as part of the pre-operative evaluation. [facility] Past Medical History Medical History (Updated 11/28/24 @ 15:50 by Ori Castle MD) Cirrhosis Heavy alcohol use Hypertension Primary osteoarthritis of right knee Food impaction of esophagus Mitral valve prolapse Acid reflux Seizure He outgrew his seizures Surgical History Surgical History History of right knee joint replacement 08/19/22- Dr Luna History of tonsillectomy H/O wisdom tooth extraction Hx of colonoscopy H/O esophagogastroduodenoscopy H/O total knee replacement Total knee replacement status Family History Family History Mother Diabetes mellitus Social History Social History Social History: The patient is x2. The patient is currently laid off. 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 He has 2 children. He occasionally drinks alcohol. He denies any marijuana or illicit drugs. 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, CHEWING TOBACCO QUIT 2018 Alcohol intake: former Alcohol use details: 6PK/DAY Substance use: current Substance use type: marijuana Last use: daily @ [facility] Do You Feel Safe in your Home?: Yes Lack of Transportation: No Lack of Food: Never True Current Housing: I Have Housing Concerned About Future Housing: No Difficulty Paying Gas/Electric Bills: No Difficulty Paying for Meds: No Currently Unemployed: Decline to Answer Education: High School Diploma/GED Difficulty w/ Childcare or Family Care: No Living arrangements: alone Occupation/Education: retired 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 Informed Consent: The patient's anesthetic plan and its attendant risks and benefits were discussed with the patient/family/POA. Questions were solicited and answers provided to the satisfaction of the patient/family/POA.
[2025-01-25] MEDS: LACTATED RINGERS 1,000 ML 150 ML IV CONT (13:15)
[2025-01-25] MEDS: DEXTROSE 50% 25 GM/50 ML SYRINGE IV PUSH (13:24)
[2025-01-25 13:33] LABS: Glucose Point of Care 50 mg/dl (65-105)
--- NOTE | 2025-01-25 13:40 | P.HP_ITS ---
History of Present Illness History of Present Illness Consent: Risks, benefits, and alternatives have been discussed and questions answered. Patient agrees to proceed with procedure. Chief complaint: Anemia, unspecified Narrative: Andres Paula is a 69 year old male with history of cirrhosis and chronic anemia, last colonoscopy 8-9 years ago Review of Systems Review of Systems: All systems reviewed & are unremarkable except as noted in HPI and below PMFSH Past Medical History Medical History (Updated 11/28/24 @ 15:50 by Ori Castle MD) Cirrhosis Heavy alcohol use Hypertension Primary osteoarthritis of right knee Food impaction of esophagus Mitral valve prolapse Acid reflux Seizure He outgrew his seizures Surgical History Surgical History History of right knee joint replacement 08/19/22- Dr Luna History of tonsillectomy H/O wisdom tooth extraction Hx of colonoscopy H/O esophagogastroduodenoscopy H/O total knee replacement Total knee replacement status Family History Family History Mother Diabetes mellitus Social History Social History Social History: The patient is x2. The patient is currently laid off. 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 He has 2 children. He occasionally drinks alcohol. He denies any marijuana or illicit drugs. 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, CHEWING TOBACCO QUIT 2019 Alcohol intake: former Alcohol use details: 6PK/DAY Substance use: current Substance use type: marijuana Last use: daily @ Do You Feel Safe in your Home?: Yes Lack of Transportation: No Lack of Food: Never True Current Housing: I Have Housing Concerned About Future Housing: No Difficulty Paying Gas/Electric Bills: No Difficulty Paying for Meds: No Currently Unemployed: Decline to Answer Education: High School Diploma/GED Difficulty w/ Childcare or Family Care: No Living arrangements: alone Occupation/Education: retired 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 Gender identity (if verbalized by the patient): Male Spiritual care concerns: No Meds Home Medications and Allergies Home Medications ?Medication ?Instructions ?Recorded ?Confirmed ?Type folic acid 1 mg tablet 1 mg PO DAILY 01/04/23 01/25/25 History blood-glucose meter (OneTouch #1 ea 08/11/23 10/12/24 Rx Verio Reflect Meter) lancets 30 gauge (OneTouch #100 ea 08/11/23 10/12/24 Rx UltraSoft 2 Lancet) mecobalamin (vitamin B12) 1,000 1,000 mcg PO DAILY 10/18/23 01/25/25 History mcg chewable tablet blood sugar diagnostic (OneTouch #100 ea 01/04/24 10/12/24 Rx Verio test strips) glipizide 5 mg tablet, extended 5 mg PO BID #180 tabs 04/28/24 01/25/25 Rx release 24 hr lisinopril 5 mg tablet 5 mg PO DAILY #90 tabs 04/28/24 01/25/25 Rx furosemide 40 mg tablet 40 mg PO DAILY 06/07/24 01/25/25 History gabapentin 300 mg capsule 300 mg PO TID #270 caps 06/27/24 01/25/25 Rx cholestyramine (with sugar) 4 gram 4 g PO BID #1,134 grams 07/03/24 01/19/25 Rx oral powder ferrous sulfate 325 mg (65 mg 325 mg PO DAILY #90 tabs 08/05/24 01/25/25 Rx iron) tablet mometasone 0.1 % topical cream 1 applic topical DAILY #45 grams 09/19/24 01/19/25 Rx diclofenac sodium 75 mg See Rx Instructions .Route 09/21/24 01/25/25 Rx tablet,delayed release .COMPLEX #60 tabs acetaminophen 325 mg capsule 650 mg (2 x 325 mg) PO Q8H PRN 09/24/24 01/19/25 Rx pain #60 caps methocarbamol 750 mg tablet 1,500 mg (2 x 750 mg) PO TID #60 09/24/24 01/25/25 Rx tabs prednisone 10 mg tablet 10 mg PO .COMPLEX #19 tabs 10/02/24 01/19/25 Rx lactulose 10 gram/15 mL oral 30 g (45 mL) PO BID #3,785 mL 11/09/24 01/19/25 Rx solution cyclobenzaprine 10 mg tablet 10 mg PO QHS PRN muscle spasm #90 11/10/24 01/25/25 Rx tabs diclofenac sodium 75 mg See Rx Instructions .Route 12/14/24 Rx tablet,delayed release .COMPLEX #60 tabs omeprazole 40 mg capsule,delayed 40 mg PO DAILY #90 caps 01/15/25 01/25/25 Rx release Allergies Allergy/AdvReac Type Severity Reaction Status Date / Time No Known Allergies Allergy Mild Verified 01/25/25 12:49 Vital Signs Vital Signs - 24 hr 01/25/25 12:51 Temperature 97.4 F L Pulse Rate 98 Respiratory Rate 19 Blood Pressure 135/63 Pulse Oximetry 98 Oxygen Delivery Room Air Exam Const: General: comfortable and no acute distress HENMT: Face/Nose/Sinus: Normal nares present Eyes: General: appearance normal, both eyes and all related structures Neck: Neck: no JVD Resp: Auscultation: clear to auscultation bilaterally Cardio: Rate: regular rate Rhythm: regular rhythm GI: Inspection: non-distended GI Palp: Yes Soft to palpation Skin: General skin exam: normal color Neuro: General: gait normal Speech: normal speech Extrem: General: normal to inspection Psych: Mental Status: mental status grossly normal Assessment and Plan Assessment and plan (1) Cirrhosis: Code(s): K74.60 - Unspecified cirrhosis of liver Status: Acute (2) Anemia: Qualifiers: Anemia type: unspecified type Qualified Code(s): D64.9 - Anemia, unspecified Code(s): D64.9 - Anemia, unspecified Status: Acute Assessment and Plan: colonoscopy
[2025-01-25 14:04] VITALS: BP 134/65; PULSE 90; RESP 20; O2SAT 98
[2025-01-25 14:14] VITALS: BP 138/80; PULSE 88; RESP 21; O2SAT 100
[2025-01-25 14:24] VITALS: BP 128/86; PULSE 86; RESP 22; O2SAT 100
[2025-01-25 14:26] LABS: Glucose Point of Care 61 mg/dl (65-105)
[2025-01-25 14:26] LABS: Glucose Point of Care 58 mg/dl (65-105)
[2025-01-25 14:42] LABS: Glucose Point of Care 67 mg/dl (65-105)
[2025-01-25 14:57] LABS: Glucose Point of Care 89 mg/dl (65-105)
== END 2025-01-25 15:00 | disposition home or self-care (01) ==
PROVIDERS: PCP Internal Medicine; Referring Provider Internal Medicine Gastroenterology; Visit Provider Internal Medicine Gastroenterology
PROC: 0DJD8ZZ Inspection of Lower Intestinal Tract, Via Natural or Artificial Opening Endoscopic (ICD-10-PCS; CPT 45378; principal; 2025-01-25 14:30)
DX: D64.9 Anemia, unspecified (principal); K74.60 Unspecified cirrhosis of liver; K64.8 Other hemorrhoids; I10 Essential (primary) hypertension; M17.11 Unilateral primary osteoarthritis, right knee; K21.9 Gastro-esophageal reflux disease without esophagitis; F12.90 Cannabis use, unspecified, uncomplicated; E66.9 Obesity, unspecified; Z68.36 Body mass index [BMI] 36.0-36.9, adult; Z79.84 Long term (current) use of oral hypoglycemic drugs; Z79.52 Long term (current) use of systemic steroids; Z98.890 Other specified postprocedural states; Z87.891 Personal history of nicotine dependence; Z86.79 Personal history of other diseases of the circulatory system
CPT/HCPCS: 45378; 82948; J2003; J2704; J7120

== ENCOUNTER 2025-02-21 06:41 | Outpatient (CLI) | payer MEDICARE, SELFPAY ==
[2025-02-21 07:36] LABS: Hematocrit 35.8 % (42.0-52.0); Hemoglobin 11.7 g/dL (14.0-18.0); Mean Corpuscular HGB Conc 32.7 g/dl (32-36); Mean Corpuscular Hemoglobin 30.9 pg (26-34); Mean Corpuscular Volume 94.5 fl (80-100); Mean Platelet Volume 9.4 fl (7.4-10.4); Platelet Count Result 141 k/mm3 (150-375); Red Blood Count 3.79 M/mm3 (4.6-6.20); Red Cell Distribution Width 15.4 % (11.5-14.5)
[2025-02-21 07:46] LABS: Alanine Aminotransferase 23 U/L (6-50); Albumin Level 3.3 g/dL (3.5-5.1); Alkaline Phosphatase 127 U/L (38-126); Anion Gap 4 mmol/L (4-12); Aspartate Amino Transferase 41 U/L (17-59); Bilirubin,Total 1.5 mg/dL (0.2-1.3); Blood Urea Nitrogen 13 mg/dL (9-20); Calcium 8.8 mg/dL (8.4-10.2); Carbon Dioxide 24 mmol/L (22-30); Chloride 109 mmol/L (98-107); Estimated Glomerular Filt Rate > 60; Glucose 88 mg/dL (65-110); Potassium 4.1 mmol/L (3.4-5.0); Sodium 137 mmol/L (137-145); Total Protein 6.2 g/dL (6.3-8.2)
[2025-02-21 07:50] LABS: INR 1.4; Prothrombin Time 17.1 Seconds (11.1-14.7)
[2025-02-23 14:57] LABS: Alpha Fetoprotein Tumor Marker 3.5 ng/mL (<6.1)
== END 2025-02-21 06:42 | disposition home or self-care (01) ==
PROVIDERS: PCP Internal Medicine; Visit Provider Internal Medicine Gastroenterology
DX: K74.60 Unspecified cirrhosis of liver (principal)
CPT/HCPCS: 36415; 80053; 82105; 85027; 85610

== ENCOUNTER 2025-02-28 09:10 | Outpatient (CLI) | payer MEDICARE, SELFPAY ==
--- NOTE | ~2025-02-28 | US_ITS ---
Limited Abdominal Sonogram: Real-time sonographic imaging of the right upper quadrant was performed. Clinical History: Cirrhosis Findings: The liver appears mildly heterogeneous, nodular contour. No mass lesion or bile duct dilat ation. Main portal vein demonstrates normal direction of flow. The gallbladder is well distended, and contains multiple gallstones. No gallbladder wall thickening evident. The common bile duct measures 4 mm. The visualized pancreas, aorta, and IVC are unremarkable. Impression: Cirrhotic morphology of the liver. No focal mass or intrahepatic biliary dilatation seen. Cholelithiasis. Reviewed, dictated and finalized at location . Impression: Cirrhotic morphology of the liver. No focal mass or intrahepatic biliary dilata tion seen. Cholelithiasis.
--- OUTSIDE RECORDS SUMMARY | 2025-02-28 09:19 | XMS_ITS | Clinical Summary ---
Author Organization [facility] Address [address] [place] [address] Care Team Providers Care Corn Detasseler Name Role Phone Julio C Rider MD Primary Care Provider [phone] Source Comments [facility],non-owned Affiliates and Associated Physician Practices is amultiple site organization consisting of ambulatory clinics and hospital sitesin [place], [place], [place] and [place]. This disclosure is being madepursuant to the Care Everywhere program and may not contain all information available regarding this patient. Last updated 18.[facility] Active Problems Problem Noted Date Diagnosed Date Hepatic encephalopathy 08/31/2024 Alcohol use, unspecified, uncomplicated 08/31/19 25 Social History Tobacco Use Types Packs/Day Years Used Date Smoking Tobacco: Never Assessed Sex and Gender Information Value Date Recorded Sex Assigned at Not on file Legal Sex Male 7:37 AM BACK END ARCHITECT Gender Identity Not on file Sexual Orientation [...] to complete this topic Insurance Care Teams Corn Detasseler Relationship Specialty Start Date End Date Julio C Rider MD [address] [facility] [address] [place] [address] PCP - General Internal Medicine 01/25/14
--- OUTSIDE RECORDS SUMMARY | 2025-02-28 09:19 | XMS_ITS ---
Author Organization [facility] Address [address] [place] [address] Care Team Providers Care Used Equipment Sales Representative Name Role Phone Jaylan Gaitan Primary Care Provider Az Luna MD Unavailable [phone] Active Problems Problem Noted Date Diagnosed Date Screening for colorectal cancer 03/18/2023 Colorectal cancer 03/17/2023 Moderate malnutrition 12/29/2022 Cirrhosis 12/26/2022 Other mechanical complicatio n of other specified internal prosthetic devices, implants and grafts, initial encounter 10/27/2022 Assessment & Plan (10/27/2022 9:59 AM EMPLOYEE ADVISER): - No signs/symptoms of acute infection noted on today's exam, though notably pt on doxycycline since 09/29/20, on antibiotics for several months (Bactrim/Amox). - Records of patients hospitalization at [facility] [place] in [place] not currently available. Will request those records. [...]
--- OUTSIDE RECORDS SUMMARY | 2025-02-28 09:19 | XMS_ITS | Clinical Summary ---
Author Organization [facility] Address [address] [place] [address] Care Team Providers Care Visual Effects Editor Name Role Phone Jaylan Gaitan PA-C Primary Care Provider [phone] Allergies No known active allergies Medications omeprazole [...] complication, without long-term current use of insulin ([facility]) Use this to check your blood [...] 3 glasses of whiskey mixed per day [facility] Utilities Answer Date Recorded In the past 12 months has [facility] [employer], oil, or water [employer] threatened to shut off services in your [...] place to sleep or slept in a usp (including now)? No 10/08/2023 Sex and Gender Information Value Date Recorded Sex Assigned at Not on file Legal Sex Male 5:27 PM CDT Gender Identity Not on file Sexual Orientation Not on file Last Filed Vital Signs Vital Sign Reading Time Taken Comments Blood Pressure 117/66 10/10/2023 10:29 AM RN ACUTE CARE Pulse 95 10/10/2023 10:29 AM RN ACUTE CARE Temperature 36.6 C (97.9 F) 10/10/2023 10:29 AM RN ACUTE CARE Respiratory Rate 18 10/10/2023 10:29 AM RN ACUTE CARE Oxygen Saturation 98% 10/10/2023 10:29 AM RN ACUTE CARE Inhaled Oxygen Concentration - - Weight 118 kg (260 lb 2.3 oz) 10/10/2023 5:03 AM RN ACUTE CARE Height 185.4 cm (6' 1) 10/04/2023 3:15 PM RN ACUTE CARE Body Mass Index 34.32 10/04/2023 3:15 PM RN ACUTE CARE Plan of Treatment Health Maintenance Due Date [...] VE NON-REACTI VE 12/22/2022 8:44 AM CDT [facility] HEP B CORE TOTAL AB NON-REACTI VE NON-REACTI VE 12/22/2022 8:44 AM CDT [facility] HEP B SURFACE AB NON-REACTI VE 12/22/2022 8:44 AM CDT [facility] HAV IGM NON-REACTI VE NON-REACTI VE 12/22/2022 8:44 AM CDT [facility] HEPATITIS C AB NON-REACTI VE NON-REACTI VE 12/22/2022 8:44 AM CDT [facility] 12/22/2022 5:46 AM CDT Shonda Arreola [facility] Final Result [facility] [address] [place] [address], from Last 3 Months or Most Recently [...] 6:54 PM 12/26/2022 10:01 PM Care Teams Visual Effects Editor Relationship Specialty Start Date End Date Jaylan Gaitan PA-C [address] [facility] [address] [place] [address] PCP - General PHYSICIAN ASSISTANT FILM EDITOR 12/18/22
--- OUTSIDE RECORDS SUMMARY | 2025-02-28 09:19 | XMS_ITS | Clinical Summary ---
Author Organization [facility] Address [address] [place] [address] Care Team Providers Care Construction Project Administrator Name Role Phone Jaylan Gaitan Primary Care Provider Az Luna MD Unavailable [phone] Allergies No known active allergies Medications furosemide (LASIX) 40 mg tablet Take 1 tablet (40 mg total) by mouth daily 30 tablet 12/30/2022 Active folic acid (FOLVITE) 1 mg tablet Take 1 tablet (1 mg total) by mouth daily 30 tablet 12/31/2022 Active cyanocobalamin/ folic acid (vitamin C25-assuj acid) 500-400 mcg tablet Take by mouth [...] 10/27/2022 Assessment & Plan (10/27/2022 9:59 AM WEARING APPAREL FOLDER): - No signs/symptoms of acute infection noted on today's exam, though notably pt on doxycycline since 09/29/20, on antibiotics for several months (Bactrim/Amox). - Records of patients hospitalization at [facility] not currently available. Will request those records. [...] on file Legal Sex Male 3:11 AM WEARING APPAREL FOLDER Gender Identity Not on file Sexual Orientation [...] 04/21/2021 Influenza Vaccine (Season Ended) 2025 Insurance [facility] ADVANTRA [facility] ADVANTRA Advance Directives For more information, please contact: [phone] * Full Code (Latest Code Status on File) Date Activated Date Inactivated Comments 12/26/2022 8:50 PM 12/30/2022 9:47 PM Care Teams Construction Project Administrator Relationship Specialty Start Date End Date Jaylan Gaitan PA [address] [facility] [address] [place], [place] [id number] PCP - General Physician Advertiser 10/05/22 Az Luna MD [address] [place] [address] Referring Physician Orthopedic Surgery 10/05/22
--- OUTSIDE RECORDS SUMMARY | 2025-02-28 09:19 | XMS_ITS | Data Portability ---
Author Organization [facility] Main Office Address [address] [place] [address] Care Team Providers Care Street Vendor Name Role Phone GOGO MARTINEZ Primary Care Provider [phone] GOGO MARTINEZ Referring Provider [phone] Assessment Encounter Date Assessment Date Assessment LastModified [...] that. Had discussion infectious disease doctors at [address] He is going to see him [...] - Please call Dr. Luna [email or web address] [facility], [address], [place], [address], 15:14:50 Medication Orders Bactrim DS 800 mg-160 mg tablet 2022 023 tom De [facility][id number], [address] [place], [address], 14:05:57 Patient TargetsNo targets recorded. Patient InstructionsNo instructions recorded. Reason for Referral None Reported. Results Created Date Observation Date Name Description Value Unit Range Abnormal Flag Note LastModifiedBy Organization Detail LastModifiedTime 08/19/20 22 08/19/2022 XR, knee No observ ation record ed. MIGRATION.[id number] [place] [address] [address], [place], [address], 10/28/2022 19:46:15 08/27/20 22 08/27/2022 arthr ocent esis, aspir ation and/o r injec tion, major joint or bursa (PROC ) No observ ation record ed. MIGRATION.[id number] [place] [address] [place] [address] [address] [facility] [address], [place], [address], 10/28/2022 19:46:15 08/31/19 23 08/31/2022 imagi ng/di agnos tic resul t No observ ation record ed. MIGRATION.[id number] [place] [address] [address], [place], [address], 10/28/2022 19:46:15 09/02/19 23 09/01/2022 US, duple x, lower extre mity No observ ation record ed. MIGRATION.[id number] [place] [address] [address], [place], [address], 10/28/2022 19:46:15 09/29/19 23 XR, knee, 3 view No observ ation record ed. MIGRATION.[address] [place] [address] [facility] [place] [address], [place], [address], 10/28/2022 19:46:15 11/13/19 23 11/12/2022 US, tanale x, venou s, lower extre mity No observ ation record ed. [email or web address] [address], [place], [address], 11/12/2022 16:48:06 Result Notes None recorded. Problems Name Problem SNOMED Code Status Onset Date Resolution Date Notes Provider Name and Address Organization Details Recorded Time Osteoarthr itis of left knee joint 6178432131269 09 Active 2021 Not Available [facility] 3 19:45:23 Osteoarthr itis of right knee joint 8524832367666 00 Active 2021 Not Available [facility] 3 19:45:23 Osteoarthr itis 856696612 Active Not Available [facility] 3 19:45:23 Pain of bilateral knee joints 4710121753704 04 Active 2021 Not Available [facility] 3 19:45:23 Mechanical complicati on of implant 681552370 Active 2021 Not Available [facility] 3 19:45:23 Localized swelling of left lower leg 3669841232825 9102 Active 2022 Leda willett [employer] [facility] 3 14:01:34 Swelling of lower leg 134650950 Active 2022 Leda willett [employer] 3 13:39:19 Problem Notes None recorded. Medical [...] n administ ered by the provider active [facility]: [phone] Not Available Not Available Not Available [facility] [...] Updated DateTime 09/08/2022 36.4 kg/m2 185.42 cm 676199.49 g Not Available [facility] 10/28/2022 19:45:01 Date Recorded Body mass index (BMI) Body height Body weight Provider Name and Address Organization Details Last Updated DateTime 09/15/2022 36.4 kg/m2 185.42 cm 176363.49 g Not Available [facility] 10/28/2022 19:45:01 Date Recorded Body mass index (BMI) Body height Body weight Provider Name and Address Organization Details Last Updated DateTime 09/29/2022 36.4 kg/m2 185.42 cm 404142.49 g Not Available [facility] 10/28/2022 19:45:01 Date Recorded Body height Body mass index (BMI) Body weight Provider Name and Address Organization Details Last Updated DateTime 11/12/2022 185.42 cm 36.9 kg/m2 240909.86 g MARLEY Curry [facility] 11/12/2022 13:45:13 Date Recorded Body mass index (BMI) Body height Body weight Provider Name and Address Organization Details Last Updated DateTime 08/27/2022 37.9 kg/m2 185.42 cm 786511.01 g Not Available [facility] 10/28/2022 19:45:01 Social History None recorded. Functional Status None recorded. Mental Status None recorded. Family History Nothing Reported. Medical History No medical history recorded. Past Encounters Encounter ID Performer Location Encounter Start Date Encounter Closed Date Diagnosis/Indication Diagnosis SNOMED-CT Code Diagnosis ICD10 Code Diagnosis Note [id number] Az Luna MD [facility] [place] [address] [place] [address] 04/23/2022 00:00:00 04/23/2022 14:27:35 [id number] Az Luna MD [facility] [place] [address] [place] [address] 05/21/2022 00:00:00 05/21/2022 11:43:10 [id number] Az Luna MD [facility] [place] [address] [place] [address] 08/27/2022 00:00:00 08/27/2022 11:19:45 [id number] Az Luna MD [facility] [place] [address] [place] [address] 09/08/2022 00:00:00 09/08/2022 14:04:49 [id number] Az Luna MD [facility] [place] [address] [place] [address] 09/15/2022 00:00:00 09/15/2022 16:08:27 [id number] Az Luna MD [facility] [place] [address] [place] [address] 09/29/2022 00:00:00 09/29/2022 15:49:46 [id number] Az Luna MD [facility] [place] [address] [place] [address] 11/12/2022 13:42:52 11/12/2022 15:14:50 Pain of bilateral knee joints 5727855866 11233 M25.561 M25.562 Mechanical complication of implant 243432127 T85.698A T84.039A Localized swelling of left lower leg 7665002036 6478960 R22.42 Health Concerns Section Related Observation LastModified by Organization Detai ls LastModified Time None Recorded Concern Status LastModified by Organization Details LastModified Time None Recorded Advance Directives Directive None Recorded Payers Insurance Date Sequence Insurance Name Policy Number Policy Rubin Covered Member ID Rubin Member ID Guarantor Name 11/16/2022 1 [employer] (MEDICARE REPLACEMENT /ADVANTAGE - PPO) [id number] Andres Paula [id number] Andres Paula 11/16/2022 2 [place] [id number] Andres Paula [id number] Andres Paula Notes Date Note Type Note Provider Name and Address Organization Details Recorded Time 11/12/2022 text/html Patient returns cellulitis right and left leg. The cellulitis on the right is clear to a large degree although it is in his thigh and abdomen. Now it has gone on the left leg and his left leg is swollen and moderately red. Az Luna MD [address] [place] [address], [place] [address], [place], [address], [facility] 11/12/2022 14:05:52
--- OUTSIDE RECORDS SUMMARY | 2025-02-28 09:19 | XMS_ITS | Referral Summary ---
Author Organization [facility] Address [address] [place] [address] Care Team Providers Care Mainspring Former Brace End Name Role Phone Jaylan Gaitan Primary Care Provider Az Luna MD Unavailable [phone] Allergies No known active allergies Medications furosemide (LASIX) 40 mg tablet Take 1 tablet (40 mg total) by mouth daily 30 tablet 12/30/2022 Active folic acid (FOLVITE) 1 mg tablet Take 1 tablet (1 mg total) by mouth daily 30 tablet 12/31/2022 Active cyanocobalamin/ folic acid (vitamin S00-sykra acid) 500-400 mcg tablet Take by mouth [...] 10/27/2022 Assessment & Plan (10/27/2022 9:59 AM PIPE TESTING TECHNICIAN): - No signs/symptoms of acute infection noted on today's exam, though notably pt on doxycycline since 09/29/20, on antibiotics for several months (Bactrim/Amox). - Records of patients hospitalization at [facility] not currently available. Will request those records. [...] on file Legal Sex Male 3:11 AM PIPE TESTING TECHNICIAN Gender Identity Not on file Sexual Orientation [...] Plan of Treatment Not on file [place] [place] [address] [facility] [employer] [facility] ADVANTRA Advance Directives For more information, please contact: [phone] * Full Code (Latest Code Status on File) Date Activated Date Inactivated Comments 12/26/2022 8:50 PM 12/30/2022 9:47 PM Care Teams Mainspring Former Brace End Relationship Specialty Start Date End Date Jaylan Gaitan PA [address] [place] [address] [place] [address] PCP - General Physician Monument Setter 10/05/22 Az Luna MD [address] [place] [address] Referring Physician Orthopedic Surgery 10/05/22
== END 2025-02-28 09:11 | disposition home or self-care (01) ==
PROVIDERS: PCP Internal Medicine; Visit Provider Internal Medicine Gastroenterology
DX: K74.60 Unspecified cirrhosis of liver (principal); K80.20 Calculus of gallbladder without cholecystitis without obstruction
CPT/HCPCS: 76705

== ENCOUNTER 2025-03-29 12:50 | Outpatient (CLI) | payer MEDICARE, SELFPAY ==
--- OUTSIDE RECORDS SUMMARY | 2025-03-29 12:53 | XMS_ITS | Clinical Summary ---
Author Organization [facility] Address [address] [place] [address] Care Team Providers Care Automatic Stacker Name Role Phone Julio C Rider MD Primary Care Provider [phone] Source Comments [facility],non-owned Affiliates and Associated Physician Practices is amultiple site organization consisting of ambulatory clinics and hospital sitesin [place], [place], [place] and [place]. This disclosure is being madepursuant to the Care Everywhere program and may not contain all information available regarding this patient. Last updated 18.[facility] Active Problems Problem Noted Date Diagnosed Date Hepatic encephalopathy 08/31/2024 Alcohol use, unspecified, uncomplicated 08/31/19 25 Social History Tobacco Use Types Packs/Day Years Used Date Smoking Tobacco: Never Assessed Sex and Gender Information Value Date Recorded Sex Assigned at Not on file Legal Sex Male 7:37 AM PODIATRIC MEDICINE DOCTOR Gender Identity Not on file Sexual Orientation [...] MEDICARE AWV CALENDAR YEAR 2024 INFLUENZA VACCINE (#1) 2025 Respiratory Syncytial Virus (RSV) Vaccine Pt: [...] to complete this topic Insurance Care Teams Automatic Stacker Relationship Specialty Start Date End Date Julio C Rider MD [address] [facility] [address] [place] [address] PCP - General Internal Medicine 01/25/14
--- OUTSIDE RECORDS SUMMARY | 2025-03-29 12:53 | XMS_ITS | Clinical Summary ---
Author Organization [facility] Address [address] [place] [address] Care Team Providers Care Business Objects Report Developer Name Role Phone Jaylan Gaitan Primary Care Provider Az Luna MD Unavailable [phone] Allergies No known active allergies Medications furosemide (LASIX) 40 mg tablet Take 1 tablet (40 mg total) by mouth daily 30 tablet 12/30/2022 Active folic acid (FOLVITE) 1 mg tablet Take 1 tablet (1 mg total) by mouth daily 30 tablet 12/31/2022 Active cyanocobalamin/ folic acid (vitamin U36-lsjub acid) 500-400 mcg tablet Take by mouth [...] 10/27/2022 Assessment & Plan (10/27/2022 9:59 AM CARDIOTHORACIC ANESTHESIA TECHNICIAN): - No signs/symptoms of acute infection noted on today's exam, though notably pt on doxycycline since 09/29/20, on antibiotics for several months (Bactrim/Amox). - Records of patients hospitalization at [facility] not currently available. Will request those records. [...] on file Legal Sex Male 3:11 AM CARDIOTHORACIC ANESTHESIA TECHNICIAN Gender Identity Not on file Sexual [...] ( season) 2024, 04/21/2021 Influenza Vaccine (#1) 2025 Insurance [facility] ADVANTRA [facility] Advance Directives For more information, please contact: [phone] * Full Code (Latest Code Status on File) Date Activated Date Inactivated Comments 12/26/2022 8:50 PM 12/30/2022 9:47 PM Care Teams Business Objects Report Developer Relationship Specialty Start Date End Date Jaylan Gaitan PA [address] [facility] [address] [place], [place] [id number] PCP - General Physician Rfid Engineer 10/05/22 Az Luna MD [address] [place] [address] Referring Physician Orthopedic Surgery 10/05/22
--- OUTSIDE RECORDS SUMMARY | 2025-03-29 12:53 | XMS_ITS | Referral Summary ---
Author Organization [facility] Address [address] [place] [address] Care Team Providers Care Personal Care Home Administrator Name Role Phone Jaylan Gaitan Primary Care Provider Az Luna MD Unavailable [phone] Allergies No known active allergies Medications furosemide (LASIX) 40 mg tablet Take 1 tablet (40 mg total) by mouth daily 30 tablet 12/30/2022 Active folic acid (FOLVITE) 1 mg tablet Take 1 tablet (1 mg total) by mouth daily 30 tablet 12/31/2022 Active cyanocobalamin/ folic acid (vitamin W63-hfkej acid) 500-400 mcg tablet Take by mouth [...] 10/27/2022 Assessment & Plan (10/27/2022 9:59 AM CASING BUILDER): - No signs/symptoms of acute infection noted on today's exam, though notably pt on doxycycline since 09/29/20, on antibiotics for several months (Bactrim/Amox). - Records of patients hospitalization at [facility] not currently available. Will request those records. [...] on file Legal Sex Male 3:11 AM CASING BUILDER Gender Identity Not on file Sexual Orientation [...] Plan of Treatment Not on file [place] [place] [address] [facility] AETNA [facility] ADVANTRA Advance Directives For more information, please contact: [phone] * Full Code (Latest Code Status on File) Date Activated Date Inactivated Comments 12/26/2022 8:50 PM 12/30/2022 9:47 PM Care Teams Personal Care Home Administrator Relationship Specialty Start Date End Date Jaylan Gaitan PA [address] [place] [address] [place] [address] PCP - General Physician Associate Professor 10/05/22 Az Luna MD [address] [place] [address] Referring Physician Orthopedic Surgery 10/05/22
--- OUTSIDE RECORDS SUMMARY | 2025-03-29 12:53 | XMS_ITS ---
Author Organization [facility] Address [address] [place] [address] Care Team Providers Care Director Of Digital Technology Name Role Phone Jaylan Gaitan Primary Care Provider Az Luna MD Unavailable Active Problems Problem Noted Date Diagnosed Date Screening for colorectal cancer 03/18/2023 Colorectal cancer 03/17/2023 Moderate malnutrition 12/29/2022 Cirrhosis 12/26/2022 Other mechanical complicatio n of other specified internal prosthetic devices, implants and grafts, initial encounter 10/27/2022 Assessment & Plan (10/27/2022 9:59 AM BAKERY DECORATOR): - No signs/symptoms of acute infection noted on today's exam, though notably pt on doxycycline since 09/29/20, on antibiotics for several months (Bactrim/Amox). - Records of patients hospitalization at [place] in [place] not currently available. Will request those records. [...]
--- OUTSIDE RECORDS SUMMARY | 2025-03-29 12:53 | XMS_ITS | Clinical Summary ---
Author Organization [facility] Address [address] [place] [id number] Care Team Providers Care Manager Continuous Improvement Name Role Phone Jaylan Gaitan PA-C Primary Care Provider [phone] Allergies No known active allergies Medications omeprazole [...] complication, without long-term current use of insulin ([facility]) Use this to check your blood [...] 3 glasses of whiskey mixed per day [facility] Utilities Answer Date Recorded In the past 12 months has [facility] [employer], oil, or water [employer] threatened to shut off services in your [...] place to sleep or slept in a senior care (including now)? No 10/08/2023 Sex and Gender Information Value Date Recorded Sex Assigned at Not on file Legal Sex Male 5:27 PM CDT Gender Identity Not on file Sexual Orientation Not on file Last Filed Vital Signs Vital Sign Reading Time Taken Comments Blood Pressure 117/66 10/10/2023 10:29 AM BEHAVIORAL CONSULTANT Pulse 95 10/10/2023 10:29 AM BEHAVIORAL CONSULTANT Temperature 36.6 C (97.9 F) 10/10/2023 10:29 AM BEHAVIORAL CONSULTANT Respiratory Rate 18 10/10/2023 10:29 AM BEHAVIORAL CONSULTANT Oxygen Saturation 98% 10/10/2023 10:29 AM BEHAVIORAL CONSULTANT Inhaled Oxygen Concentration - - Weight 118 kg (260 lb 2.3 oz) 10/10/2023 5:03 AM BEHAVIORAL CONSULTANT Height 185.4 cm (6' 1) 10/04/2023 3:15 PM BEHAVIORAL CONSULTANT Body Mass Index 34.32 10/04/2023 3:15 PM BEHAVIORAL CONSULTANT Plan of Treatment Health Maintenance Due Date [...] VE NON-REACTI VE 12/22/2022 8:44 AM CDT [facility] HEP B CORE TOTAL AB NON-REACTI VE NON-REACTI VE 12/22/2022 8:44 AM CDT [facility] HEP B SURFACE AB NON-REACTI VE 12/22/2022 8:44 AM CDT [facility] HAV IGM NON-REACTI VE NON-REACTI VE 12/22/2022 8:44 AM CDT [facility] HEPATITIS C AB NON-REACTI VE NON-REACTI VE 12/22/2022 8:44 AM CDT [facility] 12/22/2022 5:46 AM CDT Shonda Arreola [facility] Final Result [facility] [address] [place] [address], from Last 3 Months or Most Recently [...] 6:54 PM 12/26/2022 10:01 PM Care Teams Manager Continuous Improvement Relationship Specialty Start Date End Date Jaylan Gaitan PA-C [address] [facility] [address] [place] [address] PCP - General PHYSICIAN ESTIMATOR PAPERBOARD BOXES 12/18/22
--- NOTE | 2025-03-29 13:08 | ECHO_ITS ---
Patient Info Name: Andres Paula Age: 70 years : 1955 Gender: Male Ht: 73 in Wt: 285 lbs BSA: 2.63 m2 HR: 88 bpm BP: 132 / 72 mmHg Technical Quality: Good Exam Date: 03/29/2025 1:14 PM Patient Status: O Admit Date: 03/29/2025 Exam Type: CA echo doppler color flow Complete two-dimensional, color flow and Doppler transthoracic echocardiogram is performed. Yard Person: Joanie Browne Attending Provider: Luke Maier Summary 1. Complete two-dimensional, color flow and Doppler transthoracic echocardiogram is performed. 2. Left ventricular chamber dimension is normal. 3. Left ventricular systolic function is normal, estimated at 60-65. 4. The left ventricular diastolic function is abnormal. 5. E/e' 11 is mildly elevated. 6. Left atrial chamber dimension is moderately enlarged. 7. There is trace aortic valve regurgitation. 8. There is trace mitral valve regurgitation. Left Ventricle E/e' 11 is mildly elevated. Left ventricular chamber dimension is normal. Left ventricular systolic function is normal, estimated at 60-65. The left ventricular diastolic function is abnormal. Right Ventricle Right ventricular chamber dimension is normal. Right ventricular systolic function is normal and with normal TAPSE 2.3 cm. Left Atria Left atrial chamber dimension is moderately enlarged. Right Atria Right atrial chamber dimension is normal. Aortic Valve The aortic valve is trileaflet. There is no aortic valve stenosis. There is trace aortic valve regurgitation. Pulmonic Valve There is no pulmonic regurgitation. Mitral Valve There is no mitral valve stenosis. There is trace mitral valve regurgitation. Tricuspid Valve There is no tricuspid valve regurgitation. Pericardium/Pleural There is no pericardial effusion. Inferior Vena Cava Normal inferior vena cava with >50% collapse upon inspiration consistent with normal right atrial pressure, 5 mmHg. Aorta The aortic root size at the sinus of Valsalva is normal. Left Ventricular Outflow Tract Name Value Normal LVOT 2D LVOT Diameter 2.1 cm LVOT Doppler LVOT Peak Velocity 169 cm/s LVOT Peak Gradient 11 mmHg LVOT Mean Gradient 6 mmHg LVOT VTI 43 cm LVOT VTI/AV VTI Ratio 0.8 LVOT Stroke Volume 146 ml LVOT CO 19.1 l/min LVOT CI 7.3 l/min/m2 Pulmonic Valve Name Value Normal RVOT Doppler RVOT Peak Velocity 99 cm/s RVOT Peak Gradient 4 mmHg PV Doppler PV Peak Velocity 107 cm/s PV Peak Gradient 5 mmHg Mitral Valve Name Value Normal MV Diastolic Function MV E Peak Velocity 119 cm/s MV A Peak Velocity 106 cm/s MV E/A 1.1 MV Decel Time (PW) 246 ms MV Annular TDI MV E/e' (Septal) 13.3 MV E/e' (Lateral) 10.8 MV E/e' (Average) 12.1 Tricuspid Valve Name Value Normal Estimated PAP/RSVP RA Pressure 5 mmHg <=5 Aortic Valve Name Value Normal AV Doppler AV Peak Velocity 230 cm/s AV Peak Gradient 17 mmHg AV Mean Gradient 9 mmHg AV VTI 51 cm AV Area (Cont Eq VTI) 2.9 cm2 >=3.0 AV Area (Cont Eq Kian) 2.5 cm2 AV DI (Kian) 0.74 AV Regurgitation 2D LVOT Area 3.4 cm2 Ventricles Name Value Normal LV Dimensions 2D/MM IVS Diastolic Thickness (2D) 1.1 cm 0.6-1.0 LVID Diastole (2D) 5.6 cm 4.2-5.8 LVIW Diastolic Thickness (2D) 1.0 cm 0.6-1.0 LVID Systole (2D) 3.1 cm 2.5-4.0 LVOT Diameter 2.1 cm LV Mass (2D Cubed) 233.63 g 88.00-224.00 LV Mass Index (2D Cubed) 89 g/m2 49-115 Relative Wall Thickness (2D) 0.36 <=0.42 LV Fractional Shortening/Ejection Fraction 2D/MM LV Fractional Shortening (2D) 44 % 25-43 LV EF (2D Teichholz) 74 % LV Diastolic Volume (4C MOD) 180 ml LV EF (4C MOD) 68 % LV Diastolic Volume (2C MOD) 189 ml LV EF (2C MOD) 60 % LV Diastolic Volume (BP MOD) 187 ml 62-150 LV Diastolic Volume Index (BP MOD) 71 ml/m2 34-74 LV Systolic Volume (BP MOD) 66 ml 21-61 LV Systolic Volume Index (BP MOD) 25 ml/m2 11-31 LV EF (BP MOD) 65 % 52-72 LV Diastolic Length (4C) 10.4 cm LV Systolic Length (4C) 8.4 cm LV Stroke Volume (4C MOD) 123 ml Atria Name Value Normal LA Dimensions LA Volume (4C A-L) 105 ml LA Volume (BP A-L) 96 ml RA Dimensions RA Systolic [place] Length (4C) 5.3 cm 2.1-2.7 RA Area (4C) 16.0 cm2 <=18.0 Report Signatures
[2025-03-29 15:05] LABS: Anion Gap 1 mmol/L (4-12); Blood Urea Nitrogen 10 mg/dL (9-20); Calcium 8.7 mg/dL (8.4-10.2); Carbon Dioxide 27 mmol/L (22-30); Chloride 109 mmol/L (98-107); Estimated Glomerular Filt Rate > 60; Glucose 81 mg/dL (65-110); Potassium 4.1 mmol/L (3.4-5.0); Sodium 137 mmol/L (137-145)
== END 2025-03-29 12:51 | disposition home or self-care (01) ==
LOC: ANHCARD 12:50
PROVIDERS: PCP Internal Medicine; Visit Provider Nurse Practitioner
DX: R93.89 Abnormal findings on diagnostic imaging of other specified body structures (principal); R60.9 Edema, unspecified
CPT/HCPCS: 36415; 80048; 93306

== ENCOUNTER 2025-04-07 16:57 | Emergency (ER) | payer MEDICARE, SELFPAY ==
--- NOTE | ~2025-04-07 | XR_ITS ---
EXAM: XR tibia fibula RT 2V DATE: 04/07/2025 18:05 HISTORY: laceration of RLE . COMPARISON: X-ray right knee 10/11/2024. FINDINGS: Normal mineralization. No fracture or dislocation. No lytic or blastic lesion. Uncomplicat ed right knee arthroplasty hardware. Mild degenerative change at the right ankle. Mild Achilles and p lantar enthesopathy No erosion or periosteal change. Chronic anterior soft tissue swelling over the k nee and patellar tendon thickening. IMPRESSION: No acute osseous finding in the right tibia/fibula. Reviewed, dictated and finalized at location K.
--- OUTSIDE RECORDS SUMMARY | 2025-04-07 16:58 | XMS_ITS | Clinical Summary ---
Author Organization [facility] Address [address] [place] [id number] Care Team Providers Care Box Closing Machine Operator Name Role Phone Jaylan Gaitan Primary Care Provider Az Luna MD Unavailable [phone] Allergies No known active allergies Medications furosemide (LASIX) 40 mg tablet Take 1 tablet (40 mg total) by mouth daily 30 tablet 12/30/2022 Active folic acid (FOLVITE) 1 mg tablet Take 1 tablet (1 mg total) by mouth daily 30 tablet 12/31/2022 Active cyanocobalamin/ folic acid (vitamin Q29-erfnx acid) 500-400 mcg tablet Take by mouth [...] 10/27/2022 Assessment & Plan (10/27/2022 9:59 AM RATING SPECIALIST): - No signs/symptoms of acute infection noted on today's exam, though notably pt on doxycycline since 09/29/20, on antibiotics for several months (Bactrim/Amox). - Records of patients hospitalization at [facility] not currently available. Will request those records. [...] on file Legal Sex Male 3:11 AM RATING SPECIALIST Gender Identity Not on file Sexual Orientation [...] 2024, 04/21/2021 Influenza Vaccine (#1) 2025 Insurance [facility] [facility] [employer] Advance Directives For more information, please contact: [phone] * Full Code (Latest Code Status on File) Date Activated Date Inactivated Comments 12/26/2022 8:50 PM 12/30/2022 9:47 PM Care Teams Box Closing Machine Operator Relationship Specialty Start Date End Date Jaylan Gaitan PA [address] [facility] [address] [place], [place] [id number] PCP - General Physician Revit Drafter 10/05/22 Az Luna MD [address] [place] [address] Referring Physician Orthopedic Surgery 10/05/22
--- OUTSIDE RECORDS SUMMARY | 2025-04-07 16:58 | XMS_ITS | Clinical Summary ---
Author Organization [facility] Address [address] [place] [address] Care Team Providers Care Operations Recruiter Name Role Phone Jaylan Gaitan PA-C Primary Care Provider [phone] Allergies No known active allergies Medications omeprazole [...] complication, without long-term current use of insulin ([facility]) Use this to check your [...] of whiskey mixed per day [facility] Utilities Answer Date Recorded In the past 12 months has [facility] [employer], oil, or water [employer] threatened to shut off services in your [...] place to sleep or slept in a halfway (including now)? No 10/08/2023 Sex and Gender Information Value Date Recorded Sex Assigned at Not on file Legal Sex Male 5:27 PM CDT Gender Identity Not on file Sexual Orientation Not on file Last Filed Vital Signs Vital Sign Reading Time Taken Comments Blood Pressure 117/66 10/10/2023 10:29 AM ASPHALT DAUBER Pulse 95 10/10/2023 10:29 AM ASPHALT DAUBER Temperature 36.6 C (97.9 F) 10/10/2023 10:29 AM ASPHALT DAUBER Respiratory Rate 18 10/10/2023 10:29 AM ASPHALT DAUBER Oxygen Saturation 98% 10/10/2023 10:29 AM ASPHALT DAUBER Inhaled Oxygen Concentration - - Weight 118 kg (260 lb 2.3 oz) 10/10/2023 5:03 AM ASPHALT DAUBER Height 185.4 cm (6' 1) 10/04/2023 3:15 PM ASPHALT DAUBER Body Mass Index 34.32 10/04/2023 3:15 PM ASPHALT DAUBER Plan of Treatment Health Maintenance Due Date [...] NON-REACTI VE 12/22/2022 8:[address] [facility] HEP B CORE TOTAL AB NON-REACTI VE NON-REACTI VE 12/22/2022 8:[address] [facility] HEP B SURFACE AB NON-REACTI VE 12/22/2022 8:[address] [facility] HAV IGM NON-REACTI VE NON-REACTI VE 12/22/2022 8:[address] [facility] HEPATITIS C AB NON-REACTI VE NON-REACTI VE 12/22/2022 8:[address] [facility] 12/22/2022 5:46 AM CDT Shonda Arreola [facility] Final Result [facility] [address] [place] [address], from Last 3 Months or Most Recently [...] 6:54 PM 12/26/2022 10:01 PM Care Teams Operations Recruiter Relationship Specialty Start Date End Date Jaylan Gaitan PA-C [address] [facility] [address] [place] [address] PCP - General PHYSICIAN LIBRARY SERIALS ASSISTANT 12/18/22
--- OUTSIDE RECORDS SUMMARY | 2025-04-07 16:58 | XMS_ITS ---
Author Organization [facility] Address [address] [place] [phone] Care Team Providers Care Sales Closer Name Role Phone Jaylan Gaitan Primary Care Provider Az Luna MD Unavailable [phone] Active Problems Problem Noted Date Diagnosed Date Screening for colorectal cancer 03/18/2023 Colorectal cancer 03/17/2023 Moderate malnutrition 12/29/2022 Cirrhosis 12/26/2022 Other mechanical complicatio n of other specified internal prosthetic devices, implants and grafts, initial encounter 10/27/2022 Assessment & Plan (10/27/2022 9:59 AM IP/MOSAIC TECHNICIAN): - No signs/symptoms of acute infection noted on today's exam, though notably pt on doxycycline since 09/29/20, on antibiotics for several months (Bactrim/Amox). - Records of patients hospitalization at [facility] [place] not currently available. Will request those records. [...]
--- OUTSIDE RECORDS SUMMARY | 2025-04-07 16:58 | XMS_ITS | Clinical Summary ---
Author Organization [facility] Address [address] [place] [address] Care Team Providers Care Garment Turner Name Role Phone Julio C Rider MD Primary Care Provider [phone] Source Comments [facility],non-owned Affiliates and Associated Physician Practices is amultiple site organization consisting of ambulatory clinics and hospital sitesin [place], [place], [place] and [place]. This disclosure is being madepursuant to the Care Everywhere program and may not contain all information available regarding this patient. Last updated 18.[facility] [employer] Active Problems Problem Noted Date Diagnosed Date Hepatic encephalopathy 08/31/2024 Alcohol use, unspecified, uncomplicated 08/31/19 25 Social History Tobacco Use Types Packs/Day Years Used Date Smoking Tobacco: Never Assessed Sex and Gender Information Value Date Recorded Sex Assigned at Not on file Legal Sex Male 7:37 AM NEEDLEMAKER Gender Identity Not on file Sexual Orientation [...] to complete this topic Insurance Care Teams Garment Turner Relationship Specialty Start Date End Date Julio C Rider MD [address] [facility] [address] [place] [address] PCP - General Internal Medicine 01/25/14
[2025-04-07 17:02] VITALS: BP 132/63; PULSE 106; RESP 16; TEMP 37.1; O2SAT 92
--- NOTE | 2025-04-07 17:36 | ED_ITS ---
HPI - Wound/Laceration General Chief Complaint: Wound/Laceration Stated Complaint: lac to R leg Time Seen by Provider: 04/07/25 17:08 Source: patient and RN notes reviewed Mode of arrival: ambulatory Limitations: no limitations History of Present Illness HPI narrative: 70 y/o WM in the ED for c/o laceration to the RLE approximately 2hrs ago. Pt states he was in his basement, hit and lacerated the leg on an old metal fan. Pt went to , but sent here due to bleeding risk related to his cirrhosis and chronic alcohol abuse. Patient unsure of last tetanus shot and did not receive 1 at Urgent Care when he was there. Patient denies any warmth to the area, purulence drainage, loss of feeling to the extremity, or significant bleeding. Related Data Home Medications ?Medication ?Instructions ?Recorded ?Confirmed ?Last Taken ?Type folic acid 1 mg tablet 1 mg PO DAILY 01/04/23 04/05/25 01/24/25 History mecobalamin (vitamin B12) 1,000 1,000 mcg PO DAILY 10/18/23 04/05/25 01/24/25 History mcg chewable tablet furosemide 40 mg tablet (Lasix) 40 mg PO QAM 04/05/25 04/05/25 Unknown History Allergies Allergy/AdvReac Type Severity Reaction Status Date / Time No Known Allergies Allergy Mild Verified 04/07/25 17:00 Review of Systems Review of Systems: All systems reviewed & are unremarkable except as noted in HPI and below PMFSH Past Medical History Medical History Unspecified cirrhosis of liver Cirrhosis Heavy alcohol use Hypertension Primary osteoarthritis of right knee Food impaction of esophagus Mitral valve prolapse Acid reflux Seizure He outgrew his seizures Surgical History Surgical History History of right knee joint replacement 08/19/22- Dr Luna History of tonsillectomy H/O wisdom tooth extraction Hx of colonoscopy H/O esophagogastroduodenoscopy H/O total knee replacement Total knee replacement status Family History Family History Mother Diabetes mellitus Social History Social History Social History: The patient is x2. The patient is currently laid off. 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 He has 2 children. No alcohol for 2 years. He denies any marijuana or illicit drugs. 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, CHEWING TOBACCO QUIT 2019 Alcohol intake: former Alcohol use details: 6PK/DAY Substance use: current Substance use type: marijuana Last use: daily @ HS Current Housing: Decline to Answer Concerned About Future Housing: Decline to Answer Difficulty Paying Gas/Electric Bills: Decline to Answer Difficulty Paying for Meds: Decline to Answer Currently Unemployed: Decline to Answer Education: Decline to Answer Difficulty w/ Childcare or Family Care: Decline to Answer Living arrangements: alone Occupation/Education: retired Additional occupation/education comments: [employer] Gender identity (if verbalized by the patient): Male Spiritual care concerns: No Exam Narrative: GENERAL: Well-appearing, well-nourished, and in no acute distress. EXTREMITIES: Normal range of motion. No edema. 5cm X 5cm L-shaped laceration to right lateral lower extremity. Bleeding controlled w/ dressing. CSM function intact to RLE SKIN: Warm, dry, no rash. NEURO: No focal deficits. Alert and oriented x3. PSYCH: Normal mood and affect. Course Vital Signs Vital signs: Vital Signs Temperature 37.1 C 04/07/25 17:02 Pulse Rate 106 H 04/07/25 17:02 Respiratory Rate 16 04/07/25 17:02 Blood Pressure 132/63 04/07/25 17:02 Pulse Oximetry 92 04/07/25 17:02 Temperature 37.1 C 04/07/25 17:02 Pulse Rate 106 H 04/07/25 17:02 Respiratory Rate 16 04/07/25 17:02 Blood Pressure 132/63 04/07/25 17:02 Pulse Oximetry 92 04/07/25 17:02 Procedures Laceration Laceration 1: Date: 04/07/25 Time: 19:08 Site: lower extremity Side (If applicable): right Size (cm): 5 Description: flap and irregular Depth: simple, single layer Local Anesthetic: lidocaine 1% Amount of anesthesia used (mL): 8 Pre-repair: wound explored and irrigated extensively ====== Skin Level ====== Skin layer closed with: nylon Size (cm): 5-0 Number of sutures: 7 Technique: simple, interrupted ====== Subcutaneous Layer ====== ====== Muscle Layer ====== ====== Tendon Layer ====== Dressing: covered w/ polysporin, dressed w/ telfa pad and 2inch kerlix, tape MDM - Wound/Laceration MDM Narrative Medical decision making narrative: My Plan Labs Ordered: None Imaging Ordered: right tib/fib xray Medications Ordered: TDaP Results: No fracture noted or evidence of metal fragments in the wound bed per the x-ray. Diagnosis: laceration, RLE Risks: Consults: Wound cleaned and closed per note. Pt DM controlled, area is well vascularized, no abx at this time. Pt given close f/u with PCP and instruction for when to return. TDaP given in the ED. Differential Diagnosis Differential diagnosis: Likely laceration, abrasion and avulsion of skin Medical Records Attestation: I reviewed the patient's medical records. Imaging Data Attestation: I personally reviewed and interpreted this imaging study as f zens: My impression: No fracture noted or evidence of metal fragments in the wound bed per the x-ray. Radiologist's impression: ITS Impressions Tibia/Fibula X-Ray 04/07/25 18:28 IMPRESSION: No acute osseous finding in the right tibia/fibula. Discharge Plan Discharge Clinical Impression: Laceration Patient Disposition: Home Condition: Stable Instructions: Antibiotic Form, Laceration (ED) Additional Instructions: Keep wound clean and dry. You can use [id number] bacitracin or Neosporin for wound antibiotics. Keep uncovered with Band-Aid or other bandage. Follow- up primary care doc in 7-10 days for suture removal. If wound drains pus, the area gets red and swollen, he developed fevers or chills, please come back to the ER immediately or contact her primary care provider without fail. Please return to the ER with any worsening symptoms. ?Follow-up with primary care provider as soon as possible. ?Take all medications as prescribed, in cluding regularly scheduled medications. Patient Language: Croatian Prescriptions: No Action furosemide [Lasix] 40 mg tablet 40 mg PO QAM prednisone 10 mg tablet 10 mg PO BID 10 Days Qty: 20 0RF folic acid 1 mg tablet 1 mg PO DAILY mecobalamin (vitamin B12) 1,000 mcg tablet,chewable 1,000 mcg PO DAILY (DME) lancets [OneTouch UltraSoft 2 Lancet] 30 gauge misc See Rx Instructions .Route Qty: 100 3RF Rx Instructions: check blood sugar once daily (DME) blood-glucose meter [OneTouch Verio Reflect Meter] Misc See Rx Instructions .Route Qty: 1 0RF Rx Instructions: check blood sugar once daily (DME) OneTouch Verio test strips Strip See Rx Instructions .Route Qty: 100 3RF Rx Instructions: check blood sugar once daily glipizide 5 mg tablet extended release 24hr 5 mg PO BID Qty: 180 2RF cholestyramine (with sugar) 4 gram powder 4 g PO BID Qty: 1134 3RF Rx Instructions: Administer with meal avoid other meds within 1 hr before or 4-6 hr after dose ferrous sulfate 325 mg (65 mg iron) tablet 325 mg PO DAILY Qty: 90 3RF lactulose 10 gram/15 mL solution 30 g PO BID Qty: 3785 4RF omeprazole 40 mg capsule,delayed release(DR/EC) 40 mg PO DAILY Qty: 90 2RF Rx Instructions: TAKE 1 CAPSULE BY MOUTH EVERY DAY cyclobenzaprine 10 mg tablet 10 mg PO QHS PRN (Reason: muscle spasm) Qty: 90 0RF Rx Instructions: Must last 90 days potassium chloride [K-Tab] 20 mEq tablet extended release 20 meq PO DAILY Qty: 90 3RF bumetanide 2 mg tablet 2 mg PO BID Qty: 60 3RF gabapentin 300 mg capsule 300 mg PO TID Qty: 270 1RF Follow-up/Referrals: Kerwin Chavez DO [Primary Care Provider] - 1 Week
--- OUTSIDE RECORDS SUMMARY | 2025-04-07 17:39 | XMS_ITS | Clinical Summary ---
Author Organization [facility] Address [address] [place] [address] Care Team Providers Care Special Weapons And Tactics Officer Name Role Phone Julio C Rider MD Primary Care Provider [phone] Source Comments [facility],non-owned Affiliates and Associated Physician Practices is amultiple site organization consisting of ambulatory clinics and hospital sitesin [place], [place] and [place]. This disclosure is being madepursuant to the Care Everywhere program and may not contain all information available regarding this patient. 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
--- OUTSIDE RECORDS SUMMARY | 2025-04-07 17:39 | XMS_ITS | Clinical Summary ---
Author Organization [facility] Address [address] [place] [address] Care Team Providers Care Plastic Printer Name Role Phone Jaylan Gaitan PA-C Primary Care Provider [phone] Allergies No known active allergies Medications omeprazole [...] complication, without long-term current use of insulin ([facility]) Use this to check your blood [...] glasses of whiskey mixed per day [facility] Utilities Answer Date Recorded In the past 12 months has [facility] [employer], oil, or water [employer] threatened to shut off services in your [...] Comments Blood Pressure 117/66 10/10/2023 10:29 AM TAX EXAMINER Pulse 95 10/10/2023 10:29 AM TAX EXAMINER Temperature 36.6 C (97.9 F) 10/10/2023 10:29 AM TAX EXAMINER Respiratory Rate 18 10/10/2023 10:29 AM TAX EXAMINER Oxygen Saturation 98% 10/10/2023 10:29 AM TAX EXAMINER Inhaled Oxygen Concentration - - Weight 118 kg (260 lb 2.3 oz) 10/10/2023 5:03 AM TAX EXAMINER Height 185.4 cm (6' 1) 10/04/2023 3:15 PM TAX EXAMINER Body Mass Index 34.32 10/04/2023 3:15 PM TAX EXAMINER Plan of Treatment Health Maintenance Due Date [...] VE NON-REACTI VE 12/22/2022 8:44 AM CDT [facility] HEP B CORE TOTAL AB NON-REACTI VE NON-REACTI VE 12/22/2022 8:44 AM CDT [facility] HEP B SURFACE AB NON-REACTI VE 12/22/2022 8:44 AM CDT [facility] HAV IGM NON-REACTI VE NON-REACTI VE 12/22/2022 8:44 AM CDT [facility] HEPATITIS C AB NON-REACTI VE NON-REACTI VE 12/22/2022 8:44 AM CDT [facility] 12/22/2022 5:46 AM CDT Shonda Arreola [facility] Final Result [facility] [address] [place] [address], from Last 3 Months or Most Recently [...] 6:54 PM 12/26/2022 10:01 PM Care Teams Plastic Printer Relationship Specialty Start Date End Date Jaylan Gaitan PA-C [address] [facility] [address] [place] [address] PCP - General PHYSICIAN INDIVIDUAL SMALL GROUP INSTRUCTOR 12/18/22
--- OUTSIDE RECORDS SUMMARY | 2025-04-07 17:39 | XMS_ITS | Clinical Summary ---
Author Organization [facility] Address [address] [place] [id number] Care Team Providers Care In Home Caregiver Name Role Phone Jaylan Gaitan Primary Care Provider Az Luna MD Unavailable [phone] Allergies No known active allergies Medications furosemide (LASIX) 40 mg tablet Take 1 tablet (40 mg total) by mouth daily 30 tablet 12/30/2022 Active folic acid (FOLVITE) 1 mg tablet Take 1 tablet (1 mg total) by mouth daily 30 tablet 12/31/2022 Active cyanocobalamin/ folic acid (vitamin X34-ogzpy acid) 500-400 mcg tablet Take by mouth [...] 10/27/2022 Assessment & Plan (10/27/2022 9:59 AM AIR REDUCTION EQUIPMENT OPERATOR): - No signs/symptoms of acute infection noted on today's exam, though notably pt on doxycycline since 09/29/20, on antibiotics for several months (Bactrim/Amox). - Records of patients hospitalization at [facility] not currently available. Will request those [...] on file Legal Sex Male 3:11 AM AIR REDUCTION EQUIPMENT OPERATOR Gender Identity Not on file Sexual [...] 2024, 04/21/2021 Influenza Vaccine (#1) 2025 Insurance [facility] [employer] [facility] [employer] Advance Directives For more information, please contact: [phone] * Full Code (Latest Code Status on File) Date Activated Date Inactivated Comments 12/26/2022 8:50 PM 12/30/2022 9:47 PM Care Teams In Home Caregiver Relationship Specialty Start Date End Date Jaylan Gaitan PA [address] [facility] [address] [place], [place] [id number] PCP - General Physician Mini Baccarat Dealer 10/05/22 Az Luna MD [address] [place] [address] Referring Physician Orthopedic Surgery 10/05/22
--- OUTSIDE RECORDS SUMMARY | 2025-04-07 17:39 | XMS_ITS ---
Author Organization [facility] Address [address] [place] [phone] Care Team Providers Care Shop Director Name Role Phone Jaylan Gaitan Primary Care Provider Az Luna MD Unavailable [phone] Active Problems Problem Noted Date Diagnosed Date Screening for colorectal cancer 03/18/2023 Colorectal cancer 03/17/2023 Moderate malnutrition 12/29/2022 Cirrhosis 12/26/2022 Other mechanical complicatio n of other specified internal prosthetic devices, implants and grafts, initial encounter 10/27/2022 Assessment & Plan (10/27/2022 9:59 AM CLINICAL EDUCATION CONSULTANT): - No signs/symptoms of acute infection noted on today's exam, though notably pt on doxycycline since 09/29/20, on antibiotics for several months (Bactrim/Amox). - Records of patients hospitalization at [facility] in [place] not currently available. Will request those records. [...]
[2025-04-07] MEDS: TETANUS,DIPHTHERIA,AC PERTUSSIS ADULT (0.5 ML) BOOSTRIX IM (17:58)
[2025-04-07 19:31] VITALS: BP 129/75; PULSE 76; RESP 16; TEMP 36.8; O2SAT 98
== END 2025-04-07 19:32 | disposition home or self-care (01) ==
PROVIDERS: Emergency Provider Registered Nurse Emergency; PCP Internal Medicine
DX: S81.811A Laceration without foreign body, right lower leg, initial encounter (principal); W26.8XXA Contact with other sharp object(s), not elsewhere classified, initial encounter; K74.60 Unspecified cirrhosis of liver; I10 Essential (primary) hypertension; Z96.651 Presence of right artificial knee joint; Z87.891 Personal history of nicotine dependence; F10.10 Alcohol abuse, uncomplicated; Z23 Encounter for immunization
CPT/HCPCS: 12004; 73590; 90471; 90715; 99283

== ENCOUNTER 2025-07-25 13:50 | Outpatient (CLI) | payer MEDICARE, SELFPAY ==
--- NOTE | ~2025-07-25 | US_ITS ---
EXAMINATION:US venous doppler LE BI INDICATION:Left leg swelling TECHNIQUE: Multiple grayscale, color flow and Doppler images of the left lower extremity deep venous systems were obtained and reviewed. COMPARISON:11/12/2022 FINDINGS: The common femoral, superficial femoral and popliteal veins demonstrate normal respiratory variation, augmentation and compressibility. Color flow is also seen within the posterior tibial, greater saphenous and profunda veins. Peroneal veins are not well visualized due to soft tissue edema. IMPRESSION: 1: No lower extremity deep venous thrombosis. Reviewed, dictated and finalized at location O. T AUDITOR
--- OUTSIDE RECORDS SUMMARY | 2025-07-25 13:54 | XMS_ITS ---
Author Organization [facility] Address [address] [place] [id number] Care Team Providers Care Ice Cream Dipper Name Role Phone Jaylan Gaitan Primary Care Provider Az Luna MD Unavailable [phone] Active Problems Problem Noted Date Diagnosed Date Screening for colorectal cancer 03/18/2023 Colorectal cancer 03/17/2023 Moderate malnutrition 12/29/2022 Cirrhosis 12/26/2022 Other mechanical complicatio n of other specified internal prosthetic devices, implants and grafts, initial encounter 10/27/2022 Assessment & Plan (10/27/2022 9:59 AM SALES OPERATIONS DIRECTOR): - No signs/symptoms of acute infection noted on today's exam, though notably pt on doxycycline since 09/29/20, on antibiotics for several months (Bactrim/Amox). - Records of patients hospitalization at [facility] in [place] not currently available. Will request those records. [...]
--- OUTSIDE RECORDS SUMMARY | 2025-07-25 13:54 | XMS_ITS | Clinical Summary ---
Author Organization [facility] Address [address] [place] [phone] Care Team Providers Care Funeral Director Name Role Phone Jaylan Gaitan Primary Care Provider Az Luna MD Unavailable [phone] Allergies No known active allergies Medications furosemide (LASIX) 40 mg tablet Take 1 tablet (40 mg total) by mouth daily 30 tablet 12/30/2022 Active folic acid (FOLVITE) 1 mg tablet Take 1 tablet (1 mg total) by mouth daily 30 tablet 12/31/2022 Active cyanocobalamin/ folic acid (vitamin J02-qyadw acid) 500-400 mcg tablet Take by mouth [...] 10/27/2022 Assessment & Plan (10/27/2022 9:59 AM KILN SETTER): - No signs/symptoms of acute infection noted on today's exam, though notably pt on doxycycline since 09/29/20, on antibiotics for several months (Bactrim/Amox). - Records of patients hospitalization at [facility] not currently available. Will request [...] on file Legal Sex Male 3:11 AM KILN SETTER Gender Identity Not on file Sexual Orientation [...] Assessment 12/31/2023 12/30/2022 Covid-19 Vaccine ( season) 2025, 04/21/2021 Influenza Vaccine (#1) 2025 Insurance [facility] [employer] Advance Directives For more information, please contact: [phone] * Full Code (Latest Code Status on File) Date Activated Date Inactivated Comments 12/26/2022 8:50 PM 12/30/2022 9:47 PM Care Teams Funeral Director Relationship Specialty Start Date End Date Jaylan Gaitan PA [address] [place] [address] [place] [address] PCP - General Physician Picker Machine Operator 10/05/22 Az Luna MD [address] [place] [address] Referring Physician Orthopedic Surgery 10/05/22
--- OUTSIDE RECORDS SUMMARY | 2025-07-25 13:55 | XMS_ITS | Clinical Summary ---
Author Organization [facility] Address [address] [place] [address] Care Team Providers Care Locate Technician Name Role Phone Jaylan Gaitan PA-C Primary Care Provider [phone] Allergies No known active allergies Medications omeprazole [...] complication, without long-term current use of insulin ([facility]) Use this [...] Diagnosed Date Encephalopathy 10/04/2023 Decompensated hepatic cirrhosis 01/28/2023 Leg edema 12/18/2022 Social History Tobacco Use Types Packs/Day Years Used Date Smoking Tobacco: Never Smokeless Tobacco: Former Chew Quit: 03/10/2021 Tobacco Cessation:Counseling Given: Not Answered Alcohol Use Standard Drinks/Week Comments Not Currently 0 (1 standard drink = 0.6 oz pure alcohol) 3 glasses of whiskey mixed per day [facility] Utilities Answer Date Recorded In the past [address] [facility] [employer], [employer], or water [employer] threatened to shut off services in your [...] place to sleep or slept in a detention (including now)? No 10/08/2023 Sex and Gender Information Value Date Recorded Sex Assigned at Not on file Legal Sex Male 5:27 PM CDT Gender Identity Not on file Sexual Orientation Not on file Last Filed Vital Signs Vital Sign Reading Time Taken Comments Blood Pressure 117/66 10/10/2023 10:29 AM MANAGER EQUIPMENT Pulse 95 10/10/2023 10:29 AM MANAGER EQUIPMENT Temperature 36.6 C (97.9 F) 10/10/2023 10:29 AM MANAGER EQUIPMENT Respiratory Rate 18 10/10/2023 10:29 AM MANAGER EQUIPMENT Oxygen Saturation 98% 10/10/2023 10:29 AM MANAGER EQUIPMENT Inhaled Oxygen Concentration - - Weight 118 kg (260 lb 2.3 oz) 10/10/2023 5:03 AM MANAGER EQUIPMENT Height 185.4 cm (6' 1) 10/04/2023 3:15 PM MANAGER EQUIPMENT Body Mass Index 34.32 10/04/2023 3:15 PM MANAGER EQUIPMENT Plan of Treatment Health Maintenance Due Date Last Done Comments Colorectal Cancer Screening Colonoscopy (10 Years) 1957 Hepatitis C 1975 DTaP, Tdap and Td Vaccines ( 1 - Tdap) 1976 Hepatitis A Vaccines (1 of 2 - Risk 2-dose series) 1976 Pneumococcal Vaccine: 50+ Years (1 of 2 - PCV) 1976 Zoster Vaccines (1 of 2) 2007 RSV Immunization or 60+ Years (1 - Risk 60-74 years 1-dose series) 2017 Annual Medicare Wellness Visit 2022 COVID-19 Vaccine (3 - 2024-2 6 season) 2025 05/12/2021, 04/21/2021 Influenza Adult (#1) 2025 Meningococcal B Vaccine Aged Out No l [...] discharge from hospital Lifestyle No Cathy Cote, RN Health - patient able to perform ADLs independently Lifestyle No Kanu Bhatt RN Insurance [employer] MEDICARE Advance Directives * Full Code (Latest Code Status on File) Date Activated Date Inactivated Comments 10/04/2023 6:05 PM 10/10/2023 12:55 PM * Full Code Date Activated Date Inactivated Comments 01/28/2023 2:03 AM 02/07/2023 1:52 PM * Full Code Date Activated Date Inactivated Comments 12/24/2022 6:54 PM 12/26/2022 10:01 PM Care Teams Locate Technician Relationship Specialty Start Date End Date Jaylan Gaitan PA-C [address] [facility] [address] [place] [address] PCP - General PHYSICIAN BOILERMAKER WELDER 12/18/22
--- OUTSIDE RECORDS SUMMARY | 2025-07-25 13:55 | XMS_ITS | Clinical Summary ---
Author Organization [facility] Address [address] [place] [address] Care Team Providers Care Mannequin Refinisher Name Role Phone Julio C Rider MD Primary Care Provider [phone] Source Comments [facility],non-owned Affiliates and Associated Physician Practices is amultiple site organization consisting of ambulatory clinics and hospital sitesin [place], [place], [place] and [place]. This disclosure is being madepursuant to the Care Everywhere program and may not contain all information available regarding this patient. 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
== END 2025-07-25 13:51 | disposition home or self-care (01) ==
PROVIDERS: PCP Internal Medicine; Visit Provider Internal Medicine
DX: M79.89 Other specified soft tissue disorders (principal); R60.9 Edema, unspecified
CPT/HCPCS: 93970